=== PATIENT | female | born 1935 | race Caucasian/White ===

== ENCOUNTER 2017-01-26 19:10 | Inpatient (IN) ==
[2017-01-26] MEDS ORDERED: SODIUM CHLORIDE 0.9% 1,000 ML IV STA (19:43)
[2017-01-26] MEDS ORDERED: VANCOMYCIN INJ 1,000 MG in SODIUM CHLORIDE 0.9% 250 ML IV STA (19:46)
[2017-01-26] MEDS ORDERED: VANCOMYCIN 1,000 MG VIAL ONE (19:56)
--- NOTE | 2017-01-26 20:18 | Emergency Department Note ---
Mariza Youngblood Gwan, am scribing for, and in the presence of, Danielle Duncan DO 19:55 . IDakota Debra, DO, personally performed the services described in this documentation, ascribed by Maribell Dawkins in my presence, and it is both accurate and complete . Arrival - Arrival Chief Complaint: Altered Mental Status ED Nursing Triage Note: C/O Transfer from [place] for further evaluation of altered mental status. Unknown onset. Pt lives alone and based on report she was found altered. EMS removed a fentanyl patch and 0.4mg narcan was given with a little improvement. Pt is very altered at time of triage and is having visual hallucinations. No family is present at this time. Pt was given 500ml LR bolus , Duoneb tx x 1, Decadron 8mg IV, Vancomycin 1 gram IV, Mag Sulfate 2 grams IV, Zosyn 3.375grams IV and Solumedrol 125mg IV Mode of Arrival: Stretcher Limitations: No Limitations Source: Patient, Family (Daughter ), Old Records Reviewed, RN Notes Reviewed Time Seen by Provider: 01/26/17 19:21 - History of Present Illness HPI Narrative: Patient is a 81 y/o white female who presents to the ED for further evaluation of AMS with an unknown onset. Pt has a PMHx of HTN, CHF, cardiomyopathy, Thyroid disorder, COPD, bronchitis and pneumonia. Daughter stated that pt lives alone and when she arrived at the pt's home she found her altered and alerted EMS. Daughter continued to note that pt was having visual hallucinations and being combative. EMS confirmed that they removed a Fentanyl Patch and that they gave her 0.4mg Narcan with some improvement. Patient was originally taken to [facility], but once the family arrived pt was transferred to [place]. No other problems/concerns reported in ED. Onset (ago): hour(s) Consistency: constant Severity: moderate Date of Last Menstrual Period: PM Allergies/Adverse Reactions: Allergies Allergy/AdvReac Type Severity Reaction Status Date / Time No Known Allergies Allergy Verified 10/01/16 07:19 Home Medications: Home Medications Medication Instructions Recorded Confirmed Type Amlodipine Besylate/Benazepril 1 each PO DAILY 01/26/17 01/26/17 History [Amlodipine-Benazepril 10-40 mg] Escitalopram Oxalate 10 mg PO DAILY 01/26/17 01/26/17 History Hydrocodone/Acetaminophen [Lamar 1 each PO Q6HR 01/26/17 01/26/17 History 10-325 Tablet] Levothyroxine Tab [Synthroid Tab] 200 mcg PO DAILY@0700 01/26/17 01/26/17 History fentaNYL [Fentanyl 100 mcg/hr 1 patch TRANSDERM Q3DAY 01/26/17 01/26/17 History Patch] Review of System - Review of System ROS unobtainable: due to mental status Medical,Surgical,& Family Hx - Medical History Cardio: History of: Cardiac Dysrhythmia, CHF, Hypertension, Cardiovascular Problems (enlarged heart; cardiomyopathy) Psychological: History of: Depression Endocrine: History of: Thyroid Disorder Respiratory: History of: Bronchitis, COPD, Pneumonia Other: History of: Skin Problems (history of skin abscess left upper leg; Dr. González Jr.) No history of: HIV - Surgical History Cardiac Surgeries: Patient Denies: Femoral-Popliteal Bypass Graft, Cardiac Catheterization, Cardiac Surgery, Carotid Endarterectomy, Internal Defibrillator, Vascular Access Devices HEENT Surgeries: Patient denies: Carotid Endarterectomy - Family History Family History: Reports;: Family Hypertension (uncertain) - Social History Smoking Status: Current every day smoker Frequency of Alcohol Use: Unknown Type of Drug Use: None Exam Vital Signs: Vital Signs Temperature 100.2 F H 01/26/17 19:10 Pulse Rate 126 H 01/26/17 19:10 Respiratory Rate 24 01/26/17 19:10 Blood Pressure 171/99 01/26/17 19:10 O2 Sat by Pulse Oximetry 90 L 01/26/17 19:10 - General General appearance: alert, in no apparent distress - Head Head exam: Present: atraumatic, normocephalic - Eye Eye exam: Present: normal appearance, PERRL, EOMI - ENT ENT exam: Present: normal oropharynx, mucous membranes dry, TM's normal bilaterally, normal external ear exam - Neck Neck exam: Present: full ROM, trachea midline. Absent: tenderness - Chest Chest inspection: Present: symmetric chest wall rise. Absent: tenderness - Respiratory Respiratory exam: Present: rales (mildly), rhonchi (expiratory ), wheezes - Cardiovascular Cardiovascular exam: Present: regular rate, normal rhythm, normal heart sounds. Absent: murmur - Abdominal Exam Abdominal exam: Present: tenderness (diffuse tenderness in abdomen) - Extremities Exam Extremities exam: Present: full ROM. Absent: tenderness - Back Exam Back exam: Present: full ROM. Absent: tenderness - Neurological Exam Neurological exam: Present: alert, other (Patient is mildly confused. ) - Psychiatric Psychiatric exam: Present: other (Patient is mildly confused. ) - Skin Skin exam: Present: warm, dry, intact, normal color Results - Labs Lab Results: I have reviewed the patients labs Labs: Laboratory Tests 01/26/17 20:21 Urine pH 6.0 Ur Specific [place] 1.010 Urine Protein 30 Urine Blood Small Urine Urobilinogen < 2.0 H Urine RBC 2 Urine WBC 1 Laboratory Tests 01/26/17 20:12 Lactic Acid 1.0 - Diagnostic Findings Procedure: CT Abdomen and Pelvis: report reviewed by me (1. Loculated collection of fluid in the pelvis possibly within the vaginal canal. Clinical correlation requested. 2. Mild right basilar infiltrate/atelectasis. 3. Cardiomegaly. 4. Other findings grossly similar on the prior studies. ), CT: report reviewed by me (Head: There is diffuse atrophy with moderate patchy white matter low densities present. A small area of chronic cortical loss in the right frontoparietal region and right parietal lobe are present. Tiny area of chronic cortical loss in the right posterior parietal region present. There is a small area of chronic encephalomalacia in the anterior right basal ganglia. ) Disposition Clinical Impression: Pneumonia, Altered mental status Case discussed with: patient, patient's family Disposition: Still a Patient Condition: Stable Time of Disposition: 22:14
--- NOTE | 2017-01-26 20:29 | CT Report ---
History is altered LOC, history of lung cancer There is diffuse atrophy with moderate patchy white matter low densities present. A small area of chronic cortical loss in the right frontoparietal region and right parietal lobe are present. Tiny area of chronic cortical loss in the right posterior parietal region present. There is a small area of chronic encephalomalacia in the anterior right basal ganglia No acute hemorrhage or mass effect seen. No acute cortical stroke identified. Impression: Chronic ischemic changes described above The CT exam was performed using one or more of the following dose reduction techniques: Automated exposure control, adjustment of the mA and/or kV according to patient size, or use of iterative reconstruction technique. PROCEDURE INTERPRETED AT [facility] DEPARTMENT OF RADIOLOGY Final Report Signed by: Dr. Kaitlin Bocanegra
[2017-01-26 20:34] LABS: Apearance,Urine CLEAR (Clear); Bacteria,Urine Occasional /HPF (Few); Bilirubin,Urine Negative (Negative); Blood, Urine Small mg/dL (Negative); Glucose,Urine (UA) Negative (Negative); Ketones,Urine Negative (Negative); Nitrite,Urine Negative (Negative); Protein,Urine 30 MG/DL; RBC,Urine 2 /HPF (0-4); Urine Color Straw (Yellow); Urine Urobilinogen < 2.0 EU/DL (0.2-1.0); WBC,Urine 1 /HPF (0-6)
--- NOTE | 2017-01-26 21:52 | CT Report ---
History is abdominal pain and history of lung cancer Comparison 12/19/2016 81 Cc Omni 350 utilized There is patchy and stranding opacity in the visualized right lung base. The heart is moderately enlarged. There is a moderate hiatal hernia present. Less than 1 cm nodular area of enhancement in the right lobe of the liver is present on prior studies dating back to August 23, 2016. Contrast flow artifact in the portal vein felt to be present. No focal defects seen in the uterus plane, pancreas, or adrenals. Mild diffuse thickening in the left adrenal gland unchanged. Lobulated renal contours without to 3.5 cm right renal cysts again seen. Marked scoliosis and degenerative change in the spine present with marked ectasia of the abdominal aorta. Several up to 1.2 cm periaortic nodes grossly unchanged. Bowel is unopacified limiting visualization. Biliary system grossly similar on the prior study Pelvis: Unopacified bowel and fecal material is significantly limits visualization. Minimal diverticuli present.. A 2 x 3 cm fluid collection in the lower pelvis possibly within the vaginal canal. No significant free fluid seen in the pelvis. Urinary bladder is not well-distended. 1 cm inguinal nodes present. Chronic pelvic fractures present. Impression: 1. Loculated collection of fluid in the pelvis possibly within the vaginal canal. Clinical correlation requested. 2. Mild right basilar infiltrate/atelectasis 3. Cardiomegaly 4. Other Findings grossly similar on the prior studies The CT exam was performed using one or more of the following dose reduction techniques: Automated exposure control, adjustment of the mA and/or kV according to patient size, or use of iterative reconstruction technique. PROCEDURE INTERPRETED AT [facility] DEPARTMENT OF RADIOLOGY Final Report Signed by: Dr. Kaitlin Bocanegra
[2017-01-26] MEDS ORDERED: PIPERACILLIN/TAZOBACTAM 3,375 MG in SODIUM CHLORIDE 0.9% 100 ML IV STA (22:12)
[2017-01-26] MEDS ORDERED: LACTULOSE 20 GM/30 ML UDCUP PO PRN (22:14)
[2017-01-26] MEDS ORDERED: MYLANTA/LIDO VISC 2:1 300 ML BOTTLE SWISH/SWAL PRN (22:14)
[2017-01-26] MEDS ORDERED: MAGNESIUM HYDROXIDE SUSP 30 ML UDCUP PO PRN (22:14)
[2017-01-26] MEDS ORDERED: traMADol 50 MG TABLET PO PRN (22:14)
[2017-01-26] MEDS ORDERED: chlorproMAZINE 25 MG TABLET PO PRN (22:14)
[2017-01-26] MEDS ORDERED: MYLANTA/LIDO VISC 2:1 300 ML BOTTLE SWISH/SPIT PRN (22:14)
[2017-01-26] MEDS ORDERED: LOPERAMIDE 2 MG CAPSULE PO PRN ×2 (22:14)
[2017-01-26] MEDS ORDERED: chlorproMAZINE INJ 50 MG in SODIUM CHLORIDE 0.9% 100 ML IV PRN (22:14)
[2017-01-26] MEDS ORDERED: guaiFENesin 200 MG/10 ML UDCUP PO PRN (22:14)
[2017-01-26] MEDS ORDERED: chlorproMAZINE INJ 25 MG in SODIUM CHLORIDE 0.9% 100 ML IV PRN (22:14)
[2017-01-26] MEDS ORDERED: ACETAMINOPHEN 325 MG TABLET PO PRN (22:14)
[2017-01-26] MEDS ORDERED: PROMETHAZINE INJ 25 MG in SODIUM CHLORIDE 0.9% 50 ML IV PRN (22:14)
[2017-01-26] MEDS ORDERED: diphenhydrAMINE CAP 25 MG CAPSULE PO PRN (22:14)
[2017-01-26] MEDS ORDERED: BENZTROPINE 2 MG/2 ML AMP IV PRN (22:14)
[2017-01-26] MEDS ORDERED: PIPERACILLIN/TAZOBACTAM 3,375 MG VIAL IV ONE (22:15)
[2017-01-26] MEDS ORDERED: SODIUM CHLORIDE 0.9% 100 ML IV ONE (22:16)
[2017-01-26] MEDS: ALBUTEROL/IPRATROPIUM 3 ML NEB RESP TX SCH (23:53)
[2017-01-27 00:43] LABS: Magnesium 1.9 MG/DL (1.8-2.4); Uric Acid 4.7 MG/DL (2.6-6.0)
[2017-01-27] MEDS: SODIUM CHLORIDE 0.9% 1,000 ML IV SCH ×3 (00:43→21:21)
[2017-01-27 04:26] LABS: Basophils % 0.2 % (0.0-0.8); Hematocrit 33.8 VOL% (35.7-47.0); Hemoglobin 10.7 GM/DL (12.0-16.0); Immature Granulocytes % 2.4 %; Immature Granulocytes Absolute 0.47 #; Lymphocytes # 0.2 10*3/uL (1.4-4.0); Lymphocytes % 1.2 % (21.3-54.2); Mean Corpuscular HGB Conc 31.7 GM/DL (32-36); Mean Corpuscular Hemoglobin 31 PG (27-34); Mean Corpuscular Volume 97.1 FL (87-102); Mean Platelet Volume 9.8 FL (9.6-12.0); Monocytes # 0.6 10*3/uL (0.11-0.8); Monocytes % 3.1 % (1.7-12.7); Neutrophils # 18.6 10*3/uL (1.4-7.4); Neutrophils % 93.1 % (38.7-73.9); Platelet Count 247 T/CUMM (130-400); Red Blood Count 3.48 MC/CUMM (3.8-5.5); Red Cell Distribution Width 15.2 % (9.3-17.3)
[2017-01-27 04:54] LABS: Calcium 8.4 MG/DL (8.5-10.1); Osmolality,Calculated 288.1 MOS/KG (273-304); Potassium 3.9 MMOL/L (3.5-5.1)
[2017-01-27] MEDS: PIPERACILLIN/TAZOBACTAM 3,375 MG in SODIUM CHLORIDE 0.9% 100 ML IV SCH ×3 (05:22→21:21)
[2017-01-27 05:56] LABS: Band Neutrophils 17 % (0-10); Lymphocytes 2 % (20-55); Metamyelocytes 4 %; Segmented Neutrophils 76 % (50-85); Total Cells Counted 100
[2017-01-27 05:57] LABS: Platelet Estimate Normal
[2017-01-27] MEDS: ALBUTEROL/IPRATROPIUM 3 ML NEB RESP TX SCH ×4 (07:15→19:04)
--- NOTE | 2017-01-27 08:06 | XRay Report ---
Portable chest. Indication: Shortness of breath. Comparison: January 26, 2017. The left costophrenic angle is clipped from the exam. The cardiac silhouette is enlarged. A hiatal hernia is present. There is calcific plaque present within the aortic knob. The pulmonary vasculature is prominent. There are interstitial infiltrates bilaterally. There is worsening atelectasis at the right lung base, and a right pleural effusion is suspected. The osseous structures are stable, with demineralization and bilateral shoulder degenerative changes. Rotator cuff injury is also suggested at the right shoulder, chronic. Impression: Cardiomegaly, venous congestion and findings suggesting congestive heart failure. Worsening atelectasis at the right lung base. PROCEDURE INTERPRETED AT [facility] DEPARTMENT OF RADIOLOGY Final Report Signed by: Dr. Ilene Bocanegra
[2017-01-27] MEDS ORDERED: VANCOMYCIN (NICU) 1,000 MG in SYRINGE 1 EACH IV SCH (09:00)
--- NOTE | 2017-01-27 09:47 | EKG Report ---
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
--- NOTE | 2017-01-27 10:15 | Oncology History&Physical ---
Assessment and Plan (1) Pneumonia Status: Acute Assessment and plan: Right basilar infiltrate, low grade temps, and bandemia on CBC diff will manage as pneumonia - continue with vanco and zosyn - cultures pending - continue with IVF hydration watching volume status with history of CHF - nebs PRN - will hold steroids as patient without wheezing Current Visit: Yes (2) Abdominal pain Status: Resolved Assessment and plan: etiology unclear - CT abd/pelvis in ER with no acute pathology - pain largely resolved today - UA negative - will observe for now Current Visit: No Qualifiers: Abdominal location: periumbilical Qualified Code(s): R10.33 - Periumbilical pain (3) Altered mental status Status: Acute Assessment and plan: AMS per history in ER. - CT head negative - likely related to delirium in the setting of infection - will re-initiate fentanyl and observe for tolerance. patient has taken for years without complication Current Visit: Yes (4) JIMBO (acute kidney injury) Status: Acute Assessment and plan: continue with light hydration - will hold lisinopril for now and continue with norvasc Current Visit: Yes (5) Squamous cell carcinoma of right lung Status: Acute Assessment and plan: completed chemoradiation. will follow up outpatient for further evaluation Current Visit: No (6) COPD (chronic obstructive pulmonary disease) Status: Acute Assessment and plan: Nebs PRN - continue wtih symbicort Current Visit: No (7) Paroxysmal atrial fibrillation Status: Acute Assessment and plan: Continue with apixiban - continue with b dyllan Current Visit: No History of Present Illness Chief complaint: altered mental status History of present illness: Ms. Witt is a 81 year old female PMHx CHF, HTN, hypothyroid, COPD, and SCC of the lung per patient completed concurrent chemoradiation about a month ago presented with altered mental status of unknown duration and visual hallucinations per ER records. Patient initially presented to [place] and was given narcan and removal of a fentanyl patch. Family requested transfer to [place]. In ER patient had a negative CT head. Per patient she started to have severe LUQ/flank pain starting on 01/26 suddenly and was unbearable and this is why she called EMS. She denies change in breathing. Refers phlegm. No fevers. No dysuria. Pain left flank improved significantly today. Refers poor PO intake but has been eating. No wheezing. No N/V/D. Patient unaware of if presented with AMS. This has resolved by today. States has been on fentanyl patch for years without complication and no recent change. Home Medications Medication Instructions Recorded Confirmed Type Amlodipine Besylate/Benazepril 1 each PO DAILY 01/26/17 01/26/17 History [Amlodipine-Benazepril 10-40 mg] Apixaban [Eliquis] 5 mg PO BID 01/26/17 01/26/17 History Budesonide/Formoterol 160-4.5 2 puffs INH BID 01/26/17 01/26/17 History [Symbicort 160-4.5] Escitalopram Oxalate 10 mg PO DAILY 01/26/17 01/26/17 History Furosemide Tab [Lasix Tab] 1 tablet PO DAILY 01/26/17 01/26/17 History Hydrocodone/Acetaminophen [Custer 1 each PO Q6HR 01/26/17 01/26/17 History 10-325 Tablet] Levothyroxine Tab [Synthroid Tab] 200 mcg PO DAILY@0700 01/26/17 01/26/17 History Sotalol HCl [Sotalol AF] 1 tablet PO BID 01/26/17 01/26/17 History dilTIAZem HCl [Cartia XT] 1 tablet PO DAILY 01/26/17 01/26/17 History fentaNYL [Fentanyl 100 mcg/hr 1 patch TRANSDERM Q48H 01/26/17 01/26/17 History Patch] Allergies Allergy/AdvReac Type Severity Reaction Status Date / Time No Known Allergies Allergy Verified 10/01/16 07:19 Medical,Surgical,& Family Hx - Medical History Cardio: History of: Cardiac Dysrhythmia, CHF, Hypertension, Cardiovascular Problems (enlarged heart; cardiomyopathy) Psychological: History of: Depression Endocrine: History of: Thyroid Disorder Rheumatology: History of;: Rheumatoid Arthritis Respiratory: History of: Bronchitis, COPD, Pneumonia Other: History of: Skin Problems (history of skin abscess left upper leg; Dr. González Jr.) No history of: HIV - Surgical History Cardiac Surgeries: Patient Denies: Femoral-Popliteal Bypass Graft, Cardiac Catheterization, Cardiac Surgery, Carotid Endarterectomy, Internal Defibrillator, Vascular Access Devices HEENT Surgeries: Patient denies: Carotid Endarterectomy - Family History Family History: Reports;: Family Hypertension (uncertain) - Social History Smoking Status: Current every day smoker Frequency of Alcohol Use: Unknown Type of Drug Use: None - Constitutional Constitutional: Absent: fever(s), weakness - EENT Eye: Absent: blurry vision Nose, mouth and throat: Absent: dizziness, vertigo - Cardiovascular Cardiovascular ROS IM: Absent: chest pain, edema, orthopnea - Respiratory Respiratory: Present: cough. Absent: dyspnea, hemoptysis, wheezing - Gastrointestinal Gastrointestinal: Present: abdominal pain (LUQ/flank pain). Absent: constipation, diarrhea, dysphagia, hematemesis, hematochezia, loose stools, melena, nausea, vomiting - Genitourinary Genitourinary ROS female: Present: flank pain. Absent: difficulty urinating, dysuria, hematuria - Musculoskeletal Musculoskeletal ROS: Absent: back pain - Neurological Neurological ROS: Present: as per HPI. Absent: abnormal gait, dizziness - Psychiatric Psychiatric General: Absent: anxiety - Hematologic/Lymphatic Hematologic/Lymphatic: Absent: easy bleeding Exam - Constitutional Vitals: Period Temp Pulse Resp BP Sys/Wilcox Pulse Ox Last 24 Hr 98.8 F-100.2 F 99-126 16-24 129-177/82-117 90-98 General appearance: no acute distress - Eye Eye Exam: Present: EOMI Pupils: Present: PERRL - Respiratory Respiratory exam: Present: decreased breath sounds - Cardiovascular Cardiovascular exam: Present: RRR - GI/Abdominal GI/Abdominal exam: Present: tenderness (mild tenderness palpation left flank). Absent: ascites, distended, guarding, mass - Extremities Exam Extremities exam: Absent: edema - Neurological Exam Neurological exam: Present: alert, oriented X3 - Psychiatric Psychiatric exam: Present: normal affect - Skin Skin exam: Present: warm Results - Labs CBC & BMP: 01/27/17 02:36 01/27/17 02:36
[2017-01-27] MEDS: fentaNYL 100 MCG/HR PATCH TRANSDERM SCH (11:24)
[2017-01-27] MEDS: ALPRAZolam 0.25 MG TABLET PO PRN ×2 (13:31→21:05)
[2017-01-27] MEDS ORDERED: VANCOMYCIN INJ 750 MG in SODIUM CHLORIDE 0.9% 250 ML IV SCH (21:00)
[2017-01-27] MEDS: APIXABAN 5 MG TABLET PO SCH (21:04)
[2017-01-27] MEDS: SOTALOL 80 MG TABLET PO SCH (21:04)
[2017-01-27] MEDS: BUDESONIDE/FORMOTEROL 160-4.5 INHALER 6 GM INH SCH (21:05)
[2017-01-28] MEDS: ALBUTEROL/IPRATROPIUM 3 ML NEB RESP TX SCH ×2 (00:22→08:06)
[2017-01-28] MEDS: SODIUM CHLORIDE 0.9% 1,000 ML IV SCH ×2 (02:14→18:20)
[2017-01-28 06:25] LABS: Basophils % 0.1 % (0.0-0.8); Hematocrit 33.7 VOL% (35.7-47.0); Hemoglobin 10.7 GM/DL (12.0-16.0); Immature Granulocytes % 1.8 %; Immature Granulocytes Absolute 0.34 #; Lymphocytes # 0.4 10*3/uL (1.4-4.0); Lymphocytes % 2.1 % (21.3-54.2); Mean Corpuscular HGB Conc 31.8 GM/DL (32-36); Mean Corpuscular Hemoglobin 31 PG (27-34); Mean Corpuscular Volume 97.1 FL (87-102); Mean Platelet Volume 9.9 FL (9.6-12.0); Monocytes # 0.8 10*3/uL (0.11-0.8); Monocytes % 4.5 % (1.7-12.7); Neutrophils # 16.9 10*3/uL (1.4-7.4); Neutrophils % 91.5 % (38.7-73.9); Platelet Count 280 T/CUMM (130-400); Red Blood Count 3.47 MC/CUMM (3.8-5.5); Red Cell Distribution Width 15.3 % (9.3-17.3); White Blood Count 18.5 T/CUMM (4-12)
[2017-01-28] MEDS: LEVOTHYROXINE 200 MCG TABLET PO SCH (06:25)
[2017-01-28] MEDS: PIPERACILLIN/TAZOBACTAM 3,375 MG in SODIUM CHLORIDE 0.9% 100 ML IV SCH (06:26)
[2017-01-28 07:00] LABS: Albumin 2.6 G/DL (3.4-5.0); Bilirubin,Total 0.6 MG/DL (0.2-1.0); Calcium 8.3 MG/DL (8.5-10.1); Osmolality,Calculated 286.4 MOS/KG (273-304); Potassium 4.7 MMOL/L (3.5-5.1); Total Protein 5.8 G/DL (6.4-8.3)
[2017-01-28 07:03] LABS: Band Neutrophils 6 % (0-10); Lymphocytes 2 % (20-55); Nucleated Red Blood Cells 1 (0-5); Segmented Neutrophils 88 % (50-85); Total Cells Counted 100
[2017-01-28 07:04] LABS: Hypochromasia Slight
[2017-01-28 07:05] LABS: Microcytosis Slight; Platelet Estimate Normal
[2017-01-28] MEDS: APIXABAN 5 MG TABLET PO SCH ×2 (08:02→21:12)
[2017-01-28] MEDS: ALPRAZolam 0.25 MG TABLET PO PRN (08:02)
[2017-01-28] MEDS: SOTALOL 80 MG TABLET PO SCH ×2 (08:02→21:12)
[2017-01-28] MEDS: DILTIAZEM CD 180 MG CAPSULE PO SCH (08:03)
[2017-01-28] MEDS: amLODIPine 10 MG TABLET PO SCH (08:03)
[2017-01-28] MEDS: ESCITALOPRAM 10 MG TABLET PO SCH (08:03)
[2017-01-28] MEDS: BUDESONIDE/FORMOTEROL 160-4.5 INHALER 6 GM INH SCH ×2 (08:04→21:14)
--- NOTE | 2017-01-28 08:34 | Oncology Progress Note ---
Oncology Subjective PN Interval history: (1) Pneumonia Status: Acute Assessment and plan: Right basilar infiltrate, low grade temps, and bandemia on CBC diff will manage as pneumonia - continue with vanco and switch to [place]. - cultures pending - continue with IVF hydration watching volume status with history of CHF - nebs PRN - will hold steroids as patient without wheezing Current Visit: Yes (2) Abdominal pain Status: Resolved Assessment and plan: etiology unclear - CT abd/pelvis in ER with no acute pathology - pain largely resolved today - UA negative -This may represent diverticulitis but she has had no constipation, nausea or vomiting. I do not think this is related to her lung cancer. It is in the left flank. I do not think this is kidney stones. (3) Altered mental status Status: Acute Assessment and plan: AMS per history in ER. - CT head negative - likely related to delirium in the setting of infection -Her delirium and altered mentis state have improved. Current Visit: Yes (4) JIMBO (acute kidney injury) Status: Acute Assessment and plan: continue with light hydration as well as IV antibiotics. - will hold lisinopril for now and continue with norvasc Current Visit: Yes (5) Squamous cell carcinoma of right lung Status: Acute Assessment and plan: completed chemoradiation. The current tests being done will help us reevaluate this. Also, I am consulting Dr. Lawson for her COPD and her lung cancer. Current Visit: No (6) COPD (chronic obstructive pulmonary disease) Status: Acute Assessment and plan: Consult Dr. Lawson for his opinion. (7) Paroxysmal atrial fibrillation Status: Acute Assessment and plan: Continue with apixiban - continue with b dyllan Exam - Constitutional Vitals: Period Temp Pulse Resp BP Sys/Wilcox Pulse Ox Last 24 Hr 96.9 F-98.7 F 57-116 16-22 139-159/82-100 95-99 Results - Labs CBC & BMP: 01/28/17 04:42 01/28/17 04:42
--- NOTE | 2017-01-28 09:20 | Physician Query Form ---
CLICK EDIT DOCUMENT TO SELECT QUERY ANSWER --> OK --> SIGN Nella Rojas RN, CCDS Certified Clinical Labor Mediator W) [phone] (f) [phone] [email or web address] PROVIDERS: Make your selection(s) from the choices in EACH section by typing an "x" and enter comments in the comment section. Please use your independent medical judgment in providing your response. This request does not imply that any particular answer is desired or expected. CLINICAL INDICATORS: (Providers should not edit this section) The medical record indicates that the patient was admitted with pneumonia, AMS, "CT of head negative"----"likely related to delirium in the setting of infection ". ACUITY: ( x) Acute ( ) Acute on Chronic ( ) Chronic ( ) Clinically unable to determine NATURE: (x ) Delirium due to general medical condition ( ) Dementia ( ) Encephalopathy ( ) Acute infectious Encephalopathy ( ) Unconscious ( ) Transient level of awareness ( ) Comatose ( ) Locked-in State ( ) Persistent Vegetative State ( ) Other, please specify: ( ) Clinically unable to determine Please indicate the underlying cause of the altered mental status (CHECK ALL THAT APPLY): ( ) Baseline dementia ( ) Alzheimer's disease ( ) Parkinson's disease ( ) Lewy body dementia ( ) Acute stroke ( ) Late effect of stroke ( ) Reactive (from emotional stress, psychological trauma) ( ) Due to narcotics/other drugs ( ) Post procedural delirium ( ) Transient ischemic attack ( ) Generalized cerebral edema ( ) Normal pressure hydrocephalus ( ) Psychiatric illness ( ) Other, please specify: ( x) Clinically unable to determine Please indicate if there is an infection, sepsis, dehydration or specific organ failure that is causing the dementia. Be specific with clarifying the relationship between that process and the mental status change. COMMENTS: PLEASE ALSO DOCUMENT RESPONSE IN PROGRESS NOTES AND/OR DISCHARGE SUMMARY Use of terms such as suspected, likely, or probable (associated with a specific diagnosis that is being evaluated, monitored, or treated as if it exists) are acceptable and can be restated in the discharge summary if not ruled out. MTDD
--- NOTE | 2017-01-28 09:21 | Physician Query Form ---
CLICK EDIT DOCUMENT TO SELECT QUERY ANSWER --> OK --> SIGN Nella Rojas RN, CCDS Certified Clinical Senior Financial Reporting Accountant W) [phone] (f) [phone] [email or web address] PROVIDERS: Make your selection(s) from the choices in EACH section by typing an "x" and enter comments in the comment section. Please use your independent medical judgment in providing your response. This request does not imply that any particular answer is desired or expected. CLINICAL INDICATORS: (Providers should not edit this section) The medical record indicates that the patient was admitted with pneumonia, AMS, WBC of 20.0, 17 Bands, Pulse of 126#, Resp of 24# and the patient was treated with Vancomycin/ Zosyn. Please clarify which, if any, of the following is the etiology of the above symptoms and treatment rendered: ( ) Sepsis due to a localized infection, please specify infection: ( ) Severe Sepsis (sepsis with acute organ failure) - Please specify type acute organ failure: ( ) Septic Shock (severe sepsis with hypotension) ( ) SIRS of noninfectious origin ( ) Sepsis due to a device, implant or graft, please specify: ( ) Localized infection only, without systemic illness, please specify infection : ( ) Bacteremia (abnormal lab finding only, does not indicate systemic illness) ( ) Other condition, please specify: ( x) Clinically unable to determine Criteria for Sepsis (SIRS due to an infection) should be based on 2 or more of the following being present: Temperature > 101F or < 96.8F WBC > 12,000 or < 4,000, or > 10% bands Tachycardia HR > 90 beats/minute Tachypnea RR > 20 breaths/minute or PaCO2 > 32mmHg Lactate level > 2.0 mmol/L (>4 is equivalent to severe sepsis) Altered Mental Status Mottling of skin or prolonged capillary refill Non-diabetic hyperglycemia (blood sugar >120 mg/dl) Other evidence of acute organ failure associated with sepsis ( severe sepsis) COMMENTS: PLEASE ALSO DOCUMENT RESPONSE IN PROGRESS NOTES AND/OR DISCHARGE SUMMARY Use of terms such as suspected, likely, or probable (associated with a specific diagnosis that is being evaluated, monitored, or treated as if it exists) are acceptable and can be restated in the discharge summary if not ruled out. MTDD
[2017-01-28] MEDS: MEROPENEM 1,000 MG in SODIUM CHLORIDE 0.9% 100 ML IV SCH ×2 (09:45→22:04)
--- NOTE | 2017-01-28 10:20 | Pulmonology Consult Note ---
Assessment and Plan (1) Acute bronchitis Status: Acute Assessment and plan: I do hear some bronchospasm. She needs steroids along with antibiotics and bronchodilators. Current Visit: Yes (2) Pneumonia Status: Acute Assessment and plan: Being treated empirically for right lower lobe pneumonia. This is the location where her cancer was previously. I think it would be worthwhile to reevaluate the bronchoscopy once she is doing a little better. Current Visit: Yes (3) COPD (chronic obstructive pulmonary disease) Status: Acute Assessment and plan: Continuing with bronchodilator steroids antibiotics Current Visit: No (4) Squamous cell carcinoma of right lung Status: Acute Assessment and plan: Diagnosed with bronchoscopy May 2016. She had almost complete obstruction of the right middle and lower lobes at that time. Good response to chemotherapy and radiation. However I do hear a localized wheeze there. Will need reevaluation with bronchoscopy in couple of days. Current Visit: No (5) Abdominal pain Status: Resolved Assessment and plan: Sharp left upper quadrant abdominal pain. Unclear etiology for this. Current Visit: No Qualifiers: Abdominal location: periumbilical Qualified Code(s): R10.33 - Periumbilical pain History of Present Illness Chief complaint: Left upper quadrant abdominal pain History of present illness: Ms. Witt is a 81 year old female who I saw in months ago for right lower lobe lung mass. Bronchoscopy showed that she had a squamous cell lung cancer obstructing both the right middle and lower lobes. She has subsequently had chemotherapy and radiation with good results. She also has COPD. She came in over the weekend with some acute left upper quadrant abdominal pain. She had elevated bands in her white blood cell counts. She has a localized wheeze in the right lower lobe. She does have an infiltrate in the right lower lobe on chest x-ray. She is being empirically treated for pneumonia. Probably an exacerbation of COPD. However she really denies any change in her respiratory symptoms. She does have a chronic cough and coughs up phlegm each morning. I would be concerned about the localized wheeze in the right lower lobe. Likely will need to take a look with a bronchoscope when she is doing a little better. The left upper quadrant abdominal pain may not be related to her lung symptoms. Home Medications Medication Instructions Recorded Confirmed Type Amlodipine Besylate/Benazepril 1 each PO DAILY 01/26/17 01/26/17 History [Amlodipine-Benazepril 10-40 mg] Apixaban [Eliquis] 5 mg PO BID 01/26/17 01/26/17 History Budesonide/Formoterol 160-4.5 2 puffs INH BID 01/26/17 01/26/17 History [Symbicort 160-4.5] Escitalopram Oxalate 10 mg PO DAILY 01/26/17 01/26/17 History Furosemide Tab [Lasix Tab] 1 tablet PO DAILY 01/26/17 01/26/17 History Hydrocodone/Acetaminophen [Reedy 1 each PO Q6HR 01/26/17 01/26/17 History 10-325 Tablet] Levothyroxine Tab [Synthroid Tab] 200 mcg PO DAILY@0700 01/26/17 01/26/17 History Sotalol HCl [Sotalol AF] 1 tablet PO BID 01/26/17 01/26/17 History dilTIAZem HCl [Cartia XT] 1 tablet PO DAILY 01/26/17 01/26/17 History fentaNYL [Fentanyl 100 mcg/hr 1 patch TRANSDERM Q48H 01/26/17 01/26/17 History Patch] Allergies Allergy/AdvReac Type Severity Reaction Status Date / Time No Known Allergies Allergy Verified 10/01/16 07:19 12 point system: reviewed and no additional remarkable complaints except as stated - Constitutional Constitutional: Present: weakness - Cardiovascular Cardiovascular: Present: dyspnea on exertion - Respiratory Respiratory: Present: cough, dyspnea, dyspnea on exertion, wheezing - Gastrointestinal Gastrointestinal: Present: abdominal pain (Left upper quadrant sharp pain) Exam (Pulmonay) H&P - Constitutional Vitals: Period Temp Pulse Resp BP Sys/Wilcox Pulse Ox Last 24 Hr 96.9 F-98.7 F 56-116 16-22 139-159/82-100 95-99 Exam: Patient is alert and oriented. Vital signs normal. Pupils react to light. Throat is clear. Neck supple no bruits. Chest reveals a localized wheeze in the right lower lobe. Prolonged expiratory phase. Heart shows the PMI displaced to the left no murmurs. Normal rhythm. Abdomen soft nontender no masses. Extremities no clubbing cyanosis or edema. Calves nontender. Medical,Surgical,& Family Hx - Medical History Cardio: History of: Cardiac Dysrhythmia, CHF, Hypertension, Cardiovascular Problems (enlarged heart; cardiomyopathy) Psychological: History of: Depression Endocrine: History of: Thyroid Disorder Rheumatology: History of;: Rheumatoid Arthritis Respiratory: History of: Bronchitis, COPD, Pneumonia Other: History of: Skin Problems (history of skin abscess left upper leg; Dr. González Jr.) No history of: HIV - Surgical History Cardiac Surgeries: Patient Denies: Femoral-Popliteal Bypass Graft, Cardiac Catheterization, Cardiac Surgery, Carotid Endarterectomy, Internal Defibrillator, Vascular Access Devices HEENT Surgeries: Patient denies: Carotid Endarterectomy - Family History Family History: Reports;: Family Hypertension (uncertain) - Social History Smoking Status: Current every day smoker Frequency of Alcohol Use: Unknown Type of Drug Use: None Results - Labs CBC & BMP: 01/28/17 04:42 01/28/17 04:42 Lab Results: I have reviewed the past 24 hour labs - Diagnostic Findings Procedure: Chest x-ray: image reviewed by me (Cardiomegaly, right basilar infiltrate)
[2017-01-28] MEDS: methylPREDNISolone SOD SUC 40 MG/1 ML VIAL IV SCH ×2 (10:32→22:50)
[2017-01-28] MEDS ORDERED: VANCOMYCIN INJ 750 MG in SODIUM CHLORIDE 0.9% 250 ML IV SCH (22:00)
[2017-01-29] MEDS: ALBUTEROL/IPRATROPIUM 3 ML NEB RESP TX SCH ×5 (01:23→18:59)
[2017-01-29] MEDS: LEVOTHYROXINE 200 MCG TABLET PO SCH (06:32)
--- NOTE | 2017-01-29 07:53 | Oncology Progress Note ---
Oncology Subjective PN Interval history: Ms. Witt has severe COPD and has also been on palliative chemotherapy for squamous cell carcinoma of the lung. Basically she is not a surgical candidate because of severe COPD as well as the fact that she has stage III B disease. She has had a good response to chemotherapy treatment. However, she has had problems with COPD and with infections. Yesterday she complained of left flank pain that was present on admission but had improved by yesterday morning. She also has evidence of pneumonia and I agree with Dr. Lawson, we need to reassess her tumor primary. She was initially diagnosed as having squamous cell carcinoma of the right hilum with mediastinal involvement which was felt to be stage III B and unresectable for that reason as well as because of the fact that she had severe COPD. She still complains of left flank pain today but tells me that it has improved significantly. It is difficult for me to determine why this pain is present. Interestingly, she is having no right chest pain. We are continuing IV antibiotics and monitoring for toxicity while reevaluating the patient's lung cancer. Exam - Constitutional Vitals: Period Temp Pulse Resp BP Sys/Wilcox Pulse Ox Last 24 Hr 96.2 F-98.7 F 56-110 16-20 125-162/80-94 92-98 Results - Labs CBC & BMP: 01/28/17 04:42 01/28/17 04:42
--- NOTE | 2017-01-29 08:34 | Pulmonology Progress Note ---
Pulmonary - PN: Subj Interval history: This 81-year-old lady came in with abdominal pain on the left side and was found to have a right lower lobe pneumonia. She has a history of lung cancer and has had radiation and chemotherapy. She has an abnormality of the bottom of the right lung where she previously had the lung cancer. I plan to do a bronchoscope to evaluate that when we can get her tuned up. She still having some cough congestion probable pneumonia. A BNP was done and was elevated at over 2000. Will evaluate with echocardiogram. She does have atrial fibrillation. She has been on Eliquis. This will be held until the bronchoscope can be done on . Exam (Progress Note) - Constitutional Vitals: Period Temp Pulse Resp BP Sys/Wilcox Pulse Ox Last 24 Hr 96.2 F-98.7 F 66-110 18-20 125-162/80-94 92-98 Exam: Patient's alert oriented sitting up in bed. Vital signs normal. Pupils react to light. Throat is clear. Neck supple no bruits. Chest reveals some scattered rhonchi and basilar crackles. Heart irregular without murmur. Abdomen soft nontender no masses. Extremities no clubbing cyanosis edema. Calves nontender. Results - Labs CBC & BMP: 01/28/17 04:42 01/28/17 04:42 Lab Results: I have reviewed the past 24 hour labs Labs: BNP 2141 Assessment and Plan (1) Acute bronchitis Status: Acute Assessment and plan: I do hear some bronchospasm. She needs steroids along with antibiotics and bronchodilators. 01/29/2017 continuing bronchodilators and antibiotics and steroids. Current Visit: Yes (2) Pneumonia Status: Acute Assessment and plan: Being treated empirically for right lower lobe pneumonia. This is the location where her cancer was previously. I think it would be worthwhile to reevaluate the bronchoscopy once she is doing a little better. 01/29/2017 as a bronchopneumonia at the right base. There could be an element of congestive heart failure as well given her elevated BNP. Check an echocardiogram Current Visit: Yes (3) COPD (chronic obstructive pulmonary disease) Status: Acute Assessment and plan: Continuing with bronchodilator steroids antibiotics 01/29/2017 on appropriate meds for this. Current Visit: No (4) Squamous cell carcinoma of right lung Status: Acute Assessment and plan: Diagnosed with bronchoscopy May 2016. She had almost complete obstruction of the right middle and lower lobes at that time. Good response to chemotherapy and radiation. However I do hear a localized wheeze there. Will need reevaluation with bronchoscopy in couple of days. 01/29/2017 she has had radiation and chemotherapy. Mass was in the right lower lobe originally with obstruction. Plan bronchoscopy on when she is clinically improved. She does have a localized wheeze over the right lower lobe Current Visit: No (5) Abdominal pain Status: Resolved Assessment and plan: Sharp left upper quadrant abdominal pain. Unclear etiology for this. 01/29/2017 this has subsided. Current Visit: No Qualifiers: Abdominal location: periumbilical Qualified Code(s): R10.33 - Periumbilical pain
[2017-01-29] MEDS: SOTALOL 80 MG TABLET PO SCH ×2 (09:06→20:41)
[2017-01-29] MEDS: amLODIPine 10 MG TABLET PO SCH (09:07)
[2017-01-29] MEDS: ESCITALOPRAM 10 MG TABLET PO SCH (09:07)
[2017-01-29] MEDS: DILTIAZEM CD 180 MG CAPSULE PO SCH (09:08)
[2017-01-29] MEDS: MEROPENEM 1,000 MG in SODIUM CHLORIDE 0.9% 100 ML IV SCH ×2 (09:22→22:22)
[2017-01-29] MEDS: SODIUM CHLORIDE 0.9% 1,000 ML IV SCH (09:23)
[2017-01-29 09:25] LABS: Basophils % 0.1 % (0.0-0.8); Hematocrit 36.4 VOL% (35.7-47.0); Hemoglobin 11.3 GM/DL (12.0-16.0); Immature Granulocytes % 1.7 %; Immature Granulocytes Absolute 0.23 #; Lymphocytes # 0.2 10*3/uL (1.4-4.0); Lymphocytes % 1.8 % (21.3-54.2); Mean Corpuscular Hemoglobin 30 PG (27-34); Mean Corpuscular Volume 96.8 FL (87-102); Mean Platelet Volume 9.9 FL (9.6-12.0); Monocytes # 0.2 10*3/uL (0.11-0.8); Monocytes % 1.6 % (1.7-12.7); Neutrophils # 12.6 10*3/uL (1.4-7.4); Neutrophils % 94.8 % (38.7-73.9); Platelet Count 299 T/CUMM (130-400); Red Blood Count 3.76 MC/CUMM (3.8-5.5); Red Cell Distribution Width 14.9 % (9.3-17.3); White Blood Count 13.3 T/CUMM (4-12)
[2017-01-29 09:28] LABS: INR 1.1; PT Patient Result 11.8 SECS
[2017-01-29] MEDS: BUDESONIDE/FORMOTEROL 160-4.5 INHALER 6 GM INH SCH ×2 (09:33→20:41)
[2017-01-29 10:02] LABS: Bilirubin,Total 0.4 MG/DL (0.2-1.0); Calcium 8.9 MG/DL (8.5-10.1); Osmolality,Calculated 291.3 MOS/KG (273-304); Potassium 4.6 MMOL/L (3.5-5.1); Total Protein 6.4 G/DL (6.4-8.3)
[2017-01-29 10:07] LABS: Band Neutrophils 1 % (0-10); Burr Cells Slight; Hypochromasia 1+; Lymphocytes 1 % (20-55); Segmented Neutrophils 97 % (50-85); Total Cells Counted 100
[2017-01-29 10:08] LABS: Macrocytosis Slight; Platelet Estimate Normal
[2017-01-29] MEDS: methylPREDNISolone SOD SUC 40 MG/1 ML VIAL IV SCH ×2 (10:33→23:06)
[2017-01-29] MEDS: fentaNYL 100 MCG/HR PATCH TRANSDERM SCH (10:34)
[2017-01-29] MEDS: VANCOMYCIN INJ 1,000 MG in SODIUM CHLORIDE 0.9% 250 ML IV SCH ×2 (10:45→20:42)
--- NOTE | 2017-01-29 18:51 | ECHO Report ---
Suri Witt Exam Date: 01/29/2017 09:40 Referring Physician: Technologist: Winsome Dhaliwal Age: 81 Ht (in): 62 Wt (lb): 118 Gender: F Exam Location: [facility] Echo Indications: COPD, CHF, elevatted BNP, altered mental status, pneumonia BP: 161 / 87 HR: 73 Rhythm: Rhythm is not clear possible atrial fibrillation Technical Quality: IMPRESSIONS 1. Patient's rhythm appears to possibly be atrial fibrillation. 2. Left ventricle is normal size and systolic function ejection fraction 55%. There is moderate concentric left ventricular hypertrophy. 3. Right atrium is probably moderately dilated. 4. Left atrium is moderate to severely dilated. 5. Mitral valve is mildly sclerotic with mitral annual calcification. Mild to moderate mitral valve regurgitation. 6. Aortic valve is tricuspid structure sclerotic without significant stenosis or insufficiency present. 7. Moderate tricuspid valve regurgitation. 8. Mild elevated right-sided pressures. MEASUREMENTS (Male / Female) Normal Values 2D ECHO LV Diastolic Diameter PLAX 4.7 cm 4.2 - 5.9 / 3.9 - 5.3 cm LV Systolic Diameter PLAX 3.8 cm LV Fractional Shortening PLAX 20.3 % IVS Diastolic Thickness 1.5 cm 0.6 - 1.0 / 0.6 - 0.9 cm LVPW Diastolic Thickness 1.3 cm 0.6 - 1.0 / 0.6 - 0.9 cm RV Internal Dim ED PLAX 2.3 cm Aortic Root Diameter 3.1 cm LA Systolic Diameter LX 5.3 cm 3.0 - 4.0 / 2.7 - 3.8 cm DOPPLER TR Peak Velocity 282.0 cm/s TR Peak Gradient 31.8 mmHg FINDINGS Left Ventricle Left ventricle is normal size with normal systolic function and ejection fraction of at least 55%. There is moderate concentric left ventricular hypertrophy. Right Ventricle Normal right ventricular size. Right Atrium Moderately increased right atrial size. Left Atrium Moderate to severely increased left atrial diameter. Mitral Valve Mild mitral valve sclerosis. There is minimal mitral annular calcification. Mild-moderate mitral valve regurgitation. Aortic Valve Aortic valve is probably tricuspid structure slightly sclerotic but with good excursion. No evidence for significant aortic stenosis or insufficiency. Tricuspid Valve Morphologically normal tricuspid valve. Moderate tricuspid valve regurgitation. Tricuspid regurgitation velocities suggest a PAP of 42 mmHg. Pulmonic Valve Pulmonic valve not well visualized. Pericardium No pericardial effusion. Aorta Normal size aortic root and proximal ascending aorta. Erasto Reyez MD (Electronically Signed) Final Date: 29 January 2017 18:49
[2017-01-30] MEDS: ALBUTEROL/IPRATROPIUM 3 ML NEB RESP TX SCH ×4 (01:52→19:26)
[2017-01-30 05:45] LABS: Basophils % 0.1 % (0.0-0.8); Hematocrit 35.1 VOL% (35.7-47.0); Immature Granulocytes % 1.7 %; Lymphocytes # 0.3 10*3/uL (1.4-4.0); Lymphocytes % 2.2 % (21.3-54.2); Mean Corpuscular HGB Conc 31.3 GM/DL (32-36); Mean Corpuscular Hemoglobin 30 PG (27-34); Monocytes # 0.2 10*3/uL (0.11-0.8); Neutrophils # 11.1 10*3/uL (1.4-7.4); Platelet Count 306 T/CUMM (130-400); Red Blood Count 3.62 MC/CUMM (3.8-5.5); Red Cell Distribution Width 14.8 % (9.3-17.3); White Blood Count 11.8 T/CUMM (4-12)
[2017-01-30 06:10] LABS: Band Neutrophils 2 % (0-10); Lymphocytes 5 % (20-55); Platelet Estimate Adequate; Segmented Neutrophils 92 % (50-85); Total Cells Counted 100
[2017-01-30 06:11] LABS: Burr Cells Slight; Hypochromasia Slight; Microcytosis Slight
[2017-01-30 06:23] LABS: Albumin 2.8 G/DL (3.4-5.0); Bilirubin,Total 0.7 MG/DL (0.2-1.0); Calcium 8.8 MG/DL (8.5-10.1); Osmolality,Calculated 292.1 MOS/KG (273-304); Potassium 4.7 MMOL/L (3.5-5.1); Total Protein 6.1 G/DL (6.4-8.3)
[2017-01-30] MEDS: LEVOTHYROXINE 200 MCG TABLET PO SCH ×2 (06:25→10:35)
--- NOTE | 2017-01-30 07:13 | Oncology Progress Note ---
Oncology Subjective PN Interval history: Ms. Witt was admitted with abdominal, left flank and lower left chest pain and apparently has pneumonia involving the right lung as well. She Has undergone FOB Dr. Lawson has performed bronchoscopy this morning. She has distortion of her bronchi but no endobronchial lesions were found. Brushings were performed and will await the results. She is mildly anemic. We will continue monitoring this. She has been on chemotherapy for non-small cell lung cancer and it is currently being held. (3) Altered mental status Status: Acute Assessment and plan: AMS per history in ER. - CT head negative - likely related to delirium in the setting of infection -Her delirium and altered mentis state have improved. However, she still having some confusion. Current Visit: Yes (4) JIMBO (acute kidney injury) Status: Acute Assessment and plan: continue with light hydration as well as IV antibiotics. - will hold lisinopril for now and continue with norvasc Current Visit: Yes (5) Squamous cell carcinoma of right lung Status: Acute Assessment and plan: completed chemoradiation. The current tests being done will help us reevaluate this. Altered mental status Status: Acute Assessment and plan: AMS per history in ER. - CT head negative likely related to delirium in the setting of infectionHer delirium and altered mentis state have improved. Current Visit: Yes JIMBO (acute kidney injury) Status: Acute Assessment and plan: continue with light hydration as well as IV antibiotics. holding lisinopril for now and continue with norvasc Renal function today is stable with a serum creatinine of 1.3. Her serum potassium is normal at 4.7. MRSA sepsis: Blood cultures have just been reported as positive for MRSA. The cultures were done on January 27 and sensitivities have not been reported yet. I am starting her on Zyvox today and discontinuing vancomycin because of her modest but stable elevation of serum creatinine. Exam - Constitutional Vitals: Period Temp Pulse Resp BP Sys/Wilcox Pulse Ox Last 24 Hr 97.4 F-98.9 F 50-114 16-20 129-176/68-84 94-99 Results - Labs CBC & BMP: 01/30/17 04:41 01/30/17 04:41
[2017-01-30] MEDS ORDERED: MIDAZOLAM 2 MG/2 ML VIAL ONE ×2 (07:15→07:16)
[2017-01-30] MEDS ORDERED: MIDAZOLAM 10 MG/2 ML VIAL IV ONE (07:30)
[2017-01-30] MEDS ORDERED: LIDOCAINE 1% 20 ML VIAL MISC INJ ONE (07:30)
--- NOTE | 2017-01-30 08:00 | Pulmonology Progress Note ---
Pulmonary - PN: Subj Interval history: This 81-year-old lady came in with abdominal pain on the left side and was found to have a right lower lobe pneumonia. She has a history of lung cancer and has had radiation and chemotherapy. She has an abnormality of the bottom of the right lung where she previously had the lung cancer. I plan to do a bronchoscope to evaluate that when we can get her tuned up. She still having some cough congestion probable pneumonia. A BNP was done and was elevated at over 2000. Will evaluate with echocardiogram. She does have atrial fibrillation. She has been on Eliquis. This will be held until the bronchoscope can be done on . 01/30/2017 patient has left ventricular hypertrophy and mild pulmonary hypertension. This probably is the cause of the elevated BNP. I do think she has some mild congestive heart failure. We proceeded with her bronchoscope this morning. She has some swelling and narrowing of orifices in the right middle and lower lobe. No endobronchial tumor. This is a marked improvement compared to her bronchoscopy last fall. She had total obstruction of the bronchus intermedius at that time. She has had a good response to radiation/ chemotherapy. She did have a good bit of thick secretions and apparently has a difficult time clearing of secretions. We need to continue treating her with antibiotics bronchodilator steroids and mucolytics. Exam (Progress Note) - Constitutional Vitals: Period Temp Pulse Resp BP Sys/Wilcox Pulse Ox Last 24 Hr 97.4 F-98.9 F 50-115 10-20 129-184/68-133 91-99 Exam: Patient's alert oriented. Vital signs normal. Pupils react to light. Throat is clear. Neck supple no bruits. Chest reveals some scattered rhonchi and basilar crackles. Heart irregular without murmur. Abdomen soft nontender no masses. Extremities no clubbing cyanosis edema. Calves nontender. Results - Labs CBC & BMP: 01/30/17 04:41 01/30/17 04:41 Lab Results: I have reviewed the past 24 hour labs Assessment and Plan (1) Acute bronchitis Status: Acute Assessment and plan: I do hear some bronchospasm. She needs steroids along with antibiotics and bronchodilators. 01/29/2017 continuing bronchodilators and antibiotics and steroids. 01/30/2017 patient clearly has acute bronchitis with retained secretions. Probably some bronchopneumonia as well. Check cultures from bronchial washings. Continue empiric antibiotics. Current Visit: Yes (2) Pneumonia Status: Acute Assessment and plan: Being treated empirically for right lower lobe pneumonia. This is the location where her cancer was previously. I think it would be worthwhile to reevaluate the bronchoscopy once she is doing a little better. 01/29/2017 as a bronchopneumonia at the right base. There could be an element of congestive heart failure as well given her elevated BNP. Check an echocardiogram 01/30/2017 continuing empiric antibiotics. Check cultures. Also has some diastolic acute congestive heart failure. Current Visit: Yes (3) COPD (chronic obstructive pulmonary disease) Status: Acute Assessment and plan: Continuing with bronchodilator steroids antibiotics 01/29/2017 on appropriate meds for this. 01/30/2017 continuing bronchodilators. Current Visit: No (4) Squamous cell carcinoma of right lung Status: Acute Assessment and plan: Diagnosed with bronchoscopy May 2016. She had almost complete obstruction of the right middle and lower lobes at that time. Good response to chemotherapy and radiation. However I do hear a localized wheeze there. Will need reevaluation with bronchoscopy in couple of days. 01/29/2017 she has had radiation and chemotherapy. Mass was in the right lower lobe originally with obstruction. Plan bronchoscopy on when she is clinically improved. She does have a localized wheeze over the right lower lobe 01/30/2017 this is felt to be in remission. Please see bronchoscopy note. There is distortion of the lower lobe bronchi with swelling and narrowing but no visible endobronchial lesion. Marked improvement from bronchoscopy 9 months ago prior to radiation and chemotherapy Current Visit: No (5) Abdominal pain Status: Resolved Assessment and plan: Sharp left upper quadrant abdominal pain. Unclear etiology for this. 01/29/2017 this has subsided. Current Visit: No Qualifiers: Abdominal location: periumbilical Qualified Code(s): R10.33 - Periumbilical pain
--- NOTE | 2017-01-30 08:05 | Operative Note ---
Date of procedure: 01/30/17 (Fiberoptic bronchoscopy with brushings right lower lobe and bronchial washings) Pre-op diagnosis: History lung cancer, bronchopneumonia retained secretions Post-op diagnosis: same (Distorted rhonchi but no endobronchial lesions. Retained secretions and mucous plugs bilaterally.) Procedure: Patient was given preoperative medication on the lee. She was brought to the endoscopy suite. After an appropriate timeout to be sure we were dealing with Suri Witt, the patient was topically anesthetized in the nose and nasopharynx with Xylocaine. 3 L of nasal oxygen was placed in the left naris. She was given 2 mg of Versed intravenously to the point of sedation. The fiberoptic bronchoscope was introduced via the right naris. The vocal cords were identified and noted to function normally with phonation. There is some plaque on both vocal cords. After further topical anesthesia the trachea was entered and it was free of lesions. The agapito was sharp. Right and left lungs were then carefully inspected to the subsegmental level. There were mucous plugs primarily in the lower lobes bilaterally. However there were some in the upper lobes as well. These were irrigated and removed with saline lavage. No lesions were seen on the left side. The right upper lobe was clear. Right middle and lower lobes had thickened dividers and narrowed orifices but no visible endobronchial lesions. We again did bronchial washings from these areas. I did a brushing in the lateral basilar segment of the right lower lobe and in the lateral segment of the right middle lobe. There was no bleeding. Additional washings were obtained. The bronchoscope was removed. Patient returned to her room in stable condition. This represents a marked improvement from previous bronchoscopy from 9 months prior. Earlier she had had total obstruction at the distal bronchus intermedius. Anesthesia: conscious sedation Surgeon / Physician: Bipin Lawson Estimated blood loss: none Specimens: other (Bronchial washings, bronchial brushings 2 right lower lobe right middle lobe) Condition: stable Disposition: floor Results - Labs CBC & BMP: 01/30/17 04:41 01/30/17 04:41 Discharge Plan - Discharge Medications No Action Levothyroxine Tab [Synthroid Tab] 200 mcg PO DAILY@0700 Hydrocodone/Acetaminophen [Wellington 10-325 Tablet] 1 each PO Q6HR Amlodipine Besylate/Benazepril [Amlodipine-Benazepril 10-40 mg] 1 each PO DAILY Sotalol HCl [Sotalol AF] 1 tablet PO BID Budesonide/Formoterol 160-4.5 [Symbicort 160-4.5] 2 puffs INH BID Furosemide Tab [Lasix Tab] 1 tablet PO DAILY dilTIAZem HCl [Cartia XT] 1 tablet PO DAILY Escitalopram Oxalate 10 mg PO DAILY fentaNYL [Fentanyl 100 mcg/hr Patch] 1 patch TRANSDERM Q48H Apixaban [Eliquis] 5 mg PO BID - Follow Up or Referral - Forms/Instructions
[2017-01-30] MEDS: SOTALOL 80 MG TABLET PO SCH ×2 (10:35→20:51)
[2017-01-30] MEDS: amLODIPine 10 MG TABLET PO SCH (10:35)
[2017-01-30] MEDS: ESCITALOPRAM 10 MG TABLET PO SCH (10:35)
[2017-01-30] MEDS: DILTIAZEM CD 180 MG CAPSULE PO SCH (10:35)
[2017-01-30] MEDS: MEROPENEM 1,000 MG in SODIUM CHLORIDE 0.9% 100 ML IV SCH ×3 (10:36→23:36)
[2017-01-30] MEDS: BUDESONIDE/FORMOTEROL 160-4.5 INHALER 6 GM INH SCH ×2 (10:38→20:51)
[2017-01-30] MEDS: methylPREDNISolone SOD SUC 40 MG/1 ML VIAL IV SCH ×2 (10:39→23:37)
[2017-01-30] MEDS: LINEZOLID INJ 600 MG in PREMIX 1 EACH IV SCH ×2 (11:16→23:37)
[2017-01-30] MEDS: ALUMINUM/MAGNES/SIMETH MAX STR 30 ML UDCUP PO PRN (12:36)
[2017-01-30] MEDS: DORNASE ALFA 2.5 MG/2.5 ML VIAL RESP TX SCH (19:26)
[2017-01-31] MEDS: ALBUTEROL/IPRATROPIUM 3 ML NEB RESP TX SCH ×5 (00:22→23:37)
[2017-01-31 05:45] LABS: Basophils % 0.1 % (0.0-0.8); Hematocrit 35.8 VOL% (35.7-47.0); Hemoglobin 11.2 GM/DL (12.0-16.0); Immature Granulocytes % 0.9 %; Immature Granulocytes Absolute 0.09 #; Lymphocytes # 0.3 10*3/uL (1.4-4.0); Lymphocytes % 2.7 % (21.3-54.2); Mean Corpuscular HGB Conc 31.3 GM/DL (32-36); Mean Corpuscular Hemoglobin 30 PG (27-34); Mean Corpuscular Volume 96.5 FL (87-102); Mean Platelet Volume 9.9 FL (9.6-12.0); Monocytes # 0.3 10*3/uL (0.11-0.8); Monocytes % 2.7 % (1.7-12.7); Neutrophils # 9.2 10*3/uL (1.4-7.4); Neutrophils % 93.6 % (38.7-73.9); Platelet Count 321 T/CUMM (130-400); Red Blood Count 3.71 MC/CUMM (3.8-5.5); Red Cell Distribution Width 14.6 % (9.3-17.3); White Blood Count 9.8 T/CUMM (4-12)
[2017-01-31] MEDS: LEVOTHYROXINE 200 MCG TABLET PO SCH ×2 (05:51→06:47)
[2017-01-31 06:19] LABS: Albumin 2.8 G/DL (3.4-5.0); Band Neutrophils 2 % (0-10); Bilirubin,Total 1.5 MG/DL (0.2-1.0); Calcium 9.1 MG/DL (8.5-10.1); Hypochromasia 1+; Lymphocytes 4 % (20-55); Potassium 4.7 MMOL/L (3.5-5.1); Segmented Neutrophils 90 % (50-85); Total Cells Counted 100; Total Protein 5.7 G/DL (6.4-8.3)
[2017-01-31 06:20] LABS: Microcytosis Slight; Platelet Estimate Normal
[2017-01-31] MEDS ORDERED: PROMETHAZINE 25 MG/1 ML VIAL IM ONE (07:00)
[2017-01-31] MEDS ORDERED: MIDAZOLAM 2 MG/2 ML VIAL IV ONE (07:30)
[2017-01-31] MEDS ORDERED: LIDOCAINE 1% 20 ML VIAL MISC INJ ONE (07:30)
[2017-01-31] MEDS: DORNASE ALFA 2.5 MG/2.5 ML VIAL RESP TX SCH ×2 (08:21→20:02)
--- NOTE | 2017-01-31 08:47 | Pulmonology Progress Note ---
Pulmonary - PN: Subj Interval history: This 81-year-old lady came in with abdominal pain on the left side and was found to have a right lower lobe pneumonia. She has a history of lung cancer and has had radiation and chemotherapy. She has an abnormality of the bottom of the right lung where she previously had the lung cancer. I plan to do a bronchoscope to evaluate that when we can get her tuned up. She still having some cough congestion probable pneumonia. A BNP was done and was elevated at over 2000. Will evaluate with echocardiogram. She does have atrial fibrillation. She has been on Eliquis. This will be held until the bronchoscope can be done on . 01/30/2017 patient has left ventricular hypertrophy and mild pulmonary hypertension. This probably is the cause of the elevated BNP. I do think she has some mild congestive heart failure. We proceeded with her bronchoscope this morning. She has some swelling and narrowing of orifices in the right middle and lower lobe. No endobronchial tumor. This is a marked improvement compared to her bronchoscopy last fall. She had total obstruction of the bronchus intermedius at that time. She has had a good response to radiation/ chemotherapy. She did have a good bit of thick secretions and apparently has a difficult time clearing of secretions. We need to continue treating her with antibiotics bronchodilator steroids and mucolytics. 01/31/2017 patient is feeling better today. Wants to get out of bed and I think she should with help. Pathology and culture reports pending from yesterday's bronchoscopy. She is on empiric bronchodilators, steroids, antibiotics, and mucolytics. I think the steroids have her speeding a little bit. Exam (Progress Note) - Constitutional Vitals: Period Temp Pulse Resp BP Sys/Wilcox Pulse Ox Last 24 Hr 98 F-99 F 51-116 18-22 126-181/63-100 90-99 Exam: Patient's alert oriented. Vital signs normal. Pupils react to light. Throat is clear. Neck supple no bruits. Chest reveals some scattered rhonchi and basilar crackles. Heart irregular without murmur. Abdomen soft nontender no masses. Extremities no clubbing cyanosis edema. Calves nontender. Results - Labs CBC & BMP: 01/31/17 05:15 01/31/17 05:15 Lab Results: I have reviewed the past 24 hour labs Assessment and Plan (1) Acute bronchitis Status: Acute Assessment and plan: I do hear some bronchospasm. She needs steroids along with antibiotics and bronchodilators. 01/29/2017 continuing bronchodilators and antibiotics and steroids. 01/30/2017 patient clearly has acute bronchitis with retained secretions. Probably some bronchopneumonia as well. Check cultures from bronchial washings. Continue empiric antibiotics. 01/31/2017 she had a lot of secretions at bronchoscopy. Cultures are pending. Continue current medications. Current Visit: Yes (2) Pneumonia Status: Acute Assessment and plan: Being treated empirically for right lower lobe pneumonia. This is the location where her cancer was previously. I think it would be worthwhile to reevaluate the bronchoscopy once she is doing a little better. 01/29/2017 as a bronchopneumonia at the right base. There could be an element of congestive heart failure as well given her elevated BNP. Check an echocardiogram 01/30/2017 continuing empiric antibiotics. Check cultures. Also has some diastolic acute congestive heart failure. 01/31/2017 based on endobronchial findings I do think she has some bronchopneumonia. Culture should be out tomorrow. She did have positive MRSA blood cultures 2 of 2. Current Visit: Yes (3) COPD (chronic obstructive pulmonary disease) Status: Acute Assessment and plan: Continuing with bronchodilator steroids antibiotics 01/29/2017 on appropriate meds for this. 01/30/2017 continuing bronchodilators. 01/31/2017 a little less bronchospasm. Localized wheeze in the right lower lobe. Current Visit: No (4) Squamous cell carcinoma of right lung Status: Acute Assessment and plan: Diagnosed with bronchoscopy May 2016. She had almost complete obstruction of the right middle and lower lobes at that time. Good response to chemotherapy and radiation. However I do hear a localized wheeze there. Will need reevaluation with bronchoscopy in couple of days. 01/29/2017 she has had radiation and chemotherapy. Mass was in the right lower lobe originally with obstruction. Plan bronchoscopy on when she is clinically improved. She does have a localized wheeze over the right lower lobe 01/30/2017 this is felt to be in remission. Please see bronchoscopy note. There is distortion of the lower lobe bronchi with swelling and narrowing but no visible endobronchial lesion. Marked improvement from bronchoscopy 9 months ago prior to radiation and chemotherapy 01/31/2017 she has had chemotherapy and radiation. We did do brushings yesterday. No endobronchial lesions. Current Visit: No (5) Abdominal pain Status: Resolved Assessment and plan: Sharp left upper quadrant abdominal pain. Unclear etiology for this. 01/29/2017 this has subsided. Current Visit: No Qualifiers: Abdominal location: periumbilical Qualified Code(s): R10.33 - Periumbilical pain
--- NOTE | 2017-01-31 08:58 | Oncology Progress Note ---
Assessment and Plan (1) Acute bronchitis Status: Acute Current Visit: Yes (2) Pneumonia Status: Acute Assessment and plan: -Pneumonia Current Visit: Yes (3) COPD (chronic obstructive pulmonary disease) Status: Acute Current Visit: No (4) Squamous cell carcinoma of right lung Status: Acute Current Visit: No Oncology Subjective PN Interval history: We are awaiting the results of the fiberoptic bronchoscopy and endobronchial brushings done yesterday. Ms. Witt has underlying squamous cell carcinoma of the lung that has responded well to chemotherapy and radiation so far. She was actually admitted with pneumonia involving the right lung but she has been having left lateral chest wall pain in an area that is fairly nonspecific. Her blood cultures are growing MRSA that is sensitive to Zyvox as well as Levaquin Bactrim and vancomycin. I changed her to Zyvox because her serum creatinine was slightly elevated. Her serum creatinine is stable at 1.3 with a urea nitrogen of 36. Her electrolytes are satisfactory. Overall she feels better and is more oriented and alert today although she has episodes of confusion. We are actively treating her for COPD as well as for MRSA sepsis while we are evaluating her for squamous cell carcinoma of the lung that has responded well to chemotherapy and radiation so far. Exam - Constitutional Vitals: Period Temp Pulse Resp BP Sys/Wilcox Pulse Ox Last 24 Hr 98 F-99 F 51-116 18-22 126-181/63-100 90-99 Results - Labs CBC & BMP: 01/31/17 05:15 01/31/17 05:15
[2017-01-31] MEDS: MEROPENEM 1,000 MG in SODIUM CHLORIDE 0.9% 100 ML IV SCH ×2 (09:02→22:50)
[2017-01-31] MEDS: DILTIAZEM CD 180 MG CAPSULE PO SCH (09:02)
[2017-01-31] MEDS: amLODIPine 10 MG TABLET PO SCH (09:03)
[2017-01-31] MEDS: SOTALOL 80 MG TABLET PO SCH ×2 (09:03→20:46)
[2017-01-31] MEDS: ESCITALOPRAM 10 MG TABLET PO SCH (09:03)
[2017-01-31] MEDS: BUDESONIDE/FORMOTEROL 160-4.5 INHALER 6 GM INH SCH ×2 (09:04→20:46)
--- NOTE | 2017-01-31 11:15 | Pathology Report from [facility] ---
[facility] ACCESSION # : [id number] PATIENT NAME : Suri Witt ORDERING DR : THEA VAZQUEZ MD CLINICAL HX: Right Lower Lung Pneumonia; Hx of Lung Cancer, Radiation + Chemo POST-OP DX: Same SPECIMEN INFO: Washing,Bronchial,JACKY - 10 mls blood tinged with yellow and white particles. CLASS: III CLASS COMMENTS: Acute inflammation and scant atypical squamous metaplasia.CELL BLOCK: Same. CLASS LEGEND: CLASS 0 Material inadequate for diagnosis because of (see comment) CLASS I Absence of atypical or abnormal cells CLASS II Atypical Cytology but no evidence of malignancy CLASS III Cytology suggestive of but not conclusive for malignancy CLASS IV Cytology strongly suggestive of malignancy CLASS V Cytology conclusive for malignancy COLLECTED DATE: 01/30/2017 [facility] REPORT DATE: 01/31/2017 ELECTRONICALLY SIGNED BY: Osei Dawson M.D. 01/31/2017 - 9:50:12 MTDEmanuel
--- NOTE | 2017-01-31 11:16 | Pathology Report from [facility] ---
[facility] ACCESSION # : [id number] PATIENT NAME : Suri Witt ORDERING DR : THEA VAZQUEZ MD CLINICAL HX: Riight Lower Lung Pneumonia; Hx of Lung Cancer, Radiation + Chemo POST-OP DX: Same SPECIMEN INFO: Brushing,Bronchial,RML - 1 brush (Received in [facility]). CLASS: III CLASS COMMENTS: Respiratory epithelium, inflammation, and scant atypical squamous metaplasia.CELL BLOCK: Same. CLASS LEGEND: CLASS 0 Material inadequate for diagnosis because of (see comment) CLASS I Absence of atypical or abnormal cells CLASS II Atypical Cytology but no evidence of malignancy CLASS III Cytology suggestive of but not conclusive for malignancy CLASS IV Cytology strongly suggestive of malignancy CLASS V Cytology conclusive for malignancy COLLECTED DATE: 01/30/2017 [facility] REPORT DATE: 01/31/2017 ELECTRONICALLY SIGNED BY: Osei Dawson M.D. 01/31/2017 - 9:50:22 MTDD
--- NOTE | 2017-01-31 11:16 | Pathology Report from [facility] ---
[facility] ACCESSION # : [id number] PATIENT NAME : Suri Witt ORDERING DR : THEA VAZQUEZ MD CLINICAL HX: Right Lower Lung Pneumonia; Hx of Lung Cancer, Radiation + Chemo POST-OP DX: Same SPECIMEN INFO: Brushing,Bronchial,RLL - 1 brush (Received in [facility]). CLASS: III CLASS COMMENTS: Benign respiratory epithelium and scant atypical squamous metaplasia.CELL BLOCK: Same. CLASS LEGEND: CLASS 0 Material inadequate for diagnosis because of (see comment) CLASS I Absence of atypical or abnormal cells CLASS II Atypical Cytology but no evidence of malignancy CLASS III Cytology suggestive of but not conclusive for malignancy CLASS IV Cytology strongly suggestive of malignancy CLASS V Cytology conclusive for malignancy COLLECTED DATE: 01/30/2017 [facility] REPORT DATE: 01/31/2017 ELECTRONICALLY SIGNED BY: Osei Dawson M.D. 01/31/2017 - 9:50:27 [facility]
[2017-01-31] MEDS: methylPREDNISolone SOD SUC 40 MG/1 ML VIAL IV SCH ×2 (12:51→22:51)
[2017-01-31] MEDS: fentaNYL 100 MCG/HR PATCH TRANSDERM SCH (12:52)
[2017-01-31] MEDS: LINEZOLID INJ 600 MG in PREMIX 1 EACH IV SCH ×2 (12:53→22:55)
[2017-02-01 06:06] LABS: Basophils % 0.1 % (0.0-0.8); Hemoglobin 12.3 GM/DL (12.0-16.0); Immature Granulocytes % 1.5 %; Immature Granulocytes Absolute 0.14 #; Lymphocytes # 0.3 10*3/uL (1.4-4.0); Mean Corpuscular HGB Conc 30.8 GM/DL (32-36); Mean Corpuscular Hemoglobin 29 PG (27-34); Mean Corpuscular Volume 95.7 FL (87-102); Mean Platelet Volume 9.9 FL (9.6-12.0); Monocytes # 0.2 10*3/uL (0.11-0.8); Monocytes % 1.9 % (1.7-12.7); NRBC # 0.02 10*3/uL; Neutrophils # 8.8 10*3/uL (1.4-7.4); Neutrophils % 93.5 % (38.7-73.9); Platelet Count 369 T/CUMM (130-400); Red Blood Count 4.18 MC/CUMM (3.8-5.5); Red Cell Distribution Width 14.5 % (9.3-17.3); White Blood Count 9.4 T/CUMM (4-12)
[2017-02-01 06:29] LABS: Lymphocytes 3 % (20-55); Platelet Estimate Normal; Polychromasia Few; Segmented Neutrophils 96 % (50-85); Total Cells Counted 100
[2017-02-01 06:30] LABS: Anisocytosis 1+; Macrocytosis 1+
[2017-02-01] MEDS: LEVOTHYROXINE 200 MCG TABLET PO SCH (06:32)
[2017-02-01 06:35] LABS: Calcium 9.1 MG/DL (8.5-10.1); Osmolality,Calculated 288.4 MOS/KG (273-304); Potassium 4.8 MMOL/L (3.5-5.1); Total Protein 6.2 G/DL (6.4-8.3)
[2017-02-01] MEDS: ALBUTEROL/IPRATROPIUM 3 ML NEB RESP TX SCH ×4 (07:35→23:42)
[2017-02-01] MEDS: DORNASE ALFA 2.5 MG/2.5 ML VIAL RESP TX SCH ×2 (07:45→19:53)
--- NOTE | 2017-02-01 07:50 | Oncology Progress Note ---
Assessment and Plan (1) Acute bronchitis Status: Acute Current Visit: Yes (2) Pneumonia Status: Acute Assessment and plan: -Pneumonia Current Visit: Yes (3) COPD (chronic obstructive pulmonary disease) Status: Acute Current Visit: No (4) Squamous cell carcinoma of right lung Status: Acute Current Visit: No Oncology Subjective PN Interval history: (1) Acute bronchitis/pneumonia Case discussed with Dr. Lawson. We are continuing IV antibiotics. Her bronchoscopy cultures were positive for MRSA. Status: Acute (2) MRSA sepsis Currently on IV antibiotic therapy. She remains afebrile. We are continuing current therapy. (3) COPD (chronic obstructive pulmonary disease) Status: Acute this is being managed by Dr. Lawson and her COPD is clearly improving. She has a few scattered rhonchi but these are improved. Her chest moves symmetrically with respiration. There is some faint wheezing in the right posterior base. (4) Squamous cell carcinoma of right lung Bronchial brushings are back and are class III from 3 separate reports. This is not enough evidence for me to consider resuming chemotherapy or switching her to Opdivo presently. (5) left chest pain Currently on parenteral narcotics with relatively good pain relief (6)dehydration: I am starting IV fluids for hydration. Her serum creatinine is rising. Her serum potassium is at upper limits of normal but am hoping it will improve with dehydration. (7) confusion: She is clearly confused. This is probably multifactorial including steroid therapy and her overall debilitation. Her heart rhythm is regular without murmur, gallop or rub. Neurologically, there is a question of whether or not she has a field cut. She is extremely weak and extremely debilitated because of all of the above problems. I am continuing to check lab work daily. Exam - Constitutional Vitals: Period Temp Pulse Resp BP Sys/Wilcox Pulse Ox Last 24 Hr 98.2 F-99.0 F 50-104 17-20 128-172/70-98 93-99 Results - Labs CBC & BMP: 02/01/17 04:51 02/01/17 04:51
[2017-02-01] MEDS: SOTALOL 80 MG TABLET PO SCH ×2 (09:10→21:12)
[2017-02-01] MEDS: DILTIAZEM CD 180 MG CAPSULE PO SCH (09:10)
[2017-02-01] MEDS: amLODIPine 10 MG TABLET PO SCH (09:11)
[2017-02-01] MEDS: ESCITALOPRAM 10 MG TABLET PO SCH (09:11)
[2017-02-01] MEDS: BUDESONIDE/FORMOTEROL 160-4.5 INHALER 6 GM INH SCH ×2 (09:17→21:14)
--- NOTE | 2017-02-01 09:47 | Pulmonology Progress Note ---
Pulmonary - PN: Subj Interval history: This 81-year-old lady came in with abdominal pain on the left side and was found to have a right lower lobe pneumonia. She has a history of lung cancer and has had radiation and chemotherapy. She has an abnormality of the bottom of the right lung where she previously had the lung cancer. I plan to do a bronchoscope to evaluate that when we can get her tuned up. She still having some cough congestion probable pneumonia. A BNP was done and was elevated at over 2000. Will evaluate with echocardiogram. She does have atrial fibrillation. She has been on Eliquis. This will be held until the bronchoscope can be done on . 01/30/2017 patient has left ventricular hypertrophy and mild pulmonary hypertension. This probably is the cause of the elevated BNP. I do think she has some mild congestive heart failure. We proceeded with her bronchoscope this morning. She has some swelling and narrowing of orifices in the right middle and lower lobe. No endobronchial tumor. This is a marked improvement compared to her bronchoscopy last fall. She had total obstruction of the bronchus intermedius at that time. She has had a good response to radiation/ chemotherapy. She did have a good bit of thick secretions and apparently has a difficult time clearing of secretions. We need to continue treating her with antibiotics bronchodilator steroids and mucolytics. 01/31/2017 patient is feeling better today. Wants to get out of bed and I think she should with help. Pathology and culture reports pending from yesterday's bronchoscopy. She is on empiric bronchodilators, steroids, antibiotics, and mucolytics. I think the steroids have her speeding a little bit. 02/01/2017 patient came in with abdominal pain which resolved. She was found to have bronchopneumonia primarily in the right lower lobe. Bronchoscopy showed some narrowing of the bronchial orifices but much improved since original diagnosis of lung cancer last year. Cytology is class III. I discussed the case with pathology. They feel that radiation changes are most likely the cause of this. Agree with not treating further with chemotherapy at this point. Patient has grown out 2 of 2 positive blood cultures for MRSA. Currently on Zyvox because of concerns about renal function. Normally would treat for 2 weeks. I will be out this weekend. Please call pulmonary asset protection associate if needed. Exam (Progress Note) - Constitutional Vitals: Period Temp Pulse Resp BP Sys/Wilcox Pulse Ox Last 24 Hr 98.2 F-99.0 F 50-104 17-20 128-172/70-89 93-100 Exam: Patient's alert oriented. Vital signs normal. Pupils react to light. Throat is clear. Neck supple no bruits. Chest reveals some scattered rhonchi and basilar crackles. Heart irregular without murmur. Abdomen soft nontender no masses. Extremities no clubbing cyanosis edema. Calves nontender. Little change from yesterday Results - Labs CBC & BMP: 02/01/17 04:51 02/01/17 04:51 Lab Results: I have reviewed the past 24 hour labs Assessment and Plan (1) Acute bronchitis Status: Acute Assessment and plan: I do hear some bronchospasm. She needs steroids along with antibiotics and bronchodilators. 01/29/2017 continuing bronchodilators and antibiotics and steroids. 01/30/2017 patient clearly has acute bronchitis with retained secretions. Probably some bronchopneumonia as well. Check cultures from bronchial washings. Continue empiric antibiotics. 01/31/2017 she had a lot of secretions at bronchoscopy. Cultures are pending. Continue current medications. 02/01/2017 less bronchospasm. Current Visit: Yes (2) Pneumonia Status: Acute Assessment and plan: Being treated empirically for right lower lobe pneumonia. This is the location where her cancer was previously. I think it would be worthwhile to reevaluate the bronchoscopy once she is doing a little better. 01/29/2017 as a bronchopneumonia at the right base. There could be an element of congestive heart failure as well given her elevated BNP. Check an echocardiogram 01/30/2017 continuing empiric antibiotics. Check cultures. Also has some diastolic acute congestive heart failure. 01/31/2017 based on endobronchial findings I do think she has some bronchopneumonia. Culture should be out tomorrow. She did have positive MRSA blood cultures 2 of 2. 02/01/2017 cultures are pending. She does have positive blood cultures for MRSA and I think we should direct her antibiotics in that way. Current Visit: Yes (3) COPD (chronic obstructive pulmonary disease) Status: Acute Assessment and plan: Continuing with bronchodilator steroids antibiotics 01/29/2017 on appropriate meds for this. 01/30/2017 continuing bronchodilators. 01/31/2017 a little less bronchospasm. Localized wheeze in the right lower lobe. 02/01/2017 still having some bronchospasm. Will try to get by with less steroids. She is having some speeding. May be untoward reaction to the steroids. Current Visit: No (4) Squamous cell carcinoma of right lung Status: Acute Assessment and plan: Diagnosed with bronchoscopy May 2016. She had almost complete obstruction of the right middle and lower lobes at that time. Good response to chemotherapy and radiation. However I do hear a localized wheeze there. Will need reevaluation with bronchoscopy in couple of days. 01/29/2017 she has had radiation and chemotherapy. Mass was in the right lower lobe originally with obstruction. Plan bronchoscopy on when she is clinically improved. She does have a localized wheeze over the right lower lobe 01/30/2017 this is felt to be in remission. Please see bronchoscopy note. There is distortion of the lower lobe bronchi with swelling and narrowing but no visible endobronchial lesion. Marked improvement from bronchoscopy 9 months ago prior to radiation and chemotherapy 01/31/2017 she has had chemotherapy and radiation. We did do brushings yesterday. No endobronchial lesions. 02/01/17 this is felt to be in remission. Discussed the case with Dr. Hoffman who may use [employer] on her Current Visit: No
[2017-02-01] MEDS: MEROPENEM 1,000 MG in SODIUM CHLORIDE 0.9% 100 ML IV SCH ×2 (11:13→21:52)
[2017-02-01] MEDS: LINEZOLID INJ 600 MG in PREMIX 1 EACH IV SCH ×2 (13:10→23:12)
[2017-02-01] MEDS: DEXT 5% NACL 0.45% KCL 20 MEQ 20 MEQ/1,000 ML BAG IV SCH (13:13)
[2017-02-02] MEDS ORDERED: PROMETHAZINE 25 MG/1 ML VIAL ONE (02:55)
[2017-02-02] MEDS: DEXT 5% NACL 0.45% KCL 20 MEQ 20 MEQ/1,000 ML BAG IV SCH ×2 (02:57→13:45)
[2017-02-02] MEDS: ALBUTEROL/IPRATROPIUM 3 ML NEB RESP TX SCH ×3 (07:15→18:56)
[2017-02-02 07:23] LABS: Basophils % 0.2 % (0.0-0.8); Hemoglobin 13.1 GM/DL (12.0-16.0); Immature Granulocytes % 1.4 %; Immature Granulocytes Absolute 0.16 #; Lymphocytes # 0.6 10*3/uL (1.4-4.0); Lymphocytes % 4.9 % (21.3-54.2); Mean Corpuscular Hemoglobin 30 PG (27-34); Mean Corpuscular Volume 94.7 FL (87-102); Mean Platelet Volume 9.5 FL (9.6-12.0); Monocytes # 0.9 10*3/uL (0.11-0.8); Monocytes % 7.6 % (1.7-12.7); NRBC # 0.02 10*3/uL; Neutrophils # 9.9 10*3/uL (1.4-7.4); Neutrophils % 85.9 % (38.7-73.9); Platelet Count 379 T/CUMM (130-400); Red Blood Count 4.33 MC/CUMM (3.8-5.5); Red Cell Distribution Width 14.3 % (9.3-17.3); White Blood Count 11.5 T/CUMM (4-12)
[2017-02-02] MEDS ORDERED: hydrALAZINE 20 MG/1 ML VIAL IV ONE ×2 (07:35→08:31)
[2017-02-02] MEDS ORDERED: chlorproMAZINE INJ 25 MG in SODIUM CHLORIDE 0.9% 100 ML IV PRN (07:37)
[2017-02-02] MEDS: DORNASE ALFA 2.5 MG/2.5 ML VIAL RESP TX SCH ×2 (07:48→18:57)
[2017-02-02 07:50] LABS: Hypochromasia 1+; Lymphocytes 5 % (20-55); Segmented Neutrophils 86 % (50-85); Total Cells Counted 100
[2017-02-02 07:51] LABS: Bilirubin,Total 0.9 MG/DL (0.2-1.0); Macrocytosis Slight; Osmolality,Calculated 284.8 MOS/KG (273-304); Platelet Estimate Normal; Potassium 5.1 MMOL/L (3.5-5.1); Total Protein 6.1 G/DL (6.4-8.3)
[2017-02-02] MEDS: amLODIPine 10 MG TABLET PO SCH (08:55)
[2017-02-02] MEDS: SOTALOL 80 MG TABLET PO SCH ×2 (08:56→20:32)
[2017-02-02] MEDS: LEVOTHYROXINE 200 MCG TABLET PO SCH (08:58)
[2017-02-02] MEDS: DILTIAZEM CD 180 MG CAPSULE PO SCH (09:00)
[2017-02-02] MEDS: ESCITALOPRAM 10 MG TABLET PO SCH (09:03)
--- NOTE | 2017-02-02 09:23 | Oncology Progress Note ---
Assessment and Plan (1) Acute bronchitis Status: Acute Current Visit: Yes (2) Pneumonia Status: Acute Assessment and plan: -Pneumonia Current Visit: Yes (3) COPD (chronic obstructive pulmonary disease) Status: Acute Current Visit: No (4) Squamous cell carcinoma of right lung Status: Acute Current Visit: No Oncology Subjective PN Interval history: (1) Acute bronchitis/pneumonia Case discussed with Dr. Lawson. We are continuing IV antibiotics. Her bronchoscopy cultures were positive for MRSA. (2) MRSA sepsis Currently on IV antibiotic therapy. She remains afebrile. We are continuing current therapy. (3) COPD (chronic obstructive pulmonary disease) Status: Acute this is being managed by Dr. Lawson and her COPD is clearly improving. She has a few scattered rhonchi but these are improved. Her chest moves symmetrically with respiration. There is some faint wheezing in the right posterior base. (4) Squamous cell carcinoma of right lung Bronchial brushings are back and are class III from 3 separate reports. This is not enough evidence for me to consider resuming chemotherapy or switching her to Opdivo presently. (5) left chest pain Currently on parenteral narcotics with relatively good pain relief (6)dehydration/renal failure: She is on IV fluids for hydration. Her serum creatinine is rising. Her serum potassium is at upper limits of normal but am hoping it will improve with dehydration. Her potassium is high so I am discontinuing potassium and her drip. (7) confusion: She is clearly confused. This is probably multifactorial including steroid therapy and her overall debilitation. I am reducing the dose of her fentanyl. (8) Hypertension: I am adding hydralazine for the time being. Exam - Constitutional Vitals: Period Temp Pulse Resp BP Sys/Wilcox Pulse Ox Last 24 Hr 98 F-99.8 F 65-112 16-68 125-150/69-100 91-100 Results - Labs CBC & BMP: 02/02/17 06:59 02/02/17 06:59
--- NOTE | 2017-02-02 09:35 | XRay Report ---
XR chest 1V portable Indication: Lung cancer, shortness of breath. Chest one view: Comparison 01/26/2017 shows worsening obscuration of both lung bases. Interstitial prominence of the lungs persists. Cardiomegaly is unchanged. Impression: Worsening bibasilar atelectasis and/or pneumonia. PROCEDURE INTERPRETED AT [facility] DEPARTMENT OF RADIOLOGY Final Report Signed by: Erasto Stearns M.D.
[2017-02-02] MEDS: MEROPENEM 1,000 MG in SODIUM CHLORIDE 0.9% 100 ML IV SCH ×2 (10:23→21:25)
[2017-02-02] MEDS: LINEZOLID INJ 600 MG in PREMIX 1 EACH IV SCH ×2 (11:10→22:22)
[2017-02-02] MEDS: DESITIN 4OZ/NYSTATIN 15 GRAM MIXTURE PASTE TOP SCH ×2 (11:30→20:36)
[2017-02-02] MEDS ORDERED: hydrALAZINE 20 MG/1 ML VIAL IV PRN (11:47)
[2017-02-02] MEDS ORDERED: fentaNYL 75 MCG/HR PATCH TRANSDERM SCH (12:00)
[2017-02-02] MEDS: predniSONE 20 MG TABLET PO SCH (12:53)
[2017-02-02] MEDS: BUDESONIDE/FORMOTEROL 160-4.5 INHALER 6 GM INH SCH ×2 (12:59→20:37)
[2017-02-02] MEDS: fentaNYL 100 MCG/HR PATCH TRANSDERM SCH (13:08)
[2017-02-02] MEDS: DEXTROSE 5% NACL 0.45% 1,000 ML IV SCH (13:43)
[2017-02-02] MEDS: TEMAZEPAM 7.5 MG CAPSULE PO PRN (20:32)
[2017-02-03] MEDS: ALBUTEROL/IPRATROPIUM 3 ML NEB RESP TX SCH ×4 (00:40→19:50)
[2017-02-03 05:17] LABS: Basophils % 0.2 % (0.0-0.8); Hematocrit 39.3 VOL% (35.7-47.0); Hemoglobin 12.6 GM/DL (12.0-16.0); Immature Granulocytes % 1.6 %; Immature Granulocytes Absolute 0.13 #; Lymphocytes # 0.3 10*3/uL (1.4-4.0); Lymphocytes % 3.6 % (21.3-54.2); Mean Corpuscular HGB Conc 32.1 GM/DL (32-36); Mean Corpuscular Hemoglobin 30 PG (27-34); Mean Corpuscular Volume 92.3 FL (87-102); Mean Platelet Volume 9.5 FL (9.6-12.0); Monocytes # 0.5 10*3/uL (0.11-0.8); Monocytes % 5.7 % (1.7-12.7); Neutrophils # 7.3 10*3/uL (1.4-7.4); Neutrophils % 88.9 % (38.7-73.9); Platelet Count 369 T/CUMM (130-400); Red Blood Count 4.26 MC/CUMM (3.8-5.5); Red Cell Distribution Width 14.3 % (9.3-17.3); White Blood Count 8.2 T/CUMM (4-12)
[2017-02-03 05:55] LABS: Albumin 2.7 G/DL (3.4-5.0); Bilirubin,Total 0.9 MG/DL (0.2-1.0); Calcium 8.7 MG/DL (8.5-10.1); Osmolality,Calculated 286.4 MOS/KG (273-304); Potassium 4.9 MMOL/L (3.5-5.1); Total Protein 5.4 G/DL (6.4-8.3)
[2017-02-03] MEDS: DORNASE ALFA 2.5 MG/2.5 ML VIAL RESP TX SCH ×2 (07:15→19:56)
[2017-02-03] MEDS: ESCITALOPRAM 10 MG TABLET PO SCH (09:56)
[2017-02-03] MEDS: LEVOTHYROXINE 200 MCG TABLET PO SCH (09:56)
[2017-02-03] MEDS: predniSONE 20 MG TABLET PO SCH (09:57)
--- NOTE | 2017-02-03 09:57 | Oncology Progress Note ---
Assessment and Plan (1) Acute bronchitis Status: Acute Current Visit: Yes (2) Pneumonia Status: Acute Assessment and plan: -Pneumonia Current Visit: Yes (3) COPD (chronic obstructive pulmonary disease) Status: Acute Current Visit: No (4) Squamous cell carcinoma of right lung Status: Acute Current Visit: No Oncology Subjective PN Interval history: Ms. Witt was admitted with respiratory congestion, fever, pneumonia and bronchitis. Her problem list includes: (1) Acute bronchitis/pneumonia Case discussed with Dr. Lawson. We are continuing IV antibiotics. Her bronchoscopy cultures were positive for MRSA. We could possibly continue her on Zyvox by mouth if she qualified for a swing bed. (2) MRSA sepsis Currently on IV antibiotic therapy. She remains afebrile. We are continuing current therapy. We are also monitoring for toxicity. He is on Zyvox which can cause thrombocytopenia.Her platelet count today is 369,000 and she has a normal white cell count of 8200 with a hemoglobin of 12.6. (3) COPD (chronic obstructive pulmonary disease) Status: Acute this is being managed by Dr. Lawson and her COPD is clearly improving. She has a few scattered rhonchi but these are improved. Her chest moves symmetrically with respiration. There is some faint wheezing in the right posterior base that is slightly more pronounced today than yesterday. (4) Squamous cell carcinoma of right lung Bronchial brushings are back and are class III from 3 separate reports. This is not enough evidence for me to consider resuming chemotherapy or switching her to Opdivo presently. (5) left chest pain Currently on parenteral narcotics with relatively good pain relief. In addition , the pain has improved significantly. Her fentanyl has been decreased and she appears to be less confused. (6)dehydration/renal failure: She is on IV fluids for hydration. Her serum creatinine has dropped to 1.2 today from 1.5 yesterday. Her serum potassium is at upper limits of normal but am hoping it will improve with dehydration. Her potassium is 4.9 today, which is normal. (7) confusion: She is clearly confused. This is probably multifactorial including steroid therapy and her overall debilitation. Her fentanyl dose has been reduced and she does seem to be less confused and more animated today. However, she is still emotionally labile and she is upset about how slow she is getting coffee presently. She is not combative or resisting efforts to assist her. She is just confused and does not understand about her complete disease process. (8) Hypertension: I am adding hydralazine for the time being. Her blood pressure today is satisfactory. I am adjusting her blood pressure medicines. Exam - Constitutional Vitals: Period Temp Pulse Resp BP Sys/Wilcox Pulse Ox Last 24 Hr 98 F-98.7 F 20-109 18-20 126-147/67-86 96-99 Results - Labs CBC & BMP: 02/03/17 04:39 02/03/17 04:39
[2017-02-03] MEDS: MEROPENEM 1,000 MG in SODIUM CHLORIDE 0.9% 100 ML IV SCH ×2 (10:01→21:45)
[2017-02-03] MEDS: BUDESONIDE/FORMOTEROL 160-4.5 INHALER 6 GM INH SCH ×2 (10:01→20:30)
[2017-02-03] MEDS: DESITIN 4OZ/NYSTATIN 15 GRAM MIXTURE PASTE TOP SCH ×2 (10:30→20:29)
[2017-02-03] MEDS: LINEZOLID INJ 600 MG in PREMIX 1 EACH IV SCH ×2 (12:10→22:47)
[2017-02-03] MEDS: DILTIAZEM CD 180 MG CAPSULE PO SCH (12:11)
[2017-02-03] MEDS: amLODIPine 10 MG TABLET PO SCH (12:12)
[2017-02-03] MEDS: SOTALOL 80 MG TABLET PO SCH ×2 (12:13→20:29)
[2017-02-03] MEDS: DEXTROSE 5% NACL 0.45% 1,000 ML IV SCH (20:29)
[2017-02-03] MEDS: TEMAZEPAM 7.5 MG CAPSULE PO PRN (20:29)
[2017-02-04] MEDS: ALBUTEROL/IPRATROPIUM 3 ML NEB RESP TX SCH ×4 (00:15→18:50)
[2017-02-04] MEDS: LEVOTHYROXINE 200 MCG TABLET PO SCH (06:35)
[2017-02-04 07:00] LABS: Basophils % 0.3 % (0.0-0.8); Hematocrit 42.6 VOL% (35.7-47.0); Hemoglobin 13.8 GM/DL (12.0-16.0); Immature Granulocytes % 1.2 %; Immature Granulocytes Absolute 0.14 #; Lymphocytes # 0.5 10*3/uL (1.4-4.0); Lymphocytes % 3.9 % (21.3-54.2); Mean Corpuscular HGB Conc 32.4 GM/DL (32-36); Mean Corpuscular Hemoglobin 30 PG (27-34); Mean Platelet Volume 9.7 FL (9.6-12.0); Monocytes # 0.8 10*3/uL (0.11-0.8); Monocytes % 6.7 % (1.7-12.7); Neutrophils # 10.1 10*3/uL (1.4-7.4); Neutrophils % 87.9 % (38.7-73.9); Platelet Count 367 T/CUMM (130-400); Red Blood Count 4.63 MC/CUMM (3.8-5.5); Red Cell Distribution Width 14.2 % (9.3-17.3); White Blood Count 11.5 T/CUMM (4-12)
[2017-02-04 07:30] LABS: Albumin 2.8 G/DL (3.4-5.0); Bilirubin,Total 0.7 MG/DL (0.2-1.0); Calcium 8.7 MG/DL (8.5-10.1); Osmolality,Calculated 281.8 MOS/KG (273-304); Potassium 4.8 MMOL/L (3.5-5.1); Total Protein 5.6 G/DL (6.4-8.3)
[2017-02-04] MEDS: DORNASE ALFA 2.5 MG/2.5 ML VIAL RESP TX SCH (07:31)
[2017-02-04 07:33] LABS: Acanthocytes Few; Hypochromasia Slight; Polychromasia Slight
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
[2017-02-04] MEDS ORDERED: predniSONE 20 MG TABLET PO SCH (08:21)
--- NOTE | 2017-02-04 08:25 | Pulmonology Progress Note ---
Pulmonary - PN: Subj Interval history: This 81-year-old lady came in with abdominal pain on the left side and was found to have a right lower lobe pneumonia. She has a history of lung cancer and has had radiation and chemotherapy. She has an abnormality of the bottom of the right lung where she previously had the lung cancer. I plan to do a bronchoscope to evaluate that when we can get her tuned up. She still having some cough congestion probable pneumonia. A BNP was done and was elevated at over 2000. Will evaluate with echocardiogram. She does have atrial fibrillation. She has been on Eliquis. This will be held until the bronchoscope can be done on . 01/30/2017 patient has left ventricular hypertrophy and mild pulmonary hypertension. This probably is the cause of the elevated BNP. I do think she has some mild congestive heart failure. We proceeded with her bronchoscope this morning. She has some swelling and narrowing of orifices in the right middle and lower lobe. No endobronchial tumor. This is a marked improvement compared to her bronchoscopy last fall. She had total obstruction of the bronchus intermedius at that time. She has had a good response to radiation/ chemotherapy. She did have a good bit of thick secretions and apparently has a difficult time clearing of secretions. We need to continue treating her with antibiotics bronchodilator steroids and mucolytics. 01/31/2017 patient is feeling better today. Wants to get out of bed and I think she should with help. Pathology and culture reports pending from yesterday's bronchoscopy. She is on empiric bronchodilators, steroids, antibiotics, and mucolytics. I think the steroids have her speeding a little bit. 02/01/2017 patient came in with abdominal pain which resolved. She was found to have bronchopneumonia primarily in the right lower lobe. Bronchoscopy showed some narrowing of the bronchial orifices but much improved since original diagnosis of lung cancer last year. Cytology is class III. I discussed the case with pathology. They feel that radiation changes are most likely the cause of this. Agree with not treating further with chemotherapy at this point. Patient has grown out 2 of 2 positive blood cultures for MRSA. Currently on Zyvox because of concerns about renal function. Normally would treat for 2 weeks. I will be out this weekend. Please call pulmonary business operations coordinator if needed. 02/04/2017 patient is less short of breath. Still having some coughing. Lungs sound better. Chest x-ray little change. She no longer has a localized wheeze over the right lower lobe. She is confused. I will decrease prednisone further to 20 mg daily. We can stop Merrem at this point. Needs to complete 2 weeks of Zyvox. It is well absorbed orally. Zyvox can interact with SSRIs. I will stop Lexapro Exam (Progress Note) - Constitutional Vitals: Period Temp Pulse Resp BP Sys/Wilcox Pulse Ox Last 24 Hr 98.9 F-99.2 F 52-94 16-20 124-164/62-82 93-100 Exam: Patient's alert. She is confused as to time, and forgets that she is being served meals. Vital signs normal. Pupils react to light. Throat is clear. Neck supple no bruits. Chest reveals some scattered rhonchi and basilar crackles. Heart irregular without murmur. Abdomen soft nontender no masses. Extremities no clubbing cyanosis edema. Calves nontender. Results - Labs CBC & BMP: 02/04/17 06:18 02/04/17 06:18 Lab Results: I have reviewed the past 24 hour labs Assessment and Plan (1) Acute bronchitis Status: Acute Assessment and plan: I do hear some bronchospasm. She needs steroids along with antibiotics and bronchodilators. 01/29/2017 continuing bronchodilators and antibiotics and steroids. 01/30/2017 patient clearly has acute bronchitis with retained secretions. Probably some bronchopneumonia as well. Check cultures from bronchial washings. Continue empiric antibiotics. 01/31/2017 she had a lot of secretions at bronchoscopy. Cultures are pending. Continue current medications. 02/01/2017 less bronchospasm. 02/04/2017 bronchospasm much less. Tapering prednisone. Current Visit: Yes (2) Pneumonia Status: Acute Assessment and plan: Being treated empirically for right lower lobe pneumonia. This is the location where her cancer was previously. I think it would be worthwhile to reevaluate the bronchoscopy once she is doing a little better. 01/29/2017 as a bronchopneumonia at the right base. There could be an element of congestive heart failure as well given her elevated BNP. Check an echocardiogram 01/30/2017 continuing empiric antibiotics. Check cultures. Also has some diastolic acute congestive heart failure. 01/31/2017 based on endobronchial findings I do think she has some bronchopneumonia. Culture should be out tomorrow. She did have positive MRSA blood cultures 2 of 2. 02/01/2017 cultures are pending. She does have positive blood cultures for MRSA and I think we should direct her antibiotics in that way. 02/04/2017 positive blood cultures for MRSA. Likely the cause of her pneumonia as well, although bronchial washings have been negative. Agree with 2 weeks total of Zyvox. Current Visit: Yes (3) COPD (chronic obstructive pulmonary disease) Status: Acute Assessment and plan: Continuing with bronchodilator steroids antibiotics 01/29/2017 on appropriate meds for this. 01/30/2017 continuing bronchodilators. 01/31/2017 a little less bronchospasm. Localized wheeze in the right lower lobe. 02/01/2017 still having some bronchospasm. Will try to get by with less steroids. She is having some speeding. May be untoward reaction to the steroids. 02/04/2017 tapering steroids to a minimum. They may be affecting her mental status. Current Visit: No (4) Squamous cell carcinoma of right lung Status: Acute Assessment and plan: Diagnosed with bronchoscopy May 2016. She had almost complete obstruction of the right middle and lower lobes at that time. Good response to chemotherapy and radiation. However I do hear a localized wheeze there. Will need reevaluation with bronchoscopy in couple of days. 01/29/2017 she has had radiation and chemotherapy. Mass was in the right lower lobe originally with obstruction. Plan bronchoscopy on when she is clinically improved. She does have a localized wheeze over the right lower lobe 01/30/2017 this is felt to be in remission. Please see bronchoscopy note. There is distortion of the lower lobe bronchi with swelling and narrowing but no visible endobronchial lesion. Marked improvement from bronchoscopy 9 months ago prior to radiation and chemotherapy 01/31/2017 she has had chemotherapy and radiation. We did do brushings yesterday. No endobronchial lesions. 02/01/17 this is felt to be in remission. Discussed the case with Dr. Hoffman who may use [employer] on her 02/04/2017 no evidence of any recurrence. Current Visit: No
[2017-02-04] MEDS: DILTIAZEM CD 180 MG CAPSULE PO SCH (09:46)
[2017-02-04] MEDS: SOTALOL 80 MG TABLET PO SCH ×2 (09:46→20:54)
[2017-02-04] MEDS: amLODIPine 10 MG TABLET PO SCH (09:46)
[2017-02-04] MEDS: fentaNYL 25 MCG/HR PATCH TRANSDERM SCH (09:47)
[2017-02-04] MEDS: BUDESONIDE/FORMOTEROL 160-4.5 INHALER 6 GM INH SCH ×2 (09:47→20:53)
[2017-02-04] MEDS: DESITIN 4OZ/NYSTATIN 15 GRAM MIXTURE PASTE TOP SCH ×2 (09:48→20:53)
[2017-02-04] MEDS: LINEZOLID INJ 600 MG in PREMIX 1 EACH IV SCH ×2 (11:47→22:51)
[2017-02-04] MEDS: DEXTROSE 5% NACL 0.45% 1,000 ML IV SCH (18:14)
[2017-02-05] MEDS: ALBUTEROL/IPRATROPIUM 3 ML NEB RESP TX SCH ×4 (00:12→19:05)
[2017-02-05] MEDS: LEVOTHYROXINE 200 MCG TABLET PO SCH (06:44)
--- NOTE | 2017-02-05 07:18 | Oncology Progress Note ---
Assessment and Plan (1) Acute bronchitis Status: Acute Current Visit: Yes (2) Pneumonia Status: Acute Assessment and plan: -Pneumonia Current Visit: Yes (3) COPD (chronic obstructive pulmonary disease) Status: Acute Current Visit: No (4) Squamous cell carcinoma of right lung Status: Acute Current Visit: No Oncology Subjective PN Interval history: (1) Acute bronchitis/pneumonia Case discussed with Dr. Lawson. We are continuing IV antibiotics. Her bronchoscopy cultures were positive for MRSA. We could possibly continue her on Zyvox by mouth if she qualified for a swing bed. (2) MRSA sepsis Currently on IV antibiotic therapy. She remains afebrile. We are continuing current therapy. We are also monitoring for toxicity. He is on Zyvox which can cause thrombocytopenia. Her blood work was drawn late today and is pending. (3) COPD (chronic obstructive pulmonary disease) Status: Acute this is being managed by Dr. Lawson and her COPD is clearly improving. She has a few scattered rhonchi but these are improved. Her chest moves symmetrically with respiration. There is some faint wheezing in the right posterior base that is slightly more pronounced today than yesterday. (4) Squamous cell carcinoma of right lung Bronchial brushings are back and are class III from 3 separate reports. This is not enough evidence for me to consider resuming chemotherapy or switching her to Opdivo presently. (5) left chest pain Currently on parenteral narcotics with relatively good pain relief. In addition , the pain has improved significantly. Her fentanyl has been decreased and she appears to be less confused. (6)dehydration/renal failure: She is on IV fluids for hydration. Her serum creatinine is 1.2 today and stable. Her electrolytes are normal. (7) confusion: She is clearly confused. This is probably multifactorial including steroid therapy and her overall debilitation. She is more depressed than confused today. She is angry about having to be here. We are working on swing bed transfer. (8) Hypertension : I am adding hydralazine for the time being. Her blood pressure this morning is 141/67. (9)Malnutrition:She is malnourished with a serum albumin of 2.8.Her liver enzymes are normal except for an LDH of 253. Exam - Constitutional Vitals: Period Temp Pulse Resp BP Sys/Wilcox Pulse Ox Last 24 Hr 98.3 F-98.8 F 53-85 18-20 119-142/61-73 92-99 Results - Labs CBC & BMP: 02/04/17 06:18 02/04/17 06:18
[2017-02-05 08:13] LABS: Basophils % 0.1 % (0.0-0.8); Hematocrit 39.1 VOL% (35.7-47.0); Immature Granulocytes % 1.3 %; Immature Granulocytes Absolute 0.19 #; Lymphocytes # 0.5 10*3/uL (1.4-4.0); Lymphocytes % 3.3 % (21.3-54.2); Mean Corpuscular HGB Conc 33.2 GM/DL (32-36); Mean Corpuscular Hemoglobin 30 PG (27-34); Mean Corpuscular Volume 91.6 FL (87-102); Mean Platelet Volume 9.6 FL (9.6-12.0); Monocytes # 0.8 10*3/uL (0.11-0.8); Monocytes % 5.6 % (1.7-12.7); Neutrophils # 12.9 10*3/uL (1.4-7.4); Neutrophils % 89.7 % (38.7-73.9); Platelet Count 352 T/CUMM (130-400); Red Blood Count 4.27 MC/CUMM (3.8-5.5); White Blood Count 14.4 T/CUMM (4-12)
--- NOTE | 2017-02-05 08:37 | Pulmonology Progress Note ---
Pulmonary - PN: Subj Interval history: This 81-year-old lady came in with abdominal pain on the left side and was found to have a right lower lobe pneumonia. She has a history of lung cancer and has had radiation and chemotherapy. She has an abnormality of the bottom of the right lung where she previously had the lung cancer. I plan to do a bronchoscope to evaluate that when we can get her tuned up. She still having some cough congestion probable pneumonia. A BNP was done and was elevated at over 2000. Will evaluate with echocardiogram. She does have atrial fibrillation. She has been on Eliquis. This will be held until the bronchoscope can be done on . 01/30/2017 patient has left ventricular hypertrophy and mild pulmonary hypertension. This probably is the cause of the elevated BNP. I do think she has some mild congestive heart failure. We proceeded with her bronchoscope this morning. She has some swelling and narrowing of orifices in the right middle and lower lobe. No endobronchial tumor. This is a marked improvement compared to her bronchoscopy last fall. She had total obstruction of the bronchus intermedius at that time. She has had a good response to radiation/ chemotherapy. She did have a good bit of thick secretions and apparently has a difficult time clearing of secretions. We need to continue treating her with antibiotics bronchodilator steroids and mucolytics. 01/31/2017 patient is feeling better today. Wants to get out of bed and I think she should with help. Pathology and culture reports pending from yesterday's bronchoscopy. She is on empiric bronchodilators, steroids, antibiotics, and mucolytics. I think the steroids have her speeding a little bit. 02/01/2017 patient came in with abdominal pain which resolved. She was found to have bronchopneumonia primarily in the right lower lobe. Bronchoscopy showed some narrowing of the bronchial orifices but much improved since original diagnosis of lung cancer last year. Cytology is class III. I discussed the case with pathology. They feel that radiation changes are most likely the cause of this. Agree with not treating further with chemotherapy at this point. Patient has grown out 2 of 2 positive blood cultures for MRSA. Currently on Zyvox because of concerns about renal function. Normally would treat for 2 weeks. I will be out this weekend. Please call pulmonary promotions executive producer if needed. 02/04/2017 patient is less short of breath. Still having some coughing. Lungs sound better. Chest x-ray little change. She no longer has a localized wheeze over the right lower lobe. She is confused. I will decrease prednisone further to 20 mg daily. We can stop Merrem at this point. Needs to complete 2 weeks of Zyvox. It is well absorbed orally. Zyvox can interact with SSRIs. I will stop Lexapro 02/05/2017 patient remains a little confused and angry. Her lungs sound much better. I think we can stop her prednisone altogether. I will repeat blood cultures. I would favor finishing 2 weeks of Zyvox, whether by IV or p.o., which would be about another week from now. Exam (Progress Note) - Constitutional Vitals: Period Temp Pulse Resp BP Sys/Wilcox Pulse Ox Last 24 Hr 98.3 F-98.8 F 53-84 18-20 119-142/61-73 92-99 Exam: Patient's alert. She is confused as to time, and forgets that she is being served meals. Vital signs normal. Pupils react to light. Throat is clear. Neck supple no bruits. Chest reveals some scattered rhonchi and basilar crackles. Heart irregular without murmur. Abdomen soft nontender no masses. Extremities no clubbing cyanosis edema. Calves nontender. Little change from yesterday. Results - Labs CBC & BMP: 02/05/17 07:27 02/04/17 06:18 Lab Results: I have reviewed the past 24 hour labs Assessment and Plan (1) Acute bronchitis Status: Acute Assessment and plan: I do hear some bronchospasm. She needs steroids along with antibiotics and bronchodilators. 01/29/2017 continuing bronchodilators and antibiotics and steroids. 01/30/2017 patient clearly has acute bronchitis with retained secretions. Probably some bronchopneumonia as well. Check cultures from bronchial washings. Continue empiric antibiotics. 01/31/2017 she had a lot of secretions at bronchoscopy. Cultures are pending. Continue current medications. 02/01/2017 less bronchospasm. 02/04/2017 bronchospasm much less. Tapering prednisone. 02/05/2017 lungs sound better. We will stop prednisone. Current Visit: Yes (2) Pneumonia Status: Acute Assessment and plan: Being treated empirically for right lower lobe pneumonia. This is the location where her cancer was previously. I think it would be worthwhile to reevaluate the bronchoscopy once she is doing a little better. 01/29/2017 as a bronchopneumonia at the right base. There could be an element of congestive heart failure as well given her elevated BNP. Check an echocardiogram 01/30/2017 continuing empiric antibiotics. Check cultures. Also has some diastolic acute congestive heart failure. 01/31/2017 based on endobronchial findings I do think she has some bronchopneumonia. Culture should be out tomorrow. She did have positive MRSA blood cultures 2 of 2. 02/01/2017 cultures are pending. She does have positive blood cultures for MRSA and I think we should direct her antibiotics in that way. 02/04/2017 positive blood cultures for MRSA. Likely the cause of her pneumonia as well, although bronchial washings have been negative. Agree with 2 weeks total of Zyvox. 02/05/2017 she has had 6 days of Zyvox. This should suffice for the pneumonia. We will repeat blood cultures. Usually would treat for 2 weeks for positive MRSA blood culture. Current Visit: Yes (3) COPD (chronic obstructive pulmonary disease) Status: Acute Assessment and plan: Continuing with bronchodilator steroids antibiotics 01/29/2017 on appropriate meds for this. 01/30/2017 continuing bronchodilators. 01/31/2017 a little less bronchospasm. Localized wheeze in the right lower lobe. 02/01/2017 still having some bronchospasm. Will try to get by with less steroids. She is having some speeding. May be untoward reaction to the steroids. 02/04/2017 tapering steroids to a minimum. They may be affecting her mental status. 02/05/2017 continue with controller medications post discharge. She is on Symbicort. Current Visit: No (4) Squamous cell carcinoma of right lung Status: Acute Assessment and plan: Diagnosed with bronchoscopy May 2016. She had almost complete obstruction of the right middle and lower lobes at that time. Good response to chemotherapy and radiation. However I do hear a localized wheeze there. Will need reevaluation with bronchoscopy in couple of days. 01/29/2017 she has had radiation and chemotherapy. Mass was in the right lower lobe originally with obstruction. Plan bronchoscopy on when she is clinically improved. She does have a localized wheeze over the right lower lobe 01/30/2017 this is felt to be in remission. Please see bronchoscopy note. There is distortion of the lower lobe bronchi with swelling and narrowing but no visible endobronchial lesion. Marked improvement from bronchoscopy 9 months ago prior to radiation and chemotherapy 01/31/2017 she has had chemotherapy and radiation. We did do brushings yesterday. No endobronchial lesions. 02/01/17 this is felt to be in remission. Discussed the case with Dr. Hoffman who may use Optivar on her 02/04/2017 no evidence of any recurrence. Current Visit: No
[2017-02-05 08:40] LABS: Hypochromasia 1+; Lymphocytes 4 % (20-55); Segmented Neutrophils 92 % (50-85); Total Cells Counted 100
[2017-02-05 08:41] LABS: Microcytosis Slight; Platelet Estimate Normal
[2017-02-05 08:50] LABS: Albumin 2.6 G/DL (3.4-5.0); Bilirubin,Total 0.5 MG/DL (0.2-1.0); Calcium 8.4 MG/DL (8.5-10.1); Osmolality,Calculated 278.8 MOS/KG (273-304); Potassium 4.6 MMOL/L (3.5-5.1); Total Protein 5.2 G/DL (6.4-8.3)
[2017-02-05] MEDS: SOTALOL 80 MG TABLET PO SCH ×2 (10:12→21:00)
[2017-02-05] MEDS: DILTIAZEM CD 180 MG CAPSULE PO SCH (10:12)
[2017-02-05] MEDS: amLODIPine 10 MG TABLET PO SCH (10:12)
[2017-02-05] MEDS: LINEZOLID INJ 600 MG in PREMIX 1 EACH IV SCH ×2 (10:12→23:20)
[2017-02-05] MEDS: BUDESONIDE/FORMOTEROL 160-4.5 INHALER 6 GM INH SCH ×2 (10:13→21:01)
[2017-02-05] MEDS: DESITIN 4OZ/NYSTATIN 15 GRAM MIXTURE PASTE TOP SCH ×2 (10:13→21:02)
[2017-02-05] MEDS: ALUMINUM/MAGNES/SIMETH MAX STR 30 ML UDCUP PO PRN (16:41)
[2017-02-05] MEDS: DEXTROSE 5% NACL 0.45% 1,000 ML IV SCH (16:42)
[2017-02-06 05:16] LABS: Hematocrit 35.1 VOL% (35.7-47.0); Hemoglobin 11.3 GM/DL (12.0-16.0); Mean Corpuscular HGB Conc 32.2 GM/DL (32-36); Mean Corpuscular Hemoglobin 30 PG (27-34); Mean Corpuscular Volume 92.6 FL (87-102); Red Blood Count 3.79 MC/CUMM (3.8-5.5); Red Cell Distribution Width 14.1 % (9.3-17.3); White Blood Count 14.5 T/CUMM (4-12)
[2017-02-06 05:17] LABS: Basophils % 0.1 % (0.0-0.8); Immature Granulocytes % 0.6 %; Immature Granulocytes Absolute 0.09 #; Lymphocytes # 0.6 10*3/uL (1.4-4.0); Lymphocytes % 3.9 % (21.3-54.2); Monocytes # 0.9 10*3/uL (0.11-0.8); Monocytes % 6.1 % (1.7-12.7); Neutrophils % 89.3 % (38.7-73.9); Platelet Count 286 T/CUMM (130-400)
[2017-02-06 05:44] LABS: Albumin 2.4 G/DL (3.4-5.0); Calcium 8.2 MG/DL (8.5-10.1); Potassium 4.3 MMOL/L (3.5-5.1); Total Protein 4.6 G/DL (6.4-8.3)
[2017-02-06 05:53] LABS: Eosinophils 1 % (0-10); Hypochromasia 1+; Lymphocytes 4 % (20-55); Microcytosis Slight; Ovalocytes Slight; Platelet Estimate Adequate; Segmented Neutrophils 89 % (50-85); Total Cells Counted 100
[2017-02-06] MEDS: LEVOTHYROXINE 200 MCG TABLET PO SCH (07:21)
[2017-02-06] MEDS: ALBUTEROL/IPRATROPIUM 3 ML NEB RESP TX SCH ×4 (07:40→20:00)
--- NOTE | 2017-02-06 07:40 | Discharge Summary ---
Hospital Course - Hospital Course Hospital Course: Diagnoses: (1) Acute bronchitis/pneumonia (2) MRSA sepsis (3) COPD (chronic obstructive pulmonary disease) (4) Squamous cell carcinoma of right lung (5) left chest pain (6)dehydration/renal failure: (7) confusion: (8) Hypertension : (9)Malnutrition: This 81-year-old lady was diagnosed as having squamous cell carcinoma of the lung May 16, [address] gisell Lawson. It was stage III B. She would not have been a candidate for surgery even if it had been an earlier stage because of severe COPD. She was placed on chemotherapy using Abraxane and carboplatin for 6 courses with the last course being given September 06, 2016. She received Abraxane 160 mg and carboplatin 300 mg IV every 3 weeks. Following that she was treated with radiation therapy which she completed November 19, 2016. We have been following her since that time without proceeding with any additional chemotherapy because of lack of evidence of disease progression. She had a CT of her chest, abdomen and pelvis done on December 19, 2016 did not demonstrate any evidence of distant metastases and it also demonstrated a stable right hilar mass and right lower lobe lung mass. On this admission, case discussed with Dr. Lawson. We treated with IV antibiotics including Zyvox. Her bronchoscopy cultures were positive for MRSA. We could possibly continue her on Zyvox by mouth if she qualified for a swing bed. Currently on IV antibiotic therapy but she could be switched to oral Zyvox and it could be continued for another week. She remains afebrile. We are continuing current therapy but she has been accepted to a swing bed. We are also monitoring for toxicity. He is on Zyvox which can cause thrombocytopenia. Her blood work was drawn late today and is pending. Her COPD is being managed by Dr. Lawson and her COPD is clearly improving. She has a few scattered rhonchi but these are improved. Her chest moves symmetrically with respiration. There is some faint wheezing in the right posterior base that is slightly more pronounced today than yesterday. Bronchial brushings are back and are class III from 3 separate reports. This is not enough evidence for me to consider resuming chemotherapy or switching her to Opdivo presently. She actually has left lower lateral chest wall and flank pain that I am not sure is related to her lung cancer and she is currently on parenteral narcotics with relatively good pain relief. In addition, the pain has improved significantly. Her fentanyl has been decreased and she appears to be less confused. The fentanyl may need to be reduced further. She is clearly confused. This is probably multifactorial including steroid therapy and her overall debilitation. She is more depressed than confused today. She is angry about having to be here. She has had hypertension and recently had his been more difficult to control. We have used hydralazine as needed but I have not added because her blood pressure seems to be improving. She is malnourished with a serum albumin of 2.8.Her liver enzymes are normal except for an LDH of 253 yesterday. Lab work today includes white cell count of 14,500 with a hemoglobin of 11.3 and a platelet count of 286,000. Her comprehensive metabolic profile is surprisingly normal except for a low albumin of 2.4 today with low globulins of 2.2. The rest of her lab work is normal. Her serum calcium is 8.2 but this corresponds to her low serum albumin. I think at this point that the patient can be switched to oral Zyvox and I would recommend initially a dose of 600 mg p.o. every 12 hours for 7 more days. Diagnosis - Discharge Diagnosis (1) Acute bronchitis Status: Acute (2) Pneumonia Status: Acute (3) COPD (chronic obstructive pulmonary disease) Status: Acute (4) Squamous cell carcinoma of right lung Status: Acute Discharge Plan - Discharge Data Disposition: Swing Bed, Hos Based, [facility] [place] Condition at Discharge: Stable Discharge Diet: advance to your usual diet Activity: resume usual activities as tolerated Hygiene: no restrictions Weight Bearing at Discharge: weight bear as tolerated Driving: other Contact your physician if you experience:: fever over 101, Difficulty voiding, Redness or swelling, Nausea/Vomiting, Shortness of breath, Bleeding, pain uncontrolled by pain medications - Discharge Medications New Acetaminophen Tab [Tylenol Tab] 650 mg PO Q4H PRN tablet PRN Reason: Fever ALPRAZolam [Xanax] 0.25 mg PO Q4H PRN tablet PRN Reason: Anxiety Alum/Mag/Simeth Max Str Liquid [Mylanta Max Strength Liquid] 30 ml PO Q6H PRN PRN Reason: Indigestion amLODIPine [Norvasc] 10 mg PO DAILY tablet chlorproMAZINE INJ [Thorazine Inj] 25 mg IV Q6H PRN PRN Reason: N/V unrelieved by Phenergan chlorproMAZINE INJ [Thorazine Inj] 25 mg IV Q6H PRN PRN Reason: Agitation chlorproMAZINE TAB [Thorazine Tab] 25 mg PO Q6H PRN tablet PRN Reason: Hiccups diphenhydrAMINE CAP [Benadryl Cap] 25 mg PO Q4H PRN capsule PRN Reason: Itching fentaNYL 25 MCG/HR PATCH [Duragesic 25 Patch] 1 patch TRANSDERM Q3DAY patch guaiFENesin LIQUID [Robitussin] 10 ml PO Q4H PRN PRN Reason: Cough HYDROcodone/ACETAMIN 5-325 [[place] 5-325] 1 tablet PO Q4H PRN tablet PRN Reason: Pain Moderate (4-7) Levothyroxine Tab [Synthroid Tab] 200 mcg PO DAILY@0700 tablet Linezolid Inj [Zyvox Inj] 600 mg IV Q12H Loperamide Cap [Imodium Cap] 4 mg PO ONCE PRN capsule PRN Reason: Diarrhea Magnesium Hydroxide Susp [Milk of Magnesia] 60 ml PO DAILY PRN PRN Reason: Constipation; 1st agent Ondansetron Inj [Zofran Inj] 8 mg IV Q6H PRN vial PRN Reason: Nausea/Vomiting; 1st agent Promethazine Inj [Phenergan Inj] 25 mg IV Q4H PRN vial PRN Reason: N/V unrelieved by Zofran traMADol TAB [Ultram] 50 mg PO Q6H PRN tablet PRN Reason: Pain Mild (1-3) Albuterol/Ipratropium Neb [Duoneb] 3 ml RESP TX RT Q6H Benztropine Inj [Cogentin Inj] 1 mg IV PRN PRN PRN Reason: Extrapyramidal Side Effects chlorproMAZINE INJ [Thorazine Inj] 50 mg IV Q6H PRN PRN Reason: N/V unrelieved by Phenergan Diltiazem Cd Cap [Cardizem CD] 180 mg PO DAILY capsule hydrALAZINE INJ [Apresoline Inj] 5 mg IV Q6H PRN vial PRN Reason: diastolic bp greater than 95 Lactulose Liquid [Chronulac] 40 gm PO DAILY PRN PRN Reason: Constipation unrelieved by MOM Loperamide Cap [Imodium Cap] 2 mg PO Q2H PRN capsule PRN Reason: Diarrhea Temazepam [Restoril] 7.5 mg PO BEDTIME PRN capsule PRN Reason: Insomnia Continue Levothyroxine Tab [Synthroid Tab] 200 mcg PO DAILY@0700 Sotalol HCl [Sotalol AF] 1 tablet PO BID Budesonide/Formoterol 160-4.5 [Symbicort 160-4.5] 2 puffs INH BID dilTIAZem HCl [Cartia XT] 1 tablet PO DAILY No Action Hydrocodone/Acetaminophen [[place] 10-325 Tablet] 1 each PO Q6HR Amlodipine Besylate/Benazepril [Amlodipine-Benazepril 10-40 mg] 1 each PO DAILY Furosemide Tab [Lasix Tab] 1 tablet PO DAILY Escitalopram Oxalate 10 mg PO DAILY fentaNYL [Fentanyl 100 mcg/hr Patch] 1 patch TRANSDERM Q48H Apixaban [Eliquis] 5 mg PO BID - Follow Up or Referral - Forms/Instructions Additional Discharge Instructions: Appointment to see me in 1 month with chest x -ray, CBC, CMP and LDH. The patient is being transferred to swing bed today and I would recommend continuing all of her current medications. I cannot determine from the electronic medical record whether or not the Apresoline is ordered as needed but it should be 10 mg IV every 6 hours as needed rather than on a regular basis. Exam - Constitutional Vitals: Period Temp Pulse Resp BP Sys/Wilcox Pulse Ox Last 24 Hr 97 F-98.8 F 46-72 10-20 120-173/60-73 91-96 Discharge Results Procedures and tests throughout hospitalization: Pending Orders 01/30/17 07:50 AFB Culture/Smears Routine Fungal Culture w/ Prep Routine 01/30/17 07:56 Cytology Request Routine 02/05/17 09:06 Blood Culture Routine 02/07/17 04:00 Comp Blood Count Auto Diff IN AM Comprehensive Metabolic Panel IN AM Labs on day of discharge: Labs from last 24 hours 02/06/17 02/06/17 02/05/17 04:29 04:29 07:27 WBC 14.5 H RBC 3.79 L Hgb 11.3 L Hct 35.1 L MCV 92.6 MCH 30 MCHC 32.2 RDW 14.1 Plt Count 286 MPV 10.0 Neut % (Auto) 89.3 H Lymph % (Auto) 3.9 L [place] % (Auto) 6.1 Eos % (Auto) 0.0 Baso % (Auto) 0.1 Neut # (Auto) 13.0 H Lymph # (Auto) 0.6 L [place] # (Auto) 0.9 H Eos # (Auto) 0.0 Baso # (Auto) 0.0 Total Counted 100 Immature Gran % 0.6 Nucleated RBC % 0.0 Immature Gran # 0.09 Segmented Neutrophils 89 H Lymphocytes 4 L Monocytes 6 Eosinophils 1 Nucleated RBCs # 0.00 Platelet Estimate Adequate Hypochromasia 1+ Microcytosis Slight Ovalocytes Slight Morphology Comment Sodium 136 137 Potassium 4.3 4.6 Chloride 100 100 Carbon Dioxide 31 31 Anion Gap 9.3 10.6 BUN 30 H 32 H Creatinine 0.90 1.00 GFR Calculation 53 47 BUN/Creatinine Ratio 33.00 H 32.00 H Glucose 88 83 Calculated Osmolality 276.0 278.8 Calcium 8.2 L 8.4 L Total Bilirubin 1.00 0.50 AST 16 19 ALT 18 20 Alkaline Phosphatase 64 75 Lactate Dehydrogenase 202 240 Total Protein 4.6 L 5.2 L Albumin 2.4 L 2.6 L Globulin 2.2 L 2.6 Albumin/Globulin Ratio 1.0 L 1.0 L 02/05/17 07:27 WBC 14.4 H RBC 4.27 Hgb 13.0 Hct 39.1 MCV 91.6 MCH 30 MCHC 33.2 RDW 14.0 Plt Count 352 MPV 9.6 Neut % (Auto) 89.7 H Lymph % (Auto) 3.3 L [place] % (Auto) 5.6 Eos % (Auto) 0.0 Baso % (Auto) 0.1 Neut # (Auto) 12.9 H Lymph # (Auto) 0.5 L [place] # (Auto) 0.8 Eos # (Auto) 0.0 Baso # (Auto) 0.0 Total Counted 100 Immature Gran % 1.3 Nucleated RBC % 0.0 Immature Gran # 0.19 Segmented Neutrophils 92 H Lymphocytes 4 L Monocytes 4 Eosinophils Nucleated RBCs # 0.00 Platelet Estimate Normal Hypochromasia 1+ Microcytosis Slight Ovalocytes Morphology Comment Sodium Potassium Chloride Carbon Dioxide Anion Gap BUN Creatinine GFR Calculation BUN/Creatinine Ratio Glucose Calculated Osmolality Calcium Total Bilirubin AST ALT Alkaline Phosphatase Lactate Dehydrogenase Total Protein Albumin Globulin Albumin/Globulin Ratio Preliminary micro results at discharge 01/30/17 07:50 Fungal Culture - Preliminary Bronchial Washings Renetta albicans 01/30/17 07:50 Mycobacterial Culture - Preliminary Bronchial Washings DS: Provider Date of admission: 01/26/17 22:14 Primary care physician: Teddy Carbone MD Attending physician on admission: Erasto Hoffman MD Consults: 01/26/17 23:37 Consult to Dietitian [CONS] Routine Reason for Dietitian: Dietary Consult 01/28/17 07:39 Consult to Physician [CONS] Routine Comment: Patient known to you. Plz follow. Consulting Provider: Bipin Lawson 01/31/17 08:26 PT [Consult to Physical Therapy] [CONS] Routine Reason for Physical Therapy: Evaluate and Treat 02/01/17 13:21 Consult to Case Mgmt/Social Srvs [CONS] Routine Reason for Case Mgmt/Social Srvs: Swingbed/SNF/Jail Consult Comment: Too weak to go home, lives alone Discharging clinician: Erasto Hoffman MD
[2017-02-06] MEDS: DILTIAZEM CD 180 MG CAPSULE PO SCH (09:29)
[2017-02-06] MEDS: amLODIPine 10 MG TABLET PO SCH (09:30)
[2017-02-06] MEDS: SOTALOL 80 MG TABLET PO SCH ×3 (09:31→21:07)
[2017-02-06] MEDS: BUDESONIDE/FORMOTEROL 160-4.5 INHALER 6 GM INH SCH ×2 (09:33→21:13)
[2017-02-06] MEDS: DESITIN 4OZ/NYSTATIN 15 GRAM MIXTURE PASTE TOP SCH ×2 (09:34→21:13)
--- NOTE | 2017-02-06 10:06 | Pulmonology Progress Note ---
Pulmonary - PN: Subj Interval history: This 81-year-old lady came in with abdominal pain on the left side and was found to have a right lower lobe pneumonia. She has a history of lung cancer and has had radiation and chemotherapy. She has an abnormality of the bottom of the right lung where she previously had the lung cancer. I plan to do a bronchoscope to evaluate that when we can get her tuned up. She still having some cough congestion probable pneumonia. A BNP was done and was elevated at over 2000. Will evaluate with echocardiogram. She does have atrial fibrillation. She has been on Eliquis. This will be held until the bronchoscope can be done on . 01/30/2017 patient has left ventricular hypertrophy and mild pulmonary hypertension. This probably is the cause of the elevated BNP. I do think she has some mild congestive heart failure. We proceeded with her bronchoscope this morning. She has some swelling and narrowing of orifices in the right middle and lower lobe. No endobronchial tumor. This is a marked improvement compared to her bronchoscopy last fall. She had total obstruction of the bronchus intermedius at that time. She has had a good response to radiation/ chemotherapy. She did have a good bit of thick secretions and apparently has a difficult time clearing of secretions. We need to continue treating her with antibiotics bronchodilator steroids and mucolytics. 01/31/2017 patient is feeling better today. Wants to get out of bed and I think she should with help. Pathology and culture reports pending from yesterday's bronchoscopy. She is on empiric bronchodilators, steroids, antibiotics, and mucolytics. I think the steroids have her speeding a little bit. 02/01/2017 patient came in with abdominal pain which resolved. She was found to have bronchopneumonia primarily in the right lower lobe. Bronchoscopy showed some narrowing of the bronchial orifices but much improved since original diagnosis of lung cancer last year. Cytology is class III. I discussed the case with pathology. They feel that radiation changes are most likely the cause of this. Agree with not treating further with chemotherapy at this point. Patient has grown out 2 of 2 positive blood cultures for MRSA. Currently on Zyvox because of concerns about renal function. Normally would treat for 2 weeks. I will be out this weekend. Please call pulmonary premium card cancellation clerk if needed. 02/04/2017 patient is less short of breath. Still having some coughing. Lungs sound better. Chest x-ray little change. She no longer has a localized wheeze over the right lower lobe. She is confused. I will decrease prednisone further to 20 mg daily. We can stop Merrem at this point. Needs to complete 2 weeks of Zyvox. It is well absorbed orally. Zyvox can interact with SSRIs. I will stop Lexapro 02/05/2017 patient remains a little confused and angry. Her lungs sound much better. I think we can stop her prednisone altogether. I will repeat blood cultures. I would favor finishing 2 weeks of Zyvox, whether by IV or p.o., which would be about another week from now. 02/06/2017 patient is better today. Does not appear to be as confused and angry. Agree with plans for swing bed. She needs about another week of Zyvox. Exam (Progress Note) - Constitutional Vitals: Period Temp Pulse Resp BP Sys/Wilcox Pulse Ox Last 24 Hr 97 F-98.8 F 46-62 10-20 109-129/60-73 91-96 Exam: Patient's alert. She is confused as to time, and forgets that she is being served meals. Vital signs normal. Pupils react to light. Throat is clear. She has some oral monilia. Neck supple no bruits. Chest reveals some scattered rhonchi and basilar crackles. Heart irregular without murmur. Abdomen soft nontender no masses. Extremities no clubbing cyanosis edema. Calves nontender. Results - Labs CBC & BMP: 02/06/17 04:29 02/06/17 04:29 Lab Results: I have reviewed the past 24 hour labs Assessment and Plan (1) Acute bronchitis Status: Acute Assessment and plan: I do hear some bronchospasm. She needs steroids along with antibiotics and bronchodilators. 01/29/2017 continuing bronchodilators and antibiotics and steroids. 01/30/2017 patient clearly has acute bronchitis with retained secretions. Probably some bronchopneumonia as well. Check cultures from bronchial washings. Continue empiric antibiotics. 01/31/2017 she had a lot of secretions at bronchoscopy. Cultures are pending. Continue current medications. 02/01/2017 less bronchospasm. 02/04/2017 bronchospasm much less. Tapering prednisone. 02/05/2017 lungs sound better. We will stop prednisone. 02/06/2017 lungs sound better. Doing well off prednisone. Current Visit: Yes (2) Pneumonia Status: Acute Assessment and plan: Being treated empirically for right lower lobe pneumonia. This is the location where her cancer was previously. I think it would be worthwhile to reevaluate the bronchoscopy once she is doing a little better. 01/29/2017 as a bronchopneumonia at the right base. There could be an element of congestive heart failure as well given her elevated BNP. Check an echocardiogram 01/30/2017 continuing empiric antibiotics. Check cultures. Also has some diastolic acute congestive heart failure. 01/31/2017 based on endobronchial findings I do think she has some bronchopneumonia. Culture should be out tomorrow. She did have positive MRSA blood cultures 2 of 2. 02/01/2017 cultures are pending. She does have positive blood cultures for MRSA and I think we should direct her antibiotics in that way. 02/04/2017 positive blood cultures for MRSA. Likely the cause of her pneumonia as well, although bronchial washings have been negative. Agree with 2 weeks total of Zyvox. 02/05/2017 she has had 6 days of Zyvox. This should suffice for the pneumonia. We will repeat blood cultures. Usually would treat for 2 weeks for positive MRSA blood culture. 02/06/2017 agree with plans. Going to swing bed. Oral Zyvox for another week. Current Visit: Yes (3) COPD (chronic obstructive pulmonary disease) Status: Acute Assessment and plan: Continuing with bronchodilator steroids antibiotics 01/29/2017 on appropriate meds for this. 01/30/2017 continuing bronchodilators. 01/31/2017 a little less bronchospasm. Localized wheeze in the right lower lobe. 02/01/2017 still having some bronchospasm. Will try to get by with less steroids. She is having some speeding. May be untoward reaction to the steroids. 02/04/2017 tapering steroids to a minimum. They may be affecting her mental status. 02/05/2017 continue with controller medications post discharge. She is on Symbicort. 02/06/2017 continuing bronchodilators. Continuing Symbicort Current Visit: No (4) Squamous cell carcinoma of right lung Status: Acute Assessment and plan: Diagnosed with bronchoscopy May 2016. She had almost complete obstruction of the right middle and lower lobes at that time. Good response to chemotherapy and radiation. However I do hear a localized wheeze there. Will need reevaluation with bronchoscopy in couple of days. 01/29/2017 she has had radiation and chemotherapy. Mass was in the right lower lobe originally with obstruction. Plan bronchoscopy on when she is clinically improved. She does have a localized wheeze over the right lower lobe 01/30/2017 this is felt to be in remission. Please see bronchoscopy note. There is distortion of the lower lobe bronchi with swelling and narrowing but no visible endobronchial lesion. Marked improvement from bronchoscopy 9 months ago prior to radiation and chemotherapy 01/31/2017 she has had chemotherapy and radiation. We did do brushings yesterday. No endobronchial lesions. 02/01/17 this is felt to be in remission. Discussed the case with Dr. Hoffman who may use [employer] on her 02/04/2017 no evidence of any recurrence. Current Visit: No Specialty Discharge - Follow Up or Referrals Follow up with: Erasto Hoffman MD [Physician] - 03/11/17 10:15 am (APPT WITH DR HOFFMAN IS ON February AT 1015AM FOR LABS AND XRAY AND TO SEE THE AT 1215PM [id number])
[2017-02-06 12:19] LABS: INR 1.1; PT Patient Result 12.2 SECS
--- NOTE | 2017-02-06 12:58 | Gastrointestinal Consult Note ---
Assessment and Plan (1) GI bleed Status: Acute Assessment and plan: 02/06-Sudden onset of dark red/black tarry stools w/o associated symptoms at time of discharge. Hx of GI bleeding in 2015 with questionable ischemic colitis. Unable to locate records of last colonoscopy. Hx of Eliquis which reported to be held x 1 week. Hgb stable at 11.3. Continue to monitor serial HH at this time. Plan and addendum to follow by Dr Velásquez. Current Visit: Yes History of Present Illness Chief complaint: GI bleed History of present illness: Ms. Witt is a 81 year old female who was admitted to the hospital with onset of altered mental status. Pt is a poor historian therefore information is obtained from chart review. Pt has a history of CHF, HTN, COPD and squamous cell carcinoma of the lung. She is followed by Dr Barragan and has recently completed her chemoradiation treatments a month ago. She was found by family to have changes in mental status and reportedly went to [facility] where she was given Narcan to reverse her Fentanyl patch however family then requested transfer to our facility following this. CT of head was negative at that time. She was admitted for further workup and Dr Lawson was consulted for complaints of left upper quadrant abdominal pain. She was started on empiric treatment for pneumonia for infiltate to RLL. She underwent FOB on 01/30 with findings of bronchopneumonia. She was on Eliquis for atrial fibrillation prior to admission however nursing staff verifies this has not been given in a week and was not restarted following FOB. She has a history of GI bleed in Apr of last year and underwent EGD at that time with findings of meat impaction, esophageal stricture and hiatal hernia. She then had repeat EGD several days later with findings of severe khadijah and she was able to be dilated at that time. Her GI bleed at that time was felt to be related to ischemic colitis however no records in our database regarding her last colonoscopy. Last CT scan during this visit did show evidence of diverticulosis. She was preparing for discharge home today and prior to leaving her brief was changed and a large amount of dark black and dark red blood was noted in the stool. She denies any abdominal pain, nausea or vomiting associated with this. Home Medications Medication Instructions Recorded Confirmed Type Amlodipine Besylate/Benazepril 1 each PO DAILY 01/26/17 01/26/17 History [Amlodipine-Benazepril 10-40 mg] Apixaban [Eliquis] 5 mg PO BID 01/26/17 01/26/17 History Budesonide/Formoterol 160-4.5 2 puffs INH BID 01/26/17 01/26/17 History [Symbicort 160-4.5] Escitalopram Oxalate 10 mg PO DAILY 01/26/17 01/26/17 History Furosemide Tab [Lasix Tab] 1 tablet PO DAILY 01/26/17 01/26/17 History Hydrocodone/Acetaminophen [Spencer 1 each PO Q6HR 01/26/17 01/26/17 History 10-325 Tablet] Levothyroxine Tab [Synthroid Tab] 200 mcg PO DAILY@0700 01/26/17 01/26/17 History Sotalol HCl [Sotalol AF] 1 tablet PO BID 01/26/17 01/26/17 History dilTIAZem HCl [Cartia XT] 1 tablet PO DAILY 01/26/17 01/26/17 History fentaNYL [Fentanyl 100 mcg/hr 1 patch TRANSDERM Q48H 01/26/17 01/26/17 History Patch] ALPRAZolam [Xanax] 0.25 mg PO Q4H PRN tablet 02/06/17 Rx Acetaminophen Tab [Tylenol Tab] 650 mg PO Q4H PRN tablet 02/06/17 Rx Albuterol/Ipratropium Neb [Duoneb] 3 ml RESP TX RT Q6H 02/06/17 Rx Alum/Mag/Simeth Max Str Liquid 30 ml PO Q6H PRN 02/06/17 Rx [Mylanta Max Strength Liquid] Benztropine Inj [Cogentin Inj] 1 mg IV PRN PRN 02/06/17 Rx Diltiazem Cd Cap [Cardizem CD] 180 mg PO DAILY capsule 02/06/17 Rx HYDROcodone/ACETAMIN 5-325 [Spencer 1 tablet PO Q4H PRN tablet 02/06/17 Rx 5-325] Lactulose Liquid [Chronulac] 40 gm PO DAILY PRN 02/06/17 Rx Levothyroxine Tab [Synthroid Tab] 200 mcg PO DAILY@0700 tablet 02/06/17 Rx Linezolid Inj [Zyvox Inj] 600 mg IV Q12H 02/06/17 Rx Loperamide Cap [Imodium Cap] 2 mg PO Q2H PRN capsule 02/06/17 Rx Loperamide Cap [Imodium Cap] 4 mg PO ONCE PRN capsule 02/06/17 Rx Magnesium Hydroxide Susp [Milk of 60 ml PO DAILY PRN 02/06/17 Rx Magnesia] Ondansetron Inj [Zofran Inj] 8 mg IV Q6H PRN vial 02/06/17 Rx Promethazine Inj [Phenergan Inj] 25 mg IV Q4H PRN vial 02/06/17 Rx Temazepam [Restoril] 7.5 mg PO BEDTIME PRN capsule 02/06/17 Rx amLODIPine [Norvasc] 10 mg PO DAILY tablet 02/06/17 Rx chlorproMAZINE INJ [Thorazine Inj] 25 mg IV Q6H PRN 02/06/17 Rx chlorproMAZINE INJ [Thorazine Inj] 25 mg IV Q6H PRN 02/06/17 Rx chlorproMAZINE INJ [Thorazine Inj] 50 mg IV Q6H PRN 02/06/17 Rx chlorproMAZINE TAB [Thorazine Tab] 25 mg PO Q6H PRN tablet 02/06/17 Rx diphenhydrAMINE CAP [Benadryl Cap] 25 mg PO Q4H PRN capsule 02/06/17 Rx fentaNYL 25 MCG/HR PATCH 1 patch TRANSDERM Q3DAY patch 02/06/17 Rx [Duragesic 25 Patch] guaiFENesin LIQUID [Robitussin] 10 ml PO Q4H PRN 02/06/17 Rx hydrALAZINE INJ [Apresoline Inj] 5 mg IV Q6H PRN vial 02/06/17 Rx traMADol TAB [Ultram] 50 mg PO Q6H PRN tablet 02/06/17 Rx Allergies Allergy/AdvReac Type Severity Reaction Status Date / Time No Known Allergies Allergy Verified 10/01/16 07:19 Medical,Surgical,& Family Hx - Medical History Cardio: History of: Cardiac Dysrhythmia, CHF, Hypertension, Cardiovascular Problems (enlarged heart; cardiomyopathy) Psychological: History of: Depression Neurology: No history of: Seizures Endocrine: History of: Thyroid Disorder Rheumatology: History of;: Rheumatoid Arthritis Respiratory: History of: Bronchitis, COPD, Pneumonia Other: History of: Skin Problems (history of skin abscess left upper leg; Dr. González Jr.) No history of: HIV - Surgical History Cardiac Surgeries: Patient Denies: Femoral-Popliteal Bypass Graft, Cardiac Catheterization, Cardiac Surgery, Carotid Endarterectomy, Internal Defibrillator, Vascular Access Devices HEENT Surgeries: Patient denies: Carotid Endarterectomy - Family History Family History: Reports;: Family Hypertension (uncertain) - Social History Smoking Status: Heavy tobacco smoker Frequency of Alcohol Use: Unknown Type of Drug Use: None 12 point system: reviewed and no additional remarkable complaints except as stated - Constitutional Constitutional: Present: as per HPI - EENT Eyes: Present: as per HPI Ears: Present: as per HPI Nose, mouth and throat: Present: as per HPI - Cardiovascular Cardiovascular: Present: as per HPI - Respiratory Respiratory: Present: as per HPI - Gastrointestinal Gastrointestinal: Present: as per HPI - Genitourinary Genitourinary: Present: as per HPI - Musculoskeletal Musculoskeletal: Present: as per HPI - Neurological Neurological: Present: as per HPI - Psychiatric Psychiatric: Present: as per HPI - Endocrine Endocrine: Present: as per HPI - Hematologic/Lymphatic Hematologic/Lymphatic: Present: as per HPI Exam - Constitutional Vitals: Period Temp Pulse Resp BP Sys/Wilcox Pulse Ox Last 24 Hr 97 F-98.8 F 46-62 10-20 107-129/60-73 91-96 General appearance: normal weight, no acute distress - Head Head exam: Present: normal inspection, normocephalic - Eye Eye exam: Present: other (lids and conjunctiva unremarkable). Absent: scleral icterus - ENT ENT exam: Present: normal exam, normal oropharynx - Neck Neck exam: Present: normal inspection - Respiratory Respiratory exam: Present: clear to auscultation bilaterally. Absent: rales, rhonchi, wheezes - Cardiovascular Cardiovascular exam: Present: regular rate and rhythm. Absent: diastolic murmur , JVD, systolic murmur - GI/Abdominal GI/Abdominal exam: Present: normal bowel sounds, soft. Absent: ascites, distended, mass, organomegaly, tenderness - Extremities Exam Extremities exam: Present: normal inspection, full ROM - Back Exam Back exam: Present: normal inspection - Neurological Exam Neurological exam: Present: alert, oriented X3 - Psychiatric Psychiatric exam: Present: normal affect, normal mood - Skin Skin exam: Present: normal color, warm, dry Results - Labs CBC & BMP: 02/06/17 04:29 02/06/17 04:29 Lab Results: I have reviewed the past 24 hour labs Specialty Discharge - Follow Up or Referrals Follow up with: Erasto Barragan MD [Physician] - 03/11/17 10:15 am (APPT WITH DR BARRAGAN IS ON February AT 1015AM FOR LABS AND XRAY AND TO SEE THE AT 1215PM [id number])
[2017-02-06 15:11] LABS: Basophils % 0.1 % (0.0-0.8); Hematocrit 30.7 VOL% (35.7-47.0); Immature Granulocytes % 0.9 %; Immature Granulocytes Absolute 0.15 #; Lymphocytes # 0.5 10*3/uL (1.4-4.0); Lymphocytes % 2.9 % (21.3-54.2); Mean Corpuscular HGB Conc 32.6 GM/DL (32-36); Mean Corpuscular Hemoglobin 31 PG (27-34); Mean Corpuscular Volume 93.9 FL (87-102); Monocytes # 0.7 10*3/uL (0.11-0.8); Monocytes % 4.5 % (1.7-12.7); Neutrophils # 15.2 10*3/uL (1.4-7.4); Neutrophils % 91.6 % (38.7-73.9); Platelet Count 278 T/CUMM (130-400); Red Blood Count 3.27 MC/CUMM (3.8-5.5); Red Cell Distribution Width 14.2 % (9.3-17.3); White Blood Count 16.6 T/CUMM (4-12)
[2017-02-06 15:46] LABS: Hypochromasia Slight; Lymphocytes 2 % (20-55); Platelet Estimate Adequate; Polychromasia Slight; Segmented Neutrophils 95 % (50-85); Total Cells Counted 100
--- NOTE | 2017-02-06 16:06 | Oncology Progress Note ---
Assessment and Plan (1) Acute bronchitis Status: Acute Current Visit: Yes (2) Pneumonia Status: Acute Assessment and plan: -Pneumonia Current Visit: Yes (3) COPD (chronic obstructive pulmonary disease) Status: Acute Current Visit: No (4) Squamous cell carcinoma of right lung Status: Acute Current Visit: No Oncology Subjective PN Interval history: The discharge has been canceled all Ms. Witt. She had sudden onset of copious melanotic stool as we were attempting to transfer her to the swing bed. We have crossmatch blood and a plan to transfuse her. We are having difficulty with venous access and we are going to get a PICC line placed. Dr. Velásquez is her cellular phone repairer. We will be following her closely with blood work and working with him establish the site of the bleeding. Problem list: (1)Acute GI bleed: The hemoglobin has dropped to 10.0 and a plan to transfuse packed red cells. Additional studies that we have checked because of the GI bleeding include a pro time INR that is 1.1. Fibrinogen is 394. (2) MRSA sepsis Currently on IV antibiotic therapy. She remains afebrile. We are continuing current therapy. We are also monitoring for toxicity. He is on Zyvox which can cause thrombocytopenia. Her blood work was drawn late today and is pending. (3) COPD (chronic obstructive pulmonary disease) Status: Acute this is being managed by Dr. Lawson and her COPD is clearly improving. She has a few scattered rhonchi but these are improved. Her chest moves symmetrically with respiration. There is some faint wheezing in the right posterior base that is slightly more pronounced today than yesterday. (4) Squamous cell carcinoma of right lung Bronchial brushings are back and are class III from 3 separate reports. This is not enough evidence for me to consider resuming chemotherapy or switching her to Opdivo presently. (5) left chest pain Currently on parenteral narcotics with relatively good pain relief. In addition , the pain has improved significantly. Her fentanyl has been decreased and she appears to be less confused. (6)dehydration/renal failure: She is on IV fluids for hydration. Serum creatinine this morning was 0.9 but we will recheck it in the morning along with a comprehensive metabolic profile. (7) confusion: She is clearly confused. This is probably multifactorial including steroid therapy and her overall debilitation. She is more depressed than confused today. She is angry about having to be here. We are working on swing bed transfer. (8) Hypertension : I am adding hydralazine for the time being. Her blood pressure this morning is 141/67. (9)Malnutrition:She is malnourished with a serum albumin of 2.8.Her liver enzymes are normal except for an LDH of 253. Exam - Constitutional Vitals: Period Temp Pulse Resp BP Sys/Wilcox Pulse Ox Last 24 Hr 97 F-98.8 F 48-62 10-20 107-129/61-73 83-97 Results - Labs CBC & BMP: 02/06/17 14:15 02/06/17 04:29 Specialty Discharge - Follow Up or Referrals Follow up with: Erasto Barragan MD [Physician] - 03/11/17 10:15 am (APPT WITH DR BARRAGAN IS ON February AT 1015AM FOR LABS AND XRAY AND TO SEE THE AT 1215PM [phone])
[2017-02-06] MEDS ORDERED: SODIUM CHLORIDE 0.9% 250 ML IV PRN ×2 (16:15→16:16)
[2017-02-06] MEDS: DEXTROSE 5% NACL 0.45% 1,000 ML IV SCH ×4 (17:25→22:33)
[2017-02-06] MEDS: ONDANSETRON 4 MG/2 ML VIAL IV PRN (17:29)
[2017-02-06] MEDS: LINEZOLID INJ 600 MG in PREMIX 1 EACH IV SCH (18:10)
[2017-02-06] MEDS: ALUMINUM/MAGNES/SIMETH MAX STR 30 ML UDCUP PO PRN (18:11)
--- NOTE | 2017-02-06 18:23 | Post Interventional Procedure ---
Pre-op diagnosis: GI bleeding, n/v, no IV access Post-op diagnosis: same Procedure: PICC placement Contrast: none Flouroscopy: 3.9 min Radiologist: Rony Valladares Anesthesia: local Specimens: none sent Estimated blood loss: minimal (5 m L) Complications: none Condition: stable Description/Findings: left arm 5 Fr basilic vein PICC placement done and ready to use. Assessment and Plan - Time spent with patient Time spent with patient: Less than 30 minutes
--- NOTE | 2017-02-06 18:28 | Interventional Radiology Rpt ---
IR PICC line insertion, US guide vascular access IR PICC Placement Peripherally-inserted central catheter (PICC) placement using ultrasound and fluoroscopic guidance Ultrasound of the left upper extremity Clinical Information: 81-year-old female with gastrointestinal bleeding and no IV access. PICC line is requested. Physician: Dr. Valladares Procedure: The patient was advised of the benefits, risks, and alternatives of the procedure and informed consent was obtained. A time out was performed with verification of the patient's name, MRN, site of procedure, and type of procedure to be performed. The patient was positioned in the supine position on the angiographic table. The site was prepped and draped in the usual sterile fashion. Additionally, maximal sterile barrier technique was employed for the procedure. A edge worker radiograph reveals no relevant abnormality. Ultrasound examination of the left arm demonstrates patent and compressible brachial and basilic veins. The left arm was prepped and draped in the usual sterile fashion. The left basilic vein was again identified. Using ultrasound guidance, a 21 gauge needle was used to access the vein. A permanent ultrasound recording of vascular access was obtained for the patient's record. A 0.018" cope wire was then advanced into the vein. The needle was exchanged for a 5 Irish peel-away sheath. A 5 Irish double lumen Bard Solo PICC catheter was measured and trimmed to the T9 cm darrian. The PICC line was advanced through the sheath and into the central circulation. The catheter tip was positioned at the cavo-atrial junction. The peel-away sheath was then removed. At the conclusion of the procedure, the catheter was secured in place using a Stat-Lock device. A sterile dressing was applied. The lumens aspirate and flush freely. The catheter is ready for immediate use. The patient tolerated the procedure well and was returned to the PRU in stable condition. EBL: < 5 mL. Complications: None. Fluoroscopy time: 3.9 minutes Total number of images for this study: 2 Conclusion: Successful placement of a 5 Irish double lumen Bard Solo power injectable PICC via the left basilic vein. The catheter is ready for immediate use. PROCEDURE INTERPRETED AT [facility] Final Report Signed by: Rony Valladares
[2017-02-06] MEDS: TEMAZEPAM 7.5 MG CAPSULE PO PRN (19:53)
[2017-02-06] MEDS: PANTOPRAZOLE 40 MG TABLET PO SCH (21:12)
[2017-02-06 21:56] LABS: Basophils % 0.1 % (0.0-0.8); Hematocrit 24.4 VOL% (35.7-47.0); Hemoglobin 7.9 GM/DL (12.0-16.0); Immature Granulocytes % 1.1 %; Immature Granulocytes Absolute 0.15 #; Lymphocytes # 0.3 10*3/uL (1.4-4.0); Lymphocytes % 2.5 % (21.3-54.2); Mean Corpuscular HGB Conc 32.4 GM/DL (32-36); Mean Corpuscular Hemoglobin 30 PG (27-34); Mean Corpuscular Volume 93.1 FL (87-102); Mean Platelet Volume 9.8 FL (9.6-12.0); Monocytes # 0.6 10*3/uL (0.11-0.8); Monocytes % 4.4 % (1.7-12.7); Neutrophils # 12.3 10*3/uL (1.4-7.4); Neutrophils % 91.9 % (38.7-73.9); Platelet Count 230 T/CUMM (130-400); Red Blood Count 2.62 MC/CUMM (3.8-5.5); Red Cell Distribution Width 14.1 % (9.3-17.3); White Blood Count 13.4 T/CUMM (4-12)
[2017-02-06 22:16] LABS: Hypochromasia 1+; Lymphocytes 3 % (20-55); Segmented Neutrophils 95 % (50-85); Total Cells Counted 100
[2017-02-06 22:17] LABS: Platelet Estimate Adequate; Polychromasia Slight
[2017-02-07] MEDS: ALBUTEROL/IPRATROPIUM 3 ML NEB RESP TX SCH ×4 (00:59→19:58)
[2017-02-07 05:32] LABS: Basophils % 0.1 % (0.0-0.8); Hematocrit 31.7 VOL% (35.7-47.0); Immature Granulocytes % 0.9 %; Immature Granulocytes Absolute 0.13 #; Lymphocytes # 0.4 10*3/uL (1.4-4.0); Mean Corpuscular HGB Conc 33.1 GM/DL (32-36); Mean Corpuscular Hemoglobin 30 PG (27-34); Mean Corpuscular Volume 90.3 FL (87-102); Mean Platelet Volume 9.8 FL (9.6-12.0); Monocytes # 0.8 10*3/uL (0.11-0.8); Monocytes % 5.3 % (1.7-12.7); Neutrophils # 13.4 10*3/uL (1.4-7.4); Neutrophils % 90.7 % (38.7-73.9); Platelet Count 190 T/CUMM (130-400); Red Cell Distribution Width 15.3 % (9.3-17.3); White Blood Count 14.7 T/CUMM (4-12)
[2017-02-07 05:41] LABS: Hemoglobin 10.5 GM/DL (12.0-16.0); Red Blood Count 3.51 MC/CUMM (3.8-5.5)
[2017-02-07 05:51] LABS: Band Neutrophils 1 % (0-10); Hypochromasia 1+; Lymphocytes 3 % (20-55); Ovalocytes Slight; Platelet Estimate Normal; Segmented Neutrophils 91 % (50-85); Total Cells Counted 100
[2017-02-07 05:52] LABS: Microcytosis Slight
[2017-02-07] MEDS: ONDANSETRON 4 MG/2 ML VIAL IV PRN (06:16)
[2017-02-07] MEDS: LINEZOLID INJ 600 MG in PREMIX 1 EACH IV SCH ×2 (06:17→21:01)
[2017-02-07] MEDS: DEXTROSE 5% NACL 0.45% 1,000 ML IV SCH ×3 (06:17→20:15)
[2017-02-07 06:19] LABS: Albumin 2.1 G/DL (3.4-5.0); Bilirubin,Total 0.6 MG/DL (0.2-1.0); Calcium 7.7 MG/DL (8.5-10.1); Osmolality,Calculated 288.7 MOS/KG (273-304); Potassium 4.2 MMOL/L (3.5-5.1)
[2017-02-07] MEDS: LEVOTHYROXINE 200 MCG TABLET PO SCH (07:13)
--- NOTE | 2017-02-07 07:17 | Oncology Progress Note ---
Assessment and Plan (1) Acute bronchitis Status: Acute Current Visit: Yes (2) Pneumonia Status: Acute Assessment and plan: -Pneumonia Current Visit: Yes (3) COPD (chronic obstructive pulmonary disease) Status: Acute Current Visit: No (4) Squamous cell carcinoma of right lung Status: Acute Current Visit: No Oncology Subjective PN Interval history: (1)Acute GI bleed: Hemoglobin this morning is 10.5 following transfusion.Platelet count is 190,000.White cell count is 14,700. Additional studies that we have checked because of the GI bleeding include a pro time INR that is 1.1. Fibrinogen is 394. (2) MRSA sepsis Currently on IV antibiotic therapy. She remains afebrile. We are continuing current therapy. We are also monitoring for toxicity. He is on Zyvox which can cause thrombocytopenia. Her blood work was drawn late today and is pending. (3) COPD (chronic obstructive pulmonary disease) Status: Acute this is being managed by Dr. Lawson and her COPD is clearly improving. She has a few scattered rhonchi but these are improved. Her chest moves symmetrically with respiration. There is some faint wheezing in the right posterior base that is slightly more pronounced today than yesterday. (4) Squamous cell carcinoma of right lung Bronchial brushings are back and are class III from 3 separate reports. This is not enough evidence for me to consider resuming chemotherapy or switching her to Opdivo presently. (5) left chest pain Currently on parenteral narcotics with relatively good pain relief. In addition , the pain has improved significantly. Her fentanyl has been decreased and she appears to be less confused. (6)dehydration/renal failure: She is on IV fluids for hydration.BUN is elevated, probably due to GI bleed. The serum creatinine is normal at 0.9. (7) confusion: She is clearly confused. She does not remember seeing Dr. Velásquez yesterday. She tells me that I have not explained anything to her concerning all of her problems. This is probably multifactorial including steroid therapy and her overall debilitation. She is more depressed than confused today. She is angry about having to be here. We were working on a swing bed transfer when she began to actively GI bleed. (8) Hypertension : I am adding hydralazine as needed for the time being. Her blood pressure this morning is 141/67. (9)Malnutrition:She is malnourished with a serum albumin of 2.1.The calcium is 7.7 corresponding to the low albumin. Exam - Constitutional Vitals: Period Temp Pulse Resp BP Sys/Wilcox Pulse Ox Last 24 Hr 97.7 F-98.7 F 45-88 10-20 84-129/47-73 83-100 Results - Labs CBC & BMP: 02/07/17 04:00 02/07/17 04:00 Specialty Discharge - Follow Up or Referrals Follow up with: Erasto Barragan MD [Physician] - 03/11/17 10:15 am (APPT WITH DR BARRAGAN IS ON February AT 1015AM FOR LABS AND XRAY AND TO SEE THE AT 1215PM [phone])
--- NOTE | 2017-02-07 09:55 | Pulmonology Progress Note ---
Pulmonary - PN: Subj Interval history: This 81-year-old lady came in with abdominal pain on the left side and was found to have a right lower lobe pneumonia. She has a history of lung cancer and has had radiation and chemotherapy. She has an abnormality of the bottom of the right lung where she previously had the lung cancer. I plan to do a bronchoscope to evaluate that when we can get her tuned up. She still having some cough congestion probable pneumonia. A BNP was done and was elevated at over 2000. Will evaluate with echocardiogram. She does have atrial fibrillation. She has been on Eliquis. This will be held until the bronchoscope can be done on . 01/30/2017 patient has left ventricular hypertrophy and mild pulmonary hypertension. This probably is the cause of the elevated BNP. I do think she has some mild congestive heart failure. We proceeded with her bronchoscope this morning. She has some swelling and narrowing of orifices in the right middle and lower lobe. No endobronchial tumor. This is a marked improvement compared to her bronchoscopy last fall. She had total obstruction of the bronchus intermedius at that time. She has had a good response to radiation/ chemotherapy. She did have a good bit of thick secretions and apparently has a difficult time clearing of secretions. We need to continue treating her with antibiotics bronchodilator steroids and mucolytics. 01/31/2017 patient is feeling better today. Wants to get out of bed and I think she should with help. Pathology and culture reports pending from yesterday's bronchoscopy. She is on empiric bronchodilators, steroids, antibiotics, and mucolytics. I think the steroids have her speeding a little bit. 02/01/2017 patient came in with abdominal pain which resolved. She was found to have bronchopneumonia primarily in the right lower lobe. Bronchoscopy showed some narrowing of the bronchial orifices but much improved since original diagnosis of lung cancer last year. Cytology is class III. I discussed the case with pathology. They feel that radiation changes are most likely the cause of this. Agree with not treating further with chemotherapy at this point. Patient has grown out 2 of 2 positive blood cultures for MRSA. Currently on Zyvox because of concerns about renal function. Normally would treat for 2 weeks. I will be out this weekend. Please call pulmonary reconnaissance man if needed. 02/04/2017 patient is less short of breath. Still having some coughing. Lungs sound better. Chest x-ray little change. She no longer has a localized wheeze over the right lower lobe. She is confused. I will decrease prednisone further to 20 mg daily. We can stop Merrem at this point. Needs to complete 2 weeks of Zyvox. It is well absorbed orally. Zyvox can interact with SSRIs. I will stop Lexapro 02/05/2017 patient remains a little confused and angry. Her lungs sound much better. I think we can stop her prednisone altogether. I will repeat blood cultures. I would favor finishing 2 weeks of Zyvox, whether by IV or p.o., which would be about another week from now. 02/06/2017 patient is better today. Does not appear to be as confused and angry. Agree with plans for swing bed. She needs about another week of Zyvox. 02/07/2017 patient had some black tarry stools. She is getting an EGD today. She required transfusion. Not on any anticoagulants. Lungs are stable Exam (Progress Note) - Constitutional Vitals: Period Temp Pulse Resp BP Sys/Wilcox Pulse Ox Last 24 Hr 97.7 F-99.5 F 45-95 10-20 84-129/47-73 83-100 Exam: Patient's alert. She is confused as to time, and forgets that she is being served meals. She is a little pale. Vital signs normal. Pupils react to light. Throat is clear. She has some oral monilia. Neck supple no bruits. Chest reveals some scattered rhonchi and basilar crackles. Heart irregular without murmur. Abdomen soft, mild epigastric tenderness, no masses. Extremities no clubbing cyanosis edema. Calves nontender. Results - Labs CBC & BMP: 02/07/17 04:00 02/07/17 04:00 Lab Results: I have reviewed the past 24 hour labs Assessment and Plan (1) Acute bronchitis Status: Acute Assessment and plan: I do hear some bronchospasm. She needs steroids along with antibiotics and bronchodilators. 01/29/2017 continuing bronchodilators and antibiotics and steroids. 01/30/2017 patient clearly has acute bronchitis with retained secretions. Probably some bronchopneumonia as well. Check cultures from bronchial washings. Continue empiric antibiotics. 01/31/2017 she had a lot of secretions at bronchoscopy. Cultures are pending. Continue current medications. 02/01/2017 less bronchospasm. 02/04/2017 bronchospasm much less. Tapering prednisone. 02/05/2017 lungs sound better. We will stop prednisone. 02/06/2017 lungs sound better. Doing well off prednisone. 02/07/2017 lungs are improved. Stay off prednisone. Current Visit: Yes (2) Pneumonia Status: Acute Assessment and plan: Being treated empirically for right lower lobe pneumonia. This is the location where her cancer was previously. I think it would be worthwhile to reevaluate the bronchoscopy once she is doing a little better. 01/29/2017 as a bronchopneumonia at the right base. There could be an element of congestive heart failure as well given her elevated BNP. Check an echocardiogram 01/30/2017 continuing empiric antibiotics. Check cultures. Also has some diastolic acute congestive heart failure. 01/31/2017 based on endobronchial findings I do think she has some bronchopneumonia. Culture should be out tomorrow. She did have positive MRSA blood cultures 2 of 2. 02/01/2017 cultures are pending. She does have positive blood cultures for MRSA and I think we should direct her antibiotics in that way. 02/04/2017 positive blood cultures for MRSA. Likely the cause of her pneumonia as well, although bronchial washings have been negative. Agree with 2 weeks total of Zyvox. 02/05/2017 she has had 6 days of Zyvox. This should suffice for the pneumonia. We will repeat blood cultures. Usually would treat for 2 weeks for positive MRSA blood culture. 02/06/2017 agree with plans. Going to swing bed. Oral Zyvox for another week. 02/07/2017 clinically improved. Needs Zyvox another week. Still getting it IV for now because of the GI bleed. Current Visit: Yes (3) COPD (chronic obstructive pulmonary disease) Status: Acute Assessment and plan: Continuing with bronchodilator steroids antibiotics 01/29/2017 on appropriate meds for this. 01/30/2017 continuing bronchodilators. 01/31/2017 a little less bronchospasm. Localized wheeze in the right lower lobe. 02/01/2017 still having some bronchospasm. Will try to get by with less steroids. She is having some speeding. May be untoward reaction to the steroids. 02/04/2017 tapering steroids to a minimum. They may be affecting her mental status. 02/05/2017 continue with controller medications post discharge. She is on Symbicort. 02/06/2017 continuing bronchodilators. 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 She had almost complete obstruction of the right middle and lower lobes at that time. Good response to chemotherapy and radiation. However I do hear a localized wheeze there. Will need reevaluation with bronchoscopy in couple of days. 01/29/2017 she has had radiation and chemotherapy. Mass was in the right lower lobe originally with obstruction. Plan bronchoscopy on when she is clinically improved. She does have a localized wheeze over the right lower lobe 01/30/2017 this is felt to be in remission. Please see bronchoscopy note. There is distortion of the lower lobe bronchi with swelling and narrowing but no visible endobronchial lesion. Marked improvement from bronchoscopy 9 months ago prior to radiation and chemotherapy 01/31/2017 she has had chemotherapy and radiation. We did do brushings yesterday. No endobronchial lesions. 02/01/17 this is felt to be in remission. Discussed the case with Dr. Hoffman who may use [employer] on her 02/04/2017 no evidence of any recurrence. Current Visit: No Specialty Discharge - Follow Up or Referrals Follow up with: Erasto Hoffman MD [Physician] - 03/11/17 10:15 am (APPT WITH DR HOFFMAN IS ON February AT 1015AM FOR LABS AND XRAY AND TO SEE THE AT 1215PM [id number])
[2017-02-07] MEDS: DESITIN 4OZ/NYSTATIN 15 GRAM MIXTURE PASTE TOP SCH ×3 (10:10→22:04)
[2017-02-07] MEDS ORDERED: MORPHINE 2 MG/1 ML SYRINGE IV PRN (11:07)
[2017-02-07] MEDS ORDERED: LIDOCAINE 2% 5 ML VIAL ONE (12:00)
[2017-02-07] MEDS ORDERED: PROPOFOL 200 MG/20 ML VIAL IV ONE (12:00)
--- NOTE | 2017-02-07 12:26 | History and Physical Update ---
History and Physical Update - History and Physical H&P was reviewed, the patient examined and there: are no changes in the patients condition since last H&P was completed. - Physical Exam Mental Status: alert and oriented Heart: regular rate and rhythm Lung: clear to auscultation Abdomen: within normal limits Vitals: within normal limits
[2017-02-07 12:34] LABS: Basophils % 0.1 % (0.0-0.8); Hematocrit 30.5 VOL% (35.7-47.0); Hemoglobin 10.2 GM/DL (12.0-16.0); Immature Granulocytes % 0.8 %; Immature Granulocytes Absolute 0.13 #; Lymphocytes # 0.4 10*3/uL (1.4-4.0); Lymphocytes % 2.4 % (21.3-54.2); Mean Corpuscular HGB Conc 33.4 GM/DL (32-36); Mean Corpuscular Hemoglobin 30 PG (27-34); Mean Platelet Volume 9.6 FL (9.6-12.0); Monocytes # 0.8 10*3/uL (0.11-0.8); Neutrophils # 15.1 10*3/uL (1.4-7.4); Neutrophils % 91.7 % (38.7-73.9); Platelet Count 187 T/CUMM (130-400); Red Blood Count 3.39 MC/CUMM (3.8-5.5); Red Cell Distribution Width 15.4 % (9.3-17.3); White Blood Count 16.5 T/CUMM (4-12)
--- NOTE | 2017-02-07 13:01 | Operative Note ---
Date of procedure: 02/07/17 Pre-op diagnosis: GI bleed with melena Post-op diagnosis: other (Large duodenal bulb ulcer) Procedure: Procedure: Esophagogastroduodenoscopy Brief clinical abstract: Patient is an 81-year-old female with multiple medical problems including lung cancer. She had onset yesterday evening with recurrent melena. She has been transfused with 2 units packed red blood cells. Indication for procedure: GI bleed with melena Endoscopic findings:[After informed consent was obtained, the patient was placed in the left lateral decubitus position. The gastroscope was inserted in the upper esophagus under direct vision with no resistance encountered. Esophageal mucosa was notable for cakey yellowish exudate in the upper and midesophagus consistent with candidiasis. Squamocolumnar junction was sharply demarcated above a small hiatal hernia. The endoscope was advanced in the stomach which was carefully examined including retroflexed view of the cardia and fundus with no abnormality seen. The pyloric channel was normal. In the apex of the duodenal bulb anteriorly there was a large extremely deep ulcer. This was estimated to be approximately 3 cm in diameter. There were only strands of muscle fibers visible across much of the base of this. No visible vessel seen. I deflated air at this point and did not use any further air insufflation. The endoscope was withdrawn. She had some abdominal distention afterwards and an x-ray was ordered. I did prep her right midabdomen sterilely , and 14-gauge catheter inserted into the peritoneal space using 60 cc syringe partially filled with sterile water, with no air evident on aspiration. Impression: #1 large, deep anterior duodenal bulb ulcer #2 small hiatal hernia Recommendations: Follow-up on abdominal x-ray findings. If free air present, consult surgery to see although she is a very poor candidate for surgery. Discussed findings with Dr. Hoffman oncology and also with patient's sister. Anesthesia: MAC Surgeon / Physician: Luis Velásquez Estimated blood loss: none Specimens: none sent Condition: stable Disposition: post procedure unit Results - Labs CBC & BMP: 02/07/17 12:10 02/07/17 04:00 Discharge Plan - Discharge Data Disposition: Swing Bed, Hos Based, [facility] - Discharge Medications New Acetaminophen Tab [Tylenol Tab] 650 mg PO Q4H PRN tablet PRN Reason: Fever ALPRAZolam [Xanax] 0.25 mg PO Q4H PRN tablet PRN Reason: Anxiety Alum/Mag/Simeth Max Str Liquid [Mylanta Max Strength Liquid] 30 ml PO Q6H PRN PRN Reason: Indigestion amLODIPine [Norvasc] 10 mg PO DAILY tablet chlorproMAZINE INJ [Thorazine Inj] 25 mg IV Q6H PRN PRN Reason: N/V unrelieved by Phenergan chlorproMAZINE INJ [Thorazine Inj] 25 mg IV Q6H PRN PRN Reason: Agitation chlorproMAZINE TAB [Thorazine Tab] 25 mg PO Q6H PRN tablet PRN Reason: Hiccups diphenhydrAMINE CAP [Benadryl Cap] 25 mg PO Q4H PRN capsule PRN Reason: Itching fentaNYL 25 MCG/HR PATCH [Duragesic 25 Patch] 1 patch TRANSDERM Q3DAY patch guaiFENesin LIQUID [Robitussin] 10 ml PO Q4H PRN PRN Reason: Cough HYDROcodone/ACETAMIN 5-325 [Cent[place] 5-325] 1 tablet PO Q4H PRN tablet PRN Reason: Pain Moderate (4-7) Levothyroxine Tab [Synthroid Tab] 200 mcg PO DAILY@0700 tablet Linezolid Inj [Zyvox Inj] 600 mg IV Q12H Loperamide Cap [Imodium Cap] 4 mg PO ONCE PRN capsule PRN Reason: Diarrhea Magnesium Hydroxide Susp [Milk of Magnesia] 60 ml PO DAILY PRN PRN Reason: Constipation; 1st agent Ondansetron Inj [Zofran Inj] 8 mg IV Q6H PRN vial PRN Reason: Nausea/Vomiting; 1st agent Promethazine Inj [Phenergan Inj] 25 mg IV Q4H PRN vial PRN Reason: N/V unrelieved by Zofran traMADol TAB [Ultram] 50 mg PO Q6H PRN tablet PRN Reason: Pain Mild (1-3) Albuterol/Ipratropium Neb [Duoneb] 3 ml RESP TX RT Q6H Benztropine Inj [Cogentin Inj] 1 mg IV PRN PRN PRN Reason: Extrapyramidal Side Effects chlorproMAZINE INJ [Thorazine Inj] 50 mg IV Q6H PRN PRN Reason: N/V unrelieved by Phenergan Diltiazem Cd Cap [Cardizem CD] 180 mg PO DAILY capsule hydrALAZINE INJ [Apresoline Inj] 5 mg IV Q6H PRN vial PRN Reason: diastolic bp greater than 95 Lactulose Liquid [Chronulac] 40 gm PO DAILY PRN PRN Reason: Constipation unrelieved by MOM Loperamide Cap [Imodium Cap] 2 mg PO Q2H PRN capsule PRN Reason: Diarrhea Temazepam [Restoril] 7.5 mg PO BEDTIME PRN capsule PRN Reason: Insomnia Continue Levothyroxine Tab [Synthroid Tab] 200 mcg PO DAILY@0700 Sotalol HCl [Sotalol AF] 1 tablet PO BID Budesonide/Formoterol 160-4.5 [Symbicort 160-4.5] 2 puffs INH BID dilTIAZem HCl [Cartia XT] 1 tablet PO DAILY No Action Hydrocodone/Acetaminophen [Cent[place] 10-325 Tablet] 1 each PO Q6HR Amlodipine Besylate/Benazepril [Amlodipine-Benazepril 10-40 mg] 1 each PO DAILY Furosemide Tab [Lasix Tab] 1 tablet PO DAILY Escitalopram Oxalate 10 mg PO DAILY fentaNYL [Fentanyl 100 mcg/hr Patch] 1 patch TRANSDERM Q48H Apixaban [Eliquis] 5 mg PO BID - Follow Up or Referral Follow Up: Erasto Hoffman MD [Physician] - 03/11/17 10:15 am (APPT WITH DR HOFFMAN IS ON February AT 1015AM FOR LABS AND XRAY AND TO SEE THE AT 1215PM [id number]) - Forms/Instructions Instructions: Methicillin Resistant Staphylococcus Aureus (DC)
[2017-02-07] MEDS ORDERED: MORPHINE 2 MG/1 ML SYRINGE IV ONE ×3 (13:04→14:29)
[2017-02-07] MEDS ORDERED: ONDANSETRON 4 MG/2 ML VIAL IV ONE (13:15)
--- NOTE | 2017-02-07 13:39 | XRay Report ---
Exam: XR abdomen 3V Date: 02/07/2017 12:43 PM Comparison: None Indication: Post endoscopy with abdominal distention Technique:[Supine, crosstable lateral, and left lateral decubitus abdomen] Findings: Gaseous distention of the bowel with large pneumoperitoneum. Significant dextroscoliosis of the lumbar spine spine with degenerative changes and diffuse arterial calcifications. Old healed pubic bone fractures. Impression: Gaseous distention of bowel is large pneumoperitoneum and double wall sign. These findings were discussed with Dr. Velásquez at 1:30 PM on 02/07/2017. Critical test results PROCEDURE INTERPRETED AT [facility] DEPARTMENT OF RADIOLOGY Final Report Signed by: Dr. Nohemy Bryant
--- NOTE | 2017-02-07 14:02 | Event Note ---
Pneumoperitoneum is documented on plain abdominal x-rays. Discussed with Dr. Dawn of surgery and he is going to evaluate her for possible laparotomy. Did give her another 2 mg of morphine for pain control. I also discussed her critical condition with her sister who is in the room. Dr. Hoffman also was notified.
[2017-02-07] MEDS ORDERED: NALOXONE 0.4 MG/ML VIAL IV PRN (14:49)
[2017-02-07] MEDS: SOTALOL 80 MG TABLET PO SCH ×2 (14:53→21:02)
[2017-02-07] MEDS: DILTIAZEM CD 180 MG CAPSULE PO SCH (14:53)
[2017-02-07] MEDS: BUDESONIDE/FORMOTEROL 160-4.5 INHALER 6 GM INH SCH ×2 (14:54→22:04)
[2017-02-07] MEDS: PANTOPRAZOLE 40 MG TABLET PO SCH (14:54)
[2017-02-07] MEDS: amLODIPine 10 MG TABLET PO SCH (14:54)
--- NOTE | 2017-02-07 15:01 | General Surg History&Physical ---
Assessment and Plan (1) Perforated duodenal ulcer Status: Acute Assessment and plan: Patient seen and examined at bedside. She was transferred to ICU while awaiting a decision from the family. Was discussed at length with the sister. Apparently the next of kin is her son who was contacted via phone. The unfortunate complexity of the situation was reviewed with the family. The risks of surgery reviewed including but not limited to infection, bleeding, blood vessel injury, nerve injury, organ injury, sepsis, the need for additional procedures, failure to wean from ventilator, the possibility of heart attack, stroke, pneumonia, and . The son has consented to procedure at this time. We will proceed. Current Visit: Yes History of Present Illness Chief complaint: Perforated ulcer History of present illness: Ms. Witt is a 81 year old female with past medical history of small cell carcinoma, COPD, CHF, and Afib on eliquis which looks like she has not been receiving now with perforated duodenal ulcer. The patient at the time of my exam is oriented to person and time, but she refused to answer questions about place. She complains of severe abdominal pain only. Home Medications Medication Instructions Recorded Confirmed Type Amlodipine Besylate/Benazepril 1 each PO DAILY 01/26/17 01/26/17 History [Amlodipine-Benazepril 10-40 mg] Apixaban [Eliquis] 5 mg PO BID 01/26/17 01/26/17 History Budesonide/Formoterol 160-4.5 2 puffs INH BID 01/26/17 01/26/17 History [Symbicort 160-4.5] Escitalopram Oxalate 10 mg PO DAILY 01/26/17 01/26/17 History Furosemide Tab [Lasix Tab] 1 tablet PO DAILY 01/26/17 01/26/17 History Hydrocodone/Acetaminophen [Conyers 1 each PO Q6HR 01/26/17 01/26/17 History 10-325 Tablet] Levothyroxine Tab [Synthroid Tab] 200 mcg PO DAILY@0700 01/26/17 01/26/17 History Sotalol HCl [Sotalol AF] 1 tablet PO BID 01/26/17 01/26/17 History dilTIAZem HCl [Cartia XT] 1 tablet PO DAILY 01/26/17 01/26/17 History fentaNYL [Fentanyl 100 mcg/hr 1 patch TRANSDERM Q48H 01/26/17 01/26/17 History Patch] ALPRAZolam [Xanax] 0.25 mg PO Q4H PRN tablet 02/06/17 Rx Acetaminophen Tab [Tylenol Tab] 650 mg PO Q4H PRN tablet 02/06/17 Rx Albuterol/Ipratropium Neb [Duoneb] 3 ml RESP TX RT Q6H 02/06/17 Rx Alum/Mag/Simeth Max Str Liquid 30 ml PO Q6H PRN 02/06/17 Rx [Mylanta Max Strength Liquid] Benztropine Inj [Cogentin Inj] 1 mg IV PRN PRN 02/06/17 Rx Diltiazem Cd Cap [Cardizem CD] 180 mg PO DAILY capsule 02/06/17 Rx HYDROcodone/ACETAMIN 5-325 [[place]yers 1 tablet PO Q4H PRN tablet 02/06/17 Rx 5-325] Lactulose Liquid [Chronulac] 40 gm PO DAILY PRN 02/06/17 Rx Levothyroxine Tab [Synthroid Tab] 200 mcg PO DAILY@0700 tablet 02/06/17 Rx Linezolid Inj [Zyvox Inj] 600 mg IV Q12H 02/06/17 Rx Loperamide Cap [Imodium Cap] 2 mg PO Q2H PRN capsule 02/06/17 Rx Loperamide Cap [Imodium Cap] 4 mg PO ONCE PRN capsule 02/06/17 Rx Magnesium Hydroxide Susp [Milk of 60 ml PO DAILY PRN 02/06/17 Rx Magnesia] Ondansetron Inj [Zofran Inj] 8 mg IV Q6H PRN vial 02/06/17 Rx Promethazine Inj [Phenergan Inj] 25 mg IV Q4H PRN vial 02/06/17 Rx Temazepam [Restoril] 7.5 mg PO BEDTIME PRN capsule 02/06/17 Rx amLODIPine [Norvasc] 10 mg PO DAILY tablet 02/06/17 Rx chlorproMAZINE INJ [Thorazine Inj] 25 mg IV Q6H PRN 02/06/17 Rx chlorproMAZINE INJ [Thorazine Inj] 25 mg IV Q6H PRN 02/06/17 Rx chlorproMAZINE INJ [Thorazine Inj] 50 mg IV Q6H PRN 02/06/17 Rx chlorproMAZINE TAB [Thorazine Tab] 25 mg PO Q6H PRN tablet 02/06/17 Rx diphenhydrAMINE CAP [Benadryl Cap] 25 mg PO Q4H PRN capsule 02/06/17 Rx fentaNYL 25 MCG/HR PATCH 1 patch TRANSDERM Q3DAY patch 02/06/17 Rx [Duragesic 25 Patch] guaiFENesin LIQUID [Robitussin] 10 ml PO Q4H PRN 02/06/17 Rx hydrALAZINE INJ [Apresoline Inj] 5 mg IV Q6H PRN vial 02/06/17 Rx traMADol TAB [Ultram] 50 mg PO Q6H PRN tablet 02/06/17 Rx Allergies Allergy/AdvReac Type Severity Reaction Status Date / Time No Known Allergies Allergy Verified 10/01/16 07:19 Medical,Surgical,& Family Hx - Medical History Cardio: History of: Cardiac Dysrhythmia, CHF, Hypertension, Cardiovascular Problems (enlarged heart; cardiomyopathy) Psychological: History of: Depression Neurology: No history of: Seizures Endocrine: History of: Thyroid Disorder Rheumatology: History of;: Rheumatoid Arthritis Respiratory: History of: Bronchitis, COPD, Pneumonia Other: History of: Skin Problems (history of skin abscess left upper leg; Dr. González Jr.) No history of: HIV - Surgical History Cardiac Surgeries: Patient Denies: Femoral-Popliteal Bypass Graft, Cardiac Catheterization, Cardiac Surgery, Carotid Endarterectomy, Internal Defibrillator, Vascular Access Devices HEENT Surgeries: Patient denies: Carotid Endarterectomy - Family History Family History: Reports;: Family Hypertension (uncertain) - Social History Smoking Status: Heavy tobacco smoker Frequency of Alcohol Use: Unknown Type of Drug Use: None Exam - Constitutional Vitals: Period Temp Pulse Resp BP Sys/Wilcox Pulse Ox Last 24 Hr 97.7 F-99.5 F 45-106 14-20 84-133/47-85 93-100 General appearance: mild distress - Eye Eye exam: Absent: conjunctival injection, scleral icterus - Respiratory Respiratory exam: Present: clear to auscultation bilaterally - Cardiovascular Cardiovascular exam: Present: irregular rhythm - GI/Abdominal GI/Abdominal exam: Present: distended, firm, other (Exquisitely tender with rebound and guarding) - Extremities Exam Extremities exam: Absent: calf tenderness, edema (Facial pallor; brisk capillary refill of digits. Diaphoretic) - Neurological Exam Neurological exam: Present: alert, other (Oriented to person and place) ROS unobtainable: due to mental status Results - Labs CBC & BMP: 02/07/17 12:10 02/07/17 04:00 - Diagnostic Findings Procedure: KUB x-ray: image reviewed by me, report reviewed by me
[2017-02-07] MEDS ORDERED: SODIUM CHLORIDE 0.9% 250 ML IV PRN (15:06)
[2017-02-07] MEDS: MORPHINE 2 MG/1 ML SYRINGE IV PRN (15:06)
--- NOTE | 2017-02-07 15:07 | Oncology Progress Note ---
Assessment and Plan (1) Acute bronchitis Status: Acute Current Visit: Yes (2) Pneumonia Status: Acute Assessment and plan: -Pneumonia Current Visit: Yes (3) COPD (chronic obstructive pulmonary disease) Status: Acute Current Visit: No (4) Squamous cell carcinoma of right lung Status: Acute Current Visit: No Oncology Subjective PN Interval history: Ms. Witt has been found to have a perforated gastric or duodenal ulcer. She has been transferred to the intensive care unit. Dr. HARDING has been consulted. I have discussed her case with Dr. Velásquez and we have made Dr. Lawson aware of the transfer and of the current circumstances. Although she has documented lung cancer, she appears to be in complete remission from yet. She has underlying severe COPD however. Also she is extremely debilitated. I have discussed all this with her sister. They are both elderly and they are both having difficulty understanding. This is a unfortunate situation. Her prognosis is poor and we have changed her status to DO NOT RESUSCITATE in case something catastrophic happens. Exam - Constitutional Vitals: Period Temp Pulse Resp BP Sys/Wilcox Pulse Ox Last 24 Hr 97.7 F-99.5 F 45-106 14-20 84-133/47-85 93-100 Results - Labs CBC & BMP: 02/07/17 12:10 02/07/17 04:00 Specialty Discharge - Follow Up or Referrals Follow up with: Erasto Barragan MD [Physician] - 03/11/17 10:15 am (APPT WITH DR BARRAGAN IS ON February AT 1015AM FOR LABS AND XRAY AND TO SEE THE AT 1215PM [id number])
[2017-02-07] MEDS ORDERED: MORPHINE 10 MG/1 ML VIAL IV PRN (15:10)
[2017-02-07] MEDS ORDERED: SODIUM CHLORIDE 0.9% 1,000 ML IV ONE (15:33)
[2017-02-07] MEDS: PIPERACILLIN/TAZOBACTAM 3,375 MG in SODIUM CHLORIDE 0.9% 100 ML IV SCH (15:42)
--- NOTE | 2017-02-07 16:10 | Internal Medicine Consult Note ---
Assessment and Plan (1) Perforated duodenal ulcer Status: Acute Assessment and plan: 51-year-old female * Perforated duodenal ulcer. Patient is being taken for surgery. She has multiple medical problems which has made her high risk for surgery. There is no option other than to intervene otherwise she will . * GI bleed. Transfuse as needed * Metastatic lung cancer. Patient has been on hospice recently * Severe COPD. Continue treatment * Pain control. * I will follow her for medical problems Current Visit: Yes (2) GI bleed Status: Acute Current Visit: Yes (3) COPD (chronic obstructive pulmonary disease) Status: Acute Current Visit: No (4) Paroxysmal atrial fibrillation Status: Acute Current Visit: No (5) Squamous cell carcinoma of right lung Status: Acute Current Visit: No History of Present Illness - Data of Consult Patient: known to practice within the last 3 years - Consult Narrative History of present illness: Ms. Witt is a 81 year old female known to me with history of squamous cell carcinoma of lungs, CHF, hypertension, hypothyroidism, COPD, atrial fibrillation who was admitted to hospital on 01/26/2017 with pneumonia and fever. She was started on IV antibiotics and gradually improved. She had MRSA bacteremia. Patient was going to be transferred to swing bed unit yesterday. She was noted to have black tarry stools. She had an EGD done this morning by Dr. Velásquez. It showed large deep anterior duodenal bulb ulcer. She was also found to have pneumoperitoneum. Patient is being taken to surgery for perforated duodenal ulcer. She is in a lot of pain. She has received IV morphine. She denies any chest pain or shortness of breath. She denies any nausea or vomiting. CC: Erasto Barragan MD - Home Medications and Allergies Home Medications: Home Medications Medication Instructions Recorded Confirmed Type Amlodipine Besylate/Benazepril 1 each PO DAILY 01/26/17 01/26/17 History [Amlodipine-Benazepril 10-40 mg] Apixaban [Eliquis] 5 mg PO BID 01/26/17 01/26/17 History Budesonide/Formoterol 160-4.5 2 puffs INH BID 01/26/17 01/26/17 History [Symbicort 160-4.5] Escitalopram Oxalate 10 mg PO DAILY 01/26/17 01/26/17 History Furosemide Tab [Lasix Tab] 1 tablet PO DAILY 01/26/17 01/26/17 History Hydrocodone/Acetaminophen [[place] 1 each PO Q6HR 01/26/17 01/26/17 History 10-325 Tablet] Levothyroxine Tab [Synthroid Tab] 200 mcg PO DAILY@0700 01/26/17 01/26/17 History Sotalol HCl [Sotalol AF] 1 tablet PO BID 01/26/17 01/26/17 History dilTIAZem HCl [Cartia XT] 1 tablet PO DAILY 01/26/17 01/26/17 History fentaNYL [Fentanyl 100 mcg/hr 1 patch TRANSDERM Q48H 01/26/17 01/26/17 History Patch] ALPRAZolam [Xanax] 0.25 mg PO Q4H PRN tablet 02/06/17 Rx Acetaminophen Tab [Tylenol Tab] 650 mg PO Q4H PRN tablet 02/06/17 Rx Albuterol/Ipratropium Neb [Duoneb] 3 ml RESP TX RT Q6H 02/06/17 Rx Alum/Mag/Simeth Max Str Liquid 30 ml PO Q6H PRN 02/06/17 Rx [Mylanta Max Strength Liquid] Benztropine Inj [Cogentin Inj] 1 mg IV PRN PRN 02/06/17 Rx Diltiazem Cd Cap [Cardizem CD] 180 mg PO DAILY capsule 02/06/17 Rx HYDROcodone/ACETAMIN 5-325 [[place] 1 tablet PO Q4H PRN tablet 02/06/17 Rx 5-325] Lactulose Liquid [Chronulac] 40 gm PO DAILY PRN 02/06/17 Rx Levothyroxine Tab [Synthroid Tab] 200 mcg PO DAILY@0700 tablet 02/06/17 Rx Linezolid Inj [Zyvox Inj] 600 mg IV Q12H 02/06/17 Rx Loperamide Cap [Imodium Cap] 2 mg PO Q2H PRN capsule 02/06/17 Rx Loperamide Cap [Imodium Cap] 4 mg PO ONCE PRN capsule 02/06/17 Rx Magnesium Hydroxide Susp [Milk of 60 ml PO DAILY PRN 02/06/17 Rx Magnesia] Ondansetron Inj [Zofran Inj] 8 mg IV Q6H PRN vial 02/06/17 Rx Promethazine Inj [Phenergan Inj] 25 mg IV Q4H PRN vial 02/06/17 Rx Temazepam [Restoril] 7.5 mg PO BEDTIME PRN capsule 02/06/17 Rx amLODIPine [Norvasc] 10 mg PO DAILY tablet 02/06/17 Rx chlorproMAZINE INJ [Thorazine Inj] 25 mg IV Q6H PRN 02/06/17 Rx chlorproMAZINE INJ [Thorazine Inj] 25 mg IV Q6H PRN 02/06/17 Rx chlorproMAZINE INJ [Thorazine Inj] 50 mg IV Q6H PRN 02/06/17 Rx chlorproMAZINE TAB [Thorazine Tab] 25 mg PO Q6H PRN tablet 02/06/17 Rx diphenhydrAMINE CAP [Benadryl Cap] 25 mg PO Q4H PRN capsule 02/06/17 Rx fentaNYL 25 MCG/HR PATCH 1 patch TRANSDERM Q3DAY patch 02/06/17 Rx [Duragesic 25 Patch] guaiFENesin LIQUID [Robitussin] 10 ml PO Q4H PRN 02/06/17 Rx hydrALAZINE INJ [Apresoline Inj] 5 mg IV Q6H PRN vial 02/06/17 Rx traMADol TAB [Ultram] 50 mg PO Q6H PRN tablet 02/06/17 Rx Allergies/Adverse Reactions: Allergies Allergy/AdvReac Type Severity Reaction Status Date / Time No Known Allergies Allergy Verified 10/01/16 07:19 12 point system: reviewed and no additional remarkable complaints except as stated (As mentioned in HPI) Medical,Surgical,& Family Hx - Medical History Cardio: History of: Cardiac Dysrhythmia, CHF, Hypertension, Cardiovascular Problems (enlarged heart; cardiomyopathy) Psychological: History of: Depression Neurology: No history of: Seizures Endocrine: History of: Thyroid Disorder Rheumatology: History of;: Rheumatoid Arthritis Respiratory: History of: Bronchitis, COPD, Pneumonia Other: History of: Skin Problems (history of skin abscess left upper leg; Dr. González Jr.) No history of: HIV - Surgical History Cardiac Surgeries: Patient Denies: Femoral-Popliteal Bypass Graft, Cardiac Catheterization, Cardiac Surgery, Carotid Endarterectomy, Internal Defibrillator, Vascular Access Devices HEENT Surgeries: Patient denies: Carotid Endarterectomy - Family History Family History: Reports;: Family Hypertension (uncertain) - Social History Smoking Status: Heavy tobacco smoker Frequency of Alcohol Use: Unknown Type of Drug Use: None Marital Status: Single Lives With:: Alone Functional capacity: uses cane/walker Exam (Progress Note) - Constitutional Vitals: Period Temp Pulse Resp BP Sys/Wilcox Pulse Ox Last 24 Hr 97.5 F-99.5 F 45-106 14-32 84-155/47-87 93-100 Exam: Examination: GENERAL: Patient is in obvious discomfort HEENT: PERRLA. EOMI. Mucous membranes are dry NECK: Neck is supple. CVS: Tachycardic. Rhythm is irregularly irregular RESPIRATORY: Decreased air entry overall ABDOMEN: Distended and forearm with tenderness and rigidity. Bowel sounds are absent EXT: No edema. Peripheral pulses are present. 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 She is moving both upper and lower extremities SKIN: Warm and dry. MSK: No obvious deformity. Results - Labs CBC & BMP: 02/07/17 12:10 02/07/17 04:00 Specialty Discharge - Follow Up or Referrals Follow up with: Erasto Barragan MD [Physician] - 03/11/17 10:15 am (APPT WITH DR BARRAGAN IS ON February AT 1015AM FOR LABS AND XRAY AND TO SEE THE AT 1215PM [id number])
[2017-02-07] MEDS ORDERED: ROCURONIUM 100 MG/10 ML VIAL IV ONE (16:30)
[2017-02-07] MEDS ORDERED: CALCIUM CHLORIDE 1,000 MG/10 ML SYRINGE IV ONE ×2 (16:30→19:30)
[2017-02-07] MEDS ORDERED: PHENYLEPHRINE 1 MG/10 ML SYRINGE IV ONE (16:30)
[2017-02-07] MEDS ORDERED: ETOMIDATE 20 MG/10 ML VIAL IV ONE (16:30)
[2017-02-07] MEDS ORDERED: PHENYLEPHRINE 0.5% NASAL SPRAY 15 ML BOTTLE BOTH NARES ONE ×2 (16:30→19:31)
[2017-02-07] MEDS ORDERED: LIDOCAINE 1% 5 ML VIAL ONE (16:30)
[2017-02-07 18:34] LABS: Apearance,Urine CLEAR (Clear); Bilirubin,Urine Negative (Negative); Blood, Urine Negative (Negative); Glucose,Urine (UA) 50 mg/dL (Negative); Ketones,Urine Negative (Negative); Mucus,Urine Occasional /LPF (Occasional); Nitrite,Urine Negative (Negative); Protein,Urine Negative; RBC,Urine <1 /HPF (0-4); Urine Color Yellow (Yellow); Urine Specific Gravity 1.011 (1.001-1.035); Urine Urobilinogen < 2.0 EU/DL (0.2-1.0); WBC,Urine <1 /HPF (0-6)
--- NOTE | 2017-02-07 19:03 | Operative Note ---
Date of procedure: 02/07/17 Pre-op diagnosis: Perforated duodenal ulcer Post-op diagnosis: same Procedure: Preoperative diagnosis Perforated duodenal ulcer Postoperative diagnosis Same Procedures performed Robotic assisted laparoscopic converted to open repair of duodenal perforation with Malik patch and drainage of lesser sac Exploratory laparotomy Findings Laparoscopy revealed a significant amount of succus in the abdominal cavity and the perforation was slightly posterior on the ball of the duodenum in a location and made it too difficult to repair with the exposure provided with the robotic assisted laparoscopic surgery. We converted to an open procedure and exploratory laparotomy was performed. The perforation occurred at the duodenal bulb on the junction with the pancreas and the duodenum was rolled up into this area with chronic inflammatory changes as well as the portal triad structures were just adjacent to this. The perforation was about 1 cm in size slightly smaller than this and it was repaired with a Malik patch using a tongue of omentum that was well vascularized. A window into the lesser sac was made and there was one drain through the left abdomen that was placed through this lesser sac window over the repair site and additional drain was placed anterior to the stomach and duodenum and the perforation site as well over the Malik patch closure. The abdomen was irrigated copiously until the effluent was clear. Complications None apparent Specimen None Anesthesia GETA Blood loss 25 mL Indications Perforated duodenal ulcer Description of procedure The patient was taken to the operating room and transferred to the operating table in the supine position. Pressure points were padded and SCDs were placed to bilateral lower extremities. General endotracheal anesthesia was administered. The abdomen was prepped with chlorhexidine and draped sterilely. A Luevano catheter was already in place and an NG tube was placed. A timeout was called. The patient was already on therapeutic antibiotics. An 8 mm robotic trocar was placed in a infraumbilical location off midline and the laparoscope was inserted. There is a large amount of succus in the abdomen and inflammation in the right upper quadrant. 2 additional 8 mm robotic trochars were placed in an 8 mm registered medical assistant trocar was also placed. The robot was docked. We attempted to mobilize the duodenum off of the gallbladder and the liver and we eventually found the perforation slightly posterior in the duodenal bulb. The exposure was not adequate using robotic assisted laparoscopic surgery to repair the defect so we converted to an open procedure. The robot was undocked and a midline celiotomy incision was made after trochars were removed. The gallbladder was then fully mobilized off the duodenum and we had good exposure of the defect was at the junction of the pylorus and the ball of the duodenum is slightly posterior. This was medial to the portal triad structures but the duodenum was rolled up as well as the pancreas and the portal triad structures were very scarred up into this area as well. This measured just under 1 cm in size and appeared amenable to a Malik patch of omentum. A tongue of omentum was mobilized on the greater curvature of the stomach and the right gastroepiploic vessels and this was a well vascularized pedicle that was placed into this defect and also the lesser sac was opened to ensure adequate drainage and exposure of the defect. The tongue of omentum was used to close the defect with a Malik patch closure using 2-0 silk Lembert type sutures and the pedicle was sewn in place. 2 JAVIER drains were then placed around the closure 1 of which was anterior to the stomach and duodenum and placed to the right lower abdomen and the other one was posterior in the lesser sac but also drained the repair site and exited through the left lower quadrant of the abdomen. Drains were sewn in place with nylon and silk sutures. The abdomen was irrigated copiously and suctioned out. The midline incision was closed with a running #1 non-looped PDS suture after the NG tube was checked and was in appropriate position. The skin incision was then closed with skin clips and sterile dressings were applied. The patient was left intubated and returned to the ICU. Postoperative plan Treat for H. pylori Continue NG tube to low intermittent wall suction for 72 hours Implants: #10 JAVIER drains x2 Anesthesia: DEYANIRA Surgeon / Physician: Jordan Dawn Estimated blood loss: minimal Specimens: none sent Condition: critical Disposition: ICU Results - Labs CBC & BMP: 02/07/17 12:10 02/07/17 04:00 Discharge Plan - Discharge Data Disposition: Swing Bed, [facility], [facility] - Discharge Medications New Acetaminophen Tab [Tylenol Tab] 650 mg PO Q4H PRN tablet PRN Reason: Fever ALPRAZolam [Xanax] 0.25 mg PO Q4H PRN tablet PRN Reason: Anxiety Alum/Mag/Simeth Max Str Liquid [Mylanta Max Strength Liquid] 30 ml PO Q6H PRN PRN Reason: Indigestion amLODIPine [Norvasc] 10 mg PO DAILY tablet chlorproMAZINE INJ [Thorazine Inj] 25 mg IV Q6H PRN PRN Reason: N/V unrelieved by Phenergan chlorproMAZINE INJ [Thorazine Inj] 25 mg IV Q6H PRN PRN Reason: Agitation chlorproMAZINE TAB [Thorazine Tab] 25 mg PO Q6H PRN tablet PRN Reason: Hiccups diphenhydrAMINE CAP [Benadryl Cap] 25 mg PO Q4H PRN capsule PRN Reason: Itching fentaNYL 25 MCG/HR PATCH [Duragesic 25 Patch] 1 patch TRANSDERM Q3DAY patch guaiFENesin LIQUID [Robitussin] 10 ml PO Q4H PRN PRN Reason: Cough HYDROcodone/ACETAMIN 5-325 [[place] 5-325] 1 tablet PO Q4H PRN tablet PRN Reason: Pain Moderate (4-7) Levothyroxine Tab [Synthroid Tab] 200 mcg PO DAILY@0700 tablet Linezolid Inj [Zyvox Inj] 600 mg IV Q12H Loperamide Cap [Imodium Cap] 4 mg PO ONCE PRN capsule PRN Reason: Diarrhea Magnesium Hydroxide Susp [Milk of Magnesia] 60 ml PO DAILY PRN PRN Reason: Constipation; 1st agent Ondansetron Inj [Zofran Inj] 8 mg IV Q6H PRN vial PRN Reason: Nausea/Vomiting; 1st agent Promethazine Inj [Phenergan Inj] 25 mg IV Q4H PRN vial PRN Reason: N/V unrelieved by Zofran traMADol TAB [Ultram] 50 mg PO Q6H PRN tablet PRN Reason: Pain Mild (1-3) Albuterol/Ipratropium Neb [Duoneb] 3 ml RESP TX RT Q6H Benztropine Inj [Cogentin Inj] 1 mg IV PRN PRN PRN Reason: Extrapyramidal Side Effects chlorproMAZINE INJ [Thorazine Inj] 50 mg IV Q6H PRN PRN Reason: N/V unrelieved by Phenergan Diltiazem Cd Cap [Cardizem CD] 180 mg PO DAILY capsule hydrALAZINE INJ [Apresoline Inj] 5 mg IV Q6H PRN vial PRN Reason: diastolic bp greater than 95 Lactulose Liquid [Chronulac] 40 gm PO DAILY PRN PRN Reason: Constipation unrelieved by MOM Loperamide Cap [Imodium Cap] 2 mg PO Q2H PRN capsule PRN Reason: Diarrhea Temazepam [Restoril] 7.5 mg PO BEDTIME PRN capsule PRN Reason: Insomnia Continue Levothyroxine Tab [Synthroid Tab] 200 mcg PO DAILY@0700 Sotalol HCl [Sotalol AF] 1 tablet PO BID Budesonide/Formoterol 160-4.5 [Symbicort 160-4.5] 2 puffs INH BID dilTIAZem HCl [Cartia XT] 1 tablet PO DAILY No Action Hydrocodone/Acetaminophen [[place] 10-325 Tablet] 1 each PO Q6HR Amlodipine Besylate/Benazepril [Amlodipine-Benazepril 10-40 mg] 1 each PO DAILY Furosemide Tab [Lasix Tab] 1 tablet PO DAILY Escitalopram Oxalate 10 mg PO DAILY fentaNYL [Fentanyl 100 mcg/hr Patch] 1 patch TRANSDERM Q48H Apixaban [Eliquis] 5 mg PO BID - Follow Up or Referral Follow Up: Erasto Hoffman MD [Physician] - 03/11/17 10:15 am (APPT WITH DR HOFFMAN IS ON February AT 1015AM FOR LABS AND XRAY AND TO SEE THE AT 1215PM [id number]) - Forms/Instructions Instructions: Methicillin Resistant Staphylococcus Aureus (DC)
[2017-02-07] MEDS: PROPOFOL 1,000 MG/100 ML BOTTLE IV SCH (19:30)
[2017-02-07] MEDS ORDERED: SEVOFLURANE 1 UNIT/15 MINUTE INH ONE (19:31)
[2017-02-07] MEDS ORDERED: ALBUMIN 5% 12.5 GM/250 ML VIAL IV ONE (19:31)
[2017-02-07] MEDS ORDERED: LACTATED RINGERS 1,000 ML IV ONE (19:31)
[2017-02-07] MEDS ORDERED: SODIUM CHLORIDE 0.9% 2,000 ML IV ONE (19:31)
[2017-02-07] MEDS ORDERED: fentaNYL 100 MCG/2 ML VIAL ONE (19:31)
[2017-02-07] MEDS ORDERED: MIDAZOLAM 2 MG/2 ML VIAL ONE (19:31)
[2017-02-07 19:51] LABS: ABG Base Excess -3.6 MMOL/L (-2.5-2.5); ABG HCO3 21.4 MMOL/L (20-26); ABG Oxygen Saturation 99.6 % (95-100); ABG PCO2 35.7 MM HG (35-48); ABG PH 7.378 (7.35-7.45); ABG TCO2 19.5 MMOL/L (23-27)
--- NOTE | 2017-02-07 19:56 | XRay Report ---
XR chest 1V portable Indication: Intubated. Chest one view: Comparison 02/02/2017. Endotracheal tube terminates 4 cm cephalad the agapito. NG tube extends well into the stomach. JAVIER drain left upper quadrant noted. Right IJ central line tip extends to the high right atrium. Left arm PICC line extends to the high right atrium. Cardiomegaly, tortuous thoracic aorta and hazy obscuration of both lung bases with complete loss of definition of left hemidiaphragm is stable. Impression: Multiple lines and tubes as described. No change in cardiomegaly with bibasilar atelectasis or pneumonia. PROCEDURE INTERPRETED AT [facility] DEPARTMENT OF RADIOLOGY Final Report Signed by: Erasto Stearns M.D.
[2017-02-07 20:39] LABS: Basophils % 0.1 % (0.0-0.8); Hematocrit 26.5 VOL% (35.7-47.0); Hemoglobin 8.7 GM/DL (12.0-16.0); Immature Granulocytes % 0.3 %; Immature Granulocytes Absolute 0.04 #; Lymphocytes # 0.2 10*3/uL (1.4-4.0); Lymphocytes % 1.5 % (21.3-54.2); Mean Corpuscular HGB Conc 32.8 GM/DL (32-36); Mean Corpuscular Hemoglobin 30 PG (27-34); Mean Corpuscular Volume 90.8 FL (87-102); Mean Platelet Volume 10.2 FL (9.6-12.0); Monocytes # 0.5 10*3/uL (0.11-0.8); Monocytes % 4.2 % (1.7-12.7); Neutrophils # 11.7 10*3/uL (1.4-7.4); Neutrophils % 93.9 % (38.7-73.9); Platelet Count 164 T/CUMM (130-400); Red Blood Count 2.92 MC/CUMM (3.8-5.5); Red Cell Distribution Width 15.3 % (9.3-17.3); White Blood Count 12.5 T/CUMM (4-12)
[2017-02-07] MEDS: PHENYLEPHRINE DRIP 40 MG/250 ML PREMIX IV SCH (20:48)
[2017-02-07 20:51] LABS: INR 1.2; Partial Thromboplastin Time 35.2 SECS (0-40)
[2017-02-07] MEDS: PANTOPRAZOLE 40 MG VIAL IV SCH (21:02)
[2017-02-07] MEDS: fentaNYL 25 MCG/HR PATCH TRANSDERM SCH (21:05)
[2017-02-07 21:06] LABS: Albumin 2.2 G/DL (3.4-5.0); Bilirubin,Total 0.9 MG/DL (0.2-1.0); Osmolality,Calculated 288.3 MOS/KG (273-304); Potassium 3.6 MMOL/L (3.5-5.1); Total Protein 3.5 G/DL (6.4-8.3)
[2017-02-07 21:28] LABS: Band Neutrophils 11 % (0-10); Lymphocytes 3 % (20-55); Platelet Estimate Normal; Segmented Neutrophils 84 % (50-85); Total Cells Counted 100
[2017-02-07 21:30] LABS: Burr Cells Few; Poikilocytosis Slight
[2017-02-07 22:05] LABS: ABG Oxygen Saturation 96.1 % (95-100); ABG PCO2 31.3 MM HG (35-48); ABG PH 7.401 (7.35-7.45); ABG PO2 85.4 MM HG (80-95)
[2017-02-08] MEDS: ALBUTEROL/IPRATROPIUM 3 ML NEB RESP TX SCH ×4 (00:21→18:49)
[2017-02-08] MEDS: PIPERACILLIN/TAZOBACTAM 3,375 MG in SODIUM CHLORIDE 0.9% 100 ML IV SCH ×3 (00:25→16:00)
[2017-02-08] MEDS: MORPHINE 2 MG/1 ML SYRINGE IV PRN ×2 (00:49→03:58)
[2017-02-08 04:15] LABS: ABG Base Excess -1.9 MMOL/L (-2.5-2.5); ABG HCO3 22.8 MMOL/L (20-26); ABG Oxygen Saturation 98.6 % (95-100); ABG PCO2 30.7 MM HG (35-48); ABG PH 7.451 (7.35-7.45); ABG TCO2 19.6 MMOL/L (23-27)
[2017-02-08 04:22] LABS: Basophils % 0.1 % (0.0-0.8); Hematocrit 26.3 VOL% (35.7-47.0); Hemoglobin 8.8 GM/DL (12.0-16.0); Immature Granulocytes % 0.4 %; Immature Granulocytes Absolute 0.05 #; Lymphocytes # 0.3 10*3/uL (1.4-4.0); Lymphocytes % 1.9 % (21.3-54.2); Mean Corpuscular HGB Conc 33.5 GM/DL (32-36); Mean Corpuscular Hemoglobin 30 PG (27-34); Mean Platelet Volume 10.2 FL (9.6-12.0); Monocytes # 0.4 10*3/uL (0.11-0.8); Monocytes % 2.8 % (1.7-12.7); Neutrophils # 12.8 10*3/uL (1.4-7.4); Neutrophils % 94.8 % (38.7-73.9); Platelet Count 170 T/CUMM (130-400); Red Blood Count 2.89 MC/CUMM (3.8-5.5); Red Cell Distribution Width 15.4 % (9.3-17.3); White Blood Count 13.5 T/CUMM (4-12)
[2017-02-08 04:32] LABS: INR 1.2; PT Patient Result 12.7 SECS; Partial Thromboplastin Time 36.3 SECS (0-40)
[2017-02-08 04:52] LABS: Bilirubin,Total 1.6 MG/DL (0.2-1.0); Calcium 7.2 MG/DL (8.5-10.1); Osmolality,Calculated 284.5 MOS/KG (273-304); Potassium 3.7 MMOL/L (3.5-5.1); Total Protein 3.4 G/DL (6.4-8.3)
[2017-02-08] MEDS: DEXTROSE 5% NACL 0.45% 1,000 ML IV SCH ×3 (05:24→23:39)
[2017-02-08] MEDS: LINEZOLID INJ 600 MG in PREMIX 1 EACH IV SCH ×2 (05:25→17:19)
--- NOTE | 2017-02-08 05:36 | Pulmonology Progress Note ---
Pulmonary - PN: Subj Interval history: This 81-year-old lady came in with abdominal pain on the left side and was found to have a right lower lobe pneumonia. She has a history of lung cancer and has had radiation and chemotherapy. She has an abnormality of the bottom of the right lung where she previously had the lung cancer. I plan to do a bronchoscope to evaluate that when we can get her tuned up. She still having some cough congestion probable pneumonia. A BNP was done and was elevated at over 2000. Will evaluate with echocardiogram. She does have atrial fibrillation. She has been on Eliquis. This will be held until the bronchoscope can be done on . 01/30/2017 patient has left ventricular hypertrophy and mild pulmonary hypertension. This probably is the cause of the elevated BNP. I do think she has some mild congestive heart failure. We proceeded with her bronchoscope this morning. She has some swelling and narrowing of orifices in the right middle and lower lobe. No endobronchial tumor. This is a marked improvement compared to her bronchoscopy last fall. She had total obstruction of the bronchus intermedius at that time. She has had a good response to radiation/ chemotherapy. She did have a good bit of thick secretions and apparently has a difficult time clearing of secretions. We need to continue treating her with antibiotics bronchodilator steroids and mucolytics. 01/31/2017 patient is feeling better today. Wants to get out of bed and I think she should with help. Pathology and culture reports pending from yesterday's bronchoscopy. She is on empiric bronchodilators, steroids, antibiotics, and mucolytics. I think the steroids have her speeding a little bit. 02/01/2017 patient came in with abdominal pain which resolved. She was found to have bronchopneumonia primarily in the right lower lobe. Bronchoscopy showed some narrowing of the bronchial orifices but much improved since original diagnosis of lung cancer last year. Cytology is class III. I discussed the case with pathology. They feel that radiation changes are most likely the cause of this. Agree with not treating further with chemotherapy at this point. Patient has grown out 2 of 2 positive blood cultures for MRSA. Currently on Zyvox because of concerns about renal function. Normally would treat for 2 weeks. I will be out this weekend. Please call pulmonary dealer relationship manager if needed. 02/04/2017 patient is less short of breath. Still having some coughing. Lungs sound better. Chest x-ray little change. She no longer has a localized wheeze over the right lower lobe. She is confused. I will decrease prednisone further to 20 mg daily. We can stop Merrem at this point. Needs to complete 2 weeks of Zyvox. It is well absorbed orally. Zyvox can interact with SSRIs. I will stop Lexapro 02/05/2017 patient remains a little confused and angry. Her lungs sound much better. I think we can stop her prednisone altogether. I will repeat blood cultures. I would favor finishing 2 weeks of Zyvox, whether by IV or p.o., which would be about another week from now. 02/06/2017 patient is better today. Does not appear to be as confused and angry. Agree with plans for swing bed. She needs about another week of Zyvox. 02/07/2017 patient had some black tarry stools. She is getting an EGD today. She required transfusion. Not on any anticoagulants. Lungs are stable 02/08/2017 patient was found to have a perforated duodenal ulcer. She was taken to surgery last night and has been on mechanical ventilation overnight. ABGs look good. Her chest x-ray shows small pleural effusions and a persistent right basilar infiltrate. Little change from before. I suspect the pleural effusions are sympathetic to the abdominal process. Patient is sedated at present. We will hold her sedation and start CPAP trials. Hopefully she can be extubated today. Depends on how much pain she is having and how much pain medicine she is requiring. Exam (Progress Note) - Constitutional Vitals: Period Temp Pulse Resp BP Sys/Wilcox Pulse Ox Last 24 Hr 97.5 F-99.5 F 76-106 8-32 86-155/59-87 87-100 Exam: Patient is sedated and on mechanical ventilation. She is a little pale. Vital signs normal. Pupils react to light. Neck supple no bruits. Chest reveals some scattered rhonchi and basilar crackles. Heart irregular without murmur. Abdomen soft, bandage and drains in place. No bowel sounds.. Extremities no clubbing cyanosis edema. Calves nontender. Results - Labs CBC & BMP: 02/08/17 04:15 02/08/17 04:15 Lab Results: I have reviewed the past 24 hour labs - Diagnostic Findings Procedure: Chest x-ray: image reviewed by me (Small pleural effusions and patchy infiltrate at the right base. Little change from before. ET tube in good position.) Assessment and Plan (1) Acute bronchitis Status: Acute Assessment and plan: I do hear some bronchospasm. She needs steroids along with antibiotics and bronchodilators. 01/29/2017 continuing bronchodilators and antibiotics and steroids. 01/30/2017 patient clearly has acute bronchitis with retained secretions. Probably some bronchopneumonia as well. Check cultures from bronchial washings. Continue empiric antibiotics. 01/31/2017 she had a lot of secretions at bronchoscopy. Cultures are pending. Continue current medications. 02/01/2017 less bronchospasm. 02/04/2017 bronchospasm much less. Tapering prednisone. 02/05/2017 lungs sound better. We will stop prednisone. 02/06/2017 lungs sound better. Doing well off prednisone. 02/07/2017 lungs are improved. Stay off prednisone. 02/08/2017 bronchitis improved. Certainly may flare back up again with her being on the ventilator. Currently remains on Zyvox for positive blood cultures for MRSA. Also on Zosyn. Current Visit: Yes (2) Pneumonia Status: Acute Assessment and plan: Being treated empirically for right lower lobe pneumonia. This is the location where her cancer was previously. I think it would be worthwhile to reevaluate the bronchoscopy once she is doing a little better. 01/29/2017 as a bronchopneumonia at the right base. There could be an element of congestive heart failure as well given her elevated BNP. Check an echocardiogram 01/30/2017 continuing empiric antibiotics. Check cultures. Also has some diastolic acute congestive heart failure. 01/31/2017 based on endobronchial findings I do think she has some bronchopneumonia. Culture should be out tomorrow. She did have positive MRSA blood cultures 2 of 2. 02/01/2017 cultures are pending. She does have positive blood cultures for MRSA and I think we should direct her antibiotics in that way. 02/04/2017 positive blood cultures for MRSA. Likely the cause of her pneumonia as well, although bronchial washings have been negative. Agree with 2 weeks total of Zyvox. 02/05/2017 she has had 6 days of Zyvox. This should suffice for the pneumonia. We will repeat blood cultures. Usually would treat for 2 weeks for positive MRSA blood culture. 02/06/2017 agree with plans. Going to swing bed. Oral Zyvox for another week. 02/07/2017 clinically improved. Needs Zyvox another week. Still getting it IV for now because of the GI bleed. 02/08/2017 right lower lobe bronchopneumonia, has been on antibiotics for over a week. Current Visit: Yes (3) COPD (chronic obstructive pulmonary disease) Status: Acute Assessment and plan: Continuing with bronchodilator steroids antibiotics 01/29/2017 on appropriate meds for this. 01/30/2017 continuing bronchodilators. 01/31/2017 a little less bronchospasm. Localized wheeze in the right lower lobe. 02/01/2017 still having some bronchospasm. Will try to get by with less steroids. She is having some speeding. May be untoward reaction to the steroids. 02/04/2017 tapering steroids to a minimum. They may be affecting her mental status. 02/05/2017 continue with controller medications post discharge. She is on Symbicort. 02/06/2017 continuing bronchodilators. Continuing Symbicort 02/07/2017 continuing bronchodilators 02/08/2017 continuing bronchodilators. She was taken off steroids a couple of days back because of changes in mental status. Current Visit: No (4) Squamous cell carcinoma of right lung Status: Acute Assessment and plan: Diagnosed with bronchoscopy May 2016. She had almost complete obstruction of the right middle and lower lobes at that time. Good response to chemotherapy and radiation. However I do hear a localized wheeze there. Will need reevaluation with bronchoscopy in couple of days. 01/29/2017 she has had radiation and chemotherapy. Mass was in the right lower lobe originally with obstruction. Plan bronchoscopy on when she is clinically improved. She does have a localized wheeze over the right lower lobe 01/30/2017 this is felt to be in remission. Please see bronchoscopy note. There is distortion of the lower lobe bronchi with swelling and narrowing but no visible endobronchial lesion. Marked improvement from bronchoscopy 9 months ago prior to radiation and chemotherapy 01/31/2017 she has had chemotherapy and radiation. We did do brushings yesterday. No endobronchial lesions. 02/01/17 this is felt to be in remission. Discussed the case with Dr. Hoffman who may use Optivar on her 02/04/2017 no evidence of any recurrence. 02/08/2017 this is felt to be in remission. Current Visit: No (5) Perforated duodenal ulcer Status: Acute Assessment and plan: Status post open surgical repair of perforated duodenal ulcer. Ulcer was in the area of the pancreas. Watch for pancreatitis. Current Visit: Yes Specialty Discharge - Follow Up or Referrals Follow up with: Erasto Hoffman MD [Physician] - 03/11/17 10:15 am (APPT WITH DR HOFFMAN IS ON February AT 1015AM FOR LABS AND XRAY AND TO SEE THE AT 1215PM [id number])
[2017-02-08 06:00] LABS: Band Neutrophils 7 % (0-10); Lymphocytes 2 % (20-55); Segmented Neutrophils 89 % (50-85); Total Cells Counted 100
[2017-02-08 06:01] LABS: Anisocytosis 1+; Platelet Estimate Adequate
[2017-02-08] MEDS: HYDROmorphone 2 MG/1 ML VIAL IV PRN ×3 (06:03→16:01)
--- NOTE | 2017-02-08 06:53 | XRay Report ---
XR chest 1V portable Indication: Respiratory distress Comparison: 07 February 2017 Findings: The heart and mediastinum are stable in size and configuration. The lines and tubes are unchanged in position. The pulmonary vascularity appears increased. No lung infiltrates, effusions, pneumothorax or other abnormality is demonstrated. Impression: Increased pulmonary vascularity. No other significant change. PROCEDURE INTERPRETED AT [facility] DEPARTMENT OF RADIOLOGY Final Report Signed by: Dr. Jean Douglass
[2017-02-08 07:10] LABS: ABG Base Excess -1.6 MMOL/L (-2.5-2.5); ABG HCO3 23.1 MMOL/L (20-26); ABG Oxygen Saturation 98.6 % (95-100); ABG PCO2 33.6 MM HG (35-48); ABG PH 7.429 (7.35-7.45); ABG TCO2 20.6 MMOL/L (23-27)
--- NOTE | 2017-02-08 07:15 | Event Note ---
General Surgery Progress Note Chief complaint This patient is 81-year-old woman admitted with MRSA bacteremia presumed pneumonia with history of lung cancer who developed a perforated duodenal ulcer that was treated with laparotomy and omental Malik patch repair on 02/07/2017 Interval history The patient resuscitated well overnight. She is still on a small dose of Peter- Synephrine but her urine output is brisk and her blood pressure is improving. She is on a CPAP trial and she is awake and following commands. Her JAVIER drainage has been large-volume but it is clear. Her incision is clean. Her lab work is stable this morning. Physical exam Patient is afebrile slightly hypotensive but she is weaning off pressors. Her heart rate is normal but went up a little bit on the CPAP trial Chest is clear Heart is regular with no murmurs Abdominal exam reveals full JAVIER bulbs with serous fluid. The midline incision dressing is clean. There are hypoactive bowel sounds. Labs Reviewed. Hemoglobin stable. Bilirubin is up to 1.6. Creatinine is normal Imaging Chest x-ray reviewed. Tubes and lines appear in adequate position with no interstitial findings in the lungs. Assessment and plan Continue IV fluid and wean pressors Continue NG tube for 72 hours postop Continue H. pylori treatment and twice daily Protonix I do not think the patient needs TPN quite yet. We should be able to take out the NG tube and start a diet if her leak has sealed. I would wait another 48 hours to try this.
--- NOTE | 2017-02-08 07:38 | Oncology Progress Note ---
Assessment and Plan (1) Acute bronchitis Status: Acute Current Visit: Yes (2) Pneumonia Status: Acute Assessment and plan: -Pneumonia Current Visit: Yes (3) COPD (chronic obstructive pulmonary disease) Status: Acute Current Visit: No (4) Squamous cell carcinoma of right lung Status: Acute Current Visit: No Oncology Subjective PN Interval history: (1)Acute GI bleed due to duodenal with perforation: She is 1 day postop for open laparotomy with closure of a perforation of the duodenum. She continues to do surprisingly well. This is a very durable patient. Lab work today includes white cell count of 13,500 with a hemoglobin of 8.8 platelet count of 170,000. (2) MRSA sepsis Currently on IV antibiotic therapy. She remains afebrile. We are continuing current therapy. We are also monitoring for toxicity. She is on Zyvox which can cause thrombocytopenia. Her blood work was drawn late today and is pending. (3) COPD (chronic obstructive pulmonary disease) Status: Acute this is being managed by Dr. Lawson and her COPD. She is currently on the ventilator and being considered for extubation soon. (4) Squamous cell carcinoma of right lung Bronchial brushings are back and are class III from 3 separate reports. This is not enough evidence for me to consider resuming chemotherapy or switching her to Opdivo presently. (5) left chest pain She was admitted with this but has not complained about this for quite some time. (6)dehydration/renal failure: She is actually stable now with a serum creatinine of 0.9 and a BUN of 30. This is not an active problem 1 presently. (7) confusion: She is clearly confused. She does not remember seeing Dr. Velásquez yesterday. She tells me that I have not explained anything to her concerning all of her problems. This is probably multifactorial including steroid therapy and her overall debilitation. She is more depressed than confused today. She is angry about having to be here. We were working on a swing bed transfer when she began to actively GI bleed. (8) Hypertension : I am adding hydralazine as needed for the time being. Her blood pressure this morning is 141/67. (9)Malnutrition: She has a low albumin reflecting malnutrition and her serum calcium is correspondingly low. Exam - Constitutional Vitals: Period Temp Pulse Resp BP Sys/Wilcox Pulse Ox Last 24 Hr 97.5 F-99.5 F 76-112 8-32 86-155/59-87 87-100 Results - Labs CBC & BMP: 02/08/17 04:15 02/08/17 04:15 Specialty Discharge - Follow Up or Referrals Follow up with: Erasto Barragan MD [Physician] - 03/11/17 10:15 am (APPT WITH DR BARRAGAN IS ON February AT 1015AM FOR LABS AND XRAY AND TO SEE THE AT 1215PM [id number])
[2017-02-08] MEDS ORDERED: SODIUM CHLORIDE 0.9% 250 ML IV PRN (07:39)
--- NOTE | 2017-02-08 08:56 | Internal Med Progress Note ---
Assessment and Plan (1) Perforated duodenal ulcer Status: Acute Assessment and plan: 51-year-old female * Perforated duodenal ulcer. Status post repair of duodenal perforation. Patient is much more stable. She is off any pressors. * GI bleed. Her hematocrit is lower. She may require transfusions. Her platelet count is also lower. She is on Zyvox for this needs to be watched * Metastatic lung cancer. Treatment per Dr. Hoffman * Severe COPD. Continue treatment * Continue current treatment Current Visit: Yes (2) GI bleed Status: Acute Current Visit: Yes (3) COPD (chronic obstructive pulmonary disease) Status: Acute Current Visit: No (4) Paroxysmal atrial fibrillation Status: Acute Current Visit: No (5) Squamous cell carcinoma of right lung Status: Acute Current Visit: No Internal Medicine - PN: Subj Interval history: Patient is sedated on the ventilator. She was getting restless earlier Exam (Progress Note) - Constitutional Vitals: Period Temp Pulse Resp BP Sys/Wilcox Pulse Ox Last 24 Hr 97.5 F-99.5 F 76-119 8-32 86-155/59-87 87-100 Exam: Examination: GENERAL: Patient is on ventilator HEENT: PERRLA. EOMI. NECK: Neck is supple. CVS: Tachycardic. Rhythm is irregularly irregular RESPIRATORY: Decreased air entry overall ABDOMEN: Much softer today EXT: No edema. Peripheral pulses are present. SEROLOGIST: Sedated on ventilator SKIN: Warm and dry. MSK: No obvious deformity. Results - Labs CBC & BMP: 02/08/17 04:15 02/08/17 04:15 Lab Results: I have reviewed the past 24 hour labs Specialty Discharge - Follow Up or Referrals Follow up with: Erasto Hoffman MD [Physician] - 03/11/17 10:15 am (APPT WITH DR HOFFMAN IS ON February AT 1015AM FOR LABS AND XRAY AND TO SEE THE AT 1215PM [id number])
[2017-02-08] MEDS: LEVOTHYROXINE 200 MCG TABLET PO SCH (09:03)
--- NOTE | 2017-02-08 09:15 | Gastrointestinal Progress Note ---
Assessment and Plan (1) GI bleed Status: Acute Assessment and plan: 02/08-status post perforated ulcer with postop day 1 open repair on yesterday afternoon. Hemoglobin is holding at 8.8 without overt bleeding. Continue to monitor at this time. Plan an addendum to follow Dr. Velásquez. 02/06-Sudden onset of dark red/black tarry stools w/o associated symptoms at time of discharge. Hx of GI bleeding in 2016 with questionable ischemic colitis. Unable to locate records of last colonoscopy. Hx of Eliquis which reported to be held x 1 week. Hgb stable at 11.3. Continue to monitor serial HH at this time. Plan and addendum to follow by Dr Velásquez. Current Visit: Yes Gastroenterology - PN: Subj Interval history: CC: GI bleed Patient is seen, sedated, on the ventilator. Events from yesterday afternoon following the EGD noted with laparoscopic surgery converted to open repair of duodenal perforation by Dr. Dawn. She is currently off any pressor support at this time. Hemoglobin is currently holding at 8.8. Abdomen is soft, dressings intact. Chest x-ray today shows small pleural effusions and persistent right basilar infiltrate. She is to begin CPAP trials today. ROS: No acute distress at this time Exam (Progress Note) - Constitutional Vitals: Period Temp Pulse Resp BP Sys/Wilcox Pulse Ox Last 24 Hr 97.5 F-99.5 F 76-119 8-32 86-155/59-87 87-100 General appearance: normal weight, no acute distress - Head Head exam: Present: normal inspection, normocephalic - Eye Eye exam: Present: other (Lids and conjunctivae unremarkable). Absent: scleral icterus - ENT ENT exam: Present: normal exam, normal oropharynx - Neck Neck exam: Present: normal inspection - Respiratory Respiratory exam: Present: clear to auscultation bilaterally. Absent: rales, rhonchi, wheezes - Cardiovascular Cardiovascular exam: Present: regular rate and rhythm. Absent: diastolic murmur , JVD, systolic murmur - GI/Abdominal GI/Abdominal exam: Present: normal bowel sounds, soft. Absent: ascites, distended, mass, organomegaly, tenderness - Extremities Exam Extremities exam: Present: normal inspection, full ROM - Back Exam Back exam: Present: normal inspection - Neurological Exam Neurological exam: Present: altered - Psychiatric Psychiatric exam: Present: normal affect, normal mood - Skin Skin exam: Present: normal color, warm, dry Results - Labs CBC & BMP: 02/08/17 04:15 02/08/17 04:15 Lab Results: I have reviewed the past 24 hour labs Specialty Discharge - Follow Up or Referrals Follow up with: Erasto Barragan MD [Physician] - 03/11/17 10:15 am (APPT WITH DR BARRAGAN IS ON February AT 1015AM FOR LABS AND XRAY AND TO SEE THE AT 1215PM [id number])
[2017-02-08] MEDS: DESITIN 4OZ/NYSTATIN 15 GRAM MIXTURE PASTE TOP SCH ×2 (09:56→21:36)
[2017-02-08] MEDS: PANTOPRAZOLE 40 MG VIAL IV SCH ×2 (09:56→21:36)
--- NOTE | 2017-02-08 09:56 | Physician Query Form ---
CLICK EDIT DOCUMENT TO SELECT QUERY ANSWER --> OK --> SIGN Nella Rojas RN, CCDS Certified Clinical Intelligence Intern W) [phone] (f) [phone] [email or web address] PROVIDERS: Make your selection(s) from the choices in EACH section by typing an "x" and enter comments in the comment section. Please use your independent medical judgment in providing your response. This request does not imply that any particular answer is desired or expected. CLINICAL INDICATORS: (Providers should not edit this section) The medical record indicates that the patient was admitted with pneumonia, later developed a "deep anterior duodenal bulb ulcer", HH dropped to 7.9#/24.4# and the patient was given 2 units of blood. Based on the above, could you clarify which of the following conditions you are evaluating, treating, and/or monitoring? ( ) Blood loss anemia ( ) acute ( ) chronic ( x) acute on chronic ( ) Acute blood loss anemia on baseline chronic anemia ( ) Acute blood loss anemia as a complication of a procedure ( ) Iron deficiency anemia not associated with blood loss ( ) Dilutional anemia due to IV fluids ( ) Anemia due to chemotherapy ( ) Anemia due to neoplastic disease ( ) Anemia due to chronic kidney disease ( ) Pernicious anemia ( ) Aplastic anemia ( ) Hemolytic anemia ( ) immune ( ) non-immune - please specify cause: ( ) Anemia due to other condition, please specify: ( ) Clinically unable to determine COMMENTS: PLEASE ALSO DOCUMENT RESPONSE IN PROGRESS NOTES AND/OR DISCHARGE SUMMARY Use of terms such as suspected, likely, or probable (associated with a specific diagnosis that is being evaluated, monitored, or treated as if it exists) are acceptable and can be restated in the discharge summary if not ruled out. MTDD
[2017-02-08] MEDS ORDERED: LACTATED RINGERS 1,000 ML IV ONE (09:57)
[2017-02-08] MEDS: PROPOFOL 1,000 MG/100 ML BOTTLE IV SCH ×3 (10:11→23:38)
[2017-02-08] MEDS: DILTIAZEM INJ 100 MG in SODIUM CHLORIDE 0.9% 100 ML IV SCH (23:37)
[2017-02-09] MEDS: ALBUTEROL/IPRATROPIUM 3 ML NEB RESP TX SCH ×4 (00:08→18:57)
[2017-02-09] MEDS: PIPERACILLIN/TAZOBACTAM 3,375 MG in SODIUM CHLORIDE 0.9% 100 ML IV SCH ×3 (00:40→15:25)
[2017-02-09] MEDS: PHENYLEPHRINE DRIP 40 MG/250 ML PREMIX IV SCH ×2 (03:30→10:14)
[2017-02-09 03:53] LABS: Basophils % 0.1 % (0.0-0.8); Eosinophils % 0.1 % (0.00-10.9); Hematocrit 23.5 VOL% (35.7-47.0); Hemoglobin 7.9 GM/DL (12.0-16.0); Immature Granulocytes % 0.7 %; Immature Granulocytes Absolute 0.11 #; Lymphocytes # 0.4 10*3/uL (1.4-4.0); Lymphocytes % 2.5 % (21.3-54.2); Mean Corpuscular HGB Conc 33.6 GM/DL (32-36); Mean Corpuscular Hemoglobin 31 PG (27-34); Mean Corpuscular Volume 91.8 FL (87-102); Mean Platelet Volume 10.2 FL (9.6-12.0); Monocytes # 0.7 10*3/uL (0.11-0.8); Monocytes % 4.8 % (1.7-12.7); Neutrophils # 14.1 10*3/uL (1.4-7.4); Neutrophils % 91.8 % (38.7-73.9); Platelet Count 147 T/CUMM (130-400); Red Blood Count 2.56 MC/CUMM (3.8-5.5); Red Cell Distribution Width 15.4 % (9.3-17.3); White Blood Count 15.4 T/CUMM (4-12)
[2017-02-09 03:57] LABS: ABG Base Excess -2.1 MMOL/L (-2.5-2.5); ABG HCO3 21.2 MMOL/L (20-26); ABG Oxygen Saturation 98.4 % (95-100); ABG PCO2 30.3 MM HG (35-48); ABG PH 7.462 (7.35-7.45); ABG PO2 123.9 MM HG (80-95); ABG TCO2 22.1 MMOL/L (23-27)
[2017-02-09] MEDS ORDERED: SODIUM CHLORIDE 0.9% 250 ML IV PRN (04:05)
[2017-02-09 04:21] LABS: Alanine Aminotransferase < 9 U/L (13-56); Albumin 1.7 G/DL (3.4-5.0); Alkaline Phosphatase 43 U/L (45-117); Aspartate Amino Transferase 12 U/L (0-37); Blood Urea Nitrogen 25 MG/DL (7-18); Calcium 7.2 MG/DL (8.5-10.1); Glucose 118 MG/DL (74-106); Osmolality,Calculated 279.7 MOS/KG (273-304); Potassium 3.3 MMOL/L (3.5-5.1); Sodium 138 MMOL/L (136-145); Total Protein 3.4 G/DL (6.4-8.3)
[2017-02-09 04:43] LABS: Band Neutrophils 3 % (0-10); Lymphocytes 5 % (20-55); Platelet Estimate Normal; Segmented Neutrophils 85 % (50-85); Total Cells Counted 100
--- NOTE | 2017-02-09 05:37 | Event Note ---
General Surgery Progress Note Chief complaint This patient is 81-year-old woman admitted with MRSA bacteremia presumed pneumonia with history of lung cancer who developed a perforated duodenal ulcer that was treated with laparotomy and omental Malik patch repair on 02/07/2017 Interval history No events overnight. The patient did well on CPAP trials yesterday and this morning. She is urinating well. She is slowly weaning off of her Peter- Synephrine. Her hemoglobin is down to 7.9 this morning and her white blood cell count is up to 15,000. Creatinine is normal. JAVIER drain output is brisk but looks clear. NG tube has about 400 cc of old bloody gastric contents drainage. The patient's CVP is around 4 Physical exam Patient is afebrile slightly hypotensive but she is weaning off pressors. Heart rate has been tachycardic at time but is normal now. Chest is clear Heart is regular with no murmurs Abdominal exam reveals full JAVIER bulbs with serous fluid. The midline incision dressing is clean. Bowel sounds are improved but still hypoactive Labs Reviewed White blood cell count is up to 15,000 Hemoglobin is down to 7.9 Creatinine is normal Bilirubin is improved Imaging Chest x-ray reviewed. There appears to be bilateral pleural effusions with some atelectasis in the right lower lobe. Appears consistent with some volume overload Assessment and plan Continue IV fluid and wean pressors Continue NG tube for 72 hours postop, will be Saturday evening Will order gastrograffin upper GI study Saturday prior to using NG tube or allowing patient to eat Continue H. pylori treatment and twice daily Protonix If her leak has sealed on the study Saturday AM, we can start feeding her. For this reason, I would hold off on TPN for now with hopes we can provide enteral nutrition soon hold off on DVT chemoprophylaxis until hemoglobin stabilizes. I do not think a blood transfusion is necessary at this hemoglobin level and given that she is weaning off her pressors at this time.
[2017-02-09] MEDS: POTASSIUM CHLORIDE RIDER 20 MEQ in PREMIX 1 EACH IV PRN ×3 (05:46→14:13)
[2017-02-09] MEDS: LINEZOLID INJ 600 MG in PREMIX 1 EACH IV SCH ×2 (05:47→17:15)
--- NOTE | 2017-02-09 06:41 | Pulmonology Progress Note ---
Pulmonary - PN: Subj Interval history: The patient is an 81-year-old white lady that has a history of having lung cancer. She came in with pneumonia and heart failure and was doing a little better. However she developed melena and was found to have a perforated duodenal ulcer. She went to surgery couple days ago and is still on the ventilator now. She was requiring Peter-Synephrine but this is been weaned. She is getting some transfusions today. Her oxygenation has been okay but her chest x-ray does look a little overloaded. She is getting a lot of volume. Overall she is reasonably stable on the ventilator. Exam (Progress Note) - Constitutional Vitals: Period Temp Pulse Resp BP Sys/Wilcox Pulse Ox Last 24 Hr 96.4 F-97.9 F 89-123 11-30 79-143/49-89 94-100 General appearance: normal weight, no acute distress (The patient is comfortable on the ventilator.) - Head Head exam: Present: normal inspection, normocephalic - Eye Eye exam: Present: EOMI. Absent: scleral icterus Pupils: Present: MILDRED - ENT ENT exam: Present: normal exam, other (ET tube is in good position) - Neck Neck exam: Present: normal inspection. Absent: lymphadenopathy, thyromegaly - Respiratory Respiratory exam: Present: rales, rhonchi, other (She has good breath sounds bilaterally although they are coarse with some rhonchi) - Cardiovascular Cardiovascular exam: Present: irregular rhythm. Absent: gallop, systolic murmur - GI/Abdominal GI/Abdominal exam: Present: tenderness, soft, other (She has multiple drains present and her abdomen is bandaged.). Absent: organomegaly - Extremities Exam Extremities exam: Absent: calf tenderness, edema - Neurological Exam Neurological exam: Present: altered (Patient is sedated on the ventilator.) - Skin Skin exam: Present: warm, dry Results - Labs CBC & BMP: 02/09/17 03:45 02/09/17 03:45 Labs: Her PO2 is 123 with a PCO2 of 30 and a pH of 7.46 - Diagnostic Findings Procedure: Chest x-ray: image reviewed by me, report reviewed by me, pending ( Chest x-ray shows bibasilar changes consistent with mild overload.) Assessment and Plan (1) COPD (chronic obstructive pulmonary disease) Status: Acute Assessment and plan: Patient has a history of COPD and will continue with bronchodilator therapy. Current Visit: No (2) Paroxysmal atrial fibrillation Status: Acute Assessment and plan: The patient's heart rate is controlled at the present time. Current Visit: No (3) Squamous cell carcinoma of right lung Status: Acute Assessment and plan: The patient has had previous chemotherapy and radiation therapy for lung cancer. Current Visit: No (4) Pneumonia Status: Acute Assessment and plan: The patient has been getting antibiotics and treatment for pneumonia. Current Visit: Yes (5) GI bleed Status: Acute Assessment and plan: The patient is still anemic and is getting further transfusions. Current Visit: Yes (6) Perforated duodenal ulcer Status: Acute Assessment and plan: Patient is postop repair of a perforated ulcer. She will continue with weaning trials. Current Visit: Yes Specialty Discharge - Follow Up or Referrals Follow up with: Erasto Hfofman MD [Physician] - 03/11/17 10:15 am (APPT WITH DR HOFFMAN IS ON February AT 1015AM FOR LABS AND XRAY AND TO SEE THE AT 1215PM [phone])
[2017-02-09] MEDS ORDERED: FUROSEMIDE 20 MG/2 ML VIAL IV ONE (06:48)
--- NOTE | 2017-02-09 06:54 | Family Practice Progress Note ---
Family Practice - PN: Subj Interval history: Patient 9-year-old white female presently on the ventilator. Her hematocrit was 23.5 this morning she is receiving blood at present. She is sedated on propofol. Chest x-ray this morning reveals cardiomegaly with slight increase in bibasilar effusions. She is now postoperative day 2 from surgical repair of perforated duodenal ulcer. Her urine output is improving and her renal function is remaining stable. Exam (Progress Note) - Constitutional Vitals: Period Temp Pulse Resp BP Sys/Wilcox Pulse Ox Last 24 Hr 96.4 F-98.2 F 89-123 11-30 79-143/49-89 94-100 Exam: Objective a well-developed white female who is sedated and on ventilator. She is noted to be hypotensive and on Peter-Synephrine infusion. She is presently on IV Zosyn and Zyvox. Cardiovascular: Heart rates are regular I hear no murmurs or gallops. Respiratory: Patient has diminished breath sounds in both bases. Abdomen: I do not hear any bowel sounds this morning. Results - Labs CBC & BMP: 02/09/17 03:45 02/09/17 03:45 Lab Results: I have reviewed the past 24 hour labs Assessment and Plan (1) Perforated duodenal ulcer Status: Acute Assessment and plan: 02/09/2017: Patient's postop day #2 after duodenal ulcer repair. Renal function is stable. Current Visit: Yes (2) Paroxysmal atrial fibrillation Status: Chronic Assessment and plan: 02/09/2017: Patient is on diltiazem Current Visit: No (3) Squamous cell carcinoma of right lung Status: Chronic Current Visit: No Specialty Discharge - Follow Up or Referrals Follow up with: Erasto Hoffman MD [Physician] - 03/11/17 10:15 am (APPT WITH DR HOFFMAN IS ON February AT 1015AM FOR LABS AND XRAY AND TO SEE THE AT 1215PM [phone])
[2017-02-09] MEDS: HYDROmorphone 2 MG/1 ML VIAL IV PRN ×2 (08:26→13:45)
[2017-02-09] MEDS: DEXTROSE 5% NACL 0.45% 1,000 ML IV SCH ×3 (08:27→23:31)
[2017-02-09] MEDS: DESITIN 4OZ/NYSTATIN 15 GRAM MIXTURE PASTE TOP SCH ×2 (08:28→21:27)
[2017-02-09] MEDS: PANTOPRAZOLE 40 MG VIAL IV SCH ×2 (08:28→21:27)
--- NOTE | 2017-02-09 10:07 | XRay Report ---
Portable chest Date: 02/09/2017 Clinical history: Ventilator Comparison: 02/08/2017 Technique: Portable AP sitting chest Findings: Stable cardiomegaly and supportive devices. Progressive parenchymal findings with enlarging pleural effusions. Stable mediastinum and osseous structures. Impression: Supportive devices are in satisfactory position. Progressive atelectasis/infiltration/edema with enlarging small right and moderate left pleural effusions. Underlying carcinoma of the lung. PROCEDURE INTERPRETED AT [facility] DEPARTMENT OF RADIOLOGY Final Report Signed by: Dr. Nohemy Bryant
[2017-02-09] MEDS: DILTIAZEM INJ 100 MG in SODIUM CHLORIDE 0.9% 100 ML IV SCH (10:13)
--- NOTE | 2017-02-09 10:56 | Oncology Progress Note ---
Oncology Subjective PN Interval history: Non-small cell lung cancer with recent history of chemo and radiotherapy. Postop day 2 for duodenal ulcer perforation repair. Tolerating CPAP for 4 hours yesterday. She is on CPAP at this time. Case was discussed with RN at bedside. No definite bleeding is noted with a slight downward trend in hemoglobin. Recommendations regarding tube feeds and DVT prophylaxis noted from general surgery note from earlier today. Mild hypokalemia which will be addressed. No other new oncology orders Exam - Constitutional Vitals: Period Temp Pulse Resp BP Sys/Wilcox Pulse Ox Last 24 Hr 96.4 F-98.2 F 81-108 10-28 87-135/49-89 94-100 Results - Labs CBC & BMP: 02/09/17 03:45 02/09/17 03:45 Specialty Discharge - Follow Up or Referrals Follow up with: Erasto Hoffman MD [Physician] - 03/11/17 10:15 am (APPT WITH DR HOFFMAN IS ON February AT 1015AM FOR LABS AND XRAY AND TO SEE THE AT 1215PM [phone])
[2017-02-09] MEDS ORDERED: ENOXAPARIN 40 MG/0.4 ML SYRINGE SUBCUT SCH (11:00)
[2017-02-09 12:23] LABS: Basophils % 0.1 % (0.0-0.8); Eosinophils % 0.1 % (0.00-10.9); Hematocrit 30.9 VOL% (35.7-47.0); Hemoglobin 10.4 GM/DL (12.0-16.0); Immature Granulocytes % 0.9 %; Immature Granulocytes Absolute 0.15 #; Lymphocytes # 0.4 10*3/uL (1.4-4.0); Lymphocytes % 2.6 % (21.3-54.2); Mean Corpuscular HGB Conc 33.7 GM/DL (32-36); Mean Corpuscular Hemoglobin 30 PG (27-34); Mean Corpuscular Volume 88.8 FL (87-102); Mean Platelet Volume 10.4 FL (9.6-12.0); Monocytes # 0.8 10*3/uL (0.11-0.8); Neutrophils # 14.7 10*3/uL (1.4-7.4); Neutrophils % 91.3 % (38.7-73.9); Platelet Count 127 T/CUMM (130-400); Red Blood Count 3.48 MC/CUMM (3.8-5.5); Red Cell Distribution Width 15.9 % (9.3-17.3); White Blood Count 16.1 T/CUMM (4-12)
[2017-02-09 12:52] LABS: Band Neutrophils 2 % (0-10); Hypochromasia 1+; Lymphocytes 3 % (20-55); Platelet Estimate Normal; Segmented Neutrophils 91 % (50-85); Total Cells Counted 100
[2017-02-09] MEDS: POTASSIUM CHLORIDE RIDER 10 MEQ in PREMIX 1 EACH IV PRN (15:26)
[2017-02-09] MEDS: PROPOFOL 1,000 MG/100 ML BOTTLE IV SCH (22:31)
[2017-02-10] MEDS: ALBUTEROL/IPRATROPIUM 3 ML NEB RESP TX SCH ×4 (00:11→19:29)
[2017-02-10] MEDS: PIPERACILLIN/TAZOBACTAM 3,375 MG in SODIUM CHLORIDE 0.9% 100 ML IV SCH ×3 (01:05→16:02)
[2017-02-10 03:27] LABS: ABG Base Excess -2.6 MMOL/L (-2.5-2.5); ABG HCO3 22.2 MMOL/L (20-26); ABG Oxygen Saturation 98.1 % (95-100); ABG PH 7.445 (7.35-7.45); ABG PO2 99.6 MM HG (80-95); ABG TCO2 18.8 MMOL/L (23-27)
[2017-02-10 03:33] LABS: Basophils % 0.1 % (0.0-0.8); Eosinophils # 0.1 10*3/uL (0.0-0.87); Eosinophils % 0.4 % (0.00-10.9); Hematocrit 28.7 VOL% (35.7-47.0); Hemoglobin 9.8 GM/DL (12.0-16.0); Immature Granulocytes % 1.1 %; Immature Granulocytes Absolute 0.15 #; Lymphocytes # 0.4 10*3/uL (1.4-4.0); Mean Corpuscular HGB Conc 34.1 GM/DL (32-36); Mean Corpuscular Hemoglobin 30 PG (27-34); Mean Platelet Volume 10.6 FL (9.6-12.0); Monocytes # 0.5 10*3/uL (0.11-0.8); Monocytes % 3.8 % (1.7-12.7); Neutrophils # 12.4 10*3/uL (1.4-7.4); Neutrophils % 91.6 % (38.7-73.9); Platelet Count 134 T/CUMM (130-400); Red Cell Distribution Width 15.9 % (9.3-17.3); White Blood Count 13.5 T/CUMM (4-12)
[2017-02-10 04:09] LABS: Alanine Aminotransferase < 9 U/L (13-56); Albumin 1.5 G/DL (3.4-5.0); Alkaline Phosphatase 50 U/L (45-117); Aspartate Amino Transferase 13 U/L (0-37); Blood Urea Nitrogen 20 MG/DL (7-18); Glucose 93 MG/DL (74-106); Osmolality,Calculated 281.4 MOS/KG (273-304); Potassium 3.6 MMOL/L (3.5-5.1); Sodium 140 MMOL/L (136-145); Total Protein 3.5 G/DL (6.4-8.3)
[2017-02-10] MEDS: HYDROmorphone 2 MG/1 ML VIAL IV PRN ×2 (04:57→10:57)
[2017-02-10] MEDS: POTASSIUM CHLORIDE RIDER 20 MEQ in PREMIX 1 EACH IV PRN (05:01)
[2017-02-10] MEDS: DILTIAZEM INJ 100 MG in SODIUM CHLORIDE 0.9% 100 ML IV SCH ×2 (05:01→19:26)
[2017-02-10 05:03] LABS: Anisocytosis 1+; Band Neutrophils 2 % (0-10); Lymphocytes 1 % (20-55); Platelet Estimate Normal; Segmented Neutrophils 96 % (50-85); Total Cells Counted 100
--- NOTE | 2017-02-10 06:16 | Pulmonology Progress Note ---
Pulmonary - PN: Subj Interval history: The patient is an 81-year-old white lady that has a history of having lung cancer. She came in with pneumonia and heart failure and was doing a little better. However she developed melena and was found to have a perforated duodenal ulcer. She went to surgery couple days ago and is still on the ventilator now. She did fairly well yesterday on CPAP. She did diurese fairly well but is still on low-dose Peter-Synephrine. She still has several drains in her abdomen. Her hematocrit is stable at 28. Her chest x-ray is a little better today. Overall she is improving and can probably be extubated tomorrow. Exam (Progress Note) - Constitutional Vitals: Period Temp Pulse Resp BP Sys/Wilcox Pulse Ox Last 24 Hr 96.7 F-98.2 F 79-107 10-28 87-138/50-84 94-100 Exam: General appearance: normal weight, no acute distress (The patient is still sedated this morning on the ventilator.) - Head Head exam: Present: normal inspection, normocephalic - Eye Eye exam: Present: EOMI. Absent: scleral icterus Pupils: Present: MILDRED - ENT ENT exam: Present: normal exam, other (ET tube is in good position) - Neck Neck exam: Present: normal inspection. Absent: lymphadenopathy, thyromegaly - Respiratory Respiratory exam: Present: She has good breath sounds bilaterally with just some minimal crackles toward the bases. - Cardiovascular Cardiovascular exam: Present: irregular rhythm. Absent: gallop, systolic murmur - GI/Abdominal GI/Abdominal exam: Present: tenderness, soft, other (She has multiple drains present and her abdomen is bandaged.). Absent: organomegaly - Extremities Exam Extremities exam: Her legs look better with less swelling and no tenderness. - Neurological Exam Neurological exam: Present: altered (Patient is sedated on the ventilator.) - Skin Skin exam: Present: warm, dry Results - Labs CBC & BMP: 02/10/17 03:00 02/10/17 03:00 Labs: Her PO2 is 99 with a PCO2 of 30 and a pH of 7.44 - Diagnostic Findings Procedure: Chest x-ray: image reviewed by me, report reviewed by me (Chest x- ray does show small pleural effusions.) Assessment and Plan (1) COPD (chronic obstructive pulmonary disease) Status: Acute Assessment and plan: Patient has a history of COPD and will continue with bronchodilator therapy. Her respiratory status is improving. Current Visit: No (2) Paroxysmal atrial fibrillation Status: Chronic Assessment and plan: The patient's heart rate is controlled at the present time. Current Visit: No (3) Squamous cell carcinoma of right lung Status: Chronic Assessment and plan: The patient has had previous chemotherapy and radiation therapy for lung cancer. Current Visit: No (4) Pneumonia Status: Acute Assessment and plan: The patient has been getting antibiotics and treatment for pneumonia. Her chest x-ray looks better and clinically she is doing well. Current Visit: Yes (5) GI bleed Status: Acute Assessment and plan: The patient is still anemic and is getting further transfusions. She still has some melanotic stool and her hematocrit is 28.7. She will continue close observation. Current Visit: Yes (6) Perforated duodenal ulcer Status: Acute Assessment and plan: Patient is postop repair of a perforated ulcer. She will continue with weaning trials. Current Visit: Yes Specialty Discharge - Follow Up or Referrals Follow up with: Erasto Hoffman MD [Physician] - 03/11/17 10:15 am (APPT WITH DR HOFFMAN IS ON February AT 1015AM FOR LABS AND XRAY AND TO SEE THE AT 1215PM [phone])
[2017-02-10] MEDS: LINEZOLID INJ 600 MG in PREMIX 1 EACH IV SCH ×2 (06:20→18:10)
[2017-02-10] MEDS: PHENYLEPHRINE DRIP 40 MG/250 ML PREMIX IV SCH ×2 (06:21→09:01)
--- NOTE | 2017-02-10 07:21 | Family Practice Progress Note ---
Family Practice - PN: Subj Interval history: Patient is unchanged this morning. Her hematocrit is stable. She still on pressors and propofol. Her vital signs are stable at present. Exam (Progress Note) - Constitutional Vitals: Period Temp Pulse Resp BP Sys/Wilcox Pulse Ox Last 24 Hr 96.7 F-98.1 F 79-133 10-28 75-138/48-84 94-100 Exam: Objective a well-developed white female who is sedated and on ventilator. She is still on Peter-Synephrine infusion. She is presently on IV Zosyn and Zyvox. Cardiovascular: Heart rates are regular I hear no murmurs or gallops. Respiratory: Patient has diminished breath sounds in both bases. Abdomen: I do not hear any bowel sounds this morning. Results - Labs CBC & BMP: 02/10/17 03:00 02/10/17 03:00 Lab Results: I have reviewed the past 24 hour labs Assessment and Plan (1) Perforated duodenal ulcer Status: Acute Assessment and plan: 02/09/2017: Patient's postop day #2 after duodenal ulcer repair. Renal function is stable. 02/10/2017: Patient is postop day #3 of duodenal ulcer repair. She is doing reasonably well and her renal function is good. Current Visit: Yes (2) Paroxysmal atrial fibrillation Status: Chronic Assessment and plan: 02/09/2017: Patient is on diltiazem Current Visit: No (3) Squamous cell carcinoma of right lung Status: Chronic Current Visit: No Specialty Discharge - Follow Up or Referrals Follow up with: Erasto Hoffman MD [Physician] - 03/11/17 10:15 am (APPT WITH DR HOFFMAN IS ON February AT 1015AM FOR LABS AND XRAY AND TO SEE THE AT 1215PM [phone])
--- NOTE | 2017-02-10 09:02 | Event Note ---
General Surgery Progress Note Chief complaint This patient is 81-year-old woman admitted with MRSA bacteremia presumed pneumonia with history of lung cancer who developed a perforated duodenal ulcer that was treated with laparotomy and omental Malik patch repair on 02/07/2017 Interval history There were no overnight events. Patient continues to have small amount of old blood coming out of her NG tube. She is hemodynamically normal this morning but she has some pleural effusions and was unable to be extubated yesterday. Her lab work reveals a slight drift in her hemoglobin. Her urine output is brisk and clear. She is waking up on propofol but does not follow commands on the current dose of propofol. Nursing says she wakes up and follows commands once the propofol is turned off. The patient received transfusion yesterday and responded appropriately but her hemoglobin is drifted back down some this morning. Physical exam Patient is afebrile with a little bit of tachycardia but otherwise relatively normal vital signs Chest is clear Heart is regular with no murmurs Abdominal exam reveals full JAVIER bulbs with serous fluid. The midline incision dressing is clean. Bowel sounds are improved but still hypoactive The patient has diffuse anasarca and edema Labs Reviewed White blood cell count is down to 13,000 Hemoglobin reviewed Creatinine is normal Imaging Chest x-ray reviewed. No significant change Assessment and plan Change to maintenance IV fluids D5 half-normal saline with 20 mEq of potassium at 75 cc an hour Continue NG tube to suction until tomorrow. Plan for Gastrografin upper GI tomorrow and can start tube feeds if the leak is not has sealed. Continue H. pylori treatment and twice daily Protonix hold off on DVT chemoprophylaxis until hemoglobin stabilizes, especially given the old blood in the NG tube is still coming out. Continue SCDs Repeat labs tomorrow
--- NOTE | 2017-02-10 09:20 | XRay Report ---
Portable chest Date: 02/10/2017 Clinical history: Ventilator Comparison: 02/09/2017 Technique: Portable AP sitting chest Findings: The heart is slightly smaller in size with stable supportive devices. Very minimal reduction in the pleural and parenchymal findings in the lungs with stable mediastinum and osseous structures. Impression: Minimally improved atelectasis/infiltration/edema with minimally smaller pleural effusions. Stable supportive devices. PROCEDURE INTERPRETED AT [facility] DEPARTMENT OF RADIOLOGY Final Report Signed by: Dr. Nohemy Bryant
[2017-02-10] MEDS: fentaNYL 25 MCG/HR PATCH TRANSDERM SCH (09:23)
[2017-02-10] MEDS: PANTOPRAZOLE 40 MG VIAL IV SCH ×2 (09:23→20:59)
[2017-02-10] MEDS: DESITIN 4OZ/NYSTATIN 15 GRAM MIXTURE PASTE TOP SCH ×4 (09:24→20:59)
[2017-02-10] MEDS ORDERED: DILTIAZEM 100 MG VIAL.ADD IV ONE (09:35)
[2017-02-10] MEDS ORDERED: SODIUM CHLORIDE 0.9% 100 ML IV ONE (09:36)
[2017-02-10] MEDS: DEXT 5% NACL 0.45% KCL 20 MEQ 20 MEQ/1,000 ML BAG IV SCH ×2 (09:43→23:01)
--- NOTE | 2017-02-10 10:07 | Oncology Progress Note ---
Oncology Subjective PN Interval history: Lung cancer with treatment and late 2016 and early 2017. Now postop day 3 duodenal ulcer repair. Positive Helicobacter. Sanguinous NG output is noted with hematocrit reviewed at 28. I have given orders to repeat this later this afternoon. She is on a proton pump inhibitor. She continues to tolerate CPAP. Mental status appears appropriate per nursing discussions. Exam - Constitutional Vitals: Period Temp Pulse Resp BP Sys/Wilcox Pulse Ox Last 24 Hr 96.9 F-98.1 F 79-133 10-21 75-138/48-84 98-100 Results - Labs CBC & BMP: 02/10/17 03:00 02/10/17 03:00 Specialty Discharge - Follow Up or Referrals Follow up with: Erasto Hoffman MD [Physician] - 03/11/17 10:15 am (APPT WITH DR HOFFMAN IS ON February AT 1015AM FOR LABS AND XRAY AND TO SEE THE AT 1215PM [phone])
[2017-02-10] MEDS: MORPHINE 2 MG/1 ML SYRINGE IV PRN (10:19)
[2017-02-10] MEDS: PROPOFOL 1,000 MG/100 ML BOTTLE IV SCH (11:01)
[2017-02-10 13:58] LABS: Eosinophils % 0.1 % (0.00-10.9); Immature Granulocytes % 1.3 %; Immature Granulocytes Absolute 0.16 #; Lymphocytes # 0.4 10*3/uL (1.4-4.0); Lymphocytes % 3.4 % (21.3-54.2); Mean Corpuscular HGB Conc 33.3 GM/DL (32-36); Mean Corpuscular Hemoglobin 30 PG (27-34); Mean Corpuscular Volume 89.2 FL (87-102); Monocytes # 0.6 10*3/uL (0.11-0.8); NRBC # 0.04 10*3/uL; Neutrophils # 10.9 10*3/uL (1.4-7.4); Neutrophils % 90.2 % (38.7-73.9); Platelet Count 136 T/CUMM (130-400); Red Blood Count 2.69 MC/CUMM (3.8-5.5); Red Cell Distribution Width 15.9 % (9.3-17.3)
[2017-02-10 14:08] LABS: INR 1.1; Partial Thromboplastin Time 32.7 SECS (0-40)
[2017-02-10 14:43] LABS: Band Neutrophils 3 % (0-10); Lymphocytes 2 % (20-55); Platelet Estimate Normal; Segmented Neutrophils 92 % (50-85); Total Cells Counted 100
[2017-02-10] MEDS ORDERED: SODIUM CHLORIDE 0.9% 250 ML IV PRN (14:44)
[2017-02-10] MEDS ORDERED: FUROSEMIDE 40 MG/4 ML VIAL IV ONE (17:54)
[2017-02-10 21:00] LABS: Hematocrit 31.4 VOL% (35.7-47.0)
[2017-02-10 21:09] LABS: Hemoglobin 11.1 GM/DL (12.0-16.0)
[2017-02-11] MEDS: PIPERACILLIN/TAZOBACTAM 3,375 MG in SODIUM CHLORIDE 0.9% 100 ML IV SCH ×4 (01:20→16:05)
[2017-02-11 03:11] LABS: ABG Base Excess -3.2 MMOL/L (-2.5-2.5); ABG HCO3 21.8 MMOL/L (20-26); ABG Oxygen Saturation 97.6 % (95-100); ABG PCO2 25.6 MM HG (35-48); ABG PH 7.482 (7.35-7.45); ABG PO2 83.5 MM HG (80-95); ABG TCO2 17.3 MMOL/L (23-27)
[2017-02-11 03:19] LABS: Hematocrit 29.2 VOL% (35.7-47.0); Hemoglobin 10.5 GM/DL (12.0-16.0)
[2017-02-11 03:39] LABS: Albumin 1.6 G/DL (3.4-5.0); Bilirubin,Total 0.8 MG/DL (0.2-1.0); Calcium 6.9 MG/DL (8.5-10.1); Osmolality,Calculated 284.4 MOS/KG (273-304); Total Protein 3.6 G/DL (6.4-8.3)
[2017-02-11] MEDS: ALBUTEROL/IPRATROPIUM 3 ML NEB RESP TX SCH ×4 (03:57→19:39)
[2017-02-11] MEDS: DEXT 5% NACL 0.45% KCL 20 MEQ 20 MEQ/1,000 ML BAG IV SCH ×2 (05:33→19:10)
[2017-02-11] MEDS: LINEZOLID INJ 600 MG in PREMIX 1 EACH IV SCH ×2 (05:35→18:02)
[2017-02-11 06:32] LABS: Basophils % 0.1 % (0.0-0.8); Eosinophils % 0.4 % (0.00-10.9); Hematocrit 29.2 VOL% (35.7-47.0); Hemoglobin 10.2 GM/DL (12.0-16.0); Immature Granulocytes % 1.1 %; Immature Granulocytes Absolute 0.11 #; Lymphocytes # 0.4 10*3/uL (1.4-4.0); Lymphocytes % 4.1 % (21.3-54.2); Mean Corpuscular HGB Conc 34.9 GM/DL (32-36); Mean Corpuscular Hemoglobin 30 PG (27-34); Mean Corpuscular Volume 86.4 FL (87-102); Mean Platelet Volume 11.6 FL (9.6-12.0); Monocytes # 0.5 10*3/uL (0.11-0.8); Monocytes % 4.5 % (1.7-12.7); NRBC # 0.03 10*3/uL; Neutrophils # 9.3 10*3/uL (1.4-7.4); Neutrophils % 89.8 % (38.7-73.9); Platelet Count 123 T/CUMM (130-400); Red Blood Count 3.38 MC/CUMM (3.8-5.5); Red Cell Distribution Width 14.7 % (9.3-17.3); White Blood Count 10.4 T/CUMM (4-12)
[2017-02-11] MEDS ORDERED: FUROSEMIDE 40 MG/4 ML VIAL IV ONE (06:40)
--- NOTE | 2017-02-11 06:43 | Pulmonology Progress Note ---
Pulmonary - PN: Subj Interval history: This 81-year-old lady came in with abdominal pain on the left side and was found to have a right lower lobe pneumonia. She has a history of lung cancer and has had radiation and chemotherapy. She has an abnormality of the bottom of the right lung where she previously had the lung cancer. I plan to do a bronchoscope to evaluate that when we can get her tuned up. She still having some cough congestion probable pneumonia. A BNP was done and was elevated at over 2000. Will evaluate with echocardiogram. She does have atrial fibrillation. She has been on Eliquis. This will be held until the bronchoscope can be done on . 01/30/2017 patient has left ventricular hypertrophy and mild pulmonary hypertension. This probably is the cause of the elevated BNP. I do think she has some mild congestive heart failure. We proceeded with her bronchoscope this morning. She has some swelling and narrowing of orifices in the right middle and lower lobe. No endobronchial tumor. This is a marked improvement compared to her bronchoscopy last fall. She had total obstruction of the bronchus intermedius at that time. She has had a good response to radiation/ chemotherapy. She did have a good bit of thick secretions and apparently has a difficult time clearing of secretions. We need to continue treating her with antibiotics bronchodilator steroids and mucolytics. 01/31/2017 patient is feeling better today. Wants to get out of bed and I think she should with help. Pathology and culture reports pending from yesterday's bronchoscopy. She is on empiric bronchodilators, steroids, antibiotics, and mucolytics. I think the steroids have her speeding a little bit. 02/01/2017 patient came in with abdominal pain which resolved. She was found to have bronchopneumonia primarily in the right lower lobe. Bronchoscopy showed some narrowing of the bronchial orifices but much improved since original diagnosis of lung cancer last year. Cytology is class III. I discussed the case with pathology. They feel that radiation changes are most likely the cause of this. Agree with not treating further with chemotherapy at this point. Patient has grown out 2 of 2 positive blood cultures for MRSA. Currently on Zyvox because of concerns about renal function. Normally would treat for 2 weeks. I will be out this weekend. Please call pulmonary international freight forwarder if needed. 02/04/2017 patient is less short of breath. Still having some coughing. Lungs sound better. Chest x-ray little change. She no longer has a localized wheeze over the right lower lobe. She is confused. I will decrease prednisone further to 20 mg daily. We can stop Merrem at this point. Needs to complete 2 weeks of Zyvox. It is well absorbed orally. Zyvox can interact with SSRIs. I will stop Lexapro 02/05/2017 patient remains a little confused and angry. Her lungs sound much better. I think we can stop her prednisone altogether. I will repeat blood cultures. I would favor finishing 2 weeks of Zyvox, whether by IV or p.o., which would be about another week from now. 02/06/2017 patient is better today. Does not appear to be as confused and angry. Agree with plans for swing bed. She needs about another week of Zyvox. 02/07/2017 patient had some black tarry stools. She is getting an EGD today. She required transfusion. Not on any anticoagulants. Lungs are stable 02/08/2017 patient was found to have a perforated duodenal ulcer. She was taken to surgery last night and has been on mechanical ventilation overnight. ABGs look good. Her chest x-ray shows small pleural effusions and a persistent right basilar infiltrate. Little change from before. I suspect the pleural effusions are sympathetic to the abdominal process. Patient is sedated at present. We will hold her sedation and start CPAP trials. Hopefully she can be extubated today. Depends on how much pain she is having and how much pain medicine she is requiring. 02/11/2017 patient has done only brief CPAP's over the weekend. Her weight is up from admission and her chest x-ray looks wet. She is somewhat hypotensive. I will bump with Lasix. Will proceed with CPAP. Mechanics have not been adequate for extubation as yet. Exam (Progress Note) - Constitutional Vitals: Period Temp Pulse Resp BP Sys/Wilcox Pulse Ox Last 24 Hr 97.4 F-98.6 F 64-102 10-27 51-136/37-85 96-100 Exam: Patient is sedated and on mechanical ventilation. She is a little pale. Vital signs normal. Pupils react to light. Neck supple no bruits. Chest reveals some scattered rhonchi and basilar crackles. Heart irregular without murmur. Abdomen soft, bandage and drains in place. No bowel sounds.. Extremities no clubbing cyanosis. Calves nontender. She does have peripheral edema. Results - Labs CBC & BMP: 02/11/17 03:00 02/11/17 03:00 Lab Results: I have reviewed the past 24 hour labs - Diagnostic Findings Procedure: Chest x-ray: image reviewed by me (Bilateral pleural effusions more on the left than the right) Assessment and Plan (1) Acute bronchitis Status: Acute Assessment and plan: I do hear some bronchospasm. She needs steroids along with antibiotics and bronchodilators. 01/29/2017 continuing bronchodilators and antibiotics and steroids. 01/30/2017 patient clearly has acute bronchitis with retained secretions. Probably some bronchopneumonia as well. Check cultures from bronchial washings. Continue empiric antibiotics. 01/31/2017 she had a lot of secretions at bronchoscopy. Cultures are pending. Continue current medications. 02/01/2017 less bronchospasm. 02/04/2017 bronchospasm much less. Tapering prednisone. 02/05/2017 lungs sound better. We will stop prednisone. 02/06/2017 lungs sound better. Doing well off prednisone. 02/07/2017 lungs are improved. Stay off prednisone. 02/08/2017 bronchitis improved. Certainly may flare back up again with her being on the ventilator. Currently remains on Zyvox for positive blood cultures for MRSA. Also on Zosyn. 02/11/2017 she is not having any bronchospasm at the moment Current Visit: Yes (2) Pneumonia Status: Acute Assessment and plan: Being treated empirically for right lower lobe pneumonia. This is the location where her cancer was previously. I think it would be worthwhile to reevaluate the bronchoscopy once she is doing a little better. 01/29/2017 as a bronchopneumonia at the right base. There could be an element of congestive heart failure as well given her elevated BNP. Check an echocardiogram 01/30/2017 continuing empiric antibiotics. Check cultures. Also has some diastolic acute congestive heart failure. 01/31/2017 based on endobronchial findings I do think she has some bronchopneumonia. Culture should be out tomorrow. She did have positive MRSA blood cultures 2 of 2. 02/01/2017 cultures are pending. She does have positive blood cultures for MRSA and I think we should direct her antibiotics in that way. 02/04/2017 positive blood cultures for MRSA. Likely the cause of her pneumonia as well, although bronchial washings have been negative. Agree with 2 weeks total of Zyvox. 02/05/2017 she has had 6 days of Zyvox. This should suffice for the pneumonia. We will repeat blood cultures. Usually would treat for 2 weeks for positive MRSA blood culture. 02/06/2017 agree with plans. Going to swing bed. Oral Zyvox for another week. 02/07/2017 clinically improved. Needs Zyvox another week. Still getting it IV for now because of the GI bleed. 02/08/2017 right lower lobe bronchopneumonia, has been on antibiotics for over a week. 02/11/2017 she is continuing with Zyvox for staphylococcal pneumonia. Also positive blood cultures 2 of 2. Current Visit: Yes (3) COPD (chronic obstructive pulmonary disease) Status: Acute Assessment and plan: Continuing with bronchodilator steroids antibiotics 01/29/2017 on appropriate meds for this. 01/30/2017 continuing bronchodilators. 01/31/2017 a little less bronchospasm. Localized wheeze in the right lower lobe. 02/01/2017 still having some bronchospasm. Will try to get by with less steroids. She is having some speeding. May be untoward reaction to the steroids. 02/04/2017 tapering steroids to a minimum. They may be affecting her mental status. 02/05/2017 continue with controller medications post discharge. She is on Symbicort. 02/06/2017 continuing bronchodilators. Continuing Symbicort 02/07/2017 continuing bronchodilators 02/08/2017 continuing bronchodilators. She was taken off steroids a couple of days back because of changes in mental status. 02/11/2017 continuing bronchodilators. Not on steroids. 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 She had almost complete obstruction of the right middle and lower lobes at that time. Good response to chemotherapy and radiation. However I do hear a localized wheeze there. Will need reevaluation with bronchoscopy in couple of days. 01/29/2017 she has had radiation and chemotherapy. Mass was in the right lower lobe originally with obstruction. Plan bronchoscopy on when she is clinically improved. She does have a localized wheeze over the right lower lobe 01/30/2017 this is felt to be in remission. Please see bronchoscopy note. There is distortion of the lower lobe bronchi with swelling and narrowing but no visible endobronchial lesion. Marked improvement from bronchoscopy 9 months ago prior to radiation and chemotherapy 01/31/2017 she has had chemotherapy and radiation. We did do brushings yesterday. No endobronchial lesions. 02/01/17 this is felt to be in remission. Discussed the case with Dr. Hoffman who may use [employer] on her 02/04/2017 no evidence of any recurrence. 02/08/2017 this is felt to be in remission. Current Visit: No (5) Perforated duodenal ulcer Status: Acute Assessment and plan: Status post open surgical repair of perforated duodenal ulcer. Ulcer was in the area of the pancreas. Watch for pancreatitis. 02/11/2017 status post repair. Trying to wean her off the ventilator postanesthesia. It appears that she is a little wet. Current Visit: Yes Specialty Discharge - Follow Up or Referrals Follow up with: Erasto Hoffman MD [Physician] - 03/11/17 10:15 am (APPT WITH DR HOFFMAN IS ON February AT 1015AM FOR LABS AND XRAY AND TO SEE THE AT 1215PM [id number])
[2017-02-11 07:05] LABS: Band Neutrophils 3 % (0-10); Eosinophils 1 % (0-10); Giant Platelets Few; Lymphocytes 4 % (20-55); Platelet Estimate Normal; Segmented Neutrophils 88 % (50-85); Total Cells Counted 100
[2017-02-11] MEDS: HYDROCORTISONE 100 MG VIAL IV SCH ×2 (07:28→21:02)
--- NOTE | 2017-02-11 07:40 | Oncology Progress Note ---
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 She continues to do surprisingly well. This is a very durable patient. Lab work today includes white cell count of 10,400 with a hemoglobin of 10.5 platelet count of 123,000. (2) MRSA sepsis Currently on IV antibiotic therapy. She remains afebrile. We are continuing current therapy. We are also monitoring for toxicity. She is on Zyvox which can cause thrombocytopenia. Her blood work was drawn late today and is pending. I note that Zosyn was added. I am altering the dose of it. I do not approve of the every 8 hour or hour infusion which is not the method of administration recommended by the manufacturer agent or the FDA. Her platelet count is 123,000 today. (3) COPD (chronic obstructive pulmonary disease) Status: Acute this is being managed by Dr. Lawson and her COPD. She is currently on the ventilator and being considered for extubation soon. (4) Squamous cell carcinoma of right lung Bronchial brushings are back and are class III from 3 separate reports. This is not enough evidence for me to consider resuming chemotherapy or switching her to Opdivo presently. (5) left chest pain She was admitted with this but has not complained about this for quite some time. (6)dehydration/renal failure: She is actually stable now with a serum creatinine of 1.1. (7) confusion: She is clearly confused. She does not remember seeing Dr. Velásquez yesterday. She tells me that I have not explained anything to her concerning all of her problems. This is probably multifactorial including steroid therapy and her overall debilitation. She is more depressed than confused today. She is angry about having to be here. We were working on a swing bed transfer when she began to actively GI bleed. (8) Hypertension : I am adding hydralazine as needed for the time being. Her blood pressure this morning is 86/56. (9)Malnutrition: She has a low Serum calcium of 6.9 with correspondingly low serum albumin of 1.6. Exam - Constitutional Vitals: Period Temp Pulse Resp BP Sys/Wilcox Pulse Ox Last 24 Hr 97.4 F-98.6 F 64-101 10-27 51-136/37-85 96-100 Results - Labs CBC & BMP: 02/11/17 03:00 02/11/17 03:00 Specialty Discharge - Follow Up or Referrals Follow up with: Erasto Barragan MD [Physician] - 03/11/17 10:15 am (APPT WITH DR BARRAGAN IS ON February AT 1015AM FOR LABS AND XRAY AND TO SEE THE AT 1215PM [id number])
[2017-02-11] MEDS: HYDROmorphone 2 MG/1 ML VIAL IV PRN ×3 (07:58→11:00)
[2017-02-11] MEDS: PANTOPRAZOLE 40 MG VIAL IV SCH (08:00)
[2017-02-11] MEDS: ALBUMIN 25% 12.5 GM in PREMIX 1 EACH IV SCH ×3 (08:11→23:15)
[2017-02-11] MEDS ORDERED: FLUCONAZOLE INJ 100 MG in IV BAG 1 EACH IV SCH (08:30)
--- NOTE | 2017-02-11 08:33 | Internal Med Progress Note ---
Assessment and Plan (1) Perforated duodenal ulcer Status: Acute Assessment and plan: 51-year-old female * Perforated duodenal ulcer. Status post laparotomy. She is still on pressors * GI bleed. Hematocrit is stable * Severe COPD. 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 Events of the weekend noted Exam (Progress Note) - Constitutional Vitals: Period Temp Pulse Resp BP Sys/Wilcxo Pulse Ox Last 24 Hr 97.4 F-98.6 F 64-101 10-27 51-136/37-85 96-100 Exam: Examination: GENERAL: Patient is on ventilator NECK: Neck is supple. CVS: Tachycardic. Rhythm is irregularly irregular RESPIRATORY: Decreased air entry overall ABDOMEN: Much softer today. No bowel sounds EXT: No edema. Peripheral pulses are present. CLERICAL ADMINISTRATOR: Sedated on ventilator Results - Labs CBC & BMP: 02/11/17 03:00 02/11/17 03:00 Lab Results: I have reviewed the past 24 hour labs Specialty Discharge - Follow Up or Referrals Follow up with: Erasto Hoffman MD [Physician] - 03/11/17 10:15 am (APPT WITH DR HOFFMAN IS ON February AT 1015AM FOR LABS AND XRAY AND TO SEE THE AT 1215PM [id number])
--- NOTE | 2017-02-11 08:55 | XRay Report ---
History: Patient on ventilator Date: 02/11/2017 Study: Chest x-ray AP portable Comparison exam: 02/10/2017 The endotracheal tube, nasogastric tube, right IJ central line, and left PICC line remain in stable position. There is continued cardiomegaly. The mediastinal contours are unchanged. Parenchymal and pleural disease in the mid to lower left hemithorax is unchanged. There is slightly improved aeration in the right lung base with improving small right pleural effusion. There is no new or worsening process. Osseous structures are unchanged. Impression: Mildly improved aeration right lung base. Otherwise unchanged PROCEDURE INTERPRETED AT [facility] DEPARTMENT OF RADIOLOGY Final Report Signed by: Dr. Rubi Velásquez
[2017-02-11] MEDS: DESITIN 4OZ/NYSTATIN 15 GRAM MIXTURE PASTE TOP SCH ×2 (09:26→21:27)
--- NOTE | 2017-02-11 09:43 | Gastrointestinal Progress Note ---
Assessment and Plan (1) GI bleed Status: Acute Assessment and plan: 02/11-No active GI bleeding, hgb stable. For upper GI series today. Plan and addendum to follow by Dr Velásquez. 02/08-status post perforated ulcer with postop day 1 open repair on yesterday afternoon. Hemoglobin is holding at 8.8 without overt bleeding. Continue to monitor at this time. Plan an addendum to follow Dr. Velásquez. 02/06-Sudden onset of dark red/black tarry stools w/o associated symptoms at time of discharge. Hx of GI bleeding in 2016 with questionable ischemic colitis. Unable to locate records of last colonoscopy. Hx of Eliquis which reported to be held x 1 week. Hgb stable at 11.3. Continue to monitor serial HH at this time. Plan and addendum to follow by Dr Velásquez. Current Visit: Yes Gastroenterology - PN: Subj Interval history: CC: GI bleed Pt is seen, eyes open and answers simple questions at present time. She is noted to have only done brief cpap trials over the weekend and now with mild improvements on xray. Her weight is noted to be up as well and to have increased Lasix today. Her hemoglobin is holding stable at 10.5. Creatnine is up slighlty at 1.1. Abdomen is soft, nontender. She is for upper GI today to check for any leaks prior to starting tube feedings. ROS: No acute distress noted Exam (Progress Note) - Constitutional Vitals: Period Temp Pulse Resp BP Sys/Wilcox Pulse Ox Last 24 Hr 97.4 F-98.6 F 64-101 10-27 51-136/37-85 96-100 General appearance: normal weight, no acute distress - Head Head exam: Present: normal inspection, normocephalic - Eye Eye exam: Absent: scleral icterus Pupils: Present: unequal (lids and conjunctiva unremarakble) - Neck Neck exam: Present: normal inspection - Respiratory Respiratory exam: Present: clear to auscultation bilaterally. Absent: rales, rhonchi, wheezes - Cardiovascular Cardiovascular exam: Present: regular rate and rhythm. Absent: diastolic murmur , JVD, systolic murmur - GI/Abdominal GI/Abdominal exam: Present: normal bowel sounds, soft. Absent: ascites, distended, mass, organomegaly, tenderness - Extremities Exam Extremities exam: Present: normal inspection - Back Exam Back exam: Present: normal inspection - Neurological Exam Neurological exam: Present: alert, altered - Psychiatric Psychiatric exam: Present: normal affect, normal mood - Skin Skin exam: Present: normal color, warm, dry Results - Labs CBC & BMP: 02/11/17 03:00 02/11/17 03:00 Lab Results: I have reviewed the past 24 hour labs - Diagnostic Findings Procedure: Chest x-ray: report reviewed by me Specialty Discharge - Follow Up or Referrals Follow up with: Erasto Hoffman MD [Physician] - 03/11/17 10:15 am (APPT WITH DR HOFFMAN IS ON February AT 1015AM FOR LABS AND XRAY AND TO SEE THE AT 1215PM [id number])
[2017-02-11] MEDS: MORPHINE 2 MG/1 ML SYRINGE IV PRN (09:51)
[2017-02-11 10:07] LABS: Hematocrit 29.2 VOL% (35.7-47.0); Hemoglobin 10.2 GM/DL (12.0-16.0)
--- NOTE | 2017-02-11 10:42 | Event Note ---
General Surgery Progress Note Chief complaint This patient is 81-year-old woman admitted with MRSA bacteremia presumed pneumonia with history of lung cancer who developed a perforated duodenal ulcer that was treated with laparotomy and omental Malik patch repair on 02/07/2017 Interval history The patient started having some melena yesterday and a bowel management system was placed. It seems to be slowing down. Her hemoglobin has stabilized but she did require additional blood transfusion yesterday. She is scheduled for a Gastrografin upper GI series today to make sure that her Malik patch is holding up. She still has some volume overload from her resuscitation and is still requiring the ventilator. We have held off on any DVT chemoprophylaxis given her ongoing GI blood loss. Physical exam Patient is afebrile with a little bit of tachycardia but otherwise relatively normal vital signs. She was off of her Peter-Synephrine only came this morning but it has since been restarted. Chest is clear Heart is irregular with no murmurs Abdominal exam reveals full JAVIER bulbs with serous fluid. The midline incision dressing is clean. Bowel sounds are improved but still hypoactive The patient has diffuse anasarca and edema Labs Reviewed White blood cell count is normal Hemoglobin reviewed, 10.2 today from 10.5 earlier this morning Creatinine is up to 1.1 Imaging Chest x-ray reviewed. No significant change. There is some volume overload Assessment and plan Gastrografin upper GI series today, start tube feeds if no extravasation is present Continue to monitor melena and serial hemoglobins. Hopefully there is just some oozing from the edges of the ulcer as there was no bleeding from this at the time of surgery or endoscopy. We will just need to transfuse as necessary as long as she remains stable and allow this area to heal
[2017-02-11] MEDS ORDERED: HYDROmorphone 2 MG/1 ML VIAL ONE (10:44)
[2017-02-11] MEDS ORDERED: PROPOFOL 1,000 MG/100 ML BOTTLE IV ONE (10:50)
[2017-02-11] MEDS: DILTIAZEM INJ 100 MG in SODIUM CHLORIDE 0.9% 100 ML IV SCH (11:51)
--- NOTE | 2017-02-11 12:36 | Fluoroscopy Report ---
Exam: [place] upper GI series Date: 02/11/2017 Indication: Repaired duodenal perforation Comparison: 02/07/2017 A total of 55 images were obtained. Findings: GI series was performed with Gastrografin to a nasogastric tube. 57 seconds fluoroscopy time utilized. The cloth colors examiner image reveals surgical clips over the mid abdomen and 2 [place] drains are present in the left and right upper abdomen. Gastrografin was administered. The exam reveals a hiatal hernia present. The stomach is demonstrated the duodenum and C-loop are demonstrated without obvious extravasation of contrast clearly demonstrated at this time. A one hour delay film was obtained as well. Impression: . 1. 2 [place] drains present in the upper abdomen 2. No obvious extravasation of contrast clearly demonstrated on today's exam. 3. Reflux in the esophagus with small hiatal hernia present. PROCEDURE INTERPRETED AT [facility] DEPARTMENT OF RADIOLOGY Final Report Signed by: Dr. Luis Murdock
[2017-02-11] MEDS ORDERED: DEXTROSE 50% 25 GM/50 ML VIAL IV PRN (14:52)
[2017-02-11] MEDS ORDERED: GLUCAGON 1 MG VIAL IM PRN (14:52)
[2017-02-11 16:13] LABS: Hematocrit 26.9 VOL% (35.7-47.0); Hemoglobin 9.5 GM/DL (12.0-16.0)
[2017-02-11] MEDS: INSULIN REGULAR 100 UNIT/ML SUBCUT SCH (17:54)
[2017-02-11] MEDS: PANTOPRAZOLE INJ 200 MG in SODIUM CHLORIDE 0.9% 250 ML IV SCH (19:13)
[2017-02-11 20:45] LABS: Hematocrit 24.5 VOL% (35.7-47.0); Hemoglobin 8.7 GM/DL (12.0-16.0)
[2017-02-11] MEDS: PHENYLEPHRINE DRIP 40 MG/250 ML PREMIX IV SCH (21:27)
[2017-02-11] MEDS: PROPOFOL 1,000 MG/100 ML BOTTLE IV SCH ×2 (21:28→21:29)
[2017-02-12] MEDS: INSULIN REGULAR 100 UNIT/ML SUBCUT SCH ×5 (00:19→23:34)
[2017-02-12] MEDS: PIPERACILLIN/TAZOBACTAM 3,375 MG in SODIUM CHLORIDE 0.9% 100 ML IV SCH ×3 (00:19→15:32)
[2017-02-12] MEDS: ALBUTEROL/IPRATROPIUM 3 ML NEB RESP TX SCH ×4 (00:45→19:33)
[2017-02-12] MEDS: DILTIAZEM INJ 100 MG in SODIUM CHLORIDE 0.9% 100 ML IV SCH ×2 (01:03→12:24)
[2017-02-12 03:41] LABS: Basophils % 0.1 % (0.0-0.8); Hematocrit 25.9 VOL% (35.7-47.0); Hemoglobin 9.2 GM/DL (12.0-16.0); Immature Granulocytes % 0.5 %; Immature Granulocytes Absolute 0.05 #; Lymphocytes # 0.2 10*3/uL (1.4-4.0); Lymphocytes % 1.7 % (21.3-54.2); Mean Corpuscular HGB Conc 35.5 GM/DL (32-36); Mean Corpuscular Hemoglobin 31 PG (27-34); Mean Corpuscular Volume 87.2 FL (87-102); Monocytes # 0.2 10*3/uL (0.11-0.8); Monocytes % 1.9 % (1.7-12.7); NRBC # 0.02 10*3/uL; Neutrophils # 8.9 10*3/uL (1.4-7.4); Neutrophils % 95.8 % (38.7-73.9); Platelet Count 103 T/CUMM (130-400); Red Blood Count 2.97 MC/CUMM (3.8-5.5); Red Cell Distribution Width 14.6 % (9.3-17.3); White Blood Count 9.3 T/CUMM (4-12)
[2017-02-12 03:43] LABS: ABG Base Excess -1.9 MMOL/L (-2.5-2.5); ABG HCO3 22.8 MMOL/L (20-26); ABG Oxygen Saturation 98.6 % (95-100); ABG PCO2 31.1 MM HG (35-48); ABG PH 7.446 (7.35-7.45); ABG TCO2 19.7 MMOL/L (23-27)
[2017-02-12 03:56] LABS: Albumin 2.3 G/DL (3.4-5.0); Bilirubin,Total 0.6 MG/DL (0.2-1.0); Calcium 7.1 MG/DL (8.5-10.1); Osmolality,Calculated 278.5 MOS/KG (273-304); Potassium 3.4 MMOL/L (3.5-5.1); Total Protein 4.4 G/DL (6.4-8.3)
[2017-02-12 04:05] LABS: Magnesium 1.4 MG/DL (1.8-2.4); Phosphorous 2.2 MG/DL (2.5-4.9); Prealbumin 14.7 MG/DL (20-40)
[2017-02-12 04:22] LABS: Band Neutrophils 2 % (0-10); Segmented Neutrophils 98 % (50-85)
[2017-02-12 04:23] LABS: Platelet Estimate Adequate; Total Cells Counted 100
[2017-02-12] MEDS: DEXT 5% NACL 0.45% KCL 20 MEQ 20 MEQ/1,000 ML BAG IV SCH ×3 (04:52→20:12)
[2017-02-12] MEDS: LINEZOLID INJ 600 MG in PREMIX 1 EACH IV SCH ×2 (05:36→17:57)
[2017-02-12] MEDS: POTASSIUM CHLORIDE RIDER 20 MEQ in PREMIX 1 EACH IV PRN (05:57)
[2017-02-12] MEDS: ALBUMIN 25% 12.5 GM in PREMIX 1 EACH IV SCH ×3 (06:00→23:30)
[2017-02-12] MEDS: HYDROCORTISONE 100 MG VIAL IV SCH ×2 (06:01→18:14)
--- NOTE | 2017-02-12 07:07 | Pulmonology Progress Note ---
Pulmonary - PN: Subj Interval history: This 81-year-old lady came in with abdominal pain on the left side and was found to have a right lower lobe pneumonia. She has a history of lung cancer and has had radiation and chemotherapy. She has an abnormality of the bottom of the right lung where she previously had the lung cancer. I plan to do a bronchoscope to evaluate that when we can get her tuned up. She still having some cough congestion probable pneumonia. A BNP was done and was elevated at over 2000. Will evaluate with echocardiogram. She does have atrial fibrillation. She has been on Eliquis. This will be held until the bronchoscope can be done on . 01/30/2017 patient has left ventricular hypertrophy and mild pulmonary hypertension. This probably is the cause of the elevated BNP. I do think she has some mild congestive heart failure. We proceeded with her bronchoscope this morning. She has some swelling and narrowing of orifices in the right middle and lower lobe. No endobronchial tumor. This is a marked improvement compared to her bronchoscopy last fall. She had total obstruction of the bronchus intermedius at that time. She has had a good response to radiation/ chemotherapy. She did have a good bit of thick secretions and apparently has a difficult time clearing of secretions. We need to continue treating her with antibiotics bronchodilator steroids and mucolytics. 01/31/2017 patient is feeling better today. Wants to get out of bed and I think she should with help. Pathology and culture reports pending from yesterday's bronchoscopy. She is on empiric bronchodilators, steroids, antibiotics, and mucolytics. I think the steroids have her speeding a little bit. 02/01/2017 patient came in with abdominal pain which resolved. She was found to have bronchopneumonia primarily in the right lower lobe. Bronchoscopy showed some narrowing of the bronchial orifices but much improved since original diagnosis of lung cancer last year. Cytology is class III. I discussed the case with pathology. They feel that radiation changes are most likely the cause of this. Agree with not treating further with chemotherapy at this point. Patient has grown out 2 of 2 positive blood cultures for MRSA. Currently on Zyvox because of concerns about renal function. Normally would treat for 2 weeks. I will be out this weekend. Please call pulmonary interventional physician if needed. 02/04/2017 patient is less short of breath. Still having some coughing. Lungs sound better. Chest x-ray little change. She no longer has a localized wheeze over the right lower lobe. She is confused. I will decrease prednisone further to 20 mg daily. We can stop Merrem at this point. Needs to complete 2 weeks of Zyvox. It is well absorbed orally. Zyvox can interact with SSRIs. I will stop Lexapro 02/05/2017 patient remains a little confused and angry. Her lungs sound much better. I think we can stop her prednisone altogether. I will repeat blood cultures. I would favor finishing 2 weeks of Zyvox, whether by IV or p.o., which would be about another week from now. 02/06/2017 patient is better today. Does not appear to be as confused and angry. Agree with plans for swing bed. She needs about another week of Zyvox. 02/07/2017 patient had some black tarry stools. She is getting an EGD today. She required transfusion. Not on any anticoagulants. Lungs are stable 02/08/2017 patient was found to have a perforated duodenal ulcer. She was taken to surgery last night and has been on mechanical ventilation overnight. ABGs look good. Her chest x-ray shows small pleural effusions and a persistent right basilar infiltrate. Little change from before. I suspect the pleural effusions are sympathetic to the abdominal process. Patient is sedated at present. We will hold her sedation and start CPAP trials. Hopefully she can be extubated today. Depends on how much pain she is having and how much pain medicine she is requiring. 02/11/2017 patient has done only brief CPAP's over the weekend. Her weight is up from admission and her chest x-ray looks wet. She is somewhat hypotensive. I will bump with Lasix. Will proceed with CPAP. Mechanics have not been adequate for extubation as yet. 02/12/2017 patient tolerating CPAP much better. Blood pressure stable. Weight down after Lasix. Hope to extubate today. Exam (Progress Note) - Constitutional Vitals: Period Temp Pulse Resp BP Sys/Wilcox Pulse Ox Last 24 Hr 98.1 F-98.7 F 62-108 10 82-136/41-82 93-100 Exam: Patient is responsive, and on mechanical ventilation. She is a little pale. Vital signs normal. Pupils react to light. Neck supple no bruits. Chest reveals some scattered rhonchi and basilar crackles. Heart irregular without murmur. Abdomen soft, bandage and drains in place. No bowel sounds.. Extremities no clubbing cyanosis. Calves nontender. She does have trace of peripheral edema. Results - Labs CBC & BMP: 02/12/17 03:14 02/12/17 03:14 Lab Results: I have reviewed the past 24 hour labs Assessment and Plan (1) Acute bronchitis Status: Acute Assessment and plan: I do hear some bronchospasm. She needs steroids along with antibiotics and bronchodilators. 01/29/2017 continuing bronchodilators and antibiotics and steroids. 01/30/2017 patient clearly has acute bronchitis with retained secretions. Probably some bronchopneumonia as well. Check cultures from bronchial washings. Continue empiric antibiotics. 01/31/2017 she had a lot of secretions at bronchoscopy. Cultures are pending. Continue current medications. 02/01/2017 less bronchospasm. 02/04/2017 bronchospasm much less. Tapering prednisone. 02/05/2017 lungs sound better. We will stop prednisone. 02/06/2017 lungs sound better. Doing well off prednisone. 02/07/2017 lungs are improved. Stay off prednisone. 02/08/2017 bronchitis improved. Certainly may flare back up again with her being on the ventilator. Currently remains on Zyvox for positive blood cultures for MRSA. Also on Zosyn. 02/11/2017 she is not having any bronchospasm at the moment 02/12/2017 again no active bronchospasm. Current Visit: Yes (2) Pneumonia Status: Acute Assessment and plan: Being treated empirically for right lower lobe pneumonia. This is the location where her cancer was previously. I think it would be worthwhile to reevaluate the bronchoscopy once she is doing a little better. 01/29/2017 as a bronchopneumonia at the right base. There could be an element of congestive heart failure as well given her elevated BNP. Check an echocardiogram 01/30/2017 continuing empiric antibiotics. Check cultures. Also has some diastolic acute congestive heart failure. 01/31/2017 based on endobronchial findings I do think she has some bronchopneumonia. Culture should be out tomorrow. She did have positive MRSA blood cultures 2 of 2. 02/01/2017 cultures are pending. She does have positive blood cultures for MRSA and I think we should direct her antibiotics in that way. 02/04/2017 positive blood cultures for MRSA. Likely the cause of her pneumonia as well, although bronchial washings have been negative. Agree with 2 weeks total of Zyvox. 02/05/2017 she has had 6 days of Zyvox. This should suffice for the pneumonia. We will repeat blood cultures. Usually would treat for 2 weeks for positive MRSA blood culture. 02/06/2017 agree with plans. Going to swing bed. Oral Zyvox for another week. 02/07/2017 clinically improved. Needs Zyvox another week. Still getting it IV for now because of the GI bleed. 02/08/2017 right lower lobe bronchopneumonia, has been on antibiotics for over a week. 02/11/2017 she is continuing with Zyvox for staphylococcal pneumonia. Also positive blood cultures 2 of 2. 02/12/2017 continuing with Zyvox. Current Visit: Yes (3) COPD (chronic obstructive pulmonary disease) Status: Acute Assessment and plan: Continuing with bronchodilator steroids antibiotics 01/29/2017 on appropriate meds for this. 01/30/2017 continuing bronchodilators. 01/31/2017 a little less bronchospasm. Localized wheeze in the right lower lobe. 02/01/2017 still having some bronchospasm. Will try to get by with less steroids. She is having some speeding. May be untoward reaction to the steroids. 02/04/2017 tapering steroids to a minimum. They may be affecting her mental status. 02/05/2017 continue with controller medications post discharge. She is on Symbicort. 02/06/2017 continuing bronchodilators. Continuing Symbicort 02/07/2017 continuing bronchodilators 02/08/2017 continuing bronchodilators. She was taken off steroids a couple of days back because of changes in mental status. 02/11/2017 continuing bronchodilators. Not on steroids. 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 She had almost complete obstruction of the right middle and lower lobes at that time. Good response to chemotherapy and radiation. However I do hear a localized wheeze there. Will need reevaluation with bronchoscopy in couple of days. 01/29/2017 she has had radiation and chemotherapy. Mass was in the right lower lobe originally with obstruction. Plan bronchoscopy on when she is clinically improved. She does have a localized wheeze over the right lower lobe 01/30/2017 this is felt to be in remission. Please see bronchoscopy note. There is distortion of the lower lobe bronchi with swelling and narrowing but no visible endobronchial lesion. Marked improvement from bronchoscopy 9 months ago prior to radiation and chemotherapy 01/31/2017 she has had chemotherapy and radiation. We did do brushings yesterday. No endobronchial lesions. 02/01/17 this is felt to be in remission. Discussed the case with Dr. Hoffman who may use Optivar on her 02/04/2017 no evidence of any recurrence. 02/08/2017 this is felt to be in remission. 02/12/2017 again felt to be in remission. She does have some chronic airway disease in the right lower lobe related to previous lung cancer and radiation. Current Visit: No (5) Perforated duodenal ulcer Status: Acute Assessment and plan: Status post open surgical repair of perforated duodenal ulcer. Ulcer was in the area of the pancreas. Watch for pancreatitis. 02/11/2017 status post repair. Trying to wean her off the ventilator postanesthesia. It appears that she is a little wet. 02/12/2017 status post repair. Gastrografin swallow yesterday was okay. Started on feedings. Current Visit: Yes Specialty Discharge - Follow Up or Referrals Follow up with: Erasto Hoffman MD [Physician] - 03/11/17 10:15 am (APPT WITH DR HOFFMAN IS ON February AT 1015AM FOR LABS AND XRAY AND TO SEE THE AT 1215PM [id number])
--- NOTE | 2017-02-12 07:27 | Event Note ---
General Surgery Progress Note Chief complaint This patient is 81-year-old woman admitted with MRSA bacteremia presumed pneumonia with history of lung cancer who developed a perforated duodenal ulcer that was treated with laparotomy and omental Malik patch repair on 02/07/2017 Interval history Gastrografin upper GI series yesterday was negative for any extravasation. The patient is tolerating tube feeds with minimal residuals. She wakes up and follows commands. She is progressing on her ventilator weaning trials. She continues to have some melena but is slowing down her hemoglobin is stable. Her platelet count dropped a little bit to 102,000. Physical exam Patient is afebrile with normal vital signs Chest is clear Heart is irregular Abdominal exam is benign with expected postoperative tenderness. The midline incision is clean there is a little bit of reactive erythema around the terri but no evidence of infection. JAVIER drains are serosanguineous with no evidence of tube feeds leaking. Labs reviewed, as above creatinine was stable at 1.1 Imaging None new this morning Assessment and plan Continue tube feeds as tolerated Continue JAVIER drains for now
--- NOTE | 2017-02-12 07:28 | Oncology Progress Note ---
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 She has thrombocytopenia and other blood count issues. Order a CBC instead. The lab runs a CBC anyway and simply reports out an H&H. (1)Acute GI bleed due to duodenal with perforation: She is 4 days postop for open laparotomy with closure of a perforation of the duodenum. She continues to do surprisingly well. This is a very durable patient. Lab work today includes Hemoglobin of 9.2, Platelet count 103,000, White cell count 9300. (2) MRSA sepsis Currently on IV antibiotic therapy. She remains afebrile. We are continuing current therapy. We are also monitoring for toxicity. She is on Zyvox which can cause thrombocytopenia. Her blood work was drawn late today and is pending. I note that Zosyn was added. I am altering the dose of it. I do not approve of the every 8 hour or hour infusion which is not the method of administration recommended by the sericulturist or the FDA. Her platelet count is 123,000 today. (3) COPD (chronic obstructive pulmonary disease) Status: Acute this is being managed by Dr. Lawson and her COPD. She is currently on the ventilator and being considered for extubation soon. (4) Squamous cell carcinoma of right lung Bronchial brushings are back and are class III from 3 separate reports. This is not enough evidence for me to consider resuming chemotherapy or switching her to Opdivo presently. (5) left chest pain She was admitted with this but has not complained about this for quite some time. (6)dehydration/renal failure: She is actually stable now with a serum creatinine of 1.1. Serum potassium is 3.4 Exam - Constitutional Vitals: Period Temp Pulse Resp BP Sys/Wilcox Pulse Ox Last 24 Hr 98.1 F-98.7 F 62-108 10- 82-136/41-82 93-100 Results - Labs CBC & BMP: 02/12/17 03:14 02/12/17 03:14 Specialty Discharge - Follow Up or Referrals Follow up with: Erasto Hoffman MD [Physician] - 03/11/17 10:15 am (APPT WITH DR HOFFMAN IS ON February AT 1015AM FOR LABS AND XRAY AND TO SEE THE AT 1215PM [id number])
[2017-02-12] MEDS: POTASSIUM CHLORIDE RIDER 10 MEQ in PREMIX 1 EACH IV PRN (08:17)
--- NOTE | 2017-02-12 08:20 | Internal Med Progress Note ---
Assessment and Plan (1) Perforated duodenal ulcer Status: Acute Assessment and plan: 51-year-old female * Perforated duodenal ulcer. Status post laparotomy. Doing well * A. fib. DC Cardizem infusion and start her on p.o. Cardizem every 6 hours initially * GI bleed. Hematocrit is stable * Severe COPD. 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 She is doing okay with the trials. Feeding has been started. Exam (Progress Note) - Constitutional Vitals: Period Temp Pulse Resp BP Sys/Wilcox Pulse Ox Last 24 Hr 98.1 F-98.5 F 62-108 10- 82-136/41-82 93-100 Exam: Examination: GENERAL: Patient is on ventilator NECK: Neck is supple. CVS: Tachycardic. Rhythm is irregularly irregular RESPIRATORY: Decreased air entry overall ABDOMEN: Soft and nontender. Sluggish bowel sounds EXT: No edema. Peripheral pulses are present. 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
[2017-02-12] MEDS: FUROSEMIDE 40 MG/4 ML VIAL IV SCH (08:21)
[2017-02-12] MEDS: DILTIAZEM 30 MG TABLET PO SCH ×3 (08:33→20:51)
[2017-02-12 08:46] LABS: ABG Base Excess -3.3 MMOL/L (-2.5-2.5); ABG HCO3 21.7 MMOL/L (20-26); ABG Oxygen Saturation 98.2 % (95-100); ABG PCO2 29.5 MM HG (35-48); ABG PH 7.439 (7.35-7.45); ABG PO2 91.5 MM HG (80-95); ABG TCO2 18.2 MMOL/L (23-27)
--- NOTE | 2017-02-12 10:08 | Gastrointestinal Progress Note ---
Assessment and Plan (1) GI bleed Status: Acute Assessment and plan: 02/12-hemoglobin is stable at 9.2. No overt. Tolerating tube feedings well at this time. Continue to monitor. Plan an addendum to follow Dr. Velásquze. 02/11-No active GI bleeding, hgb stable. For upper GI series today. Plan and addendum to follow by Dr Velásquez. 02/08-status post perforated ulcer with postop day 1 open repair on yesterday afternoon. Hemoglobin is holding at 8.8 without overt bleeding. Continue to monitor at this time. Plan an addendum to follow Dr. Velásquez. 02/06-Sudden onset of dark red/black tarry stools w/o associated symptoms at time of discharge. Hx of GI bleeding in 2015 with questionable ischemic colitis. Unable to locate records of last colonoscopy. Hx of Eliquis which reported to be held x 1 week. Hgb stable at 11.3. Continue to monitor serial HH at this time. Plan and addendum to follow by Dr Velásquez. Current Visit: Yes Gastroenterology - PN: Subj Interval history: CC: GI bleed Patient is seen, awake and alert, extubated. She denies any abdominal pain at this time and answers questions fairly appropriately however she does have an element of dementia. She is tolerating her tube feedings well at present time. Abdomen is soft, nontender. Hemoglobin is stable at 9.2. She is afebrile. ROS: Denies shortness of breath or chest pain Exam (Progress Note) - Constitutional Vitals: Period Temp Pulse Resp BP Sys/Wilcox Pulse Ox Last 24 Hr 98.1 F-98.5 F 62-108 10-22 82-136/41-82 93-100 - Other Additional findings: General appearance: normal weight, no acute distress - Head Head exam: Present: normal inspection, normocephalic - Eye Eye exam: Absent: scleral icterus Pupils: Present: unequal (lids and conjunctiva unremarakble) - Neck Neck exam: Present: normal inspection - Respiratory Respiratory exam: Present: clear to auscultation bilaterally. Absent: rales, rhonchi, wheezes - Cardiovascular Cardiovascular exam: Present: regular rate and rhythm. Absent: diastolic murmur , JVD, systolic murmur - GI/Abdominal GI/Abdominal exam: Present: normal bowel sounds, soft. Absent: ascites, distended, mass, organomegaly, tenderness - Extremities Exam Extremities exam: Present: normal inspection - Back Exam Back exam: Present: normal inspection - Neurological Exam Neurological exam: Present: alert, altered - Psychiatric Psychiatric exam: Present: normal affect, normal mood - Skin Skin exam: Present: normal color, warm, dry Results - Labs CBC & BMP: 02/12/17 03:14 02/12/17 03:14 Lab Results: I have reviewed the past 24 hour labs Specialty Discharge - Follow Up or Referrals Follow up with: Erasto Hoffman MD [Physician] - 03/11/17 10:15 am (APPT WITH DR HOFFMAN IS ON February AT 1015AM FOR LABS AND XRAY AND TO SEE THE AT 1215PM [id number])
[2017-02-12] MEDS: MORPHINE 2 MG/1 ML SYRINGE IV PRN ×3 (10:29→22:10)
[2017-02-12 11:01] LABS: Pt O2 Delivery Device Venturi Mask
[2017-02-12 11:02] LABS: ABG Base Excess -2.2 MMOL/L (-2.5-2.5); ABG HCO3 22.6 MMOL/L (20-26); ABG Oxygen Saturation 98.8 % (95-100); ABG PCO2 29.3 MM HG (35-48)
[2017-02-12] MEDS: DESITIN 4OZ/NYSTATIN 15 GRAM MIXTURE PASTE TOP SCH ×2 (12:22→20:52)
[2017-02-12] MEDS: HYDROmorphone 2 MG/1 ML VIAL IV PRN ×2 (13:10→19:10)
[2017-02-12 15:37] LABS: Hematocrit 26.4 VOL% (35.7-47.0); Hemoglobin 9.3 GM/DL (12.0-16.0); Immature Granulocytes % 1.1 %; Immature Granulocytes Absolute 0.09 #; Lymphocytes # 0.2 10*3/uL (1.4-4.0); Lymphocytes % 2.9 % (21.3-54.2); Mean Corpuscular HGB Conc 35.2 GM/DL (32-36); Mean Corpuscular Hemoglobin 31 PG (27-34); Mean Corpuscular Volume 87.4 FL (87-102); Monocytes # 0.2 10*3/uL (0.11-0.8); Monocytes % 2.2 % (1.7-12.7); NRBC # 0.04 10*3/uL; Neutrophils # 7.7 10*3/uL (1.4-7.4); Neutrophils % 93.8 % (38.7-73.9); Platelet Count 92 T/CUMM (130-400); Red Blood Count 3.02 MC/CUMM (3.8-5.5); Red Cell Distribution Width 14.6 % (9.3-17.3); White Blood Count 8.2 T/CUMM (4-12)
[2017-02-12 16:26] LABS: Band Neutrophils 1 % (0-10); Lymphocytes 7 % (20-55); Platelet Estimate Decreased; Segmented Neutrophils 92 % (50-85); Total Cells Counted 100
[2017-02-12] MEDS: PANTOPRAZOLE INJ 200 MG in SODIUM CHLORIDE 0.9% 250 ML IV SCH (18:27)
[2017-02-12] MEDS: PHENYLEPHRINE DRIP 40 MG/250 ML PREMIX IV SCH (20:10)
[2017-02-12] MEDS: PROPOFOL 1,000 MG/100 ML BOTTLE IV SCH (20:11)
[2017-02-13] MEDS: PIPERACILLIN/TAZOBACTAM 3,375 MG in SODIUM CHLORIDE 0.9% 100 ML IV SCH ×3 (00:06→17:13)
[2017-02-13] MEDS: ALBUTEROL/IPRATROPIUM 3 ML NEB RESP TX SCH ×4 (02:40→19:38)
[2017-02-13] MEDS: DILTIAZEM 30 MG TABLET PO SCH ×2 (03:49→08:38)
[2017-02-13 04:48] LABS: Hematocrit 27.2 VOL% (35.7-47.0); Hemoglobin 9.5 GM/DL (12.0-16.0); Immature Granulocytes % 0.9 %; Immature Granulocytes Absolute 0.07 #; Lymphocytes # 0.4 10*3/uL (1.4-4.0); Mean Corpuscular HGB Conc 34.9 GM/DL (32-36); Mean Corpuscular Hemoglobin 30 PG (27-34); Mean Corpuscular Volume 87.2 FL (87-102); Mean Platelet Volume 10.7 FL (9.6-12.0); Monocytes # 0.3 10*3/uL (0.11-0.8); Monocytes % 3.8 % (1.7-12.7); NRBC # 0.04 10*3/uL; Neutrophils # 7.1 10*3/uL (1.4-7.4); Neutrophils % 90.3 % (38.7-73.9); Platelet Count 89 T/CUMM (130-400); Red Blood Count 3.12 MC/CUMM (3.8-5.5); Red Cell Distribution Width 14.4 % (9.3-17.3); White Blood Count 7.8 T/CUMM (4-12)
[2017-02-13 05:06] LABS: Albumin 2.7 G/DL (3.4-5.0); Bilirubin,Total 0.7 MG/DL (0.2-1.0); Calcium 7.9 MG/DL (8.5-10.1); Osmolality,Calculated 283.3 MOS/KG (273-304); Potassium 2.9 MMOL/L (3.5-5.1); Total Protein 4.5 G/DL (6.4-8.3)
[2017-02-13 05:08] LABS: Platelet Estimate Decreased
[2017-02-13] MEDS: HYDROmorphone 2 MG/1 ML VIAL IV PRN ×2 (06:01→21:12)
[2017-02-13] MEDS: INSULIN REGULAR 100 UNIT/ML SUBCUT SCH ×3 (06:06→18:51)
[2017-02-13] MEDS: HYDROCORTISONE 100 MG VIAL IV SCH ×2 (06:14→21:11)
[2017-02-13] MEDS: LINEZOLID INJ 600 MG in PREMIX 1 EACH IV SCH (06:18)
[2017-02-13] MEDS: ALBUMIN 25% 12.5 GM in PREMIX 1 EACH IV SCH ×2 (06:23→15:13)
--- NOTE | 2017-02-13 06:50 | XRay Report ---
Exam: XR chest 1V portable Date: 02/13/2017 4:00 AM Indication: Follow-up ventilator Comparison: 02/11/2017 Technical: AP portable Findings: External cardiac leads are present. A right IJ catheter is present. Nasogastric tube is present. A PICC line is present from a left-sided approach with distal tip superior vena cava. Low volume effusions are present. Mild cardiac enlargement. Arthritic change present over the shoulders right greater than left with high riding appearance suggests rotator cuff pathology or old trauma No pneumothorax Impression: 1. Cardiomegaly with low volume effusions atelectatic change bilaterally. 2. Stable appearance of right IJ catheter left-sided PICC line and nasogastric tube PROCEDURE INTERPRETED AT [facility] DEPARTMENT OF RADIOLOGY Final Report Signed by: Dr. Luis Murdock
--- NOTE | 2017-02-13 06:50 | Pulmonology Progress Note ---
Pulmonary - PN: Subj Interval history: This 81-year-old lady came in with abdominal pain on the left side and was found to have a right lower lobe pneumonia. She has a history of lung cancer and has had radiation and chemotherapy. She has an abnormality of the bottom of the right lung where she previously had the lung cancer. I plan to do a bronchoscope to evaluate that when we can get her tuned up. She still having some cough congestion probable pneumonia. A BNP was done and was elevated at over 2000. Will evaluate with echocardiogram. She does have atrial fibrillation. She has been on Eliquis. This will be held until the bronchoscope can be done on . 01/30/2017 patient has left ventricular hypertrophy and mild pulmonary hypertension. This probably is the cause of the elevated BNP. I do think she has some mild congestive heart failure. We proceeded with her bronchoscope this morning. She has some swelling and narrowing of orifices in the right middle and lower lobe. No endobronchial tumor. This is a marked improvement compared to her bronchoscopy last fall. She had total obstruction of the bronchus intermedius at that time. She has had a good response to radiation/ chemotherapy. She did have a good bit of thick secretions and apparently has a difficult time clearing of secretions. We need to continue treating her with antibiotics bronchodilator steroids and mucolytics. 01/31/2017 patient is feeling better today. Wants to get out of bed and I think she should with help. Pathology and culture reports pending from yesterday's bronchoscopy. She is on empiric bronchodilators, steroids, antibiotics, and mucolytics. I think the steroids have her speeding a little bit. 02/01/2017 patient came in with abdominal pain which resolved. She was found to have bronchopneumonia primarily in the right lower lobe. Bronchoscopy showed some narrowing of the bronchial orifices but much improved since original diagnosis of lung cancer last year. Cytology is class III. I discussed the case with pathology. They feel that radiation changes are most likely the cause of this. Agree with not treating further with chemotherapy at this point. Patient has grown out 2 of 2 positive blood cultures for MRSA. Currently on Zyvox because of concerns about renal function. Normally would treat for 2 weeks. I will be out this weekend. Please call pulmonary radiation control technician if needed. 02/04/2017 patient is less short of breath. Still having some coughing. Lungs sound better. Chest x-ray little change. She no longer has a localized wheeze over the right lower lobe. She is confused. I will decrease prednisone further to 20 mg daily. We can stop Merrem at this point. Needs to complete 2 weeks of Zyvox. It is well absorbed orally. Zyvox can interact with SSRIs. I will stop Lexapro 02/05/2017 patient remains a little confused and angry. Her lungs sound much better. I think we can stop her prednisone altogether. I will repeat blood cultures. I would favor finishing 2 weeks of Zyvox, whether by IV or p.o., which would be about another week from now. 02/06/2017 patient is better today. Does not appear to be as confused and angry. Agree with plans for swing bed. She needs about another week of Zyvox. 02/07/2017 patient had some black tarry stools. She is getting an EGD today. She required transfusion. Not on any anticoagulants. Lungs are stable 02/08/2017 patient was found to have a perforated duodenal ulcer. She was taken to surgery last night and has been on mechanical ventilation overnight. ABGs look good. Her chest x-ray shows small pleural effusions and a persistent right basilar infiltrate. Little change from before. I suspect the pleural effusions are sympathetic to the abdominal process. Patient is sedated at present. We will hold her sedation and start CPAP trials. Hopefully she can be extubated today. Depends on how much pain she is having and how much pain medicine she is requiring. 02/11/2017 patient has done only brief CPAP's over the weekend. Her weight is up from admission and her chest x-ray looks wet. She is somewhat hypotensive. I will bump with Lasix. Will proceed with CPAP. Mechanics have not been adequate for extubation as yet. 02/12/2017 patient tolerating CPAP much better. Blood pressure stable. Weight down after Lasix. Hope to extubate today. 02/13/2017 patient was extubated yesterday and has done well since then. She says she is quite hungry and asking to eat. Voice is pretty good. Being fed through NG tube at present. Will ask speech therapy to do bedside swallowing evaluation and hopefully can start diet later today. Defer to GI and surgery on the diet. Exam (Progress Note) - Constitutional Vitals: Period Temp Pulse Resp BP Sys/Wilcox Pulse Ox Last 24 Hr 97.8 F-99.0 F 65-123 11-23 103-150/58-103 90-99 Exam: Patient is responsive, alert, and talkative, now on nasal oxygen. Vital signs normal. Pupils react to light. Neck supple no bruits. Chest reveals some scattered rhonchi and basilar crackles. Heart irregular without murmur. Abdomen soft, bandage and drains in place. No bowel sounds.. Extremities no clubbing cyanosis. Calves nontender. She does have trace of peripheral edema. Results - Labs CBC & BMP: 02/13/17 04:38 02/13/17 04:38 Lab Results: I have reviewed the past 24 hour labs - Diagnostic Findings Procedure: Chest x-ray: image reviewed by me (Bilateral small pleural effusions. ET tube now out. CVP line in good position.) Assessment and Plan (1) Acute bronchitis Status: Acute Assessment and plan: I do hear some bronchospasm. She needs steroids along with antibiotics and bronchodilators. 01/29/2017 continuing bronchodilators and antibiotics and steroids. 01/30/2017 patient clearly has acute bronchitis with retained secretions. Probably some bronchopneumonia as well. Check cultures from bronchial washings. Continue empiric antibiotics. 01/31/2017 she had a lot of secretions at bronchoscopy. Cultures are pending. Continue current medications. 02/01/2017 less bronchospasm. 02/04/2017 bronchospasm much less. Tapering prednisone. 02/05/2017 lungs sound better. We will stop prednisone. 02/06/2017 lungs sound better. Doing well off prednisone. 02/07/2017 lungs are improved. Stay off prednisone. 02/08/2017 bronchitis improved. Certainly may flare back up again with her being on the ventilator. Currently remains on Zyvox for positive blood cultures for MRSA. Also on Zosyn. 02/11/2017 she is not having any bronchospasm at the moment 02/12/2017 again no active bronchospasm. 02/13/2017 no wheezing no signs of bronchospasm. Continuing bronchodilators Current Visit: Yes (2) Pneumonia Status: Acute Assessment and plan: Being treated empirically for right lower lobe pneumonia. This is the location where her cancer was previously. I think it would be worthwhile to reevaluate the bronchoscopy once she is doing a little better. 01/29/2017 as a bronchopneumonia at the right base. There could be an element of congestive heart failure as well given her elevated BNP. Check an echocardiogram 01/30/2017 continuing empiric antibiotics. Check cultures. Also has some diastolic acute congestive heart failure. 01/31/2017 based on endobronchial findings I do think she has some bronchopneumonia. Culture should be out tomorrow. She did have positive MRSA blood cultures 2 of 2. 02/01/2017 cultures are pending. She does have positive blood cultures for MRSA and I think we should direct her antibiotics in that way. 02/04/2017 positive blood cultures for MRSA. Likely the cause of her pneumonia as well, although bronchial washings have been negative. Agree with 2 weeks total of Zyvox. 02/05/2017 she has had 6 days of Zyvox. This should suffice for the pneumonia. We will repeat blood cultures. Usually would treat for 2 weeks for positive MRSA blood culture. 02/06/2017 agree with plans. Going to swing bed. Oral Zyvox for another week. 02/07/2017 clinically improved. Needs Zyvox another week. Still getting it IV for now because of the GI bleed. 02/08/2017 right lower lobe bronchopneumonia, has been on antibiotics for over a week. 02/11/2017 she is continuing with Zyvox for staphylococcal pneumonia. Also positive blood cultures 2 of 2. 02/12/2017 continuing with Zyvox. 02/13/2017 patient continues with Zyvox because of the positive blood cultures for MRSA. Current Visit: Yes (3) COPD (chronic obstructive pulmonary disease) Status: Acute Assessment and plan: Continuing with bronchodilator steroids antibiotics 01/29/2017 on appropriate meds for this. 01/30/2017 continuing bronchodilators. 01/31/2017 a little less bronchospasm. Localized wheeze in the right lower lobe. 02/01/2017 still having some bronchospasm. Will try to get by with less steroids. She is having some speeding. May be untoward reaction to the steroids. 02/04/2017 tapering steroids to a minimum. They may be affecting her mental status. 02/05/2017 continue with controller medications post discharge. She is on Symbicort. 02/06/2017 continuing bronchodilators. Continuing Symbicort 02/07/2017 continuing bronchodilators 02/08/2017 continuing bronchodilators. She was taken off steroids a couple of days back because of changes in mental status. 02/11/2017 continuing bronchodilators. Not on steroids. 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 She had almost complete obstruction of the right middle and lower lobes at that time. Good response to chemotherapy and radiation. However I do hear a localized wheeze there. Will need reevaluation with bronchoscopy in couple of days. 01/29/2017 she has had radiation and chemotherapy. Mass was in the right lower lobe originally with obstruction. Plan bronchoscopy on when she is clinically improved. She does have a localized wheeze over the right lower lobe 01/30/2017 this is felt to be in remission. Please see bronchoscopy note. There is distortion of the lower lobe bronchi with swelling and narrowing but no visible endobronchial lesion. Marked improvement from bronchoscopy 9 months ago prior to radiation and chemotherapy 01/31/2017 she has had chemotherapy and radiation. We did do brushings yesterday. No endobronchial lesions. 02/01/17 this is felt to be in remission. Discussed the case with Dr. Hoffman who may use Optivar on her 02/04/2017 no evidence of any recurrence. 02/08/2017 this is felt to be in remission. 02/12/2017 again felt to be in remission. She does have some chronic airway disease in the right lower lobe related to previous lung cancer and radiation. Current Visit: No (5) Perforated duodenal ulcer Status: Acute Assessment and plan: Status post open surgical repair of perforated duodenal ulcer. Ulcer was in the area of the pancreas. Watch for pancreatitis. 02/11/2017 status post repair. Trying to wean her off the ventilator postanesthesia. It appears that she is a little wet. 02/12/2017 status post repair. Gastrografin swallow yesterday was okay. Started on feedings. 02/13/2017 status post repair of perforated ulcer. Patient is hungry. Very little abdominal pain. Current Visit: Yes Specialty Discharge - Follow Up or Referrals Follow up with: Erasto Hoffman MD [Physician] - 03/11/17 10:15 am (APPT WITH DR HOFFMAN IS ON February AT 1015AM FOR LABS AND XRAY AND TO SEE THE AT 1215PM [phone])
[2017-02-13] MEDS: POTASSIUM CHLORIDE RIDER 20 MEQ in PREMIX 1 EACH IV PRN ×2 (06:54→09:51)
--- NOTE | 2017-02-13 06:59 | Oncology Progress Note ---
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 She continues to do surprisingly well. This is a very durable patient. Lab work today includes White cell count 7800 with ANC of 7100, Hemoglobin 9.5, Platelet count 89,000 and falling. She has cultures positive for H. pylori and she will be on treatment for this as well. (2) MRSA sepsis Currently on IV antibiotic therapy. She remains afebrile. We are continuing current therapy. We are also monitoring for toxicity. She is on Zyvox which can cause thrombocytopenia. Her platelet count is 123,000 today. Her blood work was drawn late today and is pending. She should be done with Zyvox tomorrow. (3) COPD (chronic obstructive pulmonary disease) Status: Acute this is being managed by Dr. Lawson and her COPD. She is currently on the ventilator and being considered for extubation soon. (4) Squamous cell carcinoma of right lung Bronchial brushings are back and are class III from 3 separate reports. This is not enough evidence for me to consider resuming chemotherapy or switching her to Opdivo presently. (5) left chest pain She was admitted with this but has not complained about this for quite some time. (6)dehydration/renal failure: She is actually stable now with a serum creatinine of 1.1. Serum calcium 7.9 with correspondingly low serum albumin of 2.7. Exam - Constitutional Vitals: Period Temp Pulse Resp BP Sys/Wilcox Pulse Ox Last 24 Hr 97.8 F-99.0 F 65-123 11-23 103-150/58-103 90-99 Results - Labs CBC & BMP: 02/13/17 04:38 02/13/17 04:38 Specialty Discharge - Follow Up or Referrals Follow up with: Erasto Hoffman MD [Physician] - 03/11/17 10:15 am (APPT WITH DR HOFFMAN IS ON February AT 1015AM FOR LABS AND XRAY AND TO SEE THE AT 1215PM [phone])
[2017-02-13] MEDS: DEXT 5% NACL 0.45% KCL 20 MEQ 20 MEQ/1,000 ML BAG IV SCH (07:24)
[2017-02-13] MEDS: FUROSEMIDE 40 MG/4 ML VIAL IV SCH (08:14)
[2017-02-13] MEDS: fentaNYL 25 MCG/HR PATCH TRANSDERM SCH (08:15)
[2017-02-13] MEDS: DESITIN 4OZ/NYSTATIN 15 GRAM MIXTURE PASTE TOP SCH ×2 (08:38→21:14)
[2017-02-13] MEDS: DEXT 5% NACL 0.45% KCL 40 MEQ 40 MEQ/1,000 ML BAG IV SCH ×2 (08:48→15:48)
--- NOTE | 2017-02-13 09:30 | Internal Med Progress Note ---
Assessment and Plan (1) Perforated duodenal ulcer Status: Acute Assessment and plan: 51-year-old female * Perforated duodenal ulcer. Status post laparotomy. Doing well * A. fib. Tolerating p.o. Cardizem time. Will start her on's Cardizem CD 180 mg daily * GI bleed. Hematocrit is stable * Severe COPD. 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 She has done well. She is alert and feeling fairly well. She wants most of the tubes removed from her body. She is ready to start some physical therapy. Exam (Progress Note) - Constitutional Vitals: Period Temp Pulse Resp BP Sys/Wilcox Pulse Ox Last 24 Hr 97.8 F-99.0 F 84-124 11- 103-150/58-103 90-99 Exam: Examination: GENERAL: NAD NECK: Neck is supple. CVS: Tachycardic. Rhythm is irregularly irregular RESPIRATORY: Better air entry ABDOMEN: Soft and nontender. Bowel sounds are better EXT: No edema. Peripheral pulses are present. GROUP SALES COORDINATOR: Moving all extremities Results - Labs CBC & BMP: 02/13/17 04:38 02/13/17 04:38 Lab Results: I have reviewed the past 24 hour labs Specialty Discharge - Follow Up or Referrals Follow up with: Erasto Hoffman MD [Physician] - 03/11/17 10:15 am (APPT WITH DR HOFFMAN IS ON February AT 1015AM FOR LABS AND XRAY AND TO SEE THE AT 1215PM [phone])
[2017-02-13] MEDS ORDERED: MAGNESIUM SULF RIDER 4 GM in PREMIX 1 EACH IV PRN (09:55)
[2017-02-13] MEDS ORDERED: PANTOPRAZOLE 40 MG VIAL IV SCH (10:00)
--- NOTE | 2017-02-13 10:01 | Event Note ---
General Surgery Progress Note Chief complaint This patient is 81-year-old woman admitted with MRSA bacteremia presumed pneumonia with history of lung cancer who developed a perforated duodenal ulcer that was treated with laparotomy and omental Malik patch repair on 02/07/2017 Interval history No events overnight. Patient has been extubated. Wants to eat. Melena has cleared up. Hemoglobin is stable. Vital signs are normal. Patient is off pressors. She is tolerating her tube feeds well. Hemoglobin is stable. The patient is diuresing well with Lasix Physical exam Patient is afebrile with normal vital signs Chest is clear Heart is irregular Abdominal exam with expected postoperative tenderness. Serous fluid in the JAVIER drains. Midline incision is clean with no infection. Normal bowel sounds. Labs reviewed, as above creatinine was stable at 1.1 Imaging None new this morning Assessment and plan Discontinue NG tube Mechanical soft diet H. pylori triple therapy with amoxicillin 1 g p.o. twice daily, clarithromycin 500 mg p.o. twice daily, and Protonix 40 mg p.o. twice daily Social work is consulted for transfer to an LTAC or swing bed
[2017-02-13] MEDS: CLARITHROMYCIN 500 MG TABLET PO SCH ×2 (10:21→21:14)
[2017-02-13] MEDS: AMOXICILLIN 500 MG CAPSULE PO SCH ×2 (10:21→21:13)
[2017-02-13] MEDS: DILTIAZEM CD 180 MG CAPSULE PO SCH (10:24)
[2017-02-13] MEDS: MAGNESIUM SULF RIDER 2 GM in PREMIX 1 EACH IV PRN ×2 (10:24→13:02)
--- NOTE | 2017-02-13 11:03 | Gastrointestinal Progress Note ---
Assessment and Plan (1) GI bleed Status: Acute Assessment and plan: 02/13-hemoglobin stable at 9.5, no overt bleeding. NG removed and tolerating soft diet. Plan an addendum to followed by Dr. Velásquez. 02/12-hemoglobin is stable at 9.2. No overt. Tolerating tube feedings well at this time. Continue to monitor. Plan an addendum to follow Dr. Velásquez. 02/11-No active GI bleeding, hgb stable. For upper GI series today. Plan and addendum to follow by Dr Velásquez. 02/08-status post perforated ulcer with postop day 1 open repair on yesterday afternoon. Hemoglobin is holding at 8.8 without overt bleeding. Continue to monitor at this time. Plan an addendum to follow Dr. Velásquez. 02/06-Sudden onset of dark red/black tarry stools w/o associated symptoms at time of discharge. Hx of GI bleeding in 2016 with questionable ischemic colitis. Unable to locate records of last colonoscopy. Hx of Eliquis which reported to be held x 1 week. Hgb stable at 11.3. Continue to monitor serial HH at this time. Plan and addendum to follow by Dr Velásquez. Current Visit: Yes Gastroenterology - PN: Subj Interval history: CC: GI bleed Patient is seen, awake and alert and well oriented. She had her NG tube removed and soft diet initiated which she states she tolerated well. She ate approximately 100% of her meal per patient and reports no abdominal pain, nausea or vomiting following this. Abdomen is soft, nontender. There are no reports of overt bleeding. Hemoglobin remained stable at 9.5. ROS: Denies shortness of breath or chest pain. Exam (Progress Note) - Constitutional Vitals: Period Temp Pulse Resp BP Sys/Wilcox Pulse Ox Last 24 Hr 97.8 F-99.0 F 90-124 11-23 109-150/62-103 90-99 - Other Additional findings: General appearance: normal weight, no acute distress - Head Head exam: Present: normal inspection, normocephalic - Eye Eye exam: Absent: scleral icterus Pupils: Present: unequal (lids and conjunctiva unremarakble) - Neck Neck exam: Present: normal inspection - Respiratory Respiratory exam: Present: clear to auscultation bilaterally. Absent: rales, rhonchi, wheezes - Cardiovascular Cardiovascular exam: Present: regular rate and rhythm. Absent: diastolic murmur , JVD, systolic murmur - GI/Abdominal GI/Abdominal exam: Present: normal bowel sounds, soft. Absent: ascites, distended, mass, organomegaly, tenderness - Extremities Exam Extremities exam: Present: normal inspection - Back Exam Back exam: Present: normal inspection - Neurological Exam Neurological exam: Present: alert, altered - Psychiatric Psychiatric exam: Present: normal affect, normal mood - Skin Skin exam: Present: normal color, warm, dry Results - Labs CBC & BMP: 02/13/17 04:38 02/13/17 04:38 Lab Results: I have reviewed the past 24 hour labs Specialty Discharge - Follow Up or Referrals Follow up with: Erasto Hoffman MD [Physician] - 03/11/17 10:15 am (APPT WITH DR HOFFMAN IS ON February AT 1015AM FOR LABS AND XRAY AND TO SEE THE AT 1215PM [phone])
[2017-02-13] MEDS: POTASSIUM CHLORIDE RIDER 10 MEQ in PREMIX 1 EACH IV PRN (11:54)
[2017-02-13] MEDS: MORPHINE 2 MG/1 ML SYRINGE IV PRN (13:30)
[2017-02-13] MEDS ORDERED: HEPARIN LOCK FLUSH 500 UNIT/5 ML SYRINGE IV ONE (15:35)
[2017-02-14] MEDS: ALBUTEROL/IPRATROPIUM 3 ML NEB RESP TX SCH ×3 (00:26→13:34)
[2017-02-14] MEDS: ALBUMIN 25% 12.5 GM in PREMIX 1 EACH IV SCH (00:40)
[2017-02-14] MEDS: DEXT 5% NACL 0.45% KCL 40 MEQ 40 MEQ/1,000 ML BAG IV SCH ×2 (00:41→07:58)
[2017-02-14] MEDS: PIPERACILLIN/TAZOBACTAM 3,375 MG in SODIUM CHLORIDE 0.9% 100 ML IV SCH (00:41)
[2017-02-14] MEDS: INSULIN REGULAR 100 UNIT/ML SUBCUT SCH ×3 (01:31→12:05)
[2017-02-14 05:47] LABS: Hematocrit 26.1 VOL% (35.7-47.0); Immature Granulocytes % 1.7 %; Immature Granulocytes Absolute 0.11 #; Lymphocytes # 0.3 10*3/uL (1.4-4.0); Mean Corpuscular HGB Conc 34.5 GM/DL (32-36); Mean Corpuscular Hemoglobin 30 PG (27-34); Mean Corpuscular Volume 87.6 FL (87-102); Mean Platelet Volume 11.3 FL (9.6-12.0); Monocytes # 0.2 10*3/uL (0.11-0.8); Monocytes % 3.5 % (1.7-12.7); NRBC # 0.04 10*3/uL; Neutrophils % 89.8 % (38.7-73.9); Platelet Count 90 T/CUMM (130-400); Red Blood Count 2.98 MC/CUMM (3.8-5.5); Red Cell Distribution Width 14.3 % (9.3-17.3); White Blood Count 6.7 T/CUMM (4-12)
[2017-02-14 06:15] LABS: Hypochromasia 1+; Lymphocytes 7 % (20-55); Nucleated Red Blood Cells 1 (0-5); Platelet Estimate Decreased; Segmented Neutrophils 91 % (50-85); Total Cells Counted 100
[2017-02-14 06:17] LABS: Albumin 2.8 G/DL (3.4-5.0); Bilirubin,Total 0.9 MG/DL (0.2-1.0); Calcium 7.8 MG/DL (8.5-10.1); Osmolality,Calculated 281.3 MOS/KG (273-304); Potassium 3.2 MMOL/L (3.5-5.1); Total Protein 4.5 G/DL (6.4-8.3)
[2017-02-14 06:20] LABS: Magnesium 2.2 MG/DL (1.8-2.4); Prealbumin 23.9 MG/DL (20-40)
--- NOTE | 2017-02-14 07:16 | Pulmonology Progress Note ---
Pulmonary - PN: Subj Interval history: This 81-year-old lady came in with abdominal pain on the left side and was found to have a right lower lobe pneumonia. She has a history of lung cancer and has had radiation and chemotherapy. She has an abnormality of the bottom of the right lung where she previously had the lung cancer. I plan to do a bronchoscope to evaluate that when we can get her tuned up. She still having some cough congestion probable pneumonia. A BNP was done and was elevated at over 2000. Will evaluate with echocardiogram. She does have atrial fibrillation. She has been on Eliquis. This will be held until the bronchoscope can be done on . 01/30/2017 patient has left ventricular hypertrophy and mild pulmonary hypertension. This probably is the cause of the elevated BNP. I do think she has some mild congestive heart failure. We proceeded with her bronchoscope this morning. She has some swelling and narrowing of orifices in the right middle and lower lobe. No endobronchial tumor. This is a marked improvement compared to her bronchoscopy last fall. She had total obstruction of the bronchus intermedius at that time. She has had a good response to radiation/ chemotherapy. She did have a good bit of thick secretions and apparently has a difficult time clearing of secretions. We need to continue treating her with antibiotics bronchodilator steroids and mucolytics. 01/31/2017 patient is feeling better today. Wants to get out of bed and I think she should with help. Pathology and culture reports pending from yesterday's bronchoscopy. She is on empiric bronchodilators, steroids, antibiotics, and mucolytics. I think the steroids have her speeding a little bit. 02/01/2017 patient came in with abdominal pain which resolved. She was found to have bronchopneumonia primarily in the right lower lobe. Bronchoscopy showed some narrowing of the bronchial orifices but much improved since original diagnosis of lung cancer last year. Cytology is class III. I discussed the case with pathology. They feel that radiation changes are most likely the cause of this. Agree with not treating further with chemotherapy at this point. Patient has grown out 2 of 2 positive blood cultures for MRSA. Currently on Zyvox because of concerns about renal function. Normally would treat for 2 weeks. I will be out this weekend. Please call pulmonary relationship associate if needed. 02/04/2017 patient is less short of breath. Still having some coughing. Lungs sound better. Chest x-ray little change. She no longer has a localized wheeze over the right lower lobe. She is confused. I will decrease prednisone further to 20 mg daily. We can stop Merrem at this point. Needs to complete 2 weeks of Zyvox. It is well absorbed orally. Zyvox can interact with SSRIs. I will stop Lexapro 02/05/2017 patient remains a little confused and angry. Her lungs sound much better. I think we can stop her prednisone altogether. I will repeat blood cultures. I would favor finishing 2 weeks of Zyvox, whether by IV or p.o., which would be about another week from now. 02/06/2017 patient is better today. Does not appear to be as confused and angry. Agree with plans for swing bed. She needs about another week of Zyvox. 02/07/2017 patient had some black tarry stools. She is getting an EGD today. She required transfusion. Not on any anticoagulants. Lungs are stable 02/08/2017 patient was found to have a perforated duodenal ulcer. She was taken to surgery last night and has been on mechanical ventilation overnight. ABGs look good. Her chest x-ray shows small pleural effusions and a persistent right basilar infiltrate. Little change from before. I suspect the pleural effusions are sympathetic to the abdominal process. Patient is sedated at present. We will hold her sedation and start CPAP trials. Hopefully she can be extubated today. Depends on how much pain she is having and how much pain medicine she is requiring. 02/11/2017 patient has done only brief CPAP's over the weekend. Her weight is up from admission and her chest x-ray looks wet. She is somewhat hypotensive. I will bump with Lasix. Will proceed with CPAP. Mechanics have not been adequate for extubation as yet. 02/12/2017 patient tolerating CPAP much better. Blood pressure stable. Weight down after Lasix. Hope to extubate today. 02/13/2017 patient was extubated yesterday and has done well since then. She says she is quite hungry and asking to eat. Voice is pretty good. Being fed through NG tube at present. Will ask speech therapy to do bedside swallowing evaluation and hopefully can start diet later today. Defer to GI and surgery on the diet. 02/14/2017 patient is alert and much calmer. Chest x-ray shows bilateral pleural effusions. She really does not have any peripheral edema. At this point I will stop her Solu-Cortef, decrease her IV fluids, and put her on some Aldactone. Her potassium is still on the low side. Exam (Progress Note) - Constitutional Vitals: Period Temp Pulse Resp BP Sys/Wilcox Pulse Ox Last 24 Hr 97.6 F-99 F 74-124 12-22 118-156/73-92 94-98 Exam: Patient is responsive, alert, and talkative, now on nasal oxygen. Vital signs normal. Pupils react to light. Neck supple no bruits. Chest reveals some scattered rhonchi and basilar crackles. Heart irregular without murmur. Abdomen soft, bandage and drains in place. No bowel sounds.. Extremities no clubbing cyanosis. Calves nontender. She does have trace of peripheral edema. Results - Labs CBC & BMP: 02/14/17 04:10 02/14/17 04:10 Lab Results: I have reviewed the past 24 hour labs - Diagnostic Findings Procedure: Chest x-ray: image reviewed by me (Bilateral pleural effusions which are small) Assessment and Plan (1) Acute bronchitis Status: Acute Assessment and plan: I do hear some bronchospasm. She needs steroids along with antibiotics and bronchodilators. 01/29/2017 continuing bronchodilators and antibiotics and steroids. 01/30/2017 patient clearly has acute bronchitis with retained secretions. Probably some bronchopneumonia as well. Check cultures from bronchial washings. Continue empiric antibiotics. 01/31/2017 she had a lot of secretions at bronchoscopy. Cultures are pending. Continue current medications. 02/01/2017 less bronchospasm. 02/04/2017 bronchospasm much less. Tapering prednisone. 02/05/2017 lungs sound better. We will stop prednisone. 02/06/2017 lungs sound better. Doing well off prednisone. 02/07/2017 lungs are improved. Stay off prednisone. 02/08/2017 bronchitis improved. Certainly may flare back up again with her being on the ventilator. Currently remains on Zyvox for positive blood cultures for MRSA. Also on Zosyn. 02/11/2017 she is not having any bronchospasm at the moment 02/12/2017 again no active bronchospasm. 02/13/2017 no wheezing no signs of bronchospasm. Continuing bronchodilators 02/14/2017 this is resolved. Current Visit: Yes (2) Pneumonia Status: Acute Assessment and plan: Being treated empirically for right lower lobe pneumonia. This is the location where her cancer was previously. I think it would be worthwhile to reevaluate the bronchoscopy once she is doing a little better. 01/29/2017 as a bronchopneumonia at the right base. There could be an element of congestive heart failure as well given her elevated BNP. Check an echocardiogram 01/30/2017 continuing empiric antibiotics. Check cultures. Also has some diastolic acute congestive heart failure. 01/31/2017 based on endobronchial findings I do think she has some bronchopneumonia. Culture should be out tomorrow. She did have positive MRSA blood cultures 2 of 2. 02/01/2017 cultures are pending. She does have positive blood cultures for MRSA and I think we should direct her antibiotics in that way. 02/04/2017 positive blood cultures for MRSA. Likely the cause of her pneumonia as well, although bronchial washings have been negative. Agree with 2 weeks total of Zyvox. 02/05/2017 she has had 6 days of Zyvox. This should suffice for the pneumonia. We will repeat blood cultures. Usually would treat for 2 weeks for positive MRSA blood culture. 02/06/2017 agree with plans. Going to swing bed. Oral Zyvox for another week. 02/07/2017 clinically improved. Needs Zyvox another week. Still getting it IV for now because of the GI bleed. 02/08/2017 right lower lobe bronchopneumonia, has been on antibiotics for over a week. 02/11/2017 she is continuing with Zyvox for staphylococcal pneumonia. Also positive blood cultures 2 of 2. 02/12/2017 continuing with Zyvox. 02/13/2017 patient continues with Zyvox because of the positive blood cultures for MRSA. 02/14/2017 she has had 2 weeks of Zyvox. We will stop it Current Visit: Yes (3) COPD (chronic obstructive pulmonary disease) Status: Acute Assessment and plan: Continuing with bronchodilator steroids antibiotics 01/29/2017 on appropriate meds for this. 01/30/2017 continuing bronchodilators. 01/31/2017 a little less bronchospasm. Localized wheeze in the right lower lobe. 02/01/2017 still having some bronchospasm. Will try to get by with less steroids. She is having some speeding. May be untoward reaction to the steroids. 02/04/2017 tapering steroids to a minimum. They may be affecting her mental status. 02/05/2017 continue with controller medications post discharge. She is on Symbicort. 02/06/2017 continuing bronchodilators. Continuing Symbicort 02/07/2017 continuing bronchodilators 02/08/2017 continuing bronchodilators. She was taken off steroids a couple of days back because of changes in mental status. 02/11/2017 continuing bronchodilators. Not on steroids. 02/13/2017 continuing bronchodilators 02/14/2017 no active bronchospasm. 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 She had almost complete obstruction of the right middle and lower lobes at that time. Good response to chemotherapy and radiation. However I do hear a localized wheeze there. Will need reevaluation with bronchoscopy in couple of days. 01/29/2017 she has had radiation and chemotherapy. Mass was in the right lower lobe originally with obstruction. Plan bronchoscopy on when she is clinically improved. She does have a localized wheeze over the right lower lobe 01/30/2017 this is felt to be in remission. Please see bronchoscopy note. There is distortion of the lower lobe bronchi with swelling and narrowing but no visible endobronchial lesion. Marked improvement from bronchoscopy 9 months ago prior to radiation and chemotherapy 01/31/2017 she has had chemotherapy and radiation. We did do brushings yesterday. No endobronchial lesions. 02/01/17 this is felt to be in remission. Discussed the case with Dr. Hoffman who may use Optivar on her 02/04/2017 no evidence of any recurrence. 02/08/2017 this is felt to be in remission. 02/12/2017 again felt to be in remission. She does have some chronic airway disease in the right lower lobe related to previous lung cancer and radiation. 02/14/2017 felt to be in remission. Current Visit: No (5) Perforated duodenal ulcer Status: Acute Assessment and plan: Status post open surgical repair of perforated duodenal ulcer. Ulcer was in the area of the pancreas. Watch for pancreatitis. 02/11/2017 status post repair. Trying to wean her off the ventilator postanesthesia. It appears that she is a little wet. 02/12/2017 status post repair. Gastrografin swallow yesterday was okay. Started on feedings. 02/13/2017 status post repair of perforated ulcer. Patient is hungry. Very little abdominal pain. 02/05/2017 status post repair. Starting to eat. Abdomen no longer causing significant pain. Current Visit: Yes Specialty Discharge - Follow Up or Referrals Follow up with: Erasto Hoffman MD [Physician] - 03/11/17 10:15 am (APPT WITH DR HOFFMAN IS ON February AT 1015AM FOR LABS AND XRAY AND TO SEE THE AT 1215PM [phone])
--- NOTE | 2017-02-14 07:23 | Event Note ---
General Surgery Progress Note Chief complaint This patient is 81-year-old woman admitted with MRSA bacteremia presumed pneumonia with history of lung cancer who developed a perforated duodenal ulcer that was treated with laparotomy and omental Malik patch repair on 02/07/2017 Interval history The patient moved to the floor yesterday. She is tolerating her diet well. Her JAVIER drains are serous. She has no nausea or vomiting. Her pain is well controlled. She started work with therapy. A transfer to LTAC or swing bed is in process. She is receiving H pylori triple therapy. Physical exam Patient is afebrile with normal vital signs Chest is clear Heart is irregular Abdominal exam with expected postoperative tenderness. Serous fluid in the JAVIER drains. Midline incision is clean with no infection. Normal bowel sounds. Labs Reviewed Imaging Chest x-ray reviewed. There is a left pleural effusion and bilateral platelike atelectasis but no discrete infiltrate. Assessment and plan Continue mechanical soft diet Remove the left-sided JAVIER drain Continue H. pylori triple therapy I will continue to follow the patient at LTAC/swing bed and will be okay with her going there today if she is ready.
--- NOTE | 2017-02-14 07:26 | Oncology Progress Note ---
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 gisell Lawson. It was stage III B. She would not have been a candidate for surgery even if it had been an earlier stage because of severe COPD. She was placed on chemotherapy using Abraxane and carboplatin for 6 courses with the last course being given September 06, 2016. She received Abraxane 160 mg and carboplatin 300 mg IV every 3 weeks. Following that she was treated with radiation therapy which she completed November 19, 2016. We have been following her since that time without proceeding with any additional chemotherapy because of lack of evidence of disease progression. She had a CT of her chest, abdomen and pelvis done on December 19, 2016 did not demonstrate any evidence of distant metastases and it also demonstrated a stable right hilar mass and right lower lobe lung mass. We had initially planned to transfer this patient to a swing bed over a week ago there is on the day we plan to transfer her, she had a large amount of melanotic stool and on evaluation was found to have a perforated duodenal ulcer by Dr. Velásquez that was treated surgically by Dr. HARDING. On this admission, case discussed with Dr. Lawson. We treated with IV antibiotics including Zyvox. Her bronchoscopy cultures were positive for MRSA. She received 2 weeks of intravenous Zyvox, completing the course a couple of days prior to discharge. Her COPD is being managed by Dr. Lawson and her COPD is clearly improving. She has a few scattered rhonchi but these are improved. Her chest moves symmetrically with respiration. There is some faint wheezing in the right posterior base that is slightly more pronounced today than yesterday. Bronchial brushings are back and are class III from 3 separate reports. This is not enough evidence for me to consider resuming chemotherapy or switching her to Opdivo presently. She actually had left lower lateral chest wall and flank pain that has resolved. She is clearly confused. This is probably multifactorial including steroid therapy and her overall debilitation. She is more depressed than confused today. She is angry about having to be here. She has had hypertension and recently had his been more difficult to control. We have used hydralazine as needed but I have not added because her blood pressure seems to be improving. Lab work today includes a White cell count of 6700 with a hemoglobin of 9.0 and a platelet count of 90,000. The absolute neutrophil count is 6000. The comprehensive metabolic profile includes a serum potassium of 3.2 but this is rising. The serum calcium is 7.8 which corresponds with a low serum albumin of 2.8. The rest of the comprehensive metabolic profile is essentially normal. The serum magnesium today is 2.2. She will remain on Zosyn 4.5 grams IV every 6 hours. Diagnosis - Discharge Diagnosis (1) Acute bronchitis/pneumonia (2) MRSA sepsis treated with approximately 2 weeks of Zyvox (3) COPD (chronic obstructive pulmonary disease) (4) perforated duodenal ulcer with acute GI bleed (5) Squamous cell carcinoma of right lung without definite evidence of recurrence. Bronchial brushings were class III during this hospital stay. (6) left chest pain of indefinite etiology that has now resolved. (7)dehydration/renal failure: (8) confusion: (9) Hypertension : (10)Malnutrition: Exam - Constitutional Vitals: Period Temp Pulse Resp BP Sys/Wilcox Pulse Ox Last 24 Hr 97.6 F-99 F 74-124 12- 118-156/73-92 94-98 Results - Labs CBC & BMP: 02/14/17 04:10 02/14/17 04:10 Specialty Discharge - Follow Up or Referrals Follow up with: Erasto Barragan MD [Physician] - 03/11/17 10:15 am (APPT WITH DR BARRAGAN IS ON February AT 1015AM FOR LABS AND XRAY AND TO SEE THE AT 1215PM [phone])
--- NOTE | 2017-02-14 07:30 | Case Mgmt Physician Query Form ---
TB Signs and Symptoms Screening ([place]) INSTRUCTIONS: To be completed annually on residents/staff with a significant Tuberculin Skin Test (TST) upon admission/hire or a prior significant TST. To be completed on all staff at hire. Please respond to each listed symptom with an (X) in either the "YES" or "NO" box. Do you currently have any of the following symptoms: YES NO ( ) (x ) A cough If yes, is it: ( ) Productive ( x) Non- productive ( x) ( ) Hemoptysis (spitting up blood) ( ) (x ) Chest pains ( ) ( x) Weight Loss ( ) ( x) Fever ( x) ( ) Night Sweats ( ) (x ) Weakness ( ) (x ) Loss of Appetite ( ) (x ) Difficulty Breathing If you answered YES" to any of the above questions, how long have symptoms been present? Comments: This patient has lung cancer. All of these symptoms and signs are associated with lung cancer as well as TB. She underwent bronchoscopy within the last month for reassessment of pneumonia and lung cancer. Cultures and stains have been negative for tuberculosis at this point. BRADEN
--- NOTE | 2017-02-14 07:38 | XRay Report ---
Exam: XR chest 1V portable Date: 02/14/2017 4:00 AM Indication: Extubation Comparison: 02/13/2017 Technical:AP portable Findings: Nasogastric tube and endotracheal tube are no longer demonstrated. A right IJ catheter and left-sided PICC line are present. Cardiomegaly present with low volume effusions atelectatic changes. No pneumothorax. Bony demineralization present. Impression: 1. Removal of the endotracheal tube and nasogastric tube with stable position of the PICC line and right IJ catheter 2. Persistent cardiomegaly and bilateral effusions and bibasilar atelectasis PROCEDURE INTERPRETED AT [facility] DEPARTMENT OF RADIOLOGY Final Report Signed by: Dr. Luis Murdock
--- NOTE | 2017-02-14 07:38 | Discharge Summary ---
Hospital Course - Hospital Course Hospital Course: Diagnoses: (1) Acute bronchitis/pneumonia (2) MRSA sepsis (3) COPD (chronic obstructive pulmonary disease) (4) Squamous cell carcinoma of right lung (5) left chest pain (6)dehydration/renal failure: (7) confusion: (8) Hypertension : (9)Malnutrition: This 81-year-old lady was diagnosed as having squamous cell carcinoma of the lung May 16, [address] gisell Lawson. It was stage III B. She would not have been a candidate for surgery even if it had been an earlier stage because of severe COPD. She was placed on chemotherapy using Abraxane and carboplatin for 6 courses with the last course being given September 06, 2016. She received Abraxane 160 mg and carboplatin 300 mg IV every 3 weeks. Following that she was treated with radiation therapy which she completed November 19, 2016. We have been following her since that time without proceeding with any additional chemotherapy because of lack of evidence of disease progression. She had a CT of her chest, abdomen and pelvis done on December 19, 2016 did not demonstrate any evidence of distant metastases and it also demonstrated a stable right hilar mass and right lower lobe lung mass. On this admission, case discussed with Dr. Lawson. We treated with IV antibiotics including Zyvox. Her bronchoscopy cultures were positive for MRSA. We could possibly continue her on Zyvox by mouth if she qualified for a swing bed. Currently on IV antibiotic therapy but she could be switched to oral Zyvox and it could be continued for another week. She remains afebrile. We are continuing current therapy but she has been accepted to a swing bed. We are also monitoring for toxicity. He is on Zyvox which can cause thrombocytopenia. Her blood work was drawn late today and is pending. Her COPD is being managed by Dr. Lawson and her COPD is clearly improving. She has a few scattered rhonchi but these are improved. Her chest moves symmetrically with respiration. There is some faint wheezing in the right posterior base that is slightly more pronounced today than yesterday. Bronchial brushings are back and are class III from 3 separate reports. This is not enough evidence for me to consider resuming chemotherapy or switching her to Opdivo presently. She actually has left lower lateral chest wall and flank pain that I am not sure is related to her lung cancer and she is currently on parenteral narcotics with relatively good pain relief. In addition, the pain has improved significantly. Her fentanyl has been decreased and she appears to be less confused. The fentanyl may need to be reduced further. She is clearly confused. This is probably multifactorial including steroid therapy and her overall debilitation. She is more depressed than confused today. She is angry about having to be here. She has had hypertension and recently had his been more difficult to control. We have used hydralazine as needed but I have not added because her blood pressure seems to be improving. She is malnourished with a serum albumin of 2.8.Her liver enzymes are normal except for an LDH of 253 yesterday. Lab work today includes white cell count of 14,500 with a hemoglobin of 11.3 and a platelet count of 286,000. Her comprehensive metabolic profile is surprisingly normal except for a low albumin of 2.4 today with low globulins of 2.2. The rest of her lab work is normal. Her serum calcium is 8.2 but this corresponds to her low serum albumin. I think at this point that the patient can be switched to oral Zyvox and I would recommend initially a dose of 600 mg p.o. every 12 hours for 7 more days. Diagnosis - Discharge Diagnosis (1) Acute bronchitis Status: Acute (2) Pneumonia Status: Acute (3) COPD (chronic obstructive pulmonary disease) Status: Acute (4) Squamous cell carcinoma of right lung Status: Chronic Specialty Discharge - Follow Up or Referrals Follow up with: Erasto Barragan MD [Physician] - 03/11/17 10:15 am (APPT WITH DR BARRAGAN IS ON February AT 1015AM FOR LABS AND XRAY AND TO SEE THE AT 1215PM [id number]) Discharge Plan - Discharge Data Disposition: Swing Bed, [facility] Based, [facility] - Discharge Medications New Acetaminophen Tab [Tylenol Tab] 650 mg PO Q4H PRN tablet PRN Reason: Fever ALPRAZolam [Xanax] 0.25 mg PO Q4H PRN tablet PRN Reason: Anxiety Alum/Mag/Simeth Max Str Liquid [Mylanta Max Strength Liquid] 30 ml PO Q6H PRN PRN Reason: Indigestion amLODIPine [Norvasc] 10 mg PO DAILY tablet chlorproMAZINE INJ [Thorazine Inj] 25 mg IV Q6H PRN PRN Reason: N/V unrelieved by Phenergan chlorproMAZINE INJ [Thorazine Inj] 25 mg IV Q6H PRN PRN Reason: Agitation chlorproMAZINE TAB [Thorazine Tab] 25 mg PO Q6H PRN tablet PRN Reason: Hiccups diphenhydrAMINE CAP [Benadryl Cap] 25 mg PO Q4H PRN capsule PRN Reason: Itching fentaNYL 25 MCG/HR PATCH [Duragesic 25 Patch] 1 patch TRANSDERM Q3DAY patch guaiFENesin LIQUID [Robitussin] 10 ml PO Q4H PRN PRN Reason: Cough HYDROcodone/ACETAMIN 5-325 [[place] 5-325] 1 tablet PO Q4H PRN tablet PRN Reason: Pain Moderate (4-7) Levothyroxine Tab [Synthroid Tab] 200 mcg PO DAILY@0700 tablet Linezolid Inj [Zyvox Inj] 600 mg IV Q12H Loperamide Cap [Imodium Cap] 4 mg PO ONCE PRN capsule PRN Reason: Diarrhea Magnesium Hydroxide Susp [Milk of Magnesia] 60 ml PO DAILY PRN PRN Reason: Constipation; 1st agent Ondansetron Inj [Zofran Inj] 8 mg IV Q6H PRN vial PRN Reason: Nausea/Vomiting; 1st agent Promethazine Inj [Phenergan Inj] 25 mg IV Q4H PRN vial PRN Reason: N/V unrelieved by Zofran traMADol TAB [Ultram] 50 mg PO Q6H PRN tablet PRN Reason: Pain Mild (1-3) Albuterol/Ipratropium Neb [Duoneb] 3 ml RESP TX RT Q6H Benztropine Inj [Cogentin Inj] 1 mg IV PRN PRN PRN Reason: Extrapyramidal Side Effects chlorproMAZINE INJ [Thorazine Inj] 50 mg IV Q6H PRN PRN Reason: N/V unrelieved by Phenergan Diltiazem Cd Cap [Cardizem CD] 180 mg PO DAILY capsule hydrALAZINE INJ [Apresoline Inj] 5 mg IV Q6H PRN vial PRN Reason: diastolic bp greater than 95 Lactulose Liquid [Chronulac] 40 gm PO DAILY PRN PRN Reason: Constipation unrelieved by MOM Loperamide Cap [Imodium Cap] 2 mg PO Q2H PRN capsule PRN Reason: Diarrhea Temazepam [Restoril] 7.5 mg PO BEDTIME PRN capsule PRN Reason: Insomnia Continue Levothyroxine Tab [Synthroid Tab] 200 mcg PO DAILY@0700 Sotalol HCl [Sotalol AF] 1 tablet PO BID Budesonide/Formoterol 160-4.5 [Symbicort 160-4.5] 2 puffs INH BID dilTIAZem HCl [Cartia XT] 1 tablet PO DAILY No Action Hydrocodone/Acetaminophen [[place] 10-325 Tablet] 1 each PO Q6HR Amlodipine Besylate/Benazepril [Amlodipine-Benazepril 10-40 mg] 1 each PO DAILY Furosemide Tab [Lasix Tab] 1 tablet PO DAILY Escitalopram Oxalate 10 mg PO DAILY fentaNYL [Fentanyl 100 mcg/hr Patch] 1 patch TRANSDERM Q48H Apixaban [Eliquis] 5 mg PO BID - Follow Up or Referral Follow Up: Erasto Barragan MD [Physician] - 03/11/17 10:15 am (APPT WITH DR BARRAGAN IS ON February AT 1015AM FOR LABS AND XRAY AND TO SEE THE AT 1215PM [id number]) - Forms/Instructions Instructions: Methicillin Resistant Staphylococcus Aureus (DC) Exam - Constitutional Vitals: Period Temp Pulse Resp BP Sys/Wilcox Pulse Ox Last 24 Hr 97.6 F-99 F 74-124 12-22 118-156/73-92 94-98 Discharge Results Procedures and tests throughout hospitalization: Pending Orders 01/30/17 07:50 AFB Culture/Smears Routine Fungal Culture w/ Prep Routine 01/30/17 07:56 Cytology Request Routine 02/07/17 Red Blood Cells Leuko Red Stat 02/09/17 Red Blood Cells Leuko Red Stat Type and Screen Stat 02/10/17 Red Blood Cells Leuko Red Stat 02/14/17 04:00 XR chest 1V portable IN AM 02/15/17 04:00 Comp Blood Count Auto Diff IN AM Comprehensive Metabolic Panel IN AM LDH [Lactate Dehydrogenase] IN AM 02/16/17 04:00 Comp Blood Count Auto Diff IN AM Comprehensive Metabolic Panel IN AM LDH [Lactate Dehydrogenase] IN AM 02/17/17 04:00 Comp Blood Count Auto Diff IN AM Comprehensive Metabolic Panel IN AM Labs on day of discharge: Labs from last 24 hours 02/14/17 02/14/17 02/14/17 04:10 04:10 04:10 WBC 6.7 RBC 2.98 L Hgb 9.0 L Hct 26.1 L MCV 87.6 MCH 30 MCHC 34.5 RDW 14.3 Plt Count 90 L MPV 11.3 Neut % (Auto) 89.8 H Lymph % (Auto) 5.0 L Simpson % (Auto) 3.5 Eos % (Auto) 0.0 Baso % (Auto) 0.0 Neut # (Auto) 6.0 Lymph # (Auto) 0.3 L Simpson # (Auto) 0.2 Eos # (Auto) 0.0 Baso # (Auto) 0.0 Total Counted 100 Immature Gran % 1.7 Nucleated RBC % 0.6 Immature Gran # 0.11 Segmented Neutrophils 91 H Lymphocytes 7 L Monocytes 2 Nucleated RBCs 1 Nucleated RBCs # 0.04 Platelet Estimate Decreased Hypochromasia 1+ Morphology Comment Sodium 141 Potassium 3.2 L Chloride 103 Carbon Dioxide 26 Anion Gap 15.2 H BUN 18 Creatinine 1.00 GFR Calculation 52 BUN/Creatinine Ratio 18.00 Glucose 89 Calculated Osmolality 281.3 Calcium 7.8 L Phosphorus 2.0 L Magnesium 2.2 Total Bilirubin 0.90 AST 38 H ALT 29 Alkaline Phosphatase 60 Lactate Dehydrogenase 207 Total Protein 4.5 L Albumin 2.8 L Globulin 1.7 L Albumin/Globulin Ratio 1.6 Prealbumin 23.9 02/13/17 02/13/17 Unknown 15:15 WBC RBC Hgb Hct MCV MCH MCHC RDW Plt Count MPV Neut % (Auto) Lymph % (Auto) Simpson % (Auto) Eos % (Auto) Baso % (Auto) Neut # (Auto) Lymph # (Auto) Simpson # (Auto) Eos # (Auto) Baso # (Auto) Total Counted Immature Gran % Nucleated RBC % Immature Gran # Segmented Neutrophils Lymphocytes Monocytes Nucleated RBCs Nucleated RBCs # Platelet Estimate Hypochromasia Morphology Comment Sodium Potassium 3.0 L Chloride Carbon Dioxide Anion Gap BUN Creatinine GFR Calculation BUN/Creatinine Ratio Glucose Calculated Osmolality Calcium Phosphorus Magnesium 1.4 L Total Bilirubin AST ALT Alkaline Phosphatase Lactate Dehydrogenase Total Protein Albumin Globulin Albumin/Globulin Ratio Prealbumin Preliminary micro results at discharge 01/30/17 07:50 Mycobacterial Culture - Preliminary Bronchial Washings No AFB isolated at 2 weeks 01/30/17 07:50 Fungal Culture - Preliminary Bronchial Washings Renetta albicans DS: Provider Date of admission: 01/26/17 22:14 Diagnoses during this hospital stay: (1) Acute bronchitis/pneumonia (2) MRSA sepsis (3) COPD (chronic obstructive pulmonary disease) (4) perforated duodenal ulcer with acute GI bleed (5) Squamous cell carcinoma of right lung (6) left chest pain (7)dehydration/renal failure: (8) confusion: (9) Hypertension : (10)Malnutrition: This 81-year-old lady was diagnosed as having squamous cell carcinoma of the lung May 16, [address] gisell Lawson. It was stage III B. She would not have been a candidate for surgery even if it had been an earlier stage because of severe COPD. She was placed on chemotherapy using Abraxane and carboplatin for 6 courses with the last course being given September 06, 2016. She received Abraxane 160 mg and carboplatin 300 mg IV every 3 weeks. Following that she was treated with radiation therapy which she completed November 19, 2016. We have been following her since that time without proceeding with any additional chemotherapy because of lack of evidence of disease progression. She had a CT of her chest, abdomen and pelvis done on December 19, 2016 did not demonstrate any evidence of distant metastases and it also demonstrated a stable right hilar mass and right lower lobe lung mass. We had initially planned to transfer this patient to a swing bed over a week ago there is on the day we plan to transfer her, she had a large amount of melanotic stool and on evaluation was found to have a perforated duodenal ulcer by Dr. Velásquez that was treated surgically by Dr. HARDING. On this admission, case discussed with Dr. Lawson. We treated with IV antibiotics including Zyvox. Her bronchoscopy cultures were positive for MRSA. She received 2 weeks of intravenous Zyvox, completing the course a couple of days prior to discharge. Her COPD is being managed by Dr. Lawson and her COPD is clearly improving. She has a few scattered rhonchi but these are improved. Her chest moves symmetrically with respiration. There is some faint wheezing in the right posterior base that is slightly more pronounced today than yesterday. Bronchial brushings are back and are class III from 3 separate reports. This is not enough evidence for me to consider resuming chemotherapy or switching her to Opdivo presently. She actually had left lower lateral chest wall and flank pain that has resolved. She is clearly confused. This is probably multifactorial including steroid therapy and her overall debilitation. She is more depressed than confused today. She is angry about having to be here. She has had hypertension and recently had his been more difficult to control. We have used hydralazine as needed but I have not added because her blood pressure seems to be improving. Lab work today includes a White cell count of 6700 with a hemoglobin of 9.0 and a platelet count of 90,000. The absolute neutrophil count is 6000. The comprehensive metabolic profile includes a serum potassium of 3.2 but this is rising. The serum calcium is 7.8 which corresponds with a low serum albumin of 2.8. The rest of the comprehensive metabolic profile is essentially normal. The serum magnesium today is 2.2. The patient is still on intravenous Zosyn following surgery. Diagnosis - Discharge Diagnosis (1) Acute bronchitis/pneumonia (2) MRSA sepsis treated with approximately 2 weeks of Zyvox (3) COPD (chronic obstructive pulmonary disease) (4) perforated duodenal ulcer with acute GI bleed (5) Squamous cell carcinoma of right lung without definite evidence of recurrence. Bronchial brushings were class III during this hospital stay. (6) left chest pain of indefinite etiology that has now resolved. (7)dehydration/renal failure: (8) confusion: (9) Hypertension : (10)Malnutrition: Primary care physician: Teddy Carbone MD Attending physician on admission: Erasto Barragan MD Consults: 01/26/17 23:37 Consult to Dietitian [CONS] Routine Reason for Dietitian: Dietary Consult 01/28/17 07:39 Consult to Physician [CONS] Routine Comment: Patient known to you. Plz follow. Consulting Provider: Bipin Lawson 01/31/17 08:26 PT [Consult to Physical Therapy] [CONS] Routine Reason for Physical Therapy: Evaluate and Treat 02/01/17 13:21 Consult to Case Mgmt/Social Srvs [CONS] Routine Reason for Case Mgmt/Social Srvs: Swingbed/SNF/[facility] Consult Comment: Too weak to go home, lives alone 02/06/17 11:29 Consult to Physician [CONS] Routine Comment: gi bleed Consulting Provider: Luis Velásquez Consulting Provider Notified: Yes When should Consulting Provider be notified: Now Consult to Specialist Group: Gastroenterology When should Consulting Provider be notified: Now Person Notified: JIMBO Date Notified: 02/06/17 Time Notified: 14:03 02/07/17 15:28 Consult to Physician [CONS] Routine Comment: medical mgmt Consulting Provider: Narda Fermin 02/11/17 12:49 Consult to Dietitian [CONS] Routine Reason for Dietitian: TF-Initiate/Manage Discharging clinician: Erasto Barragan MD
[2017-02-14] MEDS ORDERED: TUBERCULIN SKIN TEST 0.1 ML SYRINGE INTRADERM ONE (08:00)
[2017-02-14] MEDS ORDERED: PIPERACILLIN/TAZOBACTAM 4,500 MG in SODIUM CHLORIDE 0.9% 100 ML IV SCH (08:00)
[2017-02-14] MEDS: HYDROCORTISONE 100 MG VIAL IV SCH (08:06)
--- NOTE | 2017-02-14 08:41 | Internal Med Progress Note ---
Assessment and Plan (1) Perforated duodenal ulcer Status: Acute Assessment and plan: 51-year-old female * Perforated duodenal ulcer. Status post laparotomy. Doing well * A. fib. Continue current treatment * GI bleed. Hematocrit is stable * Severe COPD. Continue treatment * Renal function is stable. Replace potassium * Patient will be moved to the [facility] today * Continue current treatment Current Visit: Yes (2) GI bleed Status: Acute Current Visit: Yes (3) COPD (chronic obstructive pulmonary disease) Status: Acute Current Visit: No (4) Paroxysmal atrial fibrillation Status: Chronic Current Visit: No (5) Squamous cell carcinoma of right lung Status: Chronic Current Visit: No Internal Medicine - PN: Subj Interval history: Patient is doing much better. She is on the floor and is ready to go to long- term acute care for antibiotics Exam (Progress Note) - Constitutional Vitals: Period Temp Pulse Resp BP Sys/Wilcox Pulse Ox Last 24 Hr 97.6 F-99 F 74-114 15-22 118-156/73-92 94-98 Exam: Examination: GENERAL: NAD NECK: Neck is supple. CVS: Tachycardic. Rhythm is irregularly irregular RESPIRATORY: Better air entry ABDOMEN: Soft and nontender. Bowel sounds are better EXT: No edema. Peripheral pulses are present. 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
[2017-02-14] MEDS: HYDROmorphone 2 MG/1 ML VIAL IV PRN ×2 (08:57→10:55)
[2017-02-14] MEDS: DILTIAZEM CD 180 MG CAPSULE PO SCH (08:58)
[2017-02-14] MEDS: DESITIN 4OZ/NYSTATIN 15 GRAM MIXTURE PASTE TOP SCH (08:59)
[2017-02-14] MEDS: CLARITHROMYCIN 500 MG TABLET PO SCH (08:59)
[2017-02-14] MEDS ORDERED: PANTOPRAZOLE 40 MG TABLET PO SCH (09:00)
[2017-02-14] MEDS ORDERED: SPIRONOLACTONE 25 MG TABLET PO SCH (09:00)
[2017-02-14 15:18] VITALS: BP 135/88
[2017-02-14] MEDS ORDERED: PANTOPRAZOLE 40 MG VIAL IV SCH (21:00)
== END 2017-02-14 14:09 | DRG 853 ==
LOC: EDBD → EDUNIT# → N.ED 19:10 → N.EDINP 22:14 → N.5E 22:43 → N.4E 01-28 11:21 → N.ICU 02-07 14:49 → N.4E 02-13 14:35
PROVIDERS: ADMIT Specialist; ATTEND Specialist
PROC: BRONCHB (2017-01-30 07:35)

== ENCOUNTER 2017-02-15 09:07 | Inpatient (IN) ==
--- NOTE | 2017-02-15 10:31 | General Surg History&Physical ---
Assessment and Plan (1) Dehiscence of fascia Status: Acute Assessment and plan: I have recommended repair of fascial dehiscence in the operating room today. This was discussed with the patient's son, Bipin Witt, and he agrees to proceed with the operation. Current Visit: Yes History of Present Illness Chief complaint: Drainage from abdominal wound History of present illness: Ms. Witt is a 81 year old female who recently had a perforated duodenal ulcer repair with an omental Malik patch on 02/07/2017 and was transferred to [facility] yesterday. She developed copious clear drainage from her incision and was found to have a fascial dehiscence this morning and was transferred back up to [facility] for repair of her fascial dehiscence. Home Medications Medication Instructions Recorded Confirmed Type Amlodipine Besylate/Benazepril 1 each PO DAILY 01/26/17 01/26/17 History [Amlodipine-Benazepril 10-40 mg] Apixaban [Eliquis] 5 mg PO BID 01/26/17 01/26/17 History Budesonide/Formoterol 160-4.5 2 puffs INH BID 01/26/17 01/26/17 History [Symbicort 160-4.5] Escitalopram Oxalate 10 mg PO DAILY 01/26/17 01/26/17 History Furosemide Tab [Lasix Tab] 1 tablet PO DAILY 01/26/17 01/26/17 History Hydrocodone/Acetaminophen [[place] 1 each PO Q6HR 01/26/17 01/26/17 History 10-325 Tablet] Levothyroxine Tab [Synthroid Tab] 200 mcg PO DAILY@0700 01/26/17 01/26/17 History Sotalol HCl [Sotalol AF] 1 tablet PO BID 01/26/17 01/26/17 History dilTIAZem HCl [Cartia XT] 1 tablet PO DAILY 01/26/17 01/26/17 History fentaNYL [Fentanyl 100 mcg/hr 1 patch TRANSDERM Q48H 01/26/17 01/26/17 History Patch] ALPRAZolam [Xanax] 0.25 mg PO Q4H PRN tablet 02/06/17 Rx Acetaminophen Tab [Tylenol Tab] 650 mg PO Q4H PRN tablet 02/06/17 Rx Albuterol/Ipratropium Neb [Duoneb] 3 ml RESP TX RT Q6H 02/06/17 Rx Alum/Mag/Simeth Max Str Liquid 30 ml PO Q6H PRN 02/06/17 Rx [Mylanta Max Strength Liquid] Benztropine Inj [Cogentin Inj] 1 mg IV PRN PRN 02/06/17 Rx Diltiazem Cd Cap [Cardizem CD] 180 mg PO DAILY capsule 02/06/17 Rx HYDROcodone/ACETAMIN 5-325 [[place] 1 tablet PO Q4H PRN tablet 02/06/17 Rx 5-325] Lactulose Liquid [Chronulac] 40 gm PO DAILY PRN 02/06/17 Rx Levothyroxine Tab [Synthroid Tab] 200 mcg PO DAILY@0700 tablet 02/06/17 Rx Linezolid Inj [Zyvox Inj] 600 mg IV Q12H 02/06/17 Rx Loperamide Cap [Imodium Cap] 2 mg PO Q2H PRN capsule 02/06/17 Rx Loperamide Cap [Imodium Cap] 4 mg PO ONCE PRN capsule 02/06/17 Rx Magnesium Hydroxide Susp [Milk of 60 ml PO DAILY PRN 02/06/17 Rx Magnesia] Ondansetron Inj [Zofran Inj] 8 mg IV Q6H PRN vial 02/06/17 Rx Promethazine Inj [Phenergan Inj] 25 mg IV Q4H PRN vial 02/06/17 Rx Temazepam [Restoril] 7.5 mg PO BEDTIME PRN capsule 02/06/17 Rx amLODIPine [Norvasc] 10 mg PO DAILY tablet 02/06/17 Rx chlorproMAZINE INJ [Thorazine Inj] 25 mg IV Q6H PRN 02/06/17 Rx chlorproMAZINE INJ [Thorazine Inj] 25 mg IV Q6H PRN 02/06/17 Rx chlorproMAZINE INJ [Thorazine Inj] 50 mg IV Q6H PRN 02/06/17 Rx chlorproMAZINE TAB [Thorazine Tab] 25 mg PO Q6H PRN tablet 02/06/17 Rx diphenhydrAMINE CAP [Benadryl Cap] 25 mg PO Q4H PRN capsule 02/06/17 Rx fentaNYL 25 MCG/HR PATCH 1 patch TRANSDERM Q3DAY patch 02/06/17 Rx [Duragesic 25 Patch] guaiFENesin LIQUID [Robitussin] 10 ml PO Q4H PRN 02/06/17 Rx hydrALAZINE INJ [Apresoline Inj] 5 mg IV Q6H PRN vial 02/06/17 Rx traMADol TAB [Ultram] 50 mg PO Q6H PRN tablet 02/06/17 Rx Allergies Allergy/AdvReac Type Severity Reaction Status Date / Time No Known Allergies Allergy Verified 10/01/16 07:19 Medical,Surgical,& Family Hx - Medical History Cardio: History of: Cardiac Dysrhythmia, CHF, Cardiovascular Problems (enlarged heart; cardiomyopathy) Psychological: History of: Depression Neurology: No history of: Seizures Endocrine: History of: Thyroid Disorder Rheumatology: History of;: Rheumatoid Arthritis Respiratory: History of: Bronchitis, COPD, Pneumonia Other: History of: Skin Problems (history of skin abscess left upper leg; Dr. González Jr.) No history of: HIV - Surgical History Cardiac Surgeries: Patient Denies: Femoral-Popliteal Bypass Graft, Cardiac Catheterization, Cardiac Surgery, Carotid Endarterectomy, Internal Defibrillator, Vascular Access Devices HEENT Surgeries: Patient denies: Carotid Endarterectomy - Family History Family History: Reports;: Family Hypertension (uncertain) - Social History Smoking Status: Heavy tobacco smoker Exam - Constitutional General appearance: normal weight, no acute distress - Head Head exam: Present: normal inspection, normocephalic - Eye Eye exam: Present: EOMI Pupils: Present: MILDRED - ENT ENT exam: Present: normal exam Mouth exam: Present: normal external inspection, normal voice - Neck Neck exam: Present: normal inspection, trachea midline - Respiratory Respiratory exam: Present: clear to auscultation bilaterally. Absent: accessory muscle use, chest wall tenderness - Cardiovascular Cardiovascular exam: Present: irregular rhythm, tachycardia. Absent: systolic murmur - GI/Abdominal GI/Abdominal exam: Present: tenderness (Expected postoperative tenderness), soft , other (Clear drainage from the abdominal incision with fascial dehiscence. JAVIER drain is serosanguineous.) - Extremities Exam Extremities exam: Present: normal inspection, normal capillary refill - Back Exam Back exam: Present: normal inspection - Neurological Exam Neurological exam: Present: alert, oriented X3 Speech: Present: normal - Skin Skin exam: Present: normal color, warm - Constitutional Constitutional: Present: as per HPI - EENT Nose, mouth and throat: Present: as per HPI - Cardiovascular Cardiovascular: Present: as per HPI - Respiratory Respiratory: Present: as per HPI - Gastrointestinal Gastrointestinal: Present: as per HPI - Genitourinary Genitourinary: Present: as per HPI - Musculoskeletal Musculoskeletal: Present: as per HPI - Neurological Neurological: Present: as per HPI - Endocrine Endocrine: Present: as per HPI Hematologic/Lymphatic: Present: as per HPI
[2017-02-15] MEDS ORDERED: HYDROmorphone 2 MG/1 ML VIAL IV ONE ×2 (10:42→13:27)
[2017-02-15] MEDS ORDERED: ALBUTEROL/IPRATROPIUM 3 ML NEB RESP TX ONE ×2 (10:48→13:25)
[2017-02-15] MEDS ORDERED: PHENYLEPHRINE 20 MG/250 ML PREMIX IV ONE (12:00)
[2017-02-15] MEDS ORDERED: LACTATED RINGERS 1,000 ML IV SCH (12:00)
[2017-02-15] MEDS ORDERED: ESMOLOL 100 MG/10 ML VIAL IV ONE (12:00)
[2017-02-15] MEDS ORDERED: ETOMIDATE 20 MG/10 ML VIAL IV ONE (12:00)
[2017-02-15] MEDS ORDERED: ROCURONIUM 100 MG/10 ML VIAL IV ONE (12:00)
--- NOTE | 2017-02-15 13:13 | Operative Note ---
Date of procedure: 02/15/17 Pre-op diagnosis: Fascial dehiscence Post-op diagnosis: same Procedure: Preoperative diagnosis Fascial dehiscence after laparotomy Postoperative diagnosis Same Procedures performed 1. Reopening of recent laparotomy 2. Abdominal washout with closure of abdominal wall using retention sutures 3. Drain placement Findings A fascial dehiscence had occurred where it appeared as though the sutures had pulled through the abdominal wall fascia. The fascial edges were fairly inflamed and ready so internal #1 Vicryl retention sutures and external full- thickness #2 nylon retention sutures were used with bridges on the skin. The abdomen was washed out and there did not appear to be any intra-abdominal infection or pathology that had caused the dehiscence. There was a lot of fluid in the abdomen but no turbulent fluid or evidence of pus or succus drainage. An additional JAVIER drain was placed to help evacuate this fluid postoperatively and prevent recurrent dehiscence and stress on the fascia. Complications Fascial dehiscence requiring return to the operating room Blood loss Minimal Anesthesia GETA Specimen None Indications Fascial dehiscence after laparotomy Description of procedure The patient was taken to the operating room and transferred to the operating table in the supine position. Pressure points were padded and SCDs were placed lower extremities. General endotracheal anesthesia was administered. The abdomen was prepped with Betadine and draped sterilely. Preoperative antibiotics were administered and a timeout was performed. The clips were removed and there was a fascial dehiscence with small bowel below the skin. The bowel appeared viable and healthy. The previous fascial suture had pulled through multiple areas on the fascial wall where the tissue appeared ratty and inflamed. There was no pus coming out of the abdomen or foul odor to the fluid. The previous PDS suture was removed and an additional JAVIER drain was placed over the anterior portion of the repair of duodenal perforation with a Malik patch. This drain exited through a incision that was already present from the previous JAVIER drain placement at the prior operation. It was sewn in with 3-0 nylon sutures and hooked to bulb suction once the fascia was closed. The fascia was then closed with 3 different types of sutures. External full- thickness retention sutures were placed with #2 nylon using fascial bridge placement. Internal #1 Vicryl internal retention sutures [id number] were used as well interrupted and a running #1 PDS suture was used to close the fascia in addition. The fascia had good closure afterwards and the subcu tissue looked viable and healthy with no infection so it was reclosed with skin clips and the fascial bridges were placed across this prior to tying down the mountain sutures. The wounds were dressed sterilely and the patient was awakened from anesthesia and transferred to recovery. Postoperative plan Monitor drain output and diet as tolerated Anesthesia: DEYANIRA Surgeon / Physician: Jordan Dawn Estimated blood loss: minimal Specimens: none sent Condition: stable Disposition: PACU Discharge Plan - Discharge Data Disposition: Disch/Xfer to [facility] - Discharge Medications No Action dilTIAZem HCl [Cartia XT] 1 tablet PO DAILY fentaNYL 25 MCG/HR PATCH [Duragesic 25 Patch] 1 patch TRANSDERM Q3DAY patch HYDROmorphone INJ [Dilaudid Inj] 1 mg IV Q2H Spironolactone [Aldactone] 25 mg PO BID Clarithromycin 500 mg PO BID Albuterol/Ipratropium Neb [Duoneb] 3 ml RESP TX RT Q6H Piperacillin/Tazobactam [Zosyn] 4,500 mg IV Q6H Omeprazole 20 mg PO BID - Follow Up or Referral - Forms/Instructions
[2017-02-15] MEDS ORDERED: SUGAMMADEX 200 MG/2 ML VIAL IV ONE (13:22)
[2017-02-15] MEDS ORDERED: ONDANSETRON 4 MG/2 ML VIAL IV ONE (13:27)
[2017-02-15] MEDS ORDERED: FUROSEMIDE 40 MG/4 ML VIAL IV ONE (13:27)
[2017-02-15] MEDS ORDERED: ONDANSETRON 4 MG/2 ML VIAL ONE (13:32)
[2017-02-15] MEDS ORDERED: HYDROmorphone 2 MG/1 ML VIAL ONE (13:32)
[2017-02-15] MEDS ORDERED: FUROSEMIDE 40 MG/4 ML VIAL ONE (13:33)
[2017-02-15] MEDS ORDERED: DESFLURANE 1 UNIT/15 MINUTE INH ONE (13:42)
[2017-02-15] MEDS ORDERED: MIDAZOLAM 2 MG/2 ML VIAL ONE (13:43)
[2017-02-15] MEDS ORDERED: fentaNYL 100 MCG/2 ML VIAL ONE (13:43)
[2017-02-15 13:49] LABS: Apearance,Urine CLEAR (Clear); Bacteria,Urine Occasional /HPF (Few); Bilirubin,Urine Negative (Negative); Blood, Urine Negative (Negative); Glucose,Urine (UA) Negative (Negative); Ketones,Urine Negative (Negative); Nitrite,Urine Negative (Negative); Protein,Urine 30 MG/DL; RBC,Urine 1 /HPF (0-4); Urine Color Yellow (Yellow); Urine Specific Gravity 1.015 (1.001-1.035); Urine Urobilinogen < 2.0 EU/DL (0.2-1.0); WBC,Urine 12 /HPF (0-6)
--- NOTE | 2017-02-15 14:01 | XRay Report ---
History: Postop Date: 02/15/2017 Study: Chest x-ray AP portable Comparison exam: 02/14/2017 A right IJ central line is positioned with the tip at the atriocaval junction level. The left PICC line is stable in appearance. There is continued moderate bilateral pleural effusion and bibasilar parenchymal consolidation. The upper lungs are clear. There is continued cardiomegaly. The mediastinal contours are unchanged. Osseous structures are similar. Impression: Continued bibasilar parenchymal and pleural disease, the same or only minimally increased Cardiomegaly without overt CHF PROCEDURE INTERPRETED AT [facility] DEPARTMENT OF RADIOLOGY Final Report Signed by: Dr. Rubi Velásquez
[2017-02-15] MEDS ORDERED: FUROSEMIDE 20 MG/2 ML VIAL IV ONE (14:10)
[2017-02-15] MEDS ORDERED: ALBUTEROL/IPRATROPIUM 3 ML NEB RESP TX PRN (14:12)
[2017-02-15] MEDS ORDERED: FUROSEMIDE 20 MG/2 ML VIAL ONE (14:17)
--- NOTE | 2017-02-15 14:32 | Event Note ---
Initially we were going to send the patient back to [facility] however she developed some respiratory distress in the recovery room. She responded to Lasix and breathing treatments but she looked a little bit to tenuous to be sent back down to [facility] at this time. Her chest x-ray shows progressive pleural effusion and pulmonary edema and her labs are pending. I recommended admitting to the ICU at [facility] and have discussed her care with the refund specialist construction site crossing guard. But he is okay with reintubation for a short period of time if it means I discussed this with the patient's son as well. She remains a DNR salvaging her from her current situation and is on long -term plan.
[2017-02-15 14:42] LABS: ABG Base Excess -0.8 MMOL/L (-2.5-2.5); ABG HCO3 23.8 MMOL/L (20-26); ABG PH 7.439 (7.35-7.45); ABG TCO2 21.6 MMOL/L (23-27)
[2017-02-15 14:50] LABS: Basophils % 0.1 % (0.0-0.8); Eosinophils # 0.1 10*3/uL (0.0-0.87); Eosinophils % 1.2 % (0.00-10.9); Hematocrit 21.6 VOL% (35.7-47.0); Hemoglobin 7.5 GM/DL (12.0-16.0); Immature Granulocytes Absolute 0.07 #; Lymphocytes # 0.6 10*3/uL (1.4-4.0); Lymphocytes % 8.2 % (21.3-54.2); Mean Corpuscular HGB Conc 34.7 GM/DL (32-36); Mean Corpuscular Hemoglobin 31 PG (27-34); Mean Corpuscular Volume 89.3 FL (87-102); Monocytes # 0.3 10*3/uL (0.11-0.8); Monocytes % 4.5 % (1.7-12.7); Neutrophils # 6.2 10*3/uL (1.4-7.4); Platelet Count 96 T/CUMM (130-400); Red Blood Count 2.42 MC/CUMM (3.8-5.5); Red Cell Distribution Width 14.4 % (9.3-17.3); White Blood Count 7.3 T/CUMM (4-12)
[2017-02-15] MEDS ORDERED: SODIUM CHLORIDE 0.9% 1,000 ML IV SCH (14:59)
[2017-02-15] MEDS ORDERED: PIPERACILLIN/TAZOBACTAM 4,500 MG VIAL IV SCH (14:59)
[2017-02-15] MEDS ORDERED: PROMETHAZINE 25 MG/1 ML VIAL IM PRN (14:59)
[2017-02-15] MEDS ORDERED: ONDANSETRON 4 MG/2 ML VIAL IV PRN (14:59)
[2017-02-15] MEDS: DILTIAZEM INJ 100 MG in SODIUM CHLORIDE 0.9% 100 ML IV SCH (15:00)
[2017-02-15 15:04] LABS: INR 1.2; PT Patient Result 12.7 SECS; Partial Thromboplastin Time 27.7 SECS (0-40)
[2017-02-15 15:08] LABS: Albumin 2.4 G/DL (3.4-5.0); Bilirubin,Total 0.4 MG/DL (0.2-1.0); Calcium 7.2 MG/DL (8.5-10.1); Osmolality,Calculated 292.3 MOS/KG (273-304); Potassium 3.9 MMOL/L (3.5-5.1); Total Protein 4.1 G/DL (6.4-8.3)
[2017-02-15] MEDS ORDERED: SODIUM CHLORIDE 0.9% 250 ML IV PRN (15:11)
--- NOTE | 2017-02-15 15:26 | Pulmonology Consult Note ---
History of Present Illness Chief complaint: Postop. Bilateral pleural effusions. COPD. Atrial fib. History of present illness: Ms. Witt is a 81 year old white female patient who is been followed by in the past. I been asked to see her in pulmonary consultation. This patient was in [facility] with a number of problems including methicillin-resistant staph aureus sepsis. She is recently been moved to [facility] for long-term acute care. While she was in [facility] she had a perforated duodenal ulcer and required surgery. Today she has had a dehiscence of her surgical wound. She is now postop repair. Patient's surgical drains along the way have drained lots of clear fluid from the upper abdomen. I think this is probably ascites related to previous duodenal ulcer perforation. Dr. Ortega to look agrees. This patient is awake but she cannot give a review of systems. Therefore the review of systems is negative. Allergies. None. Home meds. See below. Hospital medicines. See below Past history. Perforated duodenal ulcer January 2017. Surgery was required. High blood pressure. Echocardiogram. Ejection fraction 55%. Mild to moderate mitral regurgitation. Pulmonary artery pressures 42 mmHg. Concentric left ventricular hypertrophy. Severe COPD. 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 Patient was treated with abraxene and carboplatin. She is followed from an oncology standpoint by Dr. Hoffman. Hypothyroidism. Class III cytologies from fiberoptic bronchoscopy done by Dr. Lawson in January 2017. History of high blood pressure. Social history. Everyday smoker. Family history. High blood pressure Chest x-ray. Bilateral pleural effusions which have been present since surgery. Patient has cardiomegaly and there is a history of congestive heart failure. No definite infiltrates but an old x-ray shows a mass or infiltrate in the right lower lung. Lab. TSH is high at 20.545. Free T4 is low at 0.2 3. This patient is previously been on 200 mcg of Synthroid per day but it looks like it has been about a week or 8 days since she has received any. H&H is 7.5/21.6. White count 7300 with 85 segs 8 lymphs and 4 monos. Platelets are low at 96,000. INR is 1.2. Electrolytes are normal. Creatinine is 1.10 with a BUN of 41. Glucose is 146. Total protein albumin and globulin are low at 4.1, 2.4 and 1.7 respectively. Urine shows no evidence of infection. Microbiology. No studies reported ABGs. PH is 7.439. PCO2 is 34. PO2 is 109. Bicarb is 23.8 Physical exam. Vital signs. See below. Atrial fib with a rate of 100. Neurologic. Patient is arousable. Anesthesia has not worn off. She asked the nurse to rub her neck. Cranial nerves appear to be intact. Patient has some movement of all 4 extremities. Face. Symmetrical. No swelling of the lips and tongue. Neck. Kyphotic. No masses. No meningismus. Lymphatics. No submandibular cervical supraclavicular or epitrochlear adenopathy. Chest. Clear. Heart. Irregular at 100 bpm Abdomen postsurgical Lower extremities. No significant edema. Slightly tender over [place] Skin of the face and hand showed no cancerous lesions. No other areas of skin were examined. The remainder the exam is noncontributory. Impression. 1. Abdominal surgical wound dehiscence. Repaired today by Dr. Ortega to look. 2. January 2017 perforated duodenal ulcer which required surgical repair 3. Severe COPD 4. Bilateral pleural effusions. Probably related to intra-abdominal fluid from previous perforation and probably exacerbated by low albumin. 5. Moderate mitral regurgitation. 6. High blood pressure 7. Severe anemia. This will require transfusion. 8. Hypothyroidism. Replacement will be just restarted today. 9. See past history #10. See Dr. Jordan knapp note. Plan. 1. Transfuse with 2 units of blood. 2. Doppler venograms of the lower extremities. 3. Begin Synthroid 100 mcg IV push daily. Note the patient was on 200 mcg daily by mouth in the past 4. Salt poor albumin, 25 g IV piggyback every 8 hours followed by 20 mg of Lasix IV push 5. Daily chest x-ray, BNP, BMP, CBC. ABGs in the morning. 6. Dr. Knapp said the family had requested patient be a DNR but if she really should require mechanical ventilation for a short period of time that would be okay. 7. Dr. Knapp and I have reviewed the case in detail and we have coordinated our care. #8. Dr. Bipin Lawson will take over for me on Saturday02/18/2017. Home Medications Medication Instructions Recorded Confirmed Type dilTIAZem HCl [Cartia XT] 1 tablet PO DAILY 01/26/17 02/15/17 History Albuterol/Ipratropium Neb [Duoneb] 3 ml RESP TX RT Q6H 02/06/17 02/15/17 Rx fentaNYL 25 MCG/HR PATCH 1 patch TRANSDERM Q3DAY patch 02/06/17 02/15/17 Rx [Duragesic 25 Patch] Clarithromycin 500 mg PO BID 02/15/17 02/15/17 History HYDROmorphone INJ [Dilaudid Inj] 1 mg IV Q2H 02/15/17 02/15/17 History Omeprazole 20 mg PO BID 02/15/17 02/15/17 History Piperacillin/Tazobactam [Zosyn] 4,500 mg IV Q6H 02/15/17 02/15/17 History Spironolactone [Aldactone] 25 mg PO BID 02/15/17 02/15/17 History Allergies Allergy/AdvReac Type Severity Reaction Status Date / Time No Known Allergies Allergy Verified 10/01/16 07:19 Exam (Pulmonay) H&P - Constitutional Vitals: Period Temp Pulse Resp BP Sys/Wilcox Pulse Ox Last 24 Hr 97.3 F-98.7 F 99-151 14-108 85-148/59-99 90-100 Medical,Surgical,& Family Hx - Medical History Cardio: History of: Cardiac Dysrhythmia, CHF, Cardiovascular Problems (enlarged heart; cardiomyopathy) Psychological: History of: Depression Neurology: No history of: Seizures Endocrine: History of: Thyroid Disorder Rheumatology: History of;: Rheumatoid Arthritis Respiratory: History of: Bronchitis, COPD, Pneumonia Gastrointestinal: History of: GI Problems (ULCER PERFORATED, LAPAROTOMY DONE, THEN WOUND DEHISCENE 02/15/17) Other: History of: Cancer (SQUAMOUS CELL LUNG CA), MRSA, Skin Problems (history of skin abscess left upper leg; Dr. González Jr.) No history of: HIV - Surgical History Cardiac Surgeries: Patient Denies: Femoral-Popliteal Bypass Graft, Cardiac Catheterization, Cardiac Surgery, Carotid Endarterectomy, Internal Defibrillator, Vascular Access Devices HEENT Surgeries: Patient denies: Carotid Endarterectomy - Family History Family History: Reports;: Family Hypertension (uncertain) - Social History Smoking Status: Heavy tobacco smoker Frequency of Alcohol Use: None Type of Drug Use: None Results - Labs CBC & BMP: 02/15/17 14:41
[2017-02-15 15:51] LABS: Lymphocytes 4 % (20-55); Nucleated Red Blood Cells 1 (0-5); Platelet Estimate Adequate; Segmented Neutrophils 95 % (50-85); Total Cells Counted 100
--- NOTE | 2017-02-15 16:18 | Ultrasound Report ---
Exam: Bilateral lower extremity venous Doppler ultrasound Comparison: 09/27/2014 Clinical history: Leg edema Technique: Duplex scan of the lower extremity veins using B-mode/grayscale scaled imaging and Doppler spectral analysis and color flow. Findings: Major venous structures of the lower extremities demonstrate a normal course and caliber. Normal color-flow study and spectral analysis. There is normal compression and augmentation of bilateral common femoral, superficial femoral and popliteal veins. The proximal bilateral greater saphenous veins appear to be patent. Impression: No evidence to suggest deep venous thrombosis within either lower extremity. Leg edema. Ultrasound images were captured and stored. PROCEDURE INTERPRETED AT [facility] DEPARTMENT OF RADIOLOGY Final Report Signed by: Dr. Nohemy Bryant
[2017-02-15] MEDS: ALBUMIN 25% 25 GM in PREMIX 1 EACH IV SCH ×2 (16:31→23:37)
[2017-02-15] MEDS: PIPERACILLIN/TAZOBACTAM 3,375 MG in SODIUM CHLORIDE 0.9% 100 ML IV SCH (16:32)
[2017-02-15] MEDS: LEVOTHYROXINE 100 MCG VIAL IV SCH (16:32)
[2017-02-15] MEDS: PANTOPRAZOLE 40 MG TABLET PO SCH ×2 (16:33→21:12)
[2017-02-15] MEDS: AMOXICILLIN 500 MG CAPSULE PO SCH ×2 (16:33→21:11)
[2017-02-15] MEDS: CLARITHROMYCIN 500 MG TABLET PO SCH ×2 (16:33→21:12)
[2017-02-15] MEDS: FUROSEMIDE 20 MG/2 ML VIAL IV SCH (17:30)
[2017-02-15] MEDS: ALBUTEROL/IPRATROPIUM 3 ML NEB RESP TX SCH (19:14)
[2017-02-15] MEDS: HYDROmorphone 2 MG/1 ML VIAL IV PRN (21:24)
[2017-02-16] MEDS: FUROSEMIDE 20 MG/2 ML VIAL IV SCH ×3 (00:42→17:46)
[2017-02-16] MEDS: PIPERACILLIN/TAZOBACTAM 3,375 MG in SODIUM CHLORIDE 0.9% 100 ML IV SCH ×2 (00:47→08:52)
[2017-02-16] MEDS: HYDROmorphone 2 MG/1 ML VIAL IV PRN ×5 (00:56→21:15)
[2017-02-16] MEDS: ALBUTEROL/IPRATROPIUM 3 ML NEB RESP TX SCH ×4 (01:43→19:46)
[2017-02-16] MEDS: DILTIAZEM INJ 100 MG in SODIUM CHLORIDE 0.9% 100 ML IV SCH ×3 (03:01→17:46)
[2017-02-16 04:07] LABS: Allen Test Positive; Pt O2 Delivery Device Simple Mask
[2017-02-16 04:14] LABS: ABG Base Excess 2.8 MMOL/L (-2.5-2.5); ABG HCO3 26.9 MMOL/L (20-26); ABG Oxygen Saturation 99.1 % (95-100); ABG PCO2 35.4 MM HG (35-48); ABG PH 7.477 (7.35-7.45); ABG TCO2 23.8 MMOL/L (23-27)
[2017-02-16 04:44] LABS: Basophils % 0.1 % (0.0-0.8); Eosinophils # 0.1 10*3/uL (0.0-0.87); Eosinophils % 0.6 % (0.00-10.9); Hematocrit 28.3 VOL% (35.7-47.0); Immature Granulocytes % 1.1 %; Immature Granulocytes Absolute 0.09 #; Lymphocytes # 0.3 10*3/uL (1.4-4.0); Lymphocytes % 4.2 % (21.3-54.2); Mean Corpuscular HGB Conc 34.6 GM/DL (32-36); Mean Corpuscular Hemoglobin 30 PG (27-34); Mean Corpuscular Volume 86.5 FL (87-102); Mean Platelet Volume 10.7 FL (9.6-12.0); Monocytes # 0.3 10*3/uL (0.11-0.8); Monocytes % 4.2 % (1.7-12.7); NRBC # 0.05 10*3/uL; Neutrophils # 7.1 10*3/uL (1.4-7.4); Neutrophils % 89.8 % (38.7-73.9); Platelet Count 70 T/CUMM (130-400); Red Blood Count 3.27 MC/CUMM (3.8-5.5); Red Cell Distribution Width 14.1 % (9.3-17.3); White Blood Count 7.9 T/CUMM (4-12)
[2017-02-16 05:04] LABS: Hemoglobin 9.8 GM/DL (12.0-16.0)
[2017-02-16 05:18] LABS: Albumin 3.6 G/DL (3.4-5.0); Bilirubin,Total 1.4 MG/DL (0.2-1.0); Osmolality,Calculated 283.5 MOS/KG (273-304); Potassium 3.1 MMOL/L (3.5-5.1); Total Protein 5.3 G/DL (6.4-8.3)
[2017-02-16 05:37] LABS: Anisocytosis 2+; Band Neutrophils 2 % (0-10); Lymphocytes 7 % (20-55); Macrocytosis 2+; Platelet Estimate Decreased; Segmented Neutrophils 86 % (50-85); Total Cells Counted 100
[2017-02-16] MEDS: LEVOTHYROXINE 100 MCG VIAL IV SCH (06:11)
[2017-02-16] MEDS: ALBUMIN 25% 25 GM in PREMIX 1 EACH IV SCH ×3 (06:45→23:56)
[2017-02-16] MEDS ORDERED: LEVOTHYROXINE 100 MCG VIAL IV SCH (07:00)
[2017-02-16] MEDS: CLARITHROMYCIN 500 MG TABLET PO SCH ×2 (08:53→21:15)
[2017-02-16] MEDS: AMOXICILLIN 500 MG CAPSULE PO SCH ×2 (08:53→21:15)
--- NOTE | 2017-02-16 08:54 | XRay Report ---
History: Dyspnea Date: 02/16/2017 Study: Chest x-ray AP portable Comparison exam: 02/15/2017 The right IJ central line and left PICC line are stable in position. There is stable cardiomegaly. The mediastinal contours are unchanged. There is continued bibasilar pleural effusion and atelectasis/infiltrate, grossly similar. The pulmonary vasculature is borderline prominent. Osseous structures are unchanged. Impression: No gross overall change from the previous study PROCEDURE INTERPRETED AT [facility] DEPARTMENT OF RADIOLOGY Final Report Signed by: Dr. Rubi Velásquez
[2017-02-16] MEDS: PANTOPRAZOLE 40 MG TABLET PO SCH ×2 (09:13→21:15)
[2017-02-16] MEDS: DILTIAZEM CD 180 MG CAPSULE PO SCH (09:13)
--- NOTE | 2017-02-16 09:16 | Pulmonology Progress Note ---
Pulmonary - PN: Subj Interval history: This is a 81-year-old white female whom I saw in pulmonary consultation on 2016. This is a patient of Dr. kristina Lawson. My impressions were. 1. Abdominal surgical wound dehiscence. Repaired today by Dr. Jordan dawn. 2. January 2017 perforated duodenal ulcer which required surgical repair 3. Severe COPD 4. Bilateral pleural effusions. Probably related to intra-abdominal fluid from previous perforation and probably exacerbated by low albumin. 5. Moderate mitral regurgitation. 6. High blood pressure 7. Severe anemia. This will require transfusion. 8. Hypothyroidism. Replacement will be just restarted today. 9. See past history #10. See Dr. Jordan dawn note. 02/16/2017. Patient is done well postop. Her oxygenation is been very good. Today's chest x-ray shows some mild atelectasis at the left base and has a small to moderate-sized pleural effusion on the right. There is cardiomegaly. Microbiology negative ABGs on FiO2 of 50% showed a pH is 7.477, PCO2 35.4, PO2 of 123 and a bicarb of 26.9. I will reduce her FiO2 to 2 L/min. Potassium is low at 3.1 and will be replaced. Creatinine is 1.2 BUNs 31 H&H is been transfused from 7.5/21.6-9.8/21.3. White count is 7900 with 89.8 segs. Platelets are 70,000. Natruretic peptide is 466. Liver function tests are normal. Protein is 5.3, albumin is 3.6, globulin is low at 1.7 Physical exam. Vital signs. See below Heart. Lateral PMI Chest clear Psychiatric. Alert able to answer questions. There is an element of dementia. Neck. Symmetrical. No meningismus Abdomen. Postsurgical Extremities. Nothing to suggest deep venous thrombophlebitis Face. Symmetrical. No swelling of the lips or tongue. Lymphatics. No submandibular cervical supraclavicular or epitrochlear adenopathy. The remainder the physical exam is negative. Plan. 02/15/2017. 1. Transfuse with 2 units of blood. 2. Doppler venograms of the lower extremities. 3. Begin Synthroid 100 mcg IV push daily. Note the patient was on 200 mcg daily by mouth in the past 4. Salt poor albumin, 25 g IV piggyback every 8 hours followed by 20 mg of Lasix IV push 5. Daily chest x-ray, BNP, BMP, CBC. ABGs in the morning. 6. Dr. Dawn said the family had requested patient be a DNR but if she really should require mechanical ventilation for a short period of time that would be okay. 7. Dr. Dawn and I have reviewed the case in detail and we have coordinated our care. #8. Dr. Bipin Lawson will take over for me on Saturday02/18/2017. 02/16/2017. 1. Continue present regimen. 2. Is my understanding the patient will be transferred back to [facility] for continuation of a long-term acute care later today. Exam (Progress Note) - Constitutional Vitals: Period Temp Pulse Resp BP Sys/Wilcox Pulse Ox Last 24 Hr 97.0 F-98.8 F 80-151 8-108 85-148/59-99 88-100 Results - Labs CBC & BMP: 02/16/17 04:20 02/16/17 04:20
--- NOTE | 2017-02-16 09:16 | Event Note ---
02/16/2017 Patient's postop from repair of a fascial dehiscence. Has [address] at this time with some moderate drainage at this point. Dressing is in place with no wound care orders are found at this time. Patient is not on the ventilator she seems to be stable at this point difficult to know what we are going with her at this time. We will keep her in the unit for further observation and therapy.
[2017-02-16] MEDS: SODIUM CHLOR 0.9% KCL 40 MEQ 40 MEQ/1,000 ML BAG IV SCH (11:34)
[2017-02-17] MEDS: HYDROmorphone 2 MG/1 ML VIAL IV PRN ×8 (01:11→23:26)
[2017-02-17] MEDS: FUROSEMIDE 20 MG/2 ML VIAL IV SCH ×3 (01:12→15:41)
[2017-02-17] MEDS: ALBUTEROL/IPRATROPIUM 3 ML NEB RESP TX SCH ×4 (01:12→19:39)
[2017-02-17 03:12] LABS: Basophils % 0.1 % (0.0-0.8); Eosinophils # 0.1 10*3/uL (0.0-0.87); Eosinophils % 1.3 % (0.00-10.9); Hematocrit 22.5 VOL% (35.7-47.0); Hemoglobin 7.8 GM/DL (12.0-16.0); Immature Granulocytes % 1.3 %; Lymphocytes # 0.5 10*3/uL (1.4-4.0); Lymphocytes % 5.8 % (21.3-54.2); Mean Corpuscular HGB Conc 34.7 GM/DL (32-36); Mean Corpuscular Hemoglobin 31 PG (27-34); Mean Corpuscular Volume 88.2 FL (87-102); Mean Platelet Volume 10.8 FL (9.6-12.0); Monocytes # 0.4 10*3/uL (0.11-0.8); Monocytes % 4.9 % (1.7-12.7); NRBC # 0.08 10*3/uL; Neutrophils # 6.8 10*3/uL (1.4-7.4); Neutrophils % 86.6 % (38.7-73.9); Red Blood Count 2.55 MC/CUMM (3.8-5.5); Red Cell Distribution Width 14.6 % (9.3-17.3); White Blood Count 7.9 T/CUMM (4-12)
[2017-02-17 03:24] LABS: Platelet Count 75 T/CUMM (130-400)
[2017-02-17 03:43] LABS: Bilirubin,Total 1.1 MG/DL (0.2-1.0); Calcium 8.4 MG/DL (8.5-10.1); Osmolality,Calculated 279.5 MOS/KG (273-304); Potassium 2.9 MMOL/L (3.5-5.1); Total Protein 5.3 G/DL (6.4-8.3)
[2017-02-17 04:18] LABS: Calcium 8.4 MG/DL (8.5-10.1); Magnesium 1.7 MG/DL (1.8-2.4); Osmolality,Calculated 279.5 MOS/KG (273-304); Potassium 2.9 MMOL/L (3.5-5.1)
[2017-02-17 05:22] LABS: Macrocytosis 1+; Platelet Estimate Decreased
[2017-02-17 05:23] LABS: Anisocytosis 1+
[2017-02-17] MEDS: SODIUM CHLOR 0.9% KCL 40 MEQ 40 MEQ/1,000 ML BAG IV SCH (06:28)
[2017-02-17] MEDS: DILTIAZEM INJ 100 MG in SODIUM CHLORIDE 0.9% 100 ML IV SCH ×2 (08:00→15:38)
[2017-02-17] MEDS ORDERED: CHLORHEXIDINE 4% SOLN 118 ML BOTTLE TOP ONE (08:31)
--- NOTE | 2017-02-17 08:34 | Event Note ---
02/17/2017 Patient is more alert and somewhat combative today. Abdomen is soft with some hypoactive bowel sounds and a small bowel movement reported. Dressings were difficult to take down but the wounds look clean and dry. There is moderate JAVIER drainage and some drainage around the JAVIER drains at this time. Her hematocrit is down to 22 and a potassium is 2.9. Dr. Howell is seen this and has addressed this situation. Will go ahead and try her on some full liquids and see how she tolerates this diet dasilva. I have started some wound care orders on the patient.
[2017-02-17] MEDS ORDERED: MAGNESIUM SULF RIDER 2 GM in PREMIX 1 EACH IV PRN (08:35)
[2017-02-17] MEDS ORDERED: MAGNESIUM SULF RIDER 4 GM in PREMIX 1 EACH IV PRN (08:35)
[2017-02-17] MEDS ORDERED: POTASSIUM CHLORIDE RIDER 10 MEQ in PREMIX 1 EACH IV PRN (08:35)
[2017-02-17] MEDS ORDERED: FUROSEMIDE 20 MG/2 ML VIAL IV ONE (08:36)
[2017-02-17] MEDS: LEVOTHYROXINE 100 MCG VIAL IV SCH (09:24)
[2017-02-17] MEDS: ALBUMIN 25% 25 GM in PREMIX 1 EACH IV SCH ×3 (09:24→23:27)
[2017-02-17] MEDS: PANTOPRAZOLE 40 MG TABLET PO SCH ×2 (09:25→21:06)
[2017-02-17] MEDS: CLARITHROMYCIN 500 MG TABLET PO SCH ×2 (09:25→21:05)
[2017-02-17] MEDS: AMOXICILLIN 500 MG CAPSULE PO SCH ×2 (09:25→21:05)
[2017-02-17] MEDS: DILTIAZEM CD 180 MG CAPSULE PO SCH (09:28)
--- NOTE | 2017-02-17 09:54 | XRay Report ---
History: Shortness of breath Date: 02/17/2017 Study: Chest x-ray AP portable Comparison exam: 02/16/2017 The supporting tubes are unchanged. There is stable cardiomegaly. The mediastinal contours are similar. There is continued patchy and hazy edema/infiltrate in the mid to lower lungs bilaterally. There is continued mild to moderate right greater than left pleural effusion. There is slightly improved aeration in the right mid lung on the current study, though this may be related to shifting pleural effusion. Osseous structures are similar. Impression: Continued bibasilar pulmonary edema/infiltrate and layering pleural effusion. Slightly improved aeration of the right midlung PROCEDURE INTERPRETED AT [facility] DEPARTMENT OF RADIOLOGY Final Report Signed by: Dr. Rubi Velásquez
[2017-02-17] MEDS: SKIN HEALING OINT (AQUAPHOR) 50 GM TUBE TOP PRN (10:05)
[2017-02-17] MEDS: POTASSIUM CHLORIDE RIDER 20 MEQ in PREMIX 1 EACH IV PRN ×2 (10:33→12:11)
--- NOTE | 2017-02-17 12:49 | Pulmonology Progress Note ---
Pulmonary - PN: Subj Interval history: This is a 81-year-old white female whom I saw in pulmonary consultation on 2016. This is a patient of Dr. kristina Lawson. My impressions were. 1. Abdominal surgical wound dehiscence. Repaired today by Dr. Jordan dawn. 2. January 2017 perforated duodenal ulcer which required surgical repair 3. Severe COPD 4. Bilateral pleural effusions. Probably related to intra-abdominal fluid from previous perforation and probably exacerbated by low albumin. 5. Moderate mitral regurgitation. 6. High blood pressure 7. Severe anemia. This will require transfusion. 8. Hypothyroidism. Replacement will be just restarted today. 9. See past history #10. See Dr. Jordan dawn note. 02/16/2017. Patient is done well postop. Her oxygenation is been very good. Today's chest x-ray shows some mild atelectasis at the left base and has a small to moderate-sized pleural effusion on the right. There is cardiomegaly. Microbiology negative ABGs on FiO2 of 50% showed a pH is 7.477, PCO2 35.4, PO2 of 123 and a bicarb of 26.9. I will reduce her FiO2 to 2 L/min. Potassium is low at 3.1 and will be replaced. Creatinine is 1.2 BUNs 31 H&H is been transfused from 7.5/21.6-9.8/21.3. White count is 7900 with 89.8 segs. Platelets are 70,000. Natruretic peptide is 466. Liver function tests are normal. Protein is 5.3, albumin is 3.6, globulin is low at 1.7 02/17/2017. Chest x-ray is stable with mild to moderate bilateral pleural effusions which are mainly in the major fissure. Cardiomegaly is present. H&H is dropped 7.8/22.5. We will give 2 units of packed red blood cells between the first and second will get 20 of Lasix IV push. Potassium and magnesium are low and patient is put on protocols for replacement of both of these. There are no new microbiology reports. Labs been reviewed. Medicines have been reviewed. Physical exam. Vital signs. See below Heart. Lateral PMI Chest clear Psychiatric. Alert able to answer questions. There is an element of dementia. Neck. Symmetrical. No meningismus Abdomen. Postsurgical Extremities. Nothing to suggest deep venous thrombophlebitis Face. Symmetrical. No swelling of the lips or tongue. Lymphatics. No submandibular cervical supraclavicular or epitrochlear adenopathy. The remainder the physical exam is negative. Plan. 02/15/2017. 1. Transfuse with 2 units of blood. 2. Doppler venograms of the lower extremities. 3. Begin Synthroid 100 mcg IV push daily. Note the patient was on 200 mcg daily by mouth in the past 4. Salt poor albumin, 25 g IV piggyback every 8 hours followed by 20 mg of Lasix IV push 5. Daily chest x-ray, BNP, BMP, CBC. ABGs in the morning. 6. Dr. Dawn said the family had requested patient be a DNR but if she really should require mechanical ventilation for a short period of time that would be okay. 7. Dr. Dawn and I have reviewed the case in detail and we have coordinated our care. #8. Dr. Bipin Lawson will take over for me on Saturday02/18/2017. 02/16/2017. 1. Continue present regimen. 2. Is my understanding the patient will be transferred back to [facility] for continuation of a long-term acute care later today. 02/17/2017. 1. and Lulu will flower picker this patient tomorrow. 2. See today's note above. 3. Transfuse with red blood cells Exam (Progress Note) - Constitutional Vitals: Period Temp Pulse Resp BP Sys/Wilcox Pulse Ox Last 24 Hr 97.1 F-98.9 F 84-110 9-20 87-123/54-79 87-100 Results - Labs CBC & BMP: 02/17/17 02:47 02/17/17 02:47
[2017-02-18] MEDS: ALBUTEROL/IPRATROPIUM 3 ML NEB RESP TX SCH ×3 (00:15→12:48)
[2017-02-18] MEDS: FUROSEMIDE 20 MG/2 ML VIAL IV SCH ×3 (00:40→15:12)
[2017-02-18] MEDS: HYDROmorphone 2 MG/1 ML VIAL IV PRN ×4 (01:35→09:23)
[2017-02-18] MEDS: DILTIAZEM INJ 100 MG in SODIUM CHLORIDE 0.9% 100 ML IV SCH ×2 (02:48→15:09)
[2017-02-18] MEDS: SODIUM CHLOR 0.9% KCL 40 MEQ 40 MEQ/1,000 ML BAG IV SCH (02:49)
[2017-02-18 03:49] LABS: Basophils % 0.3 % (0.0-0.8); Eosinophils # 0.2 10*3/uL (0.0-0.87); Eosinophils % 2.5 % (0.00-10.9); Hematocrit 30.7 VOL% (35.7-47.0); Hemoglobin 10.5 GM/DL (12.0-16.0); Immature Granulocytes % 2.1 %; Immature Granulocytes Absolute 0.16 #; Lymphocytes # 0.6 10*3/uL (1.4-4.0); Lymphocytes % 8.3 % (21.3-54.2); Mean Corpuscular HGB Conc 34.2 GM/DL (32-36); Mean Corpuscular Hemoglobin 30 PG (27-34); Mean Corpuscular Volume 88.7 FL (87-102); Mean Platelet Volume 10.7 FL (9.6-12.0); Monocytes # 0.4 10*3/uL (0.11-0.8); Monocytes % 4.8 % (1.7-12.7); NRBC # 0.11 10*3/uL; Neutrophils # 6.3 10*3/uL (1.4-7.4); Platelet Count 102 T/CUMM (130-400); Red Blood Count 3.46 MC/CUMM (3.8-5.5); Red Cell Distribution Width 14.7 % (9.3-17.3); White Blood Count 7.6 T/CUMM (4-12)
[2017-02-18 04:05] LABS: Albumin 4.5 G/DL (3.4-5.0); Bilirubin,Total 1.8 MG/DL (0.2-1.0); Calcium 8.9 MG/DL (8.5-10.1); Osmolality,Calculated 288.4 MOS/KG (273-304); Potassium 3.8 MMOL/L (3.5-5.1); Total Protein 6.1 G/DL (6.4-8.3)
[2017-02-18 05:12] LABS: Band Neutrophils 3 % (0-10); Eosinophils 1 % (0-10); Lymphocytes 9 % (20-55); Nucleated Red Blood Cells 3 (0-5); Platelet Estimate Decreased; Segmented Neutrophils 85 % (50-85); Total Cells Counted 100
[2017-02-18 05:13] LABS: Hypochromasia 2+; Polychromasia 1+
[2017-02-18] MEDS: LEVOTHYROXINE 100 MCG VIAL IV SCH (06:11)
--- NOTE | 2017-02-18 07:31 | Pulmonology Progress Note ---
Pulmonary - PN: Subj Interval history: This 81-year-old white female was transferred back from [facility] to [facility] on 02/15/2017. She had wound dehiscence. She was taken to surgery. She is stable postop still having a fair amount of drainage from her JAVIER drains. Dr. Dawn decided to keep her here for a few days. O2 sats look good. She required a transfusion yesterday. She has underlying problems with COPD, history of lung cancer that is felt to be in remission, recent episode of bronchitis and bronchopneumonia, and she does have some congestive heart failure. Exam (Progress Note) - Constitutional Vitals: Period Temp Pulse Resp BP Sys/Wilcox Pulse Ox Last 24 Hr 97.3 F-98.9 F 77-110 10-30 96-136/63-90 92-100 Exam: She is alert and fairly calm. Will need to sit up in a chair. Asking for more food. Vital signs normal. Pupils react to light. Throat is clear. Neck supple no bruits. Chest reveals a few basilar crackles and dullness at the bases. Heart normal rate and rhythm grade 1/6 systolic murmur left sternal border. Abdomen is soft bandaged drains in place. Decreased bowel sounds. Extremities no clubbing or cyanosis. Trace of edema. Calves nontender. Results - Labs CBC & BMP: 02/18/17 03:30 02/18/17 03:30 Lab Results: I have reviewed the past 24 hour labs - Diagnostic Findings Procedure: Chest x-ray: image reviewed by me (Small bilateral pleural effusions. Little change from before.) Assessment and Plan (1) COPD (chronic obstructive pulmonary disease) Status: Acute Assessment and plan: O2 sats look good. Continuing bronchodilators. 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 Does have an abnormal right lower lobe from previous cancer and radiation treatment. Recently had pneumonia there. Current Visit: No (3) Pneumonia Status: Acute Assessment and plan: Recent right lower lobe pneumonia. Patient on antibiotics for her abdomen. Getting Amoxil Current Visit: No (4) Acute bronchitis Status: Acute Assessment and plan: No acute bronchospasm. Continuing bronchodilators empirically. Current Visit: No (5) Perforated duodenal ulcer Status: Acute Assessment and plan: Status post repair. Had postop wound dehiscence. Current Visit: No (6) Dehiscence of fascia Status: Acute Assessment and plan: Had postoperative dehiscence of the wound and has been sutured back. Drains in place. Being watched closely in [facility] per surgical recommendations. Current Visit: Yes
--- NOTE | 2017-02-18 07:36 | Anesthesia Post-Op ---
Anesthesia Post OP - Post Ansesthetic Evaluation Patient seen in post op: Yes Resp: within normal limits CV: within normal limits Mental: within normal limits Temp: within normal limits Hazp-Wh-[id number]: within normal limits Nausea and Vomiting: within normal limits Pain: within normal limits
--- NOTE | 2017-02-18 07:37 | XRay Report ---
XR chest 1V portable Indication: Shortness of breath Comparison: Chest x-ray 03/07/2017 Technique: Portable AP chest was performed. Findings: Hazy opacities in the lung bases suggesting atelectasis and/or dependent pleural fluid remain more pronounced on the right with little interval change suggested. Heart size remains enlarged. Central vascular prominence and minimal reticulation of the lung interstitium in the lung bases remains present. Multiple tubes and medical support devices appear stable. Impression: 1. Appearance suggests is most suggestive of pulmonary venous congestive changes with a minimal component of pulmonary edema in the lung bases. 2. Small bilateral pleural effusions are suggested and appear stable. 3. Stable cardiomegaly. 02/18/2017 7:34 AM PROCEDURE INTERPRETED AT [facility] DEPARTMENT OF RADIOLOGY Final Report Signed by: Dr. Petros Rojas
--- NOTE | 2017-02-18 08:58 | Physician Query Form ---
CLICK EDIT DOCUMENT TO SELECT QUERY ANSWER --> OK --> SIGN Nella Rojas RN, CCDS Certified Clinical Squeegee Finisher W) [phone] (f) [phone] [email or web address] PROVIDERS: Make your selection(s) from the choices in EACH section by typing an "x" and enter comments in the comment section. Please use your independent medical judgment in providing your response. This request does not imply that any particular answer is desired or expected. CLINICAL INDICATORS: (Providers should not edit this section) The medical record indicates that the patient was admitted with "Dehiscence of fascia", HH of 7.5/21.6 and the patient will get 3 units of blood. Based on the above, could you clarify which of the following conditions you are evaluating, treating, and/or monitoring? ( ) Blood loss anemia ( ) acute ( ) chronic ( ) acute on chronic ( ) Acute blood loss anemia on baseline chronic anemia ( ) Acute blood loss anemia as a complication of a procedure ( ) Iron deficiency anemia not associated with blood loss ( ) Dilutional anemia due to IV fluids ( ) Anemia due to chemotherapy ( ) Anemia due to neoplastic disease ( ) Anemia due to chronic kidney disease ( ) Pernicious anemia ( ) Aplastic anemia ( ) Hemolytic anemia ( ) immune ( ) non-immune - please specify cause: ( ) Anemia due to other condition, please specify: (x) Clinically unable to determine COMMENTS: PLEASE ALSO DOCUMENT RESPONSE IN PROGRESS NOTES AND/OR DISCHARGE SUMMARY Use of terms such as suspected, likely, or probable (associated with a specific diagnosis that is being evaluated, monitored, or treated as if it exists) are acceptable and can be restated in the discharge summary if not ruled out. MTDD
--- NOTE | 2017-02-18 08:59 | Physician Query Form ---
CLICK EDIT DOCUMENT TO SELECT QUERY ANSWER --> OK --> SIGN Nella Rojas RN, CCDS Certified Clinical Professor Of Physical Education W) [phone] (f) [phone] [email or web address] PROVIDERS: Make your selection(s) from the choices in EACH section by typing an "x" and enter comments in the comment section. Please use your independent medical judgment in providing your response. This request does not imply that any particular answer is desired or expected. CLINICAL INDICATORS: (Providers should not edit this section) The medical record indicates that the patient was admitted with "Dehiscence of fascia", BNP has increased to 772#, chest on the 2nd: "Continued bibasilar pulmonary edema/infiltrate and layering pleural effusion" and the patient was treated with some Lasix. On the 3rd "she does have some congestive heart failure". Please provide further specificity regarding CHF. ACUITY: ( ) Acute ( ) Chronic ( x) Acute on Chronic ( ) Clinically unable to determine TYPE: ( ) Systolic (HFrEF - heart failure with reduced systolic function/EF) ( ) Diastolic (HFpEF - heart failure with preserved systolic function/EF) ( x) Combined Systolic/Diastolic ( ) Other, please specify: ( ) Clinically unable to determine ( ) The patient does NOT have CHF COMMENTS: PLEASE ALSO DOCUMENT RESPONSE IN PROGRESS NOTES AND/OR DISCHARGE SUMMARY Use of terms such as suspected, likely, or probable (associated with a specific diagnosis that is being evaluated, monitored, or treated as if it exists) are acceptable and can be restated in the discharge summary if not ruled out. MTDD
[2017-02-18] MEDS ORDERED: fentaNYL 25 MCG/HR PATCH TRANSDERM SCH (09:00)
[2017-02-18] MEDS: ALBUMIN 25% 25 GM in PREMIX 1 EACH IV SCH ×2 (09:04→15:08)
[2017-02-18] MEDS: DILTIAZEM CD 180 MG CAPSULE PO SCH (09:09)
[2017-02-18] MEDS: PANTOPRAZOLE 40 MG TABLET PO SCH (09:10)
[2017-02-18] MEDS: CLARITHROMYCIN 500 MG TABLET PO SCH (09:10)
[2017-02-18] MEDS: AMOXICILLIN 500 MG CAPSULE PO SCH (09:10)
[2017-02-18] MEDS: POTASSIUM CHLORIDE RIDER 20 MEQ in PREMIX 1 EACH IV PRN (09:19)
[2017-02-18] MEDS ORDERED: DESITIN 4OZ/NYSTATIN 15 GRAM MIXTURE PASTE TOP SCH (10:30)
--- NOTE | 2017-02-18 11:15 | Discharge Summary ---
Hospital Course - Hospital Course Hospital Course: Ms. Witt is a 81-year-old white female with history of COPD, CHF, and history of lung cancer in remission who recently had a perforated duodenal ulcer repair with an omental Malik patch on 02/07/[address] Dawn and then was transferred to [facility]. She developed copious clear drainage from her incision and found to have a fascial dehiscence and was transferred back to [facility] for repair. She was taken to the operating room on 02/15/2017 for reopening of recent laparotomy, abdominal washout with closure of the abdominal wall using retention sutures and drain placement by Dr. Dawn. She developed some respiratory distress in the recovery room and responded to Lasix and breathing treatments. She was kept in ICU at [facility] and pulmonary was consulted. Patient is feeling much better now. She is ready to get up and sit in a chair and she is tolerating a liquid diet. Her retention sutures are intact but she is complaining of abdominal pain. Her home meds will be restarted and will advance her diet to soft and she will be transferred back to [facility] for further care. Her drains will stay in place for now. We will also keep her Luevano for I&O while on diuretics. We will go ahead and place her in [facility] for the night to watch her breathing status. Patient's case was discussed with Dr. Dawn, Dr. Lawson, pillowcase cutter, nursing, patient and family. Care coordination, chart review, and completed discharge paperwork took approximately 35 minutes. 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 (5) Perforated duodenal ulcer Status: Resolved (6) Dehiscence of fascia Status: Resolved Discharge Plan - Discharge Data Disposition: Disch/Xfer to Data Lead Hos Condition at Discharge: Stable Discharge Diet: other (Soft diet) Activity: as per physical therapy Hygiene: may shower Contact your physician if you experience:: fever over 101, Redness or swelling, Nausea/Vomiting, Shortness of breath - Discharge Medications New Amoxicillin Cap/Tab 1,000 mg PO Q12HR capsule HYDROcodone/ACETAMIN 7.5-325 [Wampum 7.5-325] 1 tablet PO Q4H PRN tablet PRN Reason: Pain Moderate (4-7) Levothyroxine Inj [Synthroid Inj] 100 mcg IV DAILY@0700 vial Pantoprazole Tab [Protonix Tab] 40 mg PO BID tablet Skin Healing Oint (Aquaphor) [Aquaphor] 1 applic TOP PRN PRN applic PRN Reason: Dry Skin Albumin 25% 25 gm IV Q8H vial Furosemide Inj [Lasix Inj] 20 mg IV Q8H vial Promethazine Inj [Phenergan Inj] 25 mg IM Q4H PRN vial PRN Reason: Nausea/Vomiting Continue dilTIAZem HCl [Cartia XT] 1 tablet PO DAILY fentaNYL 25 MCG/HR PATCH [Duragesic 25 Patch] 1 patch TRANSDERM Q3DAY patch HYDROmorphone INJ [Dilaudid Inj] 1 mg IV Q2H Spironolactone [Aldactone] 25 mg PO BID Clarithromycin 500 mg PO BID Albuterol/Ipratropium Neb [Duoneb] 3 ml RESP TX RT Q6H Discontinued Piperacillin/Tazobactam [Zosyn] 4,500 mg IV Q6H Omeprazole 20 mg PO BID - Follow Up or Referral Follow Up: Jordan Dawn MD [Physician] - (notify dr dawn of room number) - Forms/Instructions Exam - Constitutional Vitals: Period Temp Pulse Resp BP Sys/Wilcox Pulse Ox Last 24 Hr 97.8 F-99.1 F 77-107 10-30 100-136/63-90 92-100 Exam: 81-year-old white female, no acute distress, alert and oriented Chest with some coarseness bilaterally CV regular rate and rhythm Abdomen soft, appropriately tender, retention sutures intact with no signs of dehiscence Extremities no edema Discharge Results Procedures and tests throughout hospitalization: Pending Orders 02/18/17 03:18 MRSA Surveillence, Inf Control Labs on day of discharge: Labs from last 24 hours 02/18/17 02/18/17 02/18/17 03:30 03:30 03:30 WBC 7.6 RBC 3.46 L D Hgb 10.5 L D Hct 30.7 L MCV 88.7 MCH 30 MCHC 34.2 RDW 14.7 Plt Count 102 L D MPV 10.7 Neut % (Auto) 82.0 H Lymph % (Auto) 8.3 L Payne % (Auto) 4.8 Eos % (Auto) 2.5 Baso % (Auto) 0.3 Neut # (Auto) 6.3 Lymph # (Auto) 0.6 L Payne # (Auto) 0.4 Eos # (Auto) 0.2 Baso # (Auto) 0.0 Total Counted 100 Immature Gran % 2.1 Nucleated RBC % 1.4 Immature Gran # 0.16 Segmented Neutrophils 85 Band Neutrophils 3 Lymphocytes 9 L Monocytes 2 Eosinophils 1 Nucleated RBCs 3 Nucleated RBCs # 0.11 Platelet Estimate Decreased Polychromasia 1+ Hypochromasia 2+ Sodium 140 Potassium 3.8 Chloride 102 Carbon Dioxide 32 Anion Gap 9.8 BUN 36 H Creatinine 1.00 GFR Calculation 45 BUN/Creatinine Ratio 36.00 H Glucose 127 H Calculated Osmolality 288.4 Calcium 8.9 Magnesium 2.0 Total Bilirubin 1.80 H AST 18 ALT 19 Alkaline Phosphatase 49 B-Natriuretic Peptide 772 H Total Protein 6.1 L Albumin 4.5 Globulin 1.6 L Albumin/Globulin Ratio 2.8 H Blood Type Antibody Screen Crossmatch 02/17/17 02/17/17 22:58 03:25 WBC RBC Hgb Hct MCV MCH MCHC RDW Plt Count MPV Neut % (Auto) Lymph % (Auto) Payne % (Auto) Eos % (Auto) Baso % (Auto) Neut # (Auto) Lymph # (Auto) Payne # (Auto) Eos # (Auto) Baso # (Auto) Total Counted Immature Gran % Nucleated RBC % Immature Gran # Segmented Neutrophils Band Neutrophils Lymphocytes Monocytes Eosinophils Nucleated RBCs Nucleated RBCs # Platelet Estimate Polychromasia Hypochromasia Sodium Potassium 3.8 Chloride Carbon Dioxide Anion Gap BUN Creatinine GFR Calculation BUN/Creatinine Ratio Glucose Calculated Osmolality Calcium Magnesium Total Bilirubin AST ALT Alkaline Phosphatase B-Natriuretic Peptide Total Protein Albumin Globulin Albumin/Globulin Ratio Blood Type O POSITIVE Antibody Screen Negative Crossmatch See Detail DS: Provider Date of admission: 02/15/17 14:21 Primary care physician: Teddy Carbone MD Attending physician on admission: Jordan Dawn MD Consults: 02/15/17 14:59 Consult to Physician [CONS] Routine Comment: copd Consulting Provider: Consult to Specialist Group: Pulmonology When should Consulting Provider be notified: Now 02/15/17 15:32 Consult to Dietitian [CONS] Routine Reason for Dietitian: Dietary Consult Discharging clinician: RADHA Yañez Expected date of discharge: 02/18/17
[2017-02-18] MEDS: SKIN HEALING OINT (AQUAPHOR) 50 GM TUBE TOP PRN (11:30)
[2017-02-18] MEDS ORDERED: SPIRONOLACTONE 25 MG TABLET PO SCH (11:30)
[2017-02-18] MEDS: HYDROmorphone 2 MG/1 ML VIAL IV SCH ×3 (12:07→15:08)
[2017-02-18 15:10] VITALS: BP 118/66
== END 2017-02-18 15:28 | DRG 907 ==
LOC: N.OR 09:07 → N.SDSINP 09:11 → N.ICU 14:21
PROVIDERS: ADMIT Surgery; ATTEND Surgery

== ENCOUNTER 2017-02-24 10:27 | Inpatient (IN) ==
[2017-02-24] MEDS ORDERED: SODIUM CHLORIDE 0.9% 1,000 ML IV SCH (12:00)
--- NOTE | 2017-02-24 12:35 | Oncology Progress Note ---
Oncology Subjective PN Interval history: Ms. Witt is known to me. I have been following her along with Dr. Lawson. She has squamous cell carcinoma of the lung that has been treated with chemotherapy and radiation and has no definite evidence of recurrence of her lung cancer. A bronchoscopy done about a month ago obtained class III brushings from the right lung but she had a normal chest x-ray. She was also extremely debilitated at that time and within the last month she has suffered a GI perforation of a duodenal ulcer that required surgery. I am including a copy of my last progress note which was technically a discharge summary, in this note. This is the discharge summary from Ms. Witt's last previous admission. 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 gisell Lawson. It was stage III B. She would not have been a candidate for surgery even if it had been an earlier stage because of severe COPD. She was placed on chemotherapy using Abraxane and carboplatin for 6 courses with the last course being given September 06, 2016. She received Abraxane 160 mg and carboplatin 300 mg IV every 3 weeks. Following that she was treated with radiation therapy which she completed November 19, 2016. We have been following her since that time without proceeding with any additional chemotherapy because of lack of evidence of disease progression. She had a CT of her chest, abdomen and pelvis done on December 19, 2016 did not demonstrate any evidence of distant metastases and it also demonstrated a stable right hilar mass and right lower lobe lung mass. We had initially planned to transfer this patient to a swing bed over a week ago there is on the day we plan to transfer her, she had a large amount of melanotic stool and on evaluation was found to have a perforated duodenal ulcer by Dr. Velásquez that was treated surgically by Dr. HARDING. On this admission, case discussed with Dr. Lawson. We treated with IV antibiotics including Zyvox. Her bronchoscopy cultures were positive for MRSA. She received 2 weeks of intravenous Zyvox, completing the course a couple of days prior to discharge. Her COPD is being managed by Dr. Lawson and her COPD is clearly improving. She has a few scattered rhonchi but these are improved. Her chest moves symmetrically with respiration. There is some faint wheezing in the right posterior base that is slightly more pronounced today than yesterday. Bronchial brushings are back and are class III from 3 separate reports. This is not enough evidence for me to consider resuming chemotherapy or switching her to Opdivo presently. She actually had left lower lateral chest wall and flank pain that has resolved. She is clearly confused. This is probably multifactorial including steroid therapy and her overall debilitation. She is more depressed than confused today. She is angry about having to be here. She has had hypertension and recently had his been more difficult to control. We have used hydralazine as needed but I have not added because her blood pressure seems to be improving. Lab work today includes a White cell count of 6700 with a hemoglobin of 9.0 and a platelet count of 90,000. The absolute neutrophil count is 6000. The comprehensive metabolic profile includes a serum potassium of 3.2 but this is rising. The serum calcium is 7.8 which corresponds with a low serum albumin of 2.8. The rest of the comprehensive metabolic profile is essentially normal. The serum magnesium today is 2.2. She will remain on Zosyn 4.5 grams IV every 6 hours. Diagnosis - Discharge Diagnosis (1) Acute bronchitis/pneumonia (2) MRSA sepsis treated with approximately 2 weeks of Zyvox (3) COPD (chronic obstructive pulmonary disease) (4) perforated duodenal ulcer with acute GI bleed (5) Squamous cell carcinoma of right lung without definite evidence of recurrence. Bronchial brushings were class III during this hospital stay. (6) left chest pain of indefinite etiology that has now resolved. (7)dehydration/renal failure: (8) confusion: (9) Hypertension : (10)Malnutrition: Exam - Constitutional Vitals: Period Temp Pulse Resp BP Sys/Wilcox Pulse Ox Last 24 Hr 98.1 F 100 21 91-98/55-63 98 Results - Labs CBC & BMP: 02/26/17 04:45 02/26/17 04:45
[2017-02-24] MEDS: ALBUTEROL/IPRATROPIUM 3 ML NEB RESP TX SCH ×2 (12:52→19:12)
--- NOTE | 2017-02-24 13:42 | Operative Note ---
Date of procedure: 02/24/17 Pre-op diagnosis: Ileus with inability to pass NG tube Post-op diagnosis: other (large hiatus hernia; successful passage of NGT) Procedure: EGD with passage of NGT Implants: NGT Anesthesia: MAC Surgeon / Physician: Grover Hale Estimated blood loss: none Condition: stable Disposition: ICU Discharge Plan - Discharge Medications No Action dilTIAZem HCl [Cartia XT] 1 tablet PO DAILY fentaNYL 25 MCG/HR PATCH [Duragesic 25 Patch] 1 patch TRANSDERM Q3DAY patch HYDROmorphone INJ [Dilaudid Inj] 1 mg IV Q2H Spironolactone [Aldactone] 25 mg PO BID Clarithromycin 500 mg PO BID Amoxicillin Cap/Tab 1,000 mg PO Q12HR capsule HYDROcodone/ACETAMIN 7.5-325 [[place] 7.5-325] 1 tablet PO Q4H PRN tablet PRN Reason: Pain Moderate (4-7) Levothyroxine Inj [Synthroid Inj] 100 mcg IV DAILY@0700 vial Pantoprazole Tab [Protonix Tab] 40 mg PO BID tablet Skin Healing Oint (Aquaphor) [Aquaphor] 1 applic TOP PRN PRN applic PRN Reason: Dry Skin Albuterol/Ipratropium Neb [Duoneb] 3 ml RESP TX RT Q6H Albumin 25% 25 gm IV Q8H vial Furosemide Inj [Lasix Inj] 20 mg IV Q8H vial Promethazine Inj [Phenergan Inj] 25 mg IM Q4H PRN vial PRN Reason: Nausea/Vomiting - Follow Up or Referral - Forms/Instructions Note Addendum: RevPLEASE NOTE -- automatic citation of patient information is unavoidable in this electronic note. I have made a reasonable effort to review the information cited, but it is not a part of my evaluation, impression, or recommendation unless specifically discussed in the dictated text that follows. As well, voice recognition software was used in the creation of this clinical note. Reasonable effort was made to identify and correct gross errors. Despite proofreading, errors in preparation center coordinator may be present, including nonsense verbiage at times. If you encounter such an error, please contact me at for discussion and correction. -- Geoffrey Chief complaint: ileus with inability to pass nasogastric tube Subjective: the patient is an 81-year-old female seen by consultation with general surgery for placement of a nasogastric tube in the setting of persistent ileus. Multiple attempts have been made to pass the tube in the standard fashion and these have been unsuccessful. The patient was previously seen by Dr. Velásquez for Opera gastrointestinal bleeding and with diagnosis made of perforated duodenal ulcer. The patient subsequently underwent surgical repair and transferred to rehab but has developed this ileus is in need of definitive therapy with NG decompression. Medications: fentanyl, diltiazem, Aldactone, Phenergen, Protonix, Synthroid, Dilaudid, Lasix, clarithromycin, amoxicillin, albuterol Review of Symptoms: 12 point review of symptoms was negative except as noted above Physical examination: Vital Signs: Current vital signs reviewed. General Appearance: well-appearing. Not acutely ill. Head: Normocephalic. Eyes: no scleral icterus. No scleral injection. No conjunctival pallor. Oral Cavity: Odor of breath was normal. No drooling was observed. Lips showed no abnormalities. Lungs: Respiration rhythm and depth was normal. Cardiovascular: Heart rate and rhythm were normal. Abdomen: abdomen was not distended. Abdominal auscultation revealed no abnormalities. Ascites was not discovered. Abdominal palpation revealed no tenderness and no hepatosplenomegaly. Musculoskeletal System: musculoskeletal system was grossly normal. Neurological: level of consciousness was normal. Speech was normal. No coordination/cerebellum abnormalities were noted. Skin: Gen. appearance was normal. Color and pigmentation were normal. No skin lesions were appreciated. Laboratory: reviewed Radiology: reviewed Impressions: 1. Ileus I have discussed the case with the patient's surgeon, Dr. Dawn, who confirms that it is urgent this tube be placed and we will proceed with endoscopic evaluation to accomplish same. 2. Other specified counseling -- Patient seen for greater than 30 minutes. Greater than 50% of this time was spent counseling regarding differential diagnosis, likely diagnosis,, diagnostic and therapeutic options, risks, benefits, and alternatives to procedures and medications, informed consent, and plan of care generally. Patient has expressed understanding and wishes to proceed. ENDOSCOPIC REPORT PREOPERATIVE DIAGNOSIS: ILEUS WITH INABILITY TO PASS NASOGASTRIC TUBE POSTOPERATIVE DIAGNOSES: LARGE HIATUS HERNIA; SUCCESSFUL PASSAGE OF NASOGASTRIC TUBE PHYSICIAN: GROVER HALE M.D. PRE-OP VITALS: SEE ANESTHESIA FLOWSHEET ASA: IIIE PROCEDURE TIMES: SEE ANESTHESIA FLOWSHEET ANESTHESIA: SEE ANESTHESIA FLOWSHEET OPERATION PERFORMED: EGD WITH PASSAGE OF NASOGASTRIC TUBE DATE OF SURGERY: FEBRUARY 24, 2017 OPERATIVE INDICATIONS: ileus with inability to pass nasogastric tube for therapeutic endoscopy OPERATIVE FINDINGS: -- Duodenum: clean based ulcer diffuse mild inflammation some retained semi liquid material -- Antrum: non-ulcerative gastritis some retained liquid material -- Body: non-ulcerative gastritis some retained liquid material -- Fundus: non-ulcerative gastritis -- GE junction: large hiatus hernia, sliding type standard nasogastric tube was passed easily and taken into the gastric antrum under direct visualization -- Esophagus: normal endoscopic appearance SPECIMENS: none OPERATIVE PROCEDURE: The procedure was performed in the intensive care unit. Details of the procedure , alternatives, benefits and risks to include but not limited to bleeding, infection, perforation, need for emergency surgery, need for other procedures, possibility of an incomplete examination, possibility of misdiagnosis, and possibility of were discussed with the patient in simple terms. The patient reported understanding and freely consented to the procedure. All questions were answered. Informed consent was signed and the form is on the chart. The patient was placed in the left lateral decubitus position and sedation was administered by the anesthesia service who also monitored the patient throughout the procedure. Blood pressure, pulse and pulse oximetry were monitored throughout the entire procedure. The endoscope was introduced into the patients mouth and passed to the third portion of the duodenum under direct visualization without difficulty. There were retained liquid contents in the hiatus hernia and gastric body. Careful examination of all sections of the upper gastrointestinal mucosa traversed during the exam was performed on withdrawal of the endoscopy. Retroflexion exam was performed. Other interventions were performed as documented above. The patient tolerated the procedure well. There was no immediate evidence of complication. After the procedure, the patient remained in the intensive care unit. Recommendations are as follows: -- Nasogastric decompression via low intermittent suction -- continue proton pump inhibitor -- postsurgical management per your discretion -- we will sign off. Please contact Dr. Velásquez with any further needs. GROVER HALE MD STAFF TELEMETRY TECHNICIAN liam
--- NOTE | 2017-02-24 13:49 | Anesthesia Post-Op ---
Anesthesia Post OP - Post Ansesthetic Evaluation Patient seen in post op: Yes Resp: within normal limits CV: within normal limits Mental: within normal limits Temp: within normal limits [id number]: within normal limits Nausea and Vomiting: within normal limits Pain: within normal limits
[2017-02-24] MEDS: PANTOPRAZOLE 40 MG VIAL IV SCH ×2 (14:17→20:33)
[2017-02-24] MEDS: PIPERACILLIN/TAZOBACTAM 3,375 MG in SODIUM CHLORIDE 0.9% 100 ML IV SCH ×2 (14:18→20:33)
[2017-02-24] MEDS ORDERED: ALBUMIN 5% 25 GM in PREMIX 1 EACH IV ONE (17:08)
[2017-02-24] MEDS: LACTATED RINGERS 1,000 ML IV SCH (17:20)
[2017-02-24] MEDS: HYDROmorphone 2 MG/1 ML VIAL IV PRN (17:48)
--- NOTE | 2017-02-24 20:04 | General Surg History&Physical ---
Assessment and Plan (1) Pneumatosis intestinalis of small intestine Status: Acute Assessment and plan: This will be treated with antibiotics and bowel rest with NG tube. Dr. Hale is placed an NG tube endoscopically. We will continue to monitor patient and treat her with IV fluids and antibiotics for now. Current Visit: Yes History of Present Illness Chief complaint: Abdominal pain History of present illness: Ms. Witt is a 81 year old female who is recovering from a duodenal ulcer perforation followed by fascial dehiscence requiring repeat operation and developed pneumatosis of her small bowel and abdominal wall erythema. She was treated with NG tube and antibiotics but she has a large hiatal hernia and NG tube was unable to be placed she was transferred back to [facility] for management of this. Home Medications Medication Instructions Recorded Confirmed Type dilTIAZem HCl [Cartia XT] 1 tablet PO DAILY 01/26/17 02/15/17 History Albuterol/Ipratropium Neb [Duoneb] 3 ml RESP TX RT Q6H 02/06/17 02/15/17 Rx fentaNYL 25 MCG/HR PATCH 1 patch TRANSDERM Q3DAY patch 02/06/17 02/15/17 Rx [Duragesic 25 Patch] Clarithromycin 500 mg PO BID 02/15/17 02/15/17 History HYDROmorphone INJ [Dilaudid Inj] 1 mg IV Q2H 02/15/17 02/15/17 History Spironolactone [Aldactone] 25 mg PO BID 02/15/17 02/15/17 History Albumin 25% 25 gm IV Q8H vial 02/18/17 Rx Amoxicillin Cap/Tab 1,000 mg PO Q12HR capsule 02/18/17 Rx Furosemide Inj [Lasix Inj] 20 mg IV Q8H vial 02/18/17 Rx HYDROcodone/ACETAMIN 7.5-325 1 tablet PO Q4H PRN tablet 02/18/17 Rx [[place] 7.5-325] Levothyroxine Inj [Synthroid Inj] 100 mcg IV DAILY@0700 vial 02/18/17 Rx Pantoprazole Tab [Protonix Tab] 40 mg PO BID tablet 02/18/17 Rx Promethazine Inj [Phenergan Inj] 25 mg IM Q4H PRN vial 02/18/17 Rx Skin Healing Oint (Aquaphor) 1 applic TOP PRN PRN applic 02/18/17 Rx [Aquaphor] Allergies Allergy/AdvReac Type Severity Reaction Status Date / Time No Known Allergies Allergy Verified 10/01/16 07:19 Medical,Surgical,& Family Hx - Medical History Cardio: History of: Cardiac Dysrhythmia, CHF, Hypertension, Cardiovascular Problems (enlarged heart; cardiomyopathy) Psychological: History of: Depression Neurology: No history of: Seizures Endocrine: History of: Thyroid Disorder Rheumatology: History of;: Rheumatoid Arthritis Respiratory: History of: Bronchitis, COPD, Pneumonia Gastrointestinal: History of: Bowel Obstruction, Gastrointestinal Bleed, GI Problems (ULCER PERFORATED, LAPAROTOMY DONE, THEN WOUND DEHISCENE 02/15/17) Other: History of: Cancer (SQUAMOUS CELL LUNG CA), MRSA, Skin Problems (history of skin abscess left upper leg; Dr. González Jr.) No history of: HIV - Surgical History Cardiac Surgeries: Patient Denies: Femoral-Popliteal Bypass Graft, Cardiac Catheterization, Cardiac Surgery, Carotid Endarterectomy, Internal Defibrillator, Vascular Access Devices HEENT Surgeries: Patient denies: Carotid Endarterectomy - Family History Family History: Reports;: Family Hypertension (uncertain) - Social History Smoking Status: Heavy tobacco smoker Exam - Constitutional Vitals: Period Temp Pulse Resp BP Sys/Wilcox Pulse Ox Last 24 Hr 98.1 F-98.4 F 89-112 12-21 78-123/49-77 93-99 General appearance: normal weight, no acute distress - Head Head exam: Present: normal inspection, normocephalic - Eye Eye exam: Present: EOMI Pupils: Present: MILDRED - ENT ENT exam: Present: normal exam Mouth exam: Present: normal external inspection - Neck Neck exam: Present: normal inspection, trachea midline - Respiratory Respiratory exam: Present: clear to auscultation bilaterally. Absent: accessory muscle use, chest wall tenderness - Cardiovascular Cardiovascular exam: Present: irregular rhythm, tachycardia. Absent: systolic murmur - GI/Abdominal GI/Abdominal exam: Present: tenderness, soft, other (There is abdominal erythema but it is improved from yesterday.). Absent: rebound - Extremities Exam Extremities exam: Present: normal inspection, normal capillary refill - Back Exam Back exam: Present: normal inspection - Neurological Exam Neurological exam: Present: alert, oriented X3 Speech: Present: normal - Skin Skin exam: Present: normal color, warm - Constitutional Constitutional: Present: as per HPI - EENT Nose, mouth and throat: Present: as per HPI - Cardiovascular Cardiovascular: Present: as per HPI - Respiratory Respiratory: Present: as per HPI - Gastrointestinal Gastrointestinal: Present: as per HPI - Genitourinary Genitourinary: Present: as per HPI - Musculoskeletal Musculoskeletal: Present: as per HPI - Neurological Neurological: Present: as per HPI - Endocrine Endocrine: Present: as per HPI Hematologic/Lymphatic: Present: as per HPI
[2017-02-24] MEDS: ACETAMINOPHEN 325 MG TABLET PO PRN (20:51)
[2017-02-25] MEDS: ALBUTEROL/IPRATROPIUM 3 ML NEB RESP TX SCH ×4 (01:12→19:34)
[2017-02-25] MEDS: LACTATED RINGERS 1,000 ML IV SCH ×3 (01:30→22:00)
[2017-02-25] MEDS: HYDROmorphone 2 MG/1 ML VIAL IV PRN ×6 (03:30→18:40)
[2017-02-25 05:18] LABS: Basophils % 0.3 % (0.0-0.8); Eosinophils # 0.1 10*3/uL (0.0-0.87); Eosinophils % 0.8 % (0.00-10.9); Hematocrit 29.2 VOL% (35.7-47.0); Hemoglobin 9.5 GM/DL (12.0-16.0); Immature Granulocytes % 0.8 %; Immature Granulocytes Absolute 0.05 #; Lymphocytes # 0.2 10*3/uL (1.4-4.0); Lymphocytes % 3.6 % (21.3-54.2); Mean Corpuscular HGB Conc 32.5 GM/DL (32-36); Mean Corpuscular Hemoglobin 31 PG (27-34); Mean Corpuscular Volume 94.8 FL (87-102); Mean Platelet Volume 9.5 FL (9.6-12.0); Monocytes # 0.6 10*3/uL (0.11-0.8); Neutrophils % 84.5 % (38.7-73.9); Platelet Count 278 T/CUMM (130-400); Red Blood Count 3.08 MC/CUMM (3.8-5.5); Red Cell Distribution Width 18.6 % (9.3-17.3); White Blood Count 5.9 T/CUMM (4-12)
[2017-02-25 05:51] LABS: Calcium 8.7 MG/DL (8.5-10.1); Osmolality,Calculated 278.8 MOS/KG (273-304); Potassium 3.6 MMOL/L (3.5-5.1)
[2017-02-25] MEDS: PIPERACILLIN/TAZOBACTAM 3,375 MG in SODIUM CHLORIDE 0.9% 100 ML IV SCH ×3 (06:13→22:57)
[2017-02-25 06:15] LABS: Band Neutrophils 13 % (0-10); Eosinophils 1 % (0-10); Lymphocytes 3 % (20-55); Segmented Neutrophils 75 % (50-85); Total Cells Counted 100
[2017-02-25 06:16] LABS: Hypochromasia 1+; Ovalocytes Slight
[2017-02-25 06:17] LABS: Microcytosis 1+
[2017-02-25] MEDS: LEVOTHYROXINE 100 MCG VIAL IV SCH (06:32)
--- NOTE | 2017-02-25 06:57 | Pulmonology Consult Note ---
Assessment and Plan (1) Pneumatosis intestinalis of small intestine Status: Acute Assessment and plan: Defer to surgery on further management. Presently has NG tube in place. May need TPN. Current Visit: Yes (2) COPD (chronic obstructive pulmonary disease) Status: Chronic Assessment and plan: Empiric bronchodilators. Not actively wheezing Current Visit: No (3) Paroxysmal atrial fibrillation Status: Chronic Assessment and plan: Has atrial fibrillation. Rate is around 105-110. 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 Current Visit: No (5) Perforated duodenal ulcer Status: Resolved Assessment and plan: Status post Malik closure. Reoperated for wound dehiscence. Current Visit: No History of Present Illness Chief complaint: Abdominal distention History of present illness: Ms. Witt is a 81 year old female with a history of lung cancer felt to be in remission. She had a right lower lobe pneumonia and MRSA sepsis that was treated. She developed a perforated duodenal ulcer and had surgery for that. He had a wound dehiscence and had repair. She was transferred back to [facility] yesterday because of questionable pneumatosis over the intestines. She is on NG suction and getting IV fluids. Probably needs to start on TPN but will defer to surgery. She also has COPD but is not wheezing at present. Her right lower lobe pneumonia has not cleared radiographically yet but is clinically improved. Home Medications Medication Instructions Recorded Confirmed Type dilTIAZem HCl [Cartia XT] 1 tablet PO DAILY 01/26/17 02/15/17 History Albuterol/Ipratropium Neb [Duoneb] 3 ml RESP TX RT Q6H 02/06/17 02/15/17 Rx fentaNYL 25 MCG/HR PATCH 1 patch TRANSDERM Q3DAY patch 02/06/17 02/15/17 Rx [Duragesic 25 Patch] Clarithromycin 500 mg PO BID 02/15/17 02/15/17 History HYDROmorphone INJ [Dilaudid Inj] 1 mg IV Q2H 02/15/17 02/15/17 History Spironolactone [Aldactone] 25 mg PO BID 02/15/17 02/15/17 History Albumin 25% 25 gm IV Q8H vial 02/18/17 Rx Amoxicillin Cap/Tab 1,000 mg PO Q12HR capsule 02/18/17 Rx Furosemide Inj [Lasix Inj] 20 mg IV Q8H vial 02/18/17 Rx HYDROcodone/ACETAMIN 7.5-325 1 tablet PO Q4H PRN tablet 02/18/17 Rx [[place] 7.5-325] Levothyroxine Inj [Synthroid Inj] 100 mcg IV DAILY@0700 vial 02/18/17 Rx Pantoprazole Tab [Protonix Tab] 40 mg PO BID tablet 02/18/17 Rx Promethazine Inj [Phenergan Inj] 25 mg IM Q4H PRN vial 02/18/17 Rx Skin Healing Oint (Aquaphor) 1 applic TOP PRN PRN applic 02/18/17 Rx [Aquaphor] Allergies Allergy/AdvReac Type Severity Reaction Status Date / Time No Known Allergies Allergy Verified 10/01/16 07:19 - Constitutional Constitutional: Present: fever(s), weakness - Cardiovascular Cardiovascular: Present: dyspnea, dyspnea on exertion - Respiratory Respiratory: Present: cough, dyspnea, dyspnea on exertion, wheezing - Gastrointestinal Gastrointestinal: Present: abdominal pain, nausea Exam (Pulmonay) H&P - Constitutional Vitals: Period Temp Pulse Resp BP Sys/Wilcox Pulse Ox Last 24 Hr 97.6 F-98.6 F 82-118 11-22 78-123/45-77 93-99 Exam: Patient alert and oriented. Systolic blood pressure around 100. Oxygen saturation in mid 90s on nasal oxygen. Pupils react to light. Throat is clear. Neck supple no bruits. Chest shows some rhonchi at the right base. Otherwise clear. Heart rate around 110 and irregular. Abdomen soft mild tenderness. Decreased bowel sounds. Extremities no clubbing cyanosis or edema. Calves nontender. Medical,Surgical,& Family Hx - Medical History Cardio: History of: Cardiac Dysrhythmia, CHF, Hypertension, Cardiovascular Problems (enlarged heart; cardiomyopathy) Psychological: History of: Depression Neurology: No history of: Seizures Endocrine: History of: Thyroid Disorder Rheumatology: History of;: Rheumatoid Arthritis Respiratory: History of: Bronchitis, COPD, Pneumonia Gastrointestinal: History of: Bowel Obstruction, Gastrointestinal Bleed, GI Problems (ULCER PERFORATED, LAPAROTOMY DONE, THEN WOUND DEHISCENE 02/15/17) Other: History of: Cancer (SQUAMOUS CELL LUNG CA), MRSA, Skin Problems (history of skin abscess left upper leg; Dr. González, Jr.) No history of: HIV - Surgical History Cardiac Surgeries: Patient Denies: Femoral-Popliteal Bypass Graft, Cardiac Catheterization, Cardiac Surgery, Carotid Endarterectomy, Internal Defibrillator, Vascular Access Devices HEENT Surgeries: Patient denies: Carotid Endarterectomy - Family History Family History: Reports;: Family Hypertension (uncertain) - Social History Smoking Status: Heavy tobacco smoker Results - Labs CBC & BMP: 02/25/17 04:45 02/25/17 04:15 Lab Results: I have reviewed the past 24 hour labs
--- NOTE | 2017-02-25 07:29 | XRay Report ---
Exam: XR chest 1V portable Indication: Postop laparoscopy Comparison study: 02/24/2017 Findings: Right-sided central line is in similar position with the tip terminating near the central right atrium. The esophagogastric tube is also in similar position. Cardiac silhouette is enlarged. There are bilateral perihilar interstitial opacities with chronic appearing interstitial scarring changes again noted. There is no pneumothorax. Right basilar opacities appear similar to slightly increased from prior likely representing atelectasis and/or pleural effusion. Osseous structures appear stable from prior. Impression: Similar cardiomegaly and basilar opacities with minimal right basilar atelectasis although underlying infiltrates are not excluded. Stable position of support tubes and lines. PROCEDURE INTERPRETED AT [facility] DEPARTMENT OF RADIOLOGY Final Report Signed by: Rony Valladares
[2017-02-25] MEDS: PANTOPRAZOLE 40 MG VIAL IV SCH ×2 (08:02→21:03)
[2017-02-25] MEDS: ENOXAPARIN 30 MG/0.3 ML SYRINGE SUBCUT SCH (08:02)
[2017-02-25] MEDS: LINEZOLID INJ 600 MG in PREMIX 1 EACH IV SCH ×2 (08:50→21:03)
[2017-02-25] MEDS: DILTIAZEM INJ 100 MG in SODIUM CHLORIDE 0.9% 100 ML IV SCH (10:13)
[2017-02-25] MEDS ORDERED: DILTIAZEM INJ 100 MG in SODIUM CHLORIDE 0.9% 100 ML IV SCH (10:30)
[2017-02-25] MEDS ORDERED: GLUCAGON 1 MG VIAL IM PRN (11:27)
[2017-02-25] MEDS: CHLORHEXIDINE 4% SOLN 118 ML BOTTLE TOP SCH (11:27)
[2017-02-25] MEDS ORDERED: DEXTROSE 50% 25 GM/50 ML VIAL IV PRN (11:27)
[2017-02-25] MEDS ORDERED: PHENYLEPHRINE 1 MG/10 ML SYRINGE IV ONE (13:00)
[2017-02-25] MEDS ORDERED: PROPOFOL 200 MG/20 ML VIAL IV ONE (13:00)
[2017-02-25] MEDS ORDERED: ONDANSETRON 4 MG/2 ML VIAL ONE (13:00)
[2017-02-25] MEDS ORDERED: ETOMIDATE 20 MG/10 ML VIAL IV ONE (13:00)
[2017-02-25] MEDS ORDERED: LIDOCAINE 1% 5 ML VIAL ONE (13:00)
[2017-02-25] MEDS: INSULIN REGULAR 100 UNIT/ML SUBCUT SCH ×2 (13:10→18:40)
[2017-02-25] MEDS: FAT EMULSION 20% 250 ML IV SCH (14:17)
[2017-02-25] MEDS: DESITIN 4OZ/NYSTATIN 15 GRAM MIXTURE PASTE TOP SCH (14:17)
[2017-02-25] MEDS ORDERED: DEXTROSE 10% 1,000 ML IV PRN (17:00)
[2017-02-25] MEDS ORDERED: TRACE ELEMENTS (5) 1 ML, MULTIVITAMIN INJ 10 ML in AMINO ACIDS/DEXT/LYTES 5-15% 2,000 ML IV SCH (17:00)
[2017-02-25] MEDS: ONDANSETRON 4 MG/2 ML VIAL IV PRN (19:31)
[2017-02-25] MEDS: HYDROmorphone 2 MG/1 ML VIAL IV SCH ×2 (20:06→22:56)
--- NOTE | 2017-02-25 21:00 | Event Note ---
General Surgery Progress Note Chief complaint This patient is a 81-year-old woman readmitted to [place] ICU with pneumatosis of the small bowel following repair of perforated duodenal ulcer and subsequent repair of fascial dehiscence about 2 weeks ago. Interval history The patient had an NG tube placed endoscopically yesterday and is doing much better today. Her labs are improving. She appears stable. We will start TPN today. NG tube has bilious output. The ulcer on endoscopy yesterday appeared to be healing well. Physical exam Afebrile, tachycardia but no hypotension, A. fib controlled on diltiazem drip Abdominal exam is improved from yesterday. Is decreased. No drainage. Chest clear Heart irregular Extremities with 1+ edema bilaterally Labs Reviewed, improving Imaging None new Assessment and plan Start TPN Continue NG tube and antibiotics for pneumatosis. No surgery is planned Continue ICU care until tomorrow Continue to monitor wound and continue DVT chemoprophylaxis and Protonix twice daily. The patient has completed H. pylori treatment and her ulcer is healing well
[2017-02-26] MEDS: HYDROmorphone 2 MG/1 ML VIAL IV SCH ×13 (00:45→23:56)
[2017-02-26] MEDS: DESITIN 4OZ/NYSTATIN 15 GRAM MIXTURE PASTE TOP SCH ×3 (01:13→22:22)
[2017-02-26] MEDS: ALBUTEROL/IPRATROPIUM 3 ML NEB RESP TX SCH ×4 (02:00→19:28)
[2017-02-26] MEDS: LACTATED RINGERS 1,000 ML IV SCH ×2 (02:09→20:03)
[2017-02-26] MEDS: INSULIN REGULAR 100 UNIT/ML SUBCUT SCH ×4 (02:31→17:02)
[2017-02-26] MEDS: DILTIAZEM INJ 100 MG in SODIUM CHLORIDE 0.9% 100 ML IV SCH ×2 (05:31→17:03)
[2017-02-26 05:39] LABS: Basophils % 0.3 % (0.0-0.8); Eosinophils # 0.1 10*3/uL (0.0-0.87); Eosinophils % 1.1 % (0.00-10.9); Hematocrit 28.2 VOL% (35.7-47.0); Hemoglobin 9.1 GM/DL (12.0-16.0); Immature Granulocytes % 1.8 %; Immature Granulocytes Absolute 0.11 #; Lymphocytes # 0.4 10*3/uL (1.4-4.0); Lymphocytes % 5.7 % (21.3-54.2); Mean Corpuscular HGB Conc 32.3 GM/DL (32-36); Mean Corpuscular Hemoglobin 30 PG (27-34); Mean Corpuscular Volume 94.3 FL (87-102); Mean Platelet Volume 9.7 FL (9.6-12.0); Monocytes # 0.5 10*3/uL (0.11-0.8); Monocytes % 7.5 % (1.7-12.7); Neutrophils # 5.2 10*3/uL (1.4-7.4); Neutrophils % 83.6 % (38.7-73.9); Platelet Count 309 T/CUMM (130-400); Red Blood Count 2.99 MC/CUMM (3.8-5.5); Red Cell Distribution Width 18.3 % (9.3-17.3); White Blood Count 6.3 T/CUMM (4-12)
[2017-02-26 06:18] LABS: Band Neutrophils 21 % (0-10); Eosinophils 1 % (0-10); Hypochromasia Slight; Lymphocytes 2 % (20-55); Microcytosis 1+; Platelet Estimate Adequate; Polychromasia Slight; Segmented Neutrophils 68 % (50-85); Total Cells Counted 100
[2017-02-26] MEDS: PIPERACILLIN/TAZOBACTAM 3,375 MG in SODIUM CHLORIDE 0.9% 100 ML IV SCH ×3 (06:19→22:21)
[2017-02-26 06:42] LABS: Phosphorous 2.5 MG/DL (2.5-4.9); Prealbumin 9.3 MG/DL (20-40)
[2017-02-26 06:44] LABS: Calcium 8.7 MG/DL (8.5-10.1); Osmolality,Calculated 278.7 MOS/KG (273-304); Potassium 3.8 MMOL/L (3.5-5.1)
[2017-02-26] MEDS: LEVOTHYROXINE 100 MCG VIAL IV SCH (06:56)
--- NOTE | 2017-02-26 08:26 | Pulmonology Progress Note ---
Pulmonary - PN: Subj Interval history: This 81-year-old white female has a history of lung cancer. She had bronchopneumonia which is markedly improved. She developed a perforated duodenal ulcer. She has had surgery and then dehiscence. She is not able to tolerate feedings at present. Appears to have an ileus. Getting TPN. Has some abdominal pain. No other new complaints. Exam (Progress Note) - Constitutional Vitals: Period Temp Pulse Resp BP Sys/Wilcox Pulse Ox Last 24 Hr 97.0 F-98.8 F 77-122 12-27 93-126/60-81 85-99 Exam: Patient's alert and oriented. Vital signs normal. Pupils react to light. Throat is clear. Neck supple no bruits. Chest reveals decreased breath sounds at the right base. Long expiratory phase. No wheezing. Heart normal rate rhythm no murmurs. Abdomen is soft. I do not hear bowel sounds. Mild direct tenderness on the right side. Extremities no clubbing cyanosis edema. Calves nontender. Results - Labs CBC & BMP: 02/26/17 04:45 02/26/17 04:45 Lab Results: I have reviewed the past 24 hour labs Assessment and Plan (1) Pneumatosis intestinalis of small intestine Status: Acute Assessment and plan: Defer to surgery on further management. Presently has NG tube in place. May need TPN. 02/26/2017 patient on TPN. Current Visit: Yes (2) COPD (chronic obstructive pulmonary disease) Status: Chronic Assessment and plan: Empiric bronchodilators. Not actively wheezing 02/26/2017 continuing bronchodilators. No active bronchospasm. Current Visit: No (3) Paroxysmal atrial fibrillation Status: Chronic Assessment and plan: Has atrial fibrillation. Rate is around 105-110. 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 02/26/2017 this is probably in remission. Had class III cytology from brushings right lower lobe a few weeks ago. Current Visit: No (5) Perforated duodenal ulcer Status: Resolved Assessment and plan: Status post Malik closure. Reoperated for wound dehiscence. 02/26/2017 status post Malik repair with complications of wound dehiscence and intestinal pneumatosis. Presently has ileus. Current Visit: No
[2017-02-26] MEDS: PANTOPRAZOLE 40 MG VIAL IV SCH ×2 (08:35→22:19)
[2017-02-26] MEDS: ENOXAPARIN 30 MG/0.3 ML SYRINGE SUBCUT SCH (08:38)
[2017-02-26] MEDS: LINEZOLID INJ 600 MG in PREMIX 1 EACH IV SCH ×2 (10:37→20:22)
[2017-02-26] MEDS: CHLORHEXIDINE 4% SOLN 118 ML BOTTLE TOP SCH (16:35)
[2017-02-26] MEDS: FAT EMULSION 20% 250 ML IV SCH (18:30)
--- NOTE | 2017-02-26 19:38 | Event Note ---
General Surgery Progress Note Chief complaint This patient is a 81-year-old woman readmitted to [place] ICU with pneumatosis of the small bowel following repair of perforated duodenal ulcer and subsequent repair of fascial dehiscence about 2 weeks ago. Interval history No events overnight. NG tube continues to have bilious output. Labs continue to improve. Urine output is adequate. Patient feels better with less distention of less abdominal pain. Physical exam Afebrile, tachycardia but no hypotension, A. fib controlled on diltiazem drip Abdominal exam is improved from yesterday. Distention and erythema are decreased. No drainage. JAVIER drain is serous I am Chest clear Heart irregular Extremities with 1+ edema bilaterally Labs Reviewed, improving Imaging None new Assessment and plan Continue current management Move NG tube tomorrow if output is low
[2017-02-26] MEDS: TRACE ELEMENTS (5) 1 ML, MULTIVITAMIN INJ 10 ML in AMINO ACIDS/DEXT/LYTES 5-15% 2,000 ML IV SCH (22:49)
[2017-02-27] MEDS: INSULIN REGULAR 100 UNIT/ML SUBCUT SCH ×4 (00:02→18:50)
[2017-02-27] MEDS: HYDROmorphone 2 MG/1 ML VIAL IV SCH ×11 (01:55→22:07)
[2017-02-27] MEDS: ALBUTEROL/IPRATROPIUM 3 ML NEB RESP TX SCH ×4 (02:00→18:57)
[2017-02-27] MEDS: LACTATED RINGERS 1,000 ML IV SCH (04:09)
[2017-02-27 04:44] LABS: Basophils % 0.6 % (0.0-0.8); Eosinophils % 0.6 % (0.00-10.9); Hematocrit 32.2 VOL% (35.7-47.0); Hemoglobin 10.5 GM/DL (12.0-16.0); Immature Granulocytes % 4.6 %; Immature Granulocytes Absolute 0.33 #; Lymphocytes # 0.4 10*3/uL (1.4-4.0); Mean Corpuscular HGB Conc 32.6 GM/DL (32-36); Mean Corpuscular Hemoglobin 31 PG (27-34); Mean Corpuscular Volume 94.7 FL (87-102); Mean Platelet Volume 9.7 FL (9.6-12.0); Monocytes # 0.6 10*3/uL (0.11-0.8); Monocytes % 8.1 % (1.7-12.7); Neutrophils # 5.8 10*3/uL (1.4-7.4); Neutrophils % 80.1 % (38.7-73.9); Platelet Count 341 T/CUMM (130-400); Red Cell Distribution Width 18.2 % (9.3-17.3); White Blood Count 7.2 T/CUMM (4-12)
[2017-02-27 05:18] LABS: Calcium 9.2 MG/DL (8.5-10.1); Magnesium 1.9 MG/DL (1.8-2.4); Osmolality,Calculated 277.7 MOS/KG (273-304); Potassium 3.7 MMOL/L (3.5-5.1)
[2017-02-27 05:38] LABS: Anisocytosis 1+; Ovalocytes Few; Platelet Estimate Normal
[2017-02-27] MEDS: PIPERACILLIN/TAZOBACTAM 3,375 MG in SODIUM CHLORIDE 0.9% 100 ML IV SCH ×3 (05:41→22:07)
[2017-02-27] MEDS: LEVOTHYROXINE 100 MCG VIAL IV SCH (06:09)
[2017-02-27] MEDS: DILTIAZEM INJ 100 MG in SODIUM CHLORIDE 0.9% 100 ML IV SCH ×2 (06:51→15:00)
--- NOTE | 2017-02-27 07:38 | Event Note ---
General Surgery Progress Note Chief complaint This patient is a 81-year-old woman readmitted to [place] ICU with pneumatosis of the small bowel following repair of perforated duodenal ulcer and subsequent repair of fascial dehiscence about 2 weeks ago. Interval history No events overnight. Patient has a lot of complaints today including abdominal pain and wanting to eat. She pulled out her NG tube last night. Her heart rate was up to 153 at one point but for some reason her diltiazem drip was not restarted. This is in the process of being restarted when I see her. Physical exam Afebrile, tachycardia but no hypotension, A. fib is uncontrolled and diltiazem drip is off Abdominal exam is improved from yesterday. Distention has resolved and erythema are stable. No drainage. JAVIER drains are serous Chest clear Heart irregular Extremities with 1+ edema bilaterally Labs Reviewed Imaging None new Assessment and plan Mechanical soft diet Continue antibiotics Increase activity and DC [place] Restart physical therapy
[2017-02-27] MEDS ORDERED: DEXT 5% NACL 0.45% KCL 40 MEQ 40 MEQ/1,000 ML BAG IV SCH (08:00)
--- NOTE | 2017-02-27 08:28 | Pulmonology Progress Note ---
Pulmonary - PN: Subj Interval history: This 81-year-old white female has a history of lung cancer. She had bronchopneumonia which is markedly improved. She developed a perforated duodenal ulcer. She has had surgery and then dehiscence. She is not able to tolerate feedings at present. Appears to have an ileus. Getting TPN. Has some abdominal pain. No other new complaints. 02/27/2017 patient feeling better and is hungry. She removed her own NG last night. She continues to get TPN but will be started on some oral feedings. Has a small residual right pleural effusion. Really not short of breath at this time. She does get a bit confused. Exam (Progress Note) - Constitutional Vitals: Period Temp Pulse Resp BP Sys/Wilcox Pulse Ox Last 24 Hr 96.5 F-100.3 F 75-153 16-20 104-158/56-94 90-99 Exam: Patient's alert and oriented. Vital signs normal. Pupils react to light. Throat is clear. Neck supple no bruits. Chest reveals decreased breath sounds at the right base. Long expiratory phase. No wheezing. Heart normal rate rhythm no murmurs. Abdomen is soft. I do hear bowel sounds. Mild direct tenderness on the right side. Extremities no clubbing cyanosis edema. Calves nontender. Results - Labs CBC & BMP: 02/27/17 03:54 02/27/17 03:54 Lab Results: I have reviewed the past 24 hour labs Assessment and Plan (1) Pneumatosis intestinalis of small intestine Status: Acute Assessment and plan: Defer to surgery on further management. Presently has NG tube in place. May need TPN. 02/26/2017 patient on TPN. 02/27/2017 status post reoperation. Continuing the TPN. Try oral feedings. Current Visit: Yes (2) COPD (chronic obstructive pulmonary disease) Status: Chronic Assessment and plan: Empiric bronchodilators. Not actively wheezing 02/26/2017 continuing bronchodilators. No active bronchospasm. 02/27/2017 continuing with bronchodilators no active bronchospasm. Current Visit: No (3) Paroxysmal atrial fibrillation Status: Chronic Assessment and plan: Has atrial fibrillation. Rate is around 105-110. 02/27/2017 rate got up to 150 earlier this morning is back close to normal now. 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 02/26/2017 this is probably in remission. Had class III cytology from brushings right lower lobe a few weeks ago. Current Visit: No (5) Perforated duodenal ulcer Status: Resolved Assessment and plan: Status post Malik closure. Reoperated for wound dehiscence. 02/26/2017 status post Malik repair with complications of wound dehiscence and intestinal pneumatosis. Presently has ileus. 02/27/2017 status post repair. Ileus resolving Current Visit: No
[2017-02-27] MEDS: PANTOPRAZOLE 40 MG VIAL IV SCH ×2 (09:25→20:26)
[2017-02-27] MEDS: fentaNYL 25 MCG/HR PATCH TRANSDERM SCH (09:28)
[2017-02-27] MEDS: ENOXAPARIN 40 MG/0.4 ML SYRINGE SUBCUT SCH (09:28)
[2017-02-27] MEDS: LINEZOLID INJ 600 MG in PREMIX 1 EACH IV SCH ×2 (10:33→20:27)
[2017-02-27] MEDS: DESITIN 4OZ/NYSTATIN 15 GRAM MIXTURE PASTE TOP SCH ×2 (11:52→20:27)
[2017-02-27] MEDS: CHLORHEXIDINE 4% SOLN 118 ML BOTTLE TOP SCH (16:12)
[2017-02-27] MEDS: TRACE ELEMENTS (5) 1 ML, MULTIVITAMIN INJ 10 ML in AMINO ACIDS/DEXT/LYTES 5-15% 2,000 ML IV SCH (17:21)
[2017-02-27] MEDS: FAT EMULSION 20% 250 ML IV SCH (17:21)
[2017-02-27] MEDS: ACETAMINOPHEN 325 MG TABLET PO PRN (17:22)
[2017-02-28] MEDS: INSULIN REGULAR 100 UNIT/ML SUBCUT SCH ×4 (00:01→18:37)
[2017-02-28] MEDS: DILTIAZEM INJ 100 MG in SODIUM CHLORIDE 0.9% 100 ML IV SCH ×3 (00:02→17:32)
[2017-02-28] MEDS: HYDROmorphone 2 MG/1 ML VIAL IV SCH ×12 (00:03→23:56)
[2017-02-28] MEDS: PROMETHAZINE 25 MG/1 ML VIAL IM PRN ×2 (00:03→17:33)
[2017-02-28] MEDS: ALBUTEROL/IPRATROPIUM 3 ML NEB RESP TX SCH ×4 (00:32→20:20)
[2017-02-28] MEDS: PIPERACILLIN/TAZOBACTAM 3,375 MG in SODIUM CHLORIDE 0.9% 100 ML IV SCH ×3 (06:31→21:44)
[2017-02-28] MEDS: LEVOTHYROXINE 100 MCG VIAL IV SCH (06:36)
--- NOTE | 2017-02-28 07:42 | Pulmonology Progress Note ---
Pulmonary - PN: Subj Interval history: This 81-year-old white female has a history of lung cancer. She had bronchopneumonia which is markedly improved. She developed a perforated duodenal ulcer. She has had surgery and then dehiscence. She is not able to tolerate feedings at present. Appears to have an ileus. Getting TPN. Has some abdominal pain. No other new complaints. 02/27/2017 patient feeling better and is hungry. She removed her own NG last night. She continues to get TPN but will be started on some oral feedings. Has a small residual right pleural effusion. Really not short of breath at this time. She does get a bit confused. 02/28/2017 patient is starting to eat a little bit better. Says she feels better. No new complaints. Exam (Progress Note) - Constitutional Vitals: Period Temp Pulse Resp BP Sys/Wilcox Pulse Ox Last 24 Hr 98.4 F-100.3 F 79-110 16-20 108-137/58-80 90-99 Exam: Patient's alert and oriented. Vital signs normal. Pupils react to light. Throat is clear. Neck supple no bruits. Chest reveals decreased breath sounds at the right base. Long expiratory phase. No wheezing. Heart normal rate rhythm no murmurs. Abdomen is soft. I do hear bowel sounds. Mild direct tenderness on the right side. Extremities no clubbing cyanosis edema. Calves nontender. Little change from yesterday. Results - Labs CBC & BMP: 02/27/17 03:54 02/27/17 03:54 Lab Results: I have reviewed the past 24 hour labs Assessment and Plan (1) Pneumatosis intestinalis of small intestine Status: Acute Assessment and plan: Defer to surgery on further management. Presently has NG tube in place. May need TPN. 02/26/2017 patient on TPN. 02/27/2017 status post reoperation. Continuing the TPN. Try oral feedings. 02/28/2017 taking a little more by mouth. He should continue TPN for now. Current Visit: Yes (2) COPD (chronic obstructive pulmonary disease) Status: Chronic Assessment and plan: Empiric bronchodilators. Not actively wheezing 02/26/2017 continuing bronchodilators. No active bronchospasm. 02/27/2017 continuing with bronchodilators no active bronchospasm. 02/28/2017 no bronchospasm Current Visit: No (3) Paroxysmal atrial fibrillation Status: Chronic Assessment and plan: Has atrial fibrillation. Rate is around 105-110. 02/27/2017 rate got up to 150 earlier this morning is back close to normal now. 02/28/2017 heart rate in normal range. 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 02/26/2017 this is probably in remission. Had class III cytology from brushings right lower lobe a few weeks ago. Current Visit: No (5) Perforated duodenal ulcer Status: Resolved Assessment and plan: Status post Malik closure. Reoperated for wound dehiscence. 02/26/2017 status post Malik repair with complications of wound dehiscence and intestinal pneumatosis. Presently has ileus. 02/27/2017 status post repair. Ileus resolving 02/28/17 post repair. Current Visit: No
--- NOTE | 2017-02-28 08:19 | Oncology Progress Note ---
Oncology Subjective PN Interval history: I visited Ms. Witt socially today. Her NG tube is out. She looks reasonably good. She has an unreasonable expectation of being able to go home however. Exam - Constitutional Vitals: Period Temp Pulse Resp BP Sys/Wilcox Pulse Ox Last 24 Hr 99 F-100.3 F 79-110 16-20 108-137/58-79 90-99 Results - Labs CBC & BMP: 02/27/17 03:54 02/27/17 03:54
[2017-02-28] MEDS: DESITIN 4OZ/NYSTATIN 15 GRAM MIXTURE PASTE TOP SCH ×2 (10:20→20:29)
[2017-02-28] MEDS: LINEZOLID INJ 600 MG in PREMIX 1 EACH IV SCH ×2 (10:44→20:28)
[2017-02-28] MEDS: PANTOPRAZOLE 40 MG VIAL IV SCH ×2 (10:46→20:28)
[2017-02-28] MEDS: DILTIAZEM CD 180 MG CAPSULE PO SCH (10:46)
--- NOTE | 2017-02-28 10:48 | Discharge Summary ---
Hospital Course - Hospital Course Hospital Course: Ms. Witt is an 81-year-old white female who was at [facility] recovering from a duodenal ulcer perforation followed by fascial dehiscence requiring repeat operation when she developed pneumatosis of the small bowel and abdominal wall erythema. She was treated with NG tube and antibiotics and had a large hiatal hernia and NG tube was unable to be placed. She was transferred back to [facility] on 02/24/2017 for management of this. Dr. Hale from GI was able to place NG tube endoscopically. She is now tolerating a mechanical soft diet with no nausea or vomiting. She is working with physical therapy. Her wound looks good and her retention sutures are intact. She still has 2 JAVIER drains with moderate drainage. She will be transferred back to [facility] for IV antibiotics, rehab, and TPN for continued recovery. Dr. Hoffman from oncology and Dr. Lawson from pulmonary both followed her during this hospital stay. Care coordination, chart review, and completed discharge paperwork took approximately 42 minutes. - Time spent with patient Time with patient DS: Greater than 30 minutes Diagnosis - Discharge Diagnosis (1) Perforated duodenal ulcer Status: Resolved (2) Dehiscence of fascia Status: Resolved (3) Pneumatosis intestinalis of small intestine Status: Resolved Discharge Plan - Discharge Data Disposition: Disch/Xfer to [facility] Condition at Discharge: Stable Discharge Diet: other (Mechanical soft diet) Activity: as per physical therapy Hygiene: may shower Contact your physician if you experience:: fever over 101, Redness or swelling, Nausea/Vomiting Wound / Dressing Care Instructions: Shower or clean daily with mild soap and water and rinse thoroughly. Cover with ABD pad and tape was stressing - Discharge Medications New Diltiazem Cd Cap [Cardizem CD] 180 mg PO DAILY capsule Enoxaparin [Lovenox] 40 mg SUBCUT Q24H syringe HYDROcodone/ACETAMIN 7.5-325 [Newell 7.5-325] 1 tablet PO Q4H PRN tablet PRN Reason: Pain Moderate (4-7) HYDROmorphone INJ [Dilaudid Inj] 2 mg IV Q2H vial Multivitamin Inj 10 ml IV .Q24H vial Ondansetron Inj [Zofran Inj] 4 mg IV Q6H PRN vial PRN Reason: Nausea/Vomiting Pantoprazole Inj [Protonix Inj] 40 mg IV BID vial Promethazine Inj [Phenergan Inj] 25 mg IM Q4H PRN vial PRN Reason: Nausea/Vomiting Acetaminophen Tab [Tylenol Tab] 650 mg PO Q6H PRN tablet PRN Reason: Pain Mild (1-3) And/Or Fever Chlorhexidine 4% Soln [Hibiclens] 1 applic TOP DAILY applic Linezolid Inj [Zyvox Inj] 600 mg IV Q12H Piperacillin/Tazobactam [Zosyn] 3,375 mg IV Q8H vial Continue fentaNYL 25 MCG/HR PATCH [Duragesic 25 Patch] 1 patch TRANSDERM Q3DAY patch Levothyroxine Inj [Synthroid Inj] 100 mcg IV DAILY@0700 vial Albuterol/Ipratropium Neb [Duoneb] 3 ml RESP TX RT Q6H Discontinued dilTIAZem HCl [Cartia XT] 1 tablet PO DAILY HYDROmorphone INJ [Dilaudid Inj] 1 mg IV Q2H Spironolactone [Aldactone] 25 mg PO BID Clarithromycin 500 mg PO BID Amoxicillin Cap/Tab 1,000 mg PO Q12HR capsule HYDROcodone/ACETAMIN 7.5-325 [Newell 7.5-325] 1 tablet PO Q4H PRN tablet PRN Reason: Pain Moderate (4-7) Pantoprazole Tab [Protonix Tab] 40 mg PO BID tablet Skin Healing Oint (Aquaphor) [Aquaphor] 1 applic TOP PRN PRN applic PRN Reason: Dry Skin Albumin 25% 25 gm IV Q8H vial Furosemide Inj [Lasix Inj] 20 mg IV Q8H vial Promethazine Inj [Phenergan Inj] 25 mg IM Q4H PRN vial PRN Reason: Nausea/Vomiting - Follow Up or Referral Follow Up: Jordan Dawn MD [Physician] - (notify md of room number) Erasto Hoffman MD [Physician] - (notify of room number) Bipin Lawson MD [Physician] - (notify of room number) - Forms/Instructions Exam - Constitutional Vitals: Period Temp Pulse Resp BP Sys/Wilcox Pulse Ox Last 24 Hr 97.8 F-100.3 F 79-113 16-20 108-145/58-88 90-99 Exam: 81-year-old white female, no acute distress, alert and oriented Chest clear with no wheezing CV regular rate and rhythm Abdomen soft, appropriately tender, good bowel sounds, retention sutures intact , erythema improved Extremities no edema Discharge Results Labs on day of discharge: Labs from last 24 hours 02/28/17 02/28/17 02/27/17 06:22 00:02 18:42 POC Glucose 146 H 135 H 191 H DS: Provider Date of admission: 02/24/17 10:48 Primary care physician: Teddy Carbone MD Attending physician on admission: Jordan Dawn MD Consults: 02/24/17 11:55 Consult to Physician [CONS] Routine Comment: NG tube placement Consulting Provider: Grover Hale V 02/24/17 11:59 Consult to Anesthesiology [CONS] Routine Consulting Provider: Carlos Evans Reason for Anesthesiology: Pre-op Clearance 02/25/17 09:07 Consult to Dietitian [CONS] Routine Reason for Dietitian: TPN/PPN-Initiate/Manage 02/25/17 18:31 Consult to Physical Therapy [CONS] Routine Reason for Physical Therapy: Evaluate and Treat Start Therapy: Today Consult Comment: wants her up on side of bed tomorrow Discharging clinician: RADHA Yañez Expected date of discharge: 02/28/17
[2017-02-28] MEDS: CHLORHEXIDINE 4% SOLN 118 ML BOTTLE TOP SCH (12:31)
[2017-02-28] MEDS: ENOXAPARIN 40 MG/0.4 ML SYRINGE SUBCUT SCH (12:31)
[2017-02-28] MEDS: FAT EMULSION 20% 250 ML IV SCH (14:50)
[2017-02-28] MEDS: ONDANSETRON 4 MG/2 ML VIAL IV PRN (16:05)
[2017-02-28] MEDS: ACETAMINOPHEN 650 MG SUPP RECTAL PRN (16:05)
[2017-02-28] MEDS: TRACE ELEMENTS (5) 1 ML, MULTIVITAMIN INJ 10 ML in AMINO ACIDS/DEXT/LYTES 5-15% 2,000 ML IV SCH (17:13)
[2017-03-01] MEDS: INSULIN REGULAR 100 UNIT/ML SUBCUT SCH ×4 (00:44→18:35)
[2017-03-01] MEDS: DILTIAZEM INJ 100 MG in SODIUM CHLORIDE 0.9% 100 ML IV SCH ×3 (01:21→17:24)
[2017-03-01] MEDS: HYDROmorphone 2 MG/1 ML VIAL IV SCH ×6 (02:00→13:11)
[2017-03-01] MEDS: ALBUTEROL/IPRATROPIUM 3 ML NEB RESP TX SCH ×4 (02:11→19:00)
[2017-03-01] MEDS: LEVOTHYROXINE 100 MCG VIAL IV SCH (06:06)
[2017-03-01] MEDS: PIPERACILLIN/TAZOBACTAM 3,375 MG in SODIUM CHLORIDE 0.9% 100 ML IV SCH ×3 (06:06→22:45)
[2017-03-01] MEDS: ONDANSETRON 4 MG/2 ML VIAL IV PRN (06:12)
[2017-03-01 07:25] LABS: Basophils % 0.4 % (0.0-0.8); Hematocrit 30.7 VOL% (35.7-47.0); Immature Granulocytes % 10.3 %; Immature Granulocytes Absolute 0.79 #; Lymphocytes # 0.3 10*3/uL (1.4-4.0); Lymphocytes % 3.7 % (21.3-54.2); Mean Corpuscular HGB Conc 32.6 GM/DL (32-36); Mean Corpuscular Hemoglobin 31 PG (27-34); Mean Corpuscular Volume 94.5 FL (87-102); Mean Platelet Volume 9.5 FL (9.6-12.0); Monocytes # 0.4 10*3/uL (0.11-0.8); Monocytes % 5.1 % (1.7-12.7); NRBC # 0.02 10*3/uL; Neutrophils # 6.2 10*3/uL (1.4-7.4); Neutrophils % 80.5 % (38.7-73.9); Platelet Count 248 T/CUMM (130-400); Red Blood Count 3.25 MC/CUMM (3.8-5.5); Red Cell Distribution Width 18.6 % (9.3-17.3); White Blood Count 7.7 T/CUMM (4-12)
[2017-03-01 07:48] LABS: Magnesium 1.9 MG/DL (1.8-2.4); Osmolality,Calculated 274.1 MOS/KG (273-304); Potassium 4.2 MMOL/L (3.5-5.1)
[2017-03-01 07:53] LABS: Band Neutrophils 13 % (0-10); Hypochromasia 1+; Lymphocytes 5 % (20-55); Metamyelocytes 2 %; Microcytosis 1+; Promyelocytes 1 %; Segmented Neutrophils 77 % (50-85); Total Cells Counted 100
--- NOTE | 2017-03-01 07:53 | Pulmonology Progress Note ---
Pulmonary - PN: Subj Interval history: This 81-year-old white female has a history of lung cancer. She had bronchopneumonia which is markedly improved. She developed a perforated duodenal ulcer. She has had surgery and then dehiscence. She is not able to tolerate feedings at present. Appears to have an ileus. Getting TPN. Has some abdominal pain. No other new complaints. 02/27/2017 patient feeling better and is hungry. She removed her own NG last night. She continues to get TPN but will be started on some oral feedings. Has a small residual right pleural effusion. Really not short of breath at this time. She does get a bit confused. 02/28/2017 patient is starting to eat a little bit better. Says she feels better. No new complaints. 03/01/2017 patient was going to return to [facility] however she has been having nausea and vomiting. She needs her NG tube replaced. It was very difficult getting it placed before and she will have it done in the GI scope lab. For now holding off on transfer to [facility]. Patient is alert. She denies dyspnea. She is having persistent vomiting. Exam (Progress Note) - Constitutional Vitals: Period Temp Pulse Resp BP Sys/Wilcox Pulse Ox Last 24 Hr 97.8 F-100.7 F 52-119 16-22 108-145/51-88 90-99 Exam: Patient's alert and oriented. Vital signs normal. Pupils react to light. Throat is clear. Neck supple no bruits. Chest reveals decreased breath sounds at the right base. Long expiratory phase. No wheezing. Heart normal rate rhythm no murmurs. Abdomen is soft. Slightly distended. I do not hear bowel sounds. Mild direct tenderness on the right side. Extremities no clubbing cyanosis edema. Calves nontender. Results - Labs CBC & BMP: 03/01/17 06:56 03/01/17 06:56 Lab Results: I have reviewed the past 24 hour labs Assessment and Plan (1) Pneumatosis intestinalis of small intestine Status: Resolved Assessment and plan: Defer to surgery on further management. Presently has NG tube in place. May need TPN. 02/26/2017 patient on TPN. 02/27/2017 status post reoperation. Continuing the TPN. Try oral feedings. 02/28/2017 taking a little more by mouth. He should continue TPN for now. Current Visit: Yes (2) COPD (chronic obstructive pulmonary disease) Status: Chronic Assessment and plan: Empiric bronchodilators. Not actively wheezing 02/26/2017 continuing bronchodilators. No active bronchospasm. 02/27/2017 continuing with bronchodilators no active bronchospasm. 02/28/2017 no bronchospasm 03/01/2017 continuing bronchodilators. No active bronchospasm. Current Visit: No (3) Paroxysmal atrial fibrillation Status: Chronic Assessment and plan: Has atrial fibrillation. Rate is around 105-110. 02/27/2017 rate got up to 150 earlier this morning is back close to normal now. 02/28/2017 heart rate in normal range. 03/01/2017 rate is controlled, about 100. Current Visit: No (4) Squamous cell carcinoma of right lung Status: Chronic Assessment and plan: [place] to be in remission. 02/26/2017 this is probably in remission. Had class III cytology from brushings right lower lobe a few weeks ago. Current Visit: No (5) Perforated duodenal ulcer Status: Resolved Assessment and plan: Status post Malik closure. Reoperated for wound dehiscence. 02/26/2017 status post Malik repair with complications of wound dehiscence and intestinal pneumatosis. Presently has ileus. 02/27/2017 status post repair. Ileus resolving 02/28/17 post repair. 03/01/2017 status post repair with postop dehiscence and re-closure. Now with nausea vomiting and probable ileus. Defer to surgery and GI. Current Visit: No Specialty Discharge - Follow Up or Referrals Follow up with: Bipin Lwason MD [Physician] - (notify md of room number) Jordan Dawn MD [Physician] - (notify of room number) Erasto Hoffman MD [Physician] - (notify of room number)
[2017-03-01 07:54] LABS: Platelet Estimate Normal
[2017-03-01] MEDS: DILTIAZEM CD 180 MG CAPSULE PO SCH (08:18)
[2017-03-01] MEDS: LINEZOLID INJ 600 MG in PREMIX 1 EACH IV SCH ×2 (08:19→21:40)
--- NOTE | 2017-03-01 08:55 | Event Note ---
General Surgery Progress Note Chief complaint This patient is a 81-year-old woman readmitted to [facility] with pneumatosis of the small bowel following repair of perforated duodenal ulcer and subsequent repair of fascial dehiscence about 2 weeks ago. Interval history The patient started vomiting yesterday evening after being made n.p.o. continued to have vomiting. I discussed her situation with her legal next of kin which is her son and he does not want to pursue any invasive procedures or aggressive treatment right now. I talked to him about placing an NG tube but it would have to be done endoscopically and he does not want this done. At least he does not want endoscopic NG tube placed. Physical exam Afebrile, tachycardia but no hypotension, A. fib is uncontrolled and diltiazem drip is back on Abdominal exam is stable from yesterday. Distention has resolved and erythema is improved as well. No drainage. JAVIER drains are serous Chest clear Heart irregular Extremities with 1+ edema bilaterally Labs Reviewed Imaging None new Assessment and plan The patient is now n.p.o. We can place an NG tube at the bedside and see if that at least prevents aspiration but it might not go into her stomach. This might make her comfortable more than vomiting so we will go ahead and give this a try. The son does not want to consent for endoscopy so we will just have to do the best we can and he is considering comfort measures but for now we will continue her other medical treatment. He does not want any more procedures done.
[2017-03-01] MEDS: DESITIN 4OZ/NYSTATIN 15 GRAM MIXTURE PASTE TOP SCH ×2 (09:00→22:45)
[2017-03-01] MEDS: CHLORHEXIDINE 4% SOLN 118 ML BOTTLE TOP SCH (09:00)
[2017-03-01] MEDS: ENOXAPARIN 40 MG/0.4 ML SYRINGE SUBCUT SCH (11:09)
[2017-03-01] MEDS: PANTOPRAZOLE 40 MG VIAL IV SCH ×2 (11:13→22:42)
--- NOTE | 2017-03-01 13:51 | CT Report ---
CT abdomen pelvis w con Indication: Vomiting. CT ABDOMEN AND PELVIS WITH CONTRAST DLP: 579 mGy*cm. One or more of the following dose reduction techniques was used: Automated exposure control, adjustment of the mA and/or kV according the patient size, or use of iterative reconstruction techniques. Comparison: 02/23/2017 Technique: Axial CT images of the abdomen and pelvis were obtained with IV contrast; Omnipaque 350, 100 cc. Oral contrast was not administered. Abdomen: Bibasilar atelectasis and infiltrate involving the right lower lobe have progressed from the previous exam. Very small bilateral pleural effusions are now present. Cardiomegaly, tortuous thoracic aorta, calcified atheromatous disease appear stable. Liver, spleen, pancreas and adrenal glands are unremarkable. Cysts in both kidneys are stable. Stomach is distended with gas and fluid. Small bowel dilatation is present, maximum diameter 45 mm. It appears to involve the entire small bowel, except for a very small area of nondistended small bowel in the right lower quadrant. This could represent a transition point although no discrete caliber change is identified. Overall severity of dilatation is similar to the previous examination throughout. Stool and gas is present in the colon which is not dilated. Multiple Raymond-Randall drains are present within the abdomen. No free air demonstrated. No pneumatosis seen. No significant free fluid. Pelvis: Urinary bladder and uterus are within normal limits for patient age. Osteopenia, severe rotational degenerative changes of the lumbar spine and old left pubic bone fracture are stable. Impression: 1. When compared to 02/23/2017, little significant change in severe small bowel dilatation throughout the abdomen and pelvis. JAVIER drains again noted. Possible transition point right lower quadrant is present, consisting only of decompressed small bowel. No discrete transition is identified however. The colon is of normal caliber with some stool and gas present. Suspect this simply severe ileus as opposed to a high-grade SBO. 2. Worsening right lower lobe pneumonia with continued bibasilar atelectasis. Small bilateral pleural effusions now present. 3. Cardiomegaly, tortuous thoracic aorta, calcified atheromatous disease and renal cysts are stable. PROCEDURE INTERPRETED AT [facility] [place] DEPARTMENT OF RADIOLOGY Final Report Signed by: Erasto Stearns M.D.
[2017-03-01] MEDS: FAT EMULSION 20% 250 ML IV SCH (14:56)
[2017-03-01] MEDS: TRACE ELEMENTS (5) 1 ML, MULTIVITAMIN INJ 10 ML in AMINO ACIDS/DEXT/LYTES 5-15% 2,000 ML IV SCH (17:23)
[2017-03-01] MEDS: PROMETHAZINE 25 MG/1 ML VIAL IM PRN (23:17)
[2017-03-01] MEDS: HYDROmorphone 2 MG/1 ML VIAL IV PRN (23:29)
[2017-03-02] MEDS: ALBUTEROL/IPRATROPIUM 3 ML NEB RESP TX SCH ×4 (00:18→19:06)
[2017-03-02] MEDS: INSULIN REGULAR 100 UNIT/ML SUBCUT SCH ×4 (01:45→17:27)
[2017-03-02] MEDS: PROMETHAZINE 25 MG/1 ML VIAL IM PRN ×2 (04:06→23:50)
[2017-03-02] MEDS: HYDROmorphone 2 MG/1 ML VIAL IV PRN ×5 (04:06→23:50)
[2017-03-02 05:44] LABS: Basophils % 0.5 % (0.0-0.8); Eosinophils % 0.5 % (0.00-10.9); Hematocrit 28.9 VOL% (35.7-47.0); Hemoglobin 9.5 GM/DL (12.0-16.0); Immature Granulocytes % 7.4 %; Immature Granulocytes Absolute 0.47 #; Lymphocytes # 0.4 10*3/uL (1.4-4.0); Lymphocytes % 6.3 % (21.3-54.2); Mean Corpuscular HGB Conc 32.9 GM/DL (32-36); Mean Corpuscular Hemoglobin 31 PG (27-34); Mean Corpuscular Volume 94.1 FL (87-102); Mean Platelet Volume 9.3 FL (9.6-12.0); Monocytes # 0.5 10*3/uL (0.11-0.8); Monocytes % 8.2 % (1.7-12.7); Neutrophils # 4.9 10*3/uL (1.4-7.4); Neutrophils % 77.1 % (38.7-73.9); Platelet Count 188 T/CUMM (130-400); Red Blood Count 3.07 MC/CUMM (3.8-5.5); Red Cell Distribution Width 18.8 % (9.3-17.3); White Blood Count 6.4 T/CUMM (4-12)
[2017-03-02 06:28] LABS: Albumin 2.3 G/DL (3.4-5.0); Bilirubin,Total 0.7 MG/DL (0.2-1.0); Calcium 8.7 MG/DL (8.5-10.1); Total Protein 5.2 G/DL (6.4-8.3)
[2017-03-02 06:37] LABS: Band Neutrophils 6 % (0-10); Hypochromasia 1+; Lymphocytes 10 % (20-55); Metamyelocytes 4 %; Microcytosis 1+; Segmented Neutrophils 73 % (50-85); Total Cells Counted 100
[2017-03-02] MEDS: PIPERACILLIN/TAZOBACTAM 3,375 MG in SODIUM CHLORIDE 0.9% 100 ML IV SCH ×3 (06:40→21:51)
--- NOTE | 2017-03-02 07:01 | Pulmonology Progress Note ---
Pulmonary - PN: Subj Interval history: This 81-year-old white female has a history of lung cancer. She had bronchopneumonia which is markedly improved. She developed a perforated duodenal ulcer. She has had surgery and then dehiscence. She is not able to tolerate feedings at present. Appears to have an ileus. Getting TPN. Has some abdominal pain. No other new complaints. 02/27/2017 patient feeling better and is hungry. She removed her own NG last night. She continues to get TPN but will be started on some oral feedings. Has a small residual right pleural effusion. Really not short of breath at this time. She does get a bit confused. 02/28/2017 patient is starting to eat a little bit better. Says she feels better. No new complaints. 03/01/2017 patient was going to return to [facility] however she has been having nausea and vomiting. She needs her NG tube replaced. It was very difficult getting it placed before and she will have it done in the GI scope lab. For now holding off on transfer to [facility]. Patient is alert. She denies dyspnea. She is having persistent vomiting. 03/02/2017 patient continues to have abdominal pain and nausea. Her son is her power of civil attorney. He does not want any further procedures done. Plan is for comfort measures. Exam (Progress Note) - Constitutional Vitals: Period Temp Pulse Resp BP Sys/Wilcox Pulse Ox Last 24 Hr 97.4 F-100.9 F 95-112 16-22 110-129/50-86 90-99 Exam: Patient's alert and oriented. Vital signs normal. Pupils react to light. Throat is clear. Neck supple no bruits. Chest reveals decreased breath sounds at the right base. Long expiratory phase. No wheezing. Heart normal rate rhythm no murmurs. Abdomen is soft. Slightly distended. I do not hear bowel sounds. Mild direct tenderness on the right side. Extremities no clubbing cyanosis edema. Calves nontender. Results - Labs CBC & BMP: 03/02/17 05:28 03/02/17 05:27 Lab Results: I have reviewed the past 24 hour labs Assessment and Plan (1) Pneumatosis intestinalis of small intestine Status: Resolved Assessment and plan: Defer to surgery on further management. Presently has NG tube in place. May need TPN. 02/26/2017 patient on TPN. 02/27/2017 status post reoperation. Continuing the TPN. Try oral feedings. 02/28/2017 taking a little more by mouth. He should continue TPN for now. 03/02/2017 continued episodes of vomiting. Being managed with antinausea medication. Son declined plan for nasogastric tube per EGD. Current Visit: Yes (2) COPD (chronic obstructive pulmonary disease) Status: Chronic Assessment and plan: Empiric bronchodilators. Not actively wheezing 02/26/2017 continuing bronchodilators. No active bronchospasm. 02/27/2017 continuing with bronchodilators no active bronchospasm. 02/28/2017 no bronchospasm 03/01/2017 continuing bronchodilators. No active bronchospasm. 03/02/2017 O2 sats acceptable. Current Visit: No (3) Paroxysmal atrial fibrillation Status: Chronic Assessment and plan: Has atrial fibrillation. Rate is around 105-110. 02/27/2017 rate got up to 150 earlier this morning is back close to normal now. 02/28/2017 heart rate in normal range. 03/01/2017 rate is controlled, about 100. 03/02/2017 right a little fast. Current Visit: No (4) Squamous cell carcinoma of right lung Status: Chronic Assessment and plan: [place] to be in remission. 02/26/2017 this is probably in remission. Had class III cytology from brushings right lower lobe a few weeks ago. Current Visit: No (5) Perforated duodenal ulcer Status: Resolved Assessment and plan: Status post Malik closure. Reoperated for wound dehiscence. 02/26/2017 status post Malik repair with complications of wound dehiscence and intestinal pneumatosis. Presently has ileus. 02/27/2017 status post repair. Ileus resolving 02/28/17 post repair. 03/01/2017 status post repair with postop dehiscence and re-closure. Now with nausea vomiting and probable ileus. Defer to surgery and GI. Current Visit: No Specialty Discharge - Follow Up or Referrals Follow up with: Bipin Lawson MD [Physician] - (notify of room number) Jordan Dawn MD [Physician] - (notify of room number) Erasto Hoffman MD [Physician] - (notify of room number)
--- NOTE | 2017-03-02 08:10 | Event Note ---
T-max 100.6 vital signs stable There were unable to place NG tube successfully yesterday with 3 attempts. Patient refusing NG tube. She had a small amount of green emesis this morning. She says her belly feels fine. Her abdomen is soft moderately distended with no significant tenderness appreciated. Incision looks good. JAVIER with minimal output serous. Patient refusing endoscopic NG tube placement. Continue supportive care.
[2017-03-02] MEDS: LEVOTHYROXINE 100 MCG VIAL IV SCH (08:12)
[2017-03-02] MEDS: DILTIAZEM CD 180 MG CAPSULE PO SCH (08:12)
[2017-03-02] MEDS: PANTOPRAZOLE 40 MG VIAL IV SCH ×2 (10:21→21:51)
[2017-03-02] MEDS: LINEZOLID INJ 600 MG in PREMIX 1 EACH IV SCH ×2 (10:25→21:51)
[2017-03-02] MEDS: fentaNYL 25 MCG/HR PATCH TRANSDERM SCH (10:47)
[2017-03-02] MEDS: ENOXAPARIN 40 MG/0.4 ML SYRINGE SUBCUT SCH (11:01)
[2017-03-02] MEDS: FAT EMULSION 20% 250 ML IV SCH (14:52)
[2017-03-02] MEDS: DILTIAZEM INJ 100 MG in SODIUM CHLORIDE 0.9% 100 ML IV SCH ×3 (14:53→23:51)
[2017-03-02] MEDS: CHLORHEXIDINE 4% SOLN 118 ML BOTTLE TOP SCH (16:19)
[2017-03-02] MEDS: DESITIN 4OZ/NYSTATIN 15 GRAM MIXTURE PASTE TOP SCH ×2 (16:19→21:52)
[2017-03-02] MEDS: ACETAMINOPHEN 650 MG SUPP RECTAL PRN (17:15)
[2017-03-02] MEDS: TRACE ELEMENTS (5) 1 ML, MULTIVITAMIN INJ 10 ML in AMINO ACIDS/DEXT/LYTES 5-15% 2,000 ML IV SCH (17:59)
[2017-03-03] MEDS: INSULIN REGULAR 100 UNIT/ML SUBCUT SCH ×4 (01:20→18:29)
[2017-03-03] MEDS: ALBUTEROL/IPRATROPIUM 3 ML NEB RESP TX SCH ×4 (01:29→19:30)
[2017-03-03] MEDS: PIPERACILLIN/TAZOBACTAM 3,375 MG in SODIUM CHLORIDE 0.9% 100 ML IV SCH ×3 (06:17→22:39)
[2017-03-03] MEDS: DILTIAZEM INJ 100 MG in SODIUM CHLORIDE 0.9% 100 ML IV SCH ×3 (06:24→23:24)
--- NOTE | 2017-03-03 08:25 | Pulmonology Progress Note ---
Pulmonary - PN: Subj Interval history: This 81-year-old white female has a history of lung cancer. She had bronchopneumonia which is markedly improved. She developed a perforated duodenal ulcer. She has had surgery and then dehiscence. She is not able to tolerate feedings at present. Appears to have an ileus. Getting TPN. Has some abdominal pain. No other new complaints. 02/27/2017 patient feeling better and is hungry. She removed her own NG last night. She continues to get TPN but will be started on some oral feedings. Has a small residual right pleural effusion. Really not short of breath at this time. She does get a bit confused. 02/28/2017 patient is starting to eat a little bit better. Says she feels better. No new complaints. 03/01/2017 patient was going to return to [facility] however she has been having nausea and vomiting. She needs her NG tube replaced. It was very difficult getting it placed before and she will have it done in the GI scope lab. For now holding off on transfer to [facility]. Patient is alert. She denies dyspnea. She is having persistent vomiting. 03/02/2017 patient continues to have abdominal pain and nausea. Her son is her power of pick up driver. He does not want any further procedures done. Plan is for comfort measures. 03/03/2017 patient not having as much abdominal pain. She is having some gagging but no actual vomiting. Primarily comfort measures now Exam (Progress Note) - Constitutional Vitals: Period Temp Pulse Resp BP Sys/Wilcox Pulse Ox Last 24 Hr 97.5 F-102.8 F 101-140 12-18 126-165/47-114 92-99 Exam: Patient's alert and oriented. Vital signs normal. Pupils react to light. Throat is clear. Neck supple no bruits. Chest reveals decreased breath sounds at the right base. Long expiratory phase. No wheezing. Heart normal rate rhythm no murmurs. Abdomen is soft. Slightly distended. I do not hear bowel sounds. Mild direct tenderness on the right side. Extremities no clubbing cyanosis edema. Calves nontender. Little change from yesterday. Results - Labs CBC & BMP: 03/02/17 05:28 03/02/17 05:27 Lab Results: I have reviewed the past 24 hour labs Assessment and Plan (1) Pneumatosis intestinalis of small intestine Status: Resolved Assessment and plan: Defer to surgery on further management. Presently has NG tube in place. May need TPN. 02/26/2017 patient on TPN. 02/27/2017 status post reoperation. Continuing the TPN. Try oral feedings. 02/28/2017 taking a little more by mouth. He should continue TPN for now. 03/02/2017 continued episodes of vomiting. Being managed with antinausea medication. Son declined plan for nasogastric tube per EGD. 03/03/2017 less nausea today Current Visit: Yes (2) COPD (chronic obstructive pulmonary disease) Status: Chronic Assessment and plan: Empiric bronchodilators. Not actively wheezing 02/26/2017 continuing bronchodilators. No active bronchospasm. 02/27/2017 continuing with bronchodilators no active bronchospasm. 02/28/2017 no bronchospasm 03/01/2017 continuing bronchodilators. No active bronchospasm. 03/02/2017 O2 sats acceptable. 03/03/2017 oxygen saturations acceptable. Continuing respiratory therapy as needed. Current Visit: No (3) Paroxysmal atrial fibrillation Status: Chronic Assessment and plan: Has atrial fibrillation. Rate is around 105-110. 02/27/2017 rate got up to 150 earlier this morning is back close to normal now. 02/28/2017 heart rate in normal range. 03/01/2017 rate is controlled, about 100. 03/02/2017 rate a little fast. 03/03/2017 heart rate around 120. 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 02/26/2017 this is probably in remission. Had class III cytology from brushings right lower lobe a few weeks ago. Current Visit: No (5) Perforated duodenal ulcer Status: Resolved Assessment and plan: Status post Malik closure. Reoperated for wound dehiscence. 02/26/2017 status post Malik repair with complications of wound dehiscence and intestinal pneumatosis. Presently has ileus. 02/27/2017 status post repair. Ileus resolving 02/28/17 post repair. 03/01/2017 status post repair with postop dehiscence and re-closure. Now with nausea vomiting and probable ileus. Defer to surgery and GI. 03/03/2017 status post repair. Current Visit: No Specialty Discharge - Follow Up or Referrals Follow up with: Bipin Lawson MD [Physician] - (notify md of room number) Jordan Dawn MD [Physician] - (notify md of room number) Erasto Hoffman MD [Physician] - (notify md of room number)
[2017-03-03] MEDS: LEVOTHYROXINE 100 MCG VIAL IV SCH (09:36)
[2017-03-03] MEDS: DILTIAZEM CD 180 MG CAPSULE PO SCH (09:36)
[2017-03-03] MEDS: HYDROmorphone 2 MG/1 ML VIAL IV PRN ×2 (09:37→22:40)
[2017-03-03] MEDS: PANTOPRAZOLE 40 MG VIAL IV SCH ×2 (10:39→23:24)
[2017-03-03] MEDS: LINEZOLID INJ 600 MG in PREMIX 1 EACH IV SCH ×2 (10:39→22:40)
[2017-03-03] MEDS: DESITIN 4OZ/NYSTATIN 15 GRAM MIXTURE PASTE TOP SCH ×2 (10:40→22:40)
--- NOTE | 2017-03-03 12:48 | Event Note ---
Febrile this morning 202.4 with some tachycardia. She remains normotensive. Her vomiting has subsided. She denies abdominal pain. She had a dark bowel movement. Also reports some of it being watery. On exam her abdomen is soft and mildly distended and nontender. Plan: Continue n.p.o. and supportive care. She appears comfortable.
[2017-03-03] MEDS: CHLORHEXIDINE 4% SOLN 118 ML BOTTLE TOP SCH (13:05)
[2017-03-03] MEDS: ENOXAPARIN 40 MG/0.4 ML SYRINGE SUBCUT SCH (13:05)
[2017-03-03] MEDS: ACETAMINOPHEN 650 MG SUPP RECTAL PRN (16:15)
[2017-03-03] MEDS: FAT EMULSION 20% 250 ML IV SCH (17:58)
[2017-03-03] MEDS: TRACE ELEMENTS (5) 1 ML, MULTIVITAMIN INJ 10 ML in AMINO ACIDS/DEXT/LYTES 5-15% 2,000 ML IV SCH (17:59)
[2017-03-03] MEDS: PROMETHAZINE 25 MG/1 ML VIAL IM PRN (22:40)
[2017-03-04] MEDS: INSULIN REGULAR 100 UNIT/ML SUBCUT SCH ×4 (00:41→17:32)
[2017-03-04] MEDS: ALBUTEROL/IPRATROPIUM 3 ML NEB RESP TX SCH ×4 (01:32→19:39)
[2017-03-04] MEDS: PIPERACILLIN/TAZOBACTAM 3,375 MG in SODIUM CHLORIDE 0.9% 100 ML IV SCH ×3 (05:58→20:49)
[2017-03-04] MEDS: LEVOTHYROXINE 100 MCG VIAL IV SCH (06:33)
--- NOTE | 2017-03-04 07:43 | Pulmonology Progress Note ---
Pulmonary - PN: Subj Interval history: This 81-year-old white female has a history of lung cancer. She had bronchopneumonia which is markedly improved. She developed a perforated duodenal ulcer. She has had surgery and then dehiscence. She is not able to tolerate feedings at present. Appears to have an ileus. Getting TPN. Has some abdominal pain. No other new complaints. 02/27/2017 patient feeling better and is hungry. She removed her own NG last night. She continues to get TPN but will be started on some oral feedings. Has a small residual right pleural effusion. Really not short of breath at this time. She does get a bit confused. 02/28/2017 patient is starting to eat a little bit better. Says she feels better. No new complaints. 03/01/2017 patient was going to return to [facility] however she has been having nausea and vomiting. She needs her NG tube replaced. It was very difficult getting it placed before and she will have it done in the GI scope lab. For now holding off on transfer to [facility]. Patient is alert. She denies dyspnea. She is having persistent vomiting. 03/02/2017 patient continues to have abdominal pain and nausea. Her son is her power of compliance attorney. He does not want any further procedures done. Plan is for comfort measures. 03/03/2017 patient not having as much abdominal pain. She is having some gagging but no actual vomiting. Primarily comfort measures now 03/04/2017 patient is having trouble coughing up phlegm. She denies nausea. Still having some abdominal pain. Trying her on some clear liquids by mouth. Again primarily comfort measures. Exam (Progress Note) - Constitutional Vitals: Period Temp Pulse Resp BP Sys/Wilcox Pulse Ox Last 24 Hr 96.6 F-102.4 F 76-126 16-30 112-144/63-85 90-98 Exam: Patient's alert and oriented. Vital signs normal. Pupils react to light. Throat is clear. Neck supple no bruits. Chest reveals decreased breath sounds at the right base. Long expiratory phase. No wheezing. Heart normal rate rhythm no murmurs. Abdomen is soft. Slightly distended. I do not hear bowel sounds. Mild direct tenderness on the right side. Extremities no clubbing cyanosis edema. Calves nontender. Results - Labs CBC & BMP: 03/02/17 05:28 03/02/17 05:27 Lab Results: I have reviewed the past 24 hour labs Assessment and Plan (1) Pneumatosis intestinalis of small intestine Status: Resolved Assessment and plan: Defer to surgery on further management. Presently has NG tube in place. May need TPN. 02/26/2017 patient on TPN. 02/27/2017 status post reoperation. Continuing the TPN. Try oral feedings. 02/28/2017 taking a little more by mouth. He should continue TPN for now. 03/02/2017 continued episodes of vomiting. Being managed with antinausea medication. Son declined plan for nasogastric tube per EGD. 03/03/2017 less nausea today 03/04/2017 again a little less nausea. Still having abdominal pain. Current Visit: Yes (2) COPD (chronic obstructive pulmonary disease) Status: Chronic Assessment and plan: Empiric bronchodilators. Not actively wheezing 02/26/2017 continuing bronchodilators. No active bronchospasm. 02/27/2017 continuing with bronchodilators no active bronchospasm. 02/28/2017 no bronchospasm 03/01/2017 continuing bronchodilators. No active bronchospasm. 03/02/2017 O2 sats acceptable. 03/03/2017 oxygen saturations acceptable. Continuing respiratory therapy as needed. 03/04/2017 complains of thick phlegm. Will add Pulmozyme. Current Visit: No (3) Paroxysmal atrial fibrillation Status: Chronic Assessment and plan: Has atrial fibrillation. Rate is around 105-110. 02/27/2017 rate got up to 150 earlier this morning is back close to normal now. 02/28/2017 heart rate in normal range. 03/01/2017 rate is controlled, about 100. 03/02/2017 rate a little fast. 03/03/2017 heart rate around 120. 03/04/2017 heart rate continues around 120. Current Visit: No (4) Squamous cell carcinoma of right lung Status: Chronic Assessment and plan: [place] to be in remission. 02/26/2017 this is probably in remission. Had class III cytology from brushings right lower lobe a few weeks ago. Current Visit: No (5) Perforated duodenal ulcer Status: Resolved Assessment and plan: Status post Malik closure. Reoperated for wound dehiscence. 02/26/2017 status post Malik repair with complications of wound dehiscence and intestinal pneumatosis. Presently has ileus. 02/27/2017 status post repair. Ileus resolving 02/28/17 post repair. 03/01/2017 status post repair with postop dehiscence and re-closure. Now with nausea vomiting and probable ileus. Defer to surgery and GI. 03/03/2017 status post repair. Current Visit: No Specialty Discharge - Follow Up or Referrals Follow up with: Bipin Lawson MD [Physician] - (notify md of room number) Jordan Dawn MD [Physician] - (notify of room number) Erasto Hoffman MD [Physician] - (notify md of room number)
[2017-03-04] MEDS: HYDROmorphone 2 MG/1 ML VIAL IV PRN ×3 (08:05→22:57)
--- NOTE | 2017-03-04 08:34 | Event Note ---
General Surgery Progress Note Chief complaint This patient is a 81-year-old woman readmitted to [place] [facility] with pneumatosis of the small bowel following repair of perforated duodenal ulcer and subsequent repair of fascial dehiscence on 02/15/2017 Interval history The patient threw up a little bit on Saturday but none yesterday or overnight. She has refused NG tube herself over the weekend as well and has pulled out her NG tube on prior occasion. I placed an addendum on her note that I wrote Saturday after talking with her son who feels that no further interventions would be the best plan at this time. She is on TPN and she did have some bowel movements over the weekend that are loose. No labs were done this morning. Patient is complaining of pain. Physical exam Afebrile, tachycardia but no hypotension, A. fib is controlled and diltiazem drip is back on Abdominal exam is stable from yesterday. The abdomen is slightly distended and erythema has resolved. No drainage. JAVIER drains are serous Chest clear Heart irregular Extremities with no edema Labs None new Imaging None new Assessment and plan Continue n.p.o. but we will allow her to have some sips of water today Retention sutures will be removed today. Repeat labs tomorrow Continue TPN We will begin looking at placement.
[2017-03-04] MEDS: LINEZOLID INJ 600 MG in PREMIX 1 EACH IV SCH ×2 (10:08→20:48)
[2017-03-04] MEDS: DILTIAZEM INJ 100 MG in SODIUM CHLORIDE 0.9% 100 ML IV SCH ×2 (10:10→17:32)
[2017-03-04] MEDS: ENOXAPARIN 40 MG/0.4 ML SYRINGE SUBCUT SCH (10:11)
[2017-03-04] MEDS: DILTIAZEM CD 180 MG CAPSULE PO SCH (10:11)
[2017-03-04] MEDS: DESITIN 4OZ/NYSTATIN 15 GRAM MIXTURE PASTE TOP SCH ×2 (10:11→20:49)
[2017-03-04] MEDS: CHLORHEXIDINE 4% SOLN 118 ML BOTTLE TOP SCH (10:11)
[2017-03-04] MEDS: PANTOPRAZOLE 40 MG VIAL IV SCH ×2 (10:11→20:49)
[2017-03-04] MEDS: FAT EMULSION 20% 250 ML IV SCH (17:20)
[2017-03-04] MEDS: TRACE ELEMENTS (5) 1 ML, MULTIVITAMIN INJ 10 ML in AMINO ACIDS/DEXT/LYTES 5-15% 2,000 ML IV SCH (17:20)
[2017-03-04] MEDS: ACETAMINOPHEN 650 MG SUPP RECTAL PRN (17:45)
[2017-03-04] MEDS: DORNASE ALFA 2.5 MG/2.5 ML VIAL RESP TX SCH (19:40)
[2017-03-05] MEDS: ALBUTEROL/IPRATROPIUM 3 ML NEB RESP TX SCH ×3 (00:43→12:06)
[2017-03-05] MEDS: INSULIN REGULAR 100 UNIT/ML SUBCUT SCH ×4 (01:12→21:20)
[2017-03-05] MEDS: HYDROmorphone 2 MG/1 ML VIAL IV PRN (02:33)
[2017-03-05 05:53] LABS: Albumin 2.1 G/DL (3.4-5.0); Bilirubin,Total 0.6 MG/DL (0.2-1.0); Calcium 7.5 MG/DL (8.5-10.1); Osmolality,Calculated 282.8 MOS/KG (273-304); Potassium 3.5 MMOL/L (3.5-5.1); Total Protein 5.1 G/DL (6.4-8.3)
[2017-03-05] MEDS: PIPERACILLIN/TAZOBACTAM 3,375 MG in SODIUM CHLORIDE 0.9% 100 ML IV SCH (06:02)
[2017-03-05 06:39] LABS: Basophils % 0.2 % (0.0-0.8); Hematocrit 27.7 VOL% (35.7-47.0); Hemoglobin 9.1 GM/DL (12.0-16.0); Immature Granulocytes % 1.9 %; Immature Granulocytes Absolute 0.36 #; Lymphocytes # 0.3 10*3/uL (1.4-4.0); Lymphocytes % 1.4 % (21.3-54.2); Mean Corpuscular HGB Conc 32.9 GM/DL (32-36); Mean Corpuscular Hemoglobin 30 PG (27-34); Mean Corpuscular Volume 92.3 FL (87-102); Monocytes # 0.5 10*3/uL (0.11-0.8); Monocytes % 2.6 % (1.7-12.7); Neutrophils # 17.4 10*3/uL (1.4-7.4); Neutrophils % 93.9 % (38.7-73.9); White Blood Count 18.5 T/CUMM (4-12)
[2017-03-05 06:50] LABS: Platelet Count 85 T/CUMM (130-400)
[2017-03-05 07:05] LABS: Band Neutrophils 18 % (0-10); Lymphocytes 2 % (20-55); Segmented Neutrophils 78 % (50-85); Total Cells Counted 100
[2017-03-05 07:06] LABS: Burr Cells 1+; Platelet Estimate Decreased; Polychromasia Slight; Target Cells Slight
[2017-03-05] MEDS: DORNASE ALFA 2.5 MG/2.5 ML VIAL RESP TX SCH (07:15)
--- NOTE | 2017-03-05 07:34 | Event Note ---
General Surgery Progress Note Chief complaint This patient is a 81-year-old woman readmitted to [facility] with pneumatosis of the small bowel following repair of perforated duodenal ulcer and subsequent repair of fascial dehiscence on 02/15/2017 Interval history The patient has developed a new leukocytosis. She complains of abdominal pain and is asking for water and something to eat. She appears very confused but does answer questions and is oriented to person but not place or time. I had a long discussion with her legal next of kin which is her son yesterday and he has expressed his desire to keep her comfortable and stop any treatments that are prolonging her current condition which appears to result in significant pain and suffering. Retention sutures were removed yesterday. Physical exam Low-grade fever, tachycardia but no hypotension, A. fib is controlled and diltiazem drip is back on Abdominal exam is stable from yesterday. The abdomen is slightly distended and erythema has resolved. No drainage. JAVIER drains are serous. The retention sutures are removed and there is no dehiscence Chest clear Heart irregular Extremities with no edema Labs None new Imaging None new Assessment and plan Patient can have sips of water for comfort I have discussed this case with legal transcriber at the hospital to obtain their opinion and make sure that we are in line with current standard of care. I am very concerned that the patient does not have the inside her capacity to make informed decisions. Her son is her legal next of kin who is in the state of [place] would be her decision-maker but some concerns have been expressed by other physicians that are known the patient in the past that she would not want him making her decisions. We will see what the results of the legal transcriber shows and also our alignment of the physician to evaluate the patient independently to confirm that he does not think that she has capacity to make decisions prior to going with her son's wishes. I did try to discuss her goals of care with her today and she just keeps saying to "just keep me going" but does not seem to have insight to understand that there is a chance that she will not return to her previous state of health and on another occasion says that she would not want to go on like she currently is. Again I am not confident that she has an site or capacity to make these tough decisions and when I describe what will happen if we stop or continue current treatments she is unable to express understanding of these treatment plans and their results. For now we will continue her current care until Dr. Lawson has weighed in on her decision-making capacity and the legal transcriber has returned.
--- NOTE | 2017-03-05 09:09 | Pulmonology Progress Note ---
Pulmonary - PN: Subj Interval history: This 81-year-old white female has a history of lung cancer. She had bronchopneumonia which is markedly improved. She developed a perforated duodenal ulcer. She has had surgery and then dehiscence. She is not able to tolerate feedings at present. Appears to have an ileus. Getting TPN. Has some abdominal pain. No other new complaints. 02/27/2017 patient feeling better and is hungry. She removed her own NG last night. She continues to get TPN but will be started on some oral feedings. Has a small residual right pleural effusion. Really not short of breath at this time. She does get a bit confused. 02/28/2017 patient is starting to eat a little bit better. Says she feels better. No new complaints. 03/01/2017 patient was going to return to [facility] however she has been having nausea and vomiting. She needs her NG tube replaced. It was very difficult getting it placed before and she will have it done in the GI scope lab. For now holding off on transfer to [facility]. Patient is alert. She denies dyspnea. She is having persistent vomiting. 03/02/2017 patient continues to have abdominal pain and nausea. Her son is her power of employee benefits attorney. He does not want any further procedures done. Plan is for comfort measures. 03/03/2017 patient not having as much abdominal pain. She is having some gagging but no actual vomiting. Primarily comfort measures now 03/04/2017 patient is having trouble coughing up phlegm. She denies nausea. Still having some abdominal pain. Trying her on some clear liquids by mouth. Again primarily comfort measures. 03/05/2017 patient says that she is not nauseated or having abdominal pain. Asking for more liquids to drink. I discussed the situation with her and I do not think she understands at all. I do not think she has the mental capacity at present to make medical decisions regarding her care. I agree with Dr. Dawn that it would be best made by her power of employee benefits attorney. I think comfort measures would be appropriate for her. Exam (Progress Note) - Constitutional Vitals: Period Temp Pulse Resp BP Sys/Wilcox Pulse Ox Last 24 Hr 99.0 F-101.3 F 80-120 16-26 95-137/50-71 82-98 Exam: Patient's alert, but somewhat confused. Vital signs normal. Pupils react to light. Throat is clear. Neck supple no bruits. Chest reveals decreased breath sounds at the right base. Long expiratory phase. No wheezing. Heart normal rate rhythm no murmurs. Abdomen is soft. Slightly distended. I do hear a few bowel sounds. Mild direct tenderness on the right side. Extremities no clubbing cyanosis edema. Calves nontender. Results - Labs CBC & BMP: 03/05/17 06:22 03/05/17 05:06 Lab Results: I have reviewed the past 24 hour labs Assessment and Plan (1) Pneumatosis intestinalis of small intestine Status: Resolved Assessment and plan: Defer to surgery on further management. Presently has NG tube in place. May need TPN. 02/26/2017 patient on TPN. 02/27/2017 status post reoperation. Continuing the TPN. Try oral feedings. 02/28/2017 taking a little more by mouth. He should continue TPN for now. 03/02/2017 continued episodes of vomiting. Being managed with antinausea medication. Son declined plan for nasogastric tube per EGD. 03/03/2017 less nausea today 03/04/2017 again a little less nausea. Still having abdominal pain. Current Visit: Yes (2) COPD (chronic obstructive pulmonary disease) Status: Chronic Assessment and plan: Empiric bronchodilators. Not actively wheezing 02/26/2017 continuing bronchodilators. No active bronchospasm. 02/27/2017 continuing with bronchodilators no active bronchospasm. 02/28/2017 no bronchospasm 03/01/2017 continuing bronchodilators. No active bronchospasm. 03/02/2017 O2 sats acceptable. 03/03/2017 oxygen saturations acceptable. Continuing respiratory therapy as needed. 03/04/2017 complains of thick phlegm. Will add Pulmozyme. 03/05/2017 no active bronchospasm. Seems comfortable. Current Visit: No (3) Paroxysmal atrial fibrillation Status: Chronic Assessment and plan: Has atrial fibrillation. Rate is around 105-110. 02/27/2017 rate got up to 150 earlier this morning is back close to normal now. 02/28/2017 heart rate in normal range. 03/01/2017 rate is controlled, about 100. 03/02/2017 rate a little fast. 03/03/2017 heart rate around 120. 03/04/2017 heart rate continues around 120. Current Visit: No (4) Squamous cell carcinoma of right lung Status: Chronic Assessment and plan: [place] to be in remission. 02/26/2017 this is probably in remission. Had class III cytology from brushings right lower lobe a few weeks ago. 03/05/2017 this is felt to be in remission but cannot be certain. Current Visit: No (5) Perforated duodenal ulcer Status: Resolved Assessment and plan: Status post Malik closure. Reoperated for wound dehiscence. 02/26/2017 status post Malik repair with complications of wound dehiscence and intestinal pneumatosis. Presently has ileus. 02/27/2017 status post repair. Ileus resolving 02/28/17 post repair. 03/01/2017 status post repair with postop dehiscence and re-closure. Now with nausea vomiting and probable ileus. Defer to surgery and GI. 03/03/2017 status post repair. 03/05/2017 status post repair of duodenal ulcer. She has had some ileus which seems to be a little better. At the present time her son who has power of employee benefits attorney has asked that we change to just comfort measures and stop antibiotics and TPN. The patient is not able to make this decision for herself. Based on her prolonged hospital course and underlying severe problems, I think comfort measures are reasonable. Current Visit: No Specialty Discharge - Follow Up or Referrals Follow up with: Bipin Lawson MD [Physician] - (notify of room number) Jordan Dawn MD [Physician] - (notify of room number) Erasto Hoffman MD [Physician] - (notify of room number)
--- NOTE | 2017-03-05 09:40 | Oncology Progress Note ---
Oncology Subjective PN Interval history: I have been visiting Ms. Witt socially because I am not actively treating her lung cancer. It appears to have responded to treatment. I have known her for years and we have been friends. I am missing her today because of acute problems with other patients. If I need to see her, please contact me. I will return tomorrow to see her. Exam - Constitutional Vitals: Period Temp Pulse Resp BP Sys/Wilcox Pulse Ox Last 24 Hr 99.0 F-101.3 F 80-120 16-26 95-137/50-71 82-98 Results - Labs CBC & BMP: 03/05/17 06:22 03/05/17 05:06 Specialty Discharge - Follow Up or Referrals Follow up with: Bipin Lawson MD [Physician] - (notify of room number) Jordan Dawn MD [Physician] - (notify of room number) Erasto Hoffman MD [Physician] - (notify md of room number)
[2017-03-05] MEDS: LEVOTHYROXINE 100 MCG VIAL IV SCH (09:41)
[2017-03-05] MEDS: DILTIAZEM CD 180 MG CAPSULE PO SCH (09:42)
[2017-03-05] MEDS: fentaNYL 25 MCG/HR PATCH TRANSDERM SCH (09:42)
[2017-03-05] MEDS: ENOXAPARIN 40 MG/0.4 ML SYRINGE SUBCUT SCH (09:43)
[2017-03-05] MEDS: PANTOPRAZOLE 40 MG VIAL IV SCH (09:43)
[2017-03-05] MEDS: DESITIN 4OZ/NYSTATIN 15 GRAM MIXTURE PASTE TOP SCH (13:00)
[2017-03-05] MEDS: CHLORHEXIDINE 4% SOLN 118 ML BOTTLE TOP SCH (13:00)
[2017-03-05] MEDS: MORPHINE 2 MG/1 ML SYRINGE IV PRN ×3 (15:08→23:59)
[2017-03-05] MEDS: LINEZOLID INJ 600 MG in PREMIX 1 EACH IV SCH (15:45)
--- NOTE | 2017-03-05 15:57 | Event Note ---
I have discussed this patient's care extensively with the medical team the insurance defense paralegal, the nursing, and the family members were all involved in her care. All family members agree that she should be made comfort care and myself and another physician both agree that she does not have capacity to make medical decisions. She will be treated for comfort measures with pain medication only. TPN, IV fluids, antibiotics, and all other medications will be stopped pain medication and we will stop checking labs and doing imaging tests. She will be transferred to for use for comfort measures only.
[2017-03-05] MEDS ORDERED: ONDANSETRON 4 MG/2 ML VIAL IV PRN (15:58)
[2017-03-06] MEDS: MORPHINE 2 MG/1 ML SYRINGE IV PRN ×6 (05:22→23:00)
--- NOTE | 2017-03-06 07:59 | Pulmonology Progress Note ---
Pulmonary - PN: Subj Interval history: Patient is a 81-year-old that has a history of lung cancer and pneumonia. She has had a perforated duodenal ulcer and had surgery. She has been getting TPN but the decision now is for comfort care only. Patient is extremely confused and does not know where she is. She says is not hurting at the present time. Exam (Progress Note) - Constitutional Vitals: Period Temp Pulse Resp BP Sys/Wilcox Pulse Ox Last 24 Hr 97.7 F-99.8 F 80-135 20-22 119-136/70-103 84-100 General appearance: mild distress (Patient is quite confused.) - Head Head exam: Present: normal inspection - Eye Eye exam: Present: EOMI. Absent: scleral icterus Pupils: Present: MILDRED - ENT ENT exam: Present: normal exam - Neck Neck exam: Absent: lymphadenopathy, thyromegaly - Respiratory Respiratory exam: Present: decreased breath sounds (She has decreased breath sounds on the right.), prolonged expiratory phase, rhonchi - Cardiovascular Cardiovascular exam: Present: regular rate and rhythm. Absent: gallop, systolic murmur - GI/Abdominal GI/Abdominal exam: Present: distended, hypoactive bowel sounds, tenderness, soft , other (Her abdomen is bandaged.) - Extremities Exam Extremities exam: Absent: calf tenderness, edema - Neurological Exam Neurological exam: Present: altered (Patient is very confused at the present time.) - Psychiatric Psychiatric exam: Present: anxious - Skin Skin exam: Present: warm, dry Results - Labs CBC & BMP: 03/05/17 06:22 03/05/17 05:06 Assessment and Plan (1) COPD (chronic obstructive pulmonary disease) Status: Chronic Assessment and plan: The patient has significant COPD but is comfortable with her breathing at present. She will continue with respiratory therapy. 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 Current Visit: No (3) Pneumonia Status: Acute Assessment and plan: The patient has been getting treatment for pneumonia. Her respiratory status is stable. Current Visit: No (4) Altered mental status Status: Acute Assessment and plan: Patient has considerable confusion. Current Visit: No (5) Perforated duodenal ulcer Status: Resolved Assessment and plan: Patient is fairly stable postop. She has had an ileus however and has continued to require TPN. Current Visit: No (6) Dehiscence of fascia Status: Resolved Assessment and plan: Patient has been followed by surgery Current Visit: No (7) Debility Status: Acute Assessment and plan: Patient has severe debility and has been extremely ill. The family is to the point where they want to keep her comfortable. This certainly appears to be reasonable. Current Visit: Yes Specialty Discharge - Follow Up or Referrals Follow up with: Bipin Lawson MD [Physician] - (notify md of room number) Jordan Dawn MD [Physician] - (notify of room number) Erasto Hoffman MD [Physician] - (notify of room number)
--- NOTE | 2017-03-06 08:04 | Event Note ---
This patient was seen and examined today. She is on comfort measures only. We will stop checking vital signs and any unnecessary treatment other than IV pain medication. She is confused but looks comfortable today. There is plan to send her to [facility] to assist with comfort measures and hospice care.
[2017-03-06 08:05] VITALS: BP 125/79
--- NOTE | 2017-03-06 09:25 | Oncology Progress Note ---
Oncology Subjective PN Interval history: I am continuing to follow Ms. Witt, more from a social standpoint than medically. She had a squamous cell lung cancer that has demonstrated no signs of recurrence so far. However she is medically severely debilitated by failure to heal of a perforated duodenal ulcer and by severe COPD. She is not fully oriented. She is mumbling incoherently. I agree with transferring her to [facility] for comfort measures. It is very unlikely that she will survive another 6 months because of generalized debilitation. Exam - Constitutional Vitals: Period Temp Pulse Resp BP Sys/Wilcox Pulse Ox Last 24 Hr 97.7 F-99.8 F 80-139 20-22 125-136/72-103 84-100 Results - Labs CBC & BMP: 03/05/17 06:22 03/05/17 05:06 Specialty Discharge - Follow Up or Referrals Follow up with: Bpiin Lawson MD [Physician] - (notify md of room number) Jordan Dawn MD [Physician] - (notify of room number) Erasto Hoffman MD [Physician] - (notify of room number)
[2017-03-06] MEDS: PROMETHAZINE 25 MG/1 ML VIAL IM PRN (20:23)
[2017-03-06] MEDS ORDERED: TEMAZEPAM 7.5 MG CAPSULE PO PRN (22:51)
[2017-03-06] MEDS ORDERED: ONDANSETRON 4 MG/2 ML VIAL IV PRN (22:51)
[2017-03-06] MEDS ORDERED: LOPERAMIDE 2 MG CAPSULE PO PRN ×2 (22:51)
[2017-03-06] MEDS ORDERED: LACTULOSE 20 GM/30 ML UDCUP PO PRN (22:51)
[2017-03-06] MEDS ORDERED: traMADol 50 MG TABLET PO PRN (22:51)
[2017-03-06] MEDS ORDERED: ACETAMINOPHEN 325 MG TABLET PO PRN (22:51)
[2017-03-06] MEDS ORDERED: BENZTROPINE 2 MG/2 ML AMP IV PRN (22:51)
[2017-03-06] MEDS ORDERED: guaiFENesin 200 MG/10 ML UDCUP PO PRN (22:51)
[2017-03-06] MEDS ORDERED: chlorproMAZINE 25 MG TABLET PO PRN (22:51)
[2017-03-06] MEDS ORDERED: ALPRAZolam 0.25 MG TABLET PO PRN (22:51)
[2017-03-06] MEDS ORDERED: ALUMINUM/MAGNES/SIMETH MAX STR 30 ML UDCUP PO PRN (22:51)
[2017-03-06] MEDS ORDERED: MYLANTA/LIDO VISC 2:1 300 ML BOTTLE SWISH/SPIT PRN (22:51)
[2017-03-06] MEDS ORDERED: chlorproMAZINE INJ 50 MG in SODIUM CHLORIDE 0.9% 100 ML IV PRN (22:51)
[2017-03-06] MEDS ORDERED: MAGNESIUM HYDROXIDE SUSP 30 ML UDCUP PO PRN (22:51)
[2017-03-06] MEDS ORDERED: chlorproMAZINE INJ 25 MG in SODIUM CHLORIDE 0.9% 100 ML IV PRN (22:51)
[2017-03-06] MEDS ORDERED: MYLANTA/LIDO VISC 2:1 300 ML BOTTLE SWISH/SWAL PRN (22:51)
[2017-03-06] MEDS ORDERED: diphenhydrAMINE CAP 25 MG CAPSULE PO PRN (22:51)
[2017-03-06] MEDS ORDERED: PROMETHAZINE INJ 25 MG in SODIUM CHLORIDE 0.9% 50 ML IV PRN (22:51)
[2017-03-07] MEDS: MORPHINE 2 MG/1 ML SYRINGE IV PRN ×2 (00:06→07:41)
[2017-03-07] MEDS: PROMETHAZINE 25 MG/1 ML VIAL IM PRN (00:11)
[2017-03-07] MEDS ORDERED: LORazepam 2 MG/1 ML VIAL ONE (08:12)
[2017-03-07] MEDS: LORazepam 2 MG/1 ML VIAL IV PRN ×2 (08:15→15:23)
[2017-03-07] MEDS ORDERED: LORazepam 2 MG/1 ML VIAL IV PRN (08:19)
--- NOTE | 2017-03-07 09:28 | Oncology Progress Note ---
Oncology Subjective PN Interval history: Ms. Witt is an extremely ill, very durable 81-year-old lady who I have treated for squamous cell carcinoma of the lung. She has had no chemotherapy recently because her lung cancer, which was treated a few months ago with chemotherapy and radiation, has achieved an apparent remission. She has class III cytologies on her most recent bronchoscopy. She has horrible COPD and she has a history of a perforated duodenal ulcer. She also has malnutrition and emaciation and cachexia. She is becoming progressively more confused. At this point she is receiving comfort measures only and I am visiting her and adding some psychological support, I hope. I have known her for years. I will continue to check in on her and contributed in otherwise if they are indicated. Exam - Constitutional Vitals: Period Temp Pulse Resp BP Sys/Wilcox Pulse Ox Last 24 Hr 86 16-24 90-94 Results - Labs CBC & BMP: 03/05/17 06:22 03/05/17 05:06 Specialty Discharge - Follow Up or Referrals Follow up with: Bipin Lawson MD [Physician] - (notify of room number) Jordan Dawn MD [Physician] - (notify of room number) Erasto Hoffman MD [Physician] - (notify of room number)
[2017-03-07] MEDS: MORPHINE PCA 30 MG/30 ML SYRINGE IV SCH (10:14)
--- NOTE | 2017-03-07 12:25 | Pulmonology Progress Note ---
Pulmonary - PN: Subj Interval history: Patient is a 81-year-old that has a history of lung cancer and pneumonia. She has had a perforated duodenal ulcer and had surgery. She has had a prolonged hospitalization with difficult problems she has not been able to eat or do anything worthwhile. She has become very confused. The family just wants to keep her comfortable. This morning she is resting and seems to be sleeping comfortably. She is not having a lot of respiratory difficulty at present. She is getting some morphine as needed. Exam (Progress Note) - Constitutional Vitals: Period Temp Pulse Resp BP Sys/Wilcox Pulse Ox Last 24 Hr 86-105 16-24 90-95 Exam: General appearance: mild distress (Patient is resting comfortably at present and seems to be sleeping okay.) - Head Head exam: Present: normal inspection - Eye Eye exam: Present: EOMI. Absent: scleral icterus Pupils: Present: MILDRED - ENT ENT exam: Present: normal exam - Neck Neck exam: Absent: lymphadenopathy, thyromegaly - Respiratory Respiratory exam: Present: She has decreased breath sounds on the right compared to the left with some rhonchi bilaterally. - Cardiovascular Cardiovascular exam: Present: regular rate and rhythm. Absent: gallop, systolic murmur - GI/Abdominal GI/Abdominal exam: Present: distended, hypoactive bowel sounds, tenderness, soft , other (Her abdomen is bandaged.) - Extremities Exam Extremities exam: Absent: calf tenderness, edema - Neurological Exam Neurological exam: Present: altered (Patient is sleeping comfortably at present. ) - Psychiatric Psychiatric exam: Present: anxious - Skin Skin exam: Present: warm, dry Results - Labs CBC & BMP: 03/05/17 06:22 03/05/17 05:06 Assessment and Plan (1) COPD (chronic obstructive pulmonary disease) Status: Chronic Assessment and plan: The patient has significant COPD but is comfortable with her breathing at present. She is getting morphine for distress and her family wants to keep her comfortable. 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 Current Visit: No (3) Pneumonia Status: Acute Assessment and plan: The patient has been getting treatment for pneumonia. Her respiratory status is stable. Current Visit: No (4) Altered mental status Status: Acute Assessment and plan: Patient has considerable confusion. Current Visit: No (5) Debility Status: Acute Assessment and plan: Patient has severe debility and has been extremely ill. The family is to the point where they want to keep her comfortable. She is getting some morphine as needed. She seems to be resting comfortably now. At this point I will sign off and please call if needed. Current Visit: Yes Specialty Discharge - Follow Up or Referrals Follow up with: Bipin Lawson MD [Physician] - (notify md of room number) Jordan Dawn MD [Physician] - (notify of room number) Erasto Hoffman MD [Physician] - (notify md of room number)
--- NOTE | 2017-03-07 13:33 | Event Note ---
Patient is on comfort measures. She was little uncomfortable this morning so we have adjusted her pain medication and Ativan as needed. Care was discussed with the family.
[2017-03-08] MEDS: MORPHINE PCA 30 MG/30 ML SYRINGE IV SCH ×3 (01:50→17:34)
[2017-03-08] MEDS: fentaNYL 25 MCG/HR PATCH TRANSDERM SCH (08:58)
--- NOTE | 2017-03-08 11:51 | Event Note ---
I have seen the patient today and discussed her care with the family. They are satisfied with her current care we will continue comfort care measures.
--- NOTE | 2017-03-11 10:18 | Discharge Summary ---
Hospital Course - Hospital Course Hospital Course: This patient was kept at [facility] for pneumatosis of the small bowel that was treated medically but the patient removed her NG tube and was initially doing well. [facility] and it was apparent to both myself and the treating physicians that the patient does not have capacity to make medical decisions. We initially discussed replacing the NG tube and the patient did not want to do this. I discussed this further with her family members and all family members eventually agreed that it would not be beneficial to treat the patient with aggressive measures. They actually decided to make the patient comfort care and she had already expressed an interest in being a DO NOT RESUSCITATE on her CODE STATUS. The patient was transitioned to comfort care measures with agreement of all family members involved and she was moved to the oncology floor where she was treated with pain medication and comfort measures. She eventually and seemed peaceful throughout her hospital stay. Diagnosis - Discharge Diagnosis (1) Pneumatosis intestinalis of small intestine Status: Resolved Specialty Discharge - Follow Up or Referrals Follow up with: Bipin Lawson MD [Physician] - (notify md of room number) Jordan Dawn MD [Physician] - (notify md of room number) Erasto Hoffman MD [Physician] - (notify md of room number) Discharge Plan - Discharge Data Disposition: - Discharge Medications New Diltiazem Cd Cap [Cardizem CD] 180 mg PO DAILY capsule Enoxaparin [Lovenox] 40 mg SUBCUT Q24H syringe HYDROcodone/ACETAMIN 7.5-325 [[place] 7.5-325] 1 tablet PO Q4H PRN tablet PRN Reason: Pain Moderate (4-7) HYDROmorphone INJ [Dilaudid Inj] 2 mg IV Q2H vial Multivitamin Inj 10 ml IV .Q24H vial Ondansetron Inj [Zofran Inj] 4 mg IV Q6H PRN vial PRN Reason: Nausea/Vomiting Pantoprazole Inj [Protonix Inj] 40 mg IV BID vial Promethazine Inj [Phenergan Inj] 25 mg IM Q4H PRN vial PRN Reason: Nausea/Vomiting Acetaminophen Tab [Tylenol Tab] 650 mg PO Q6H PRN tablet PRN Reason: Pain Mild (1-3) And/Or Fever Chlorhexidine 4% Soln [Hibiclens] 1 applic TOP DAILY applic Linezolid Inj [Zyvox Inj] 600 mg IV Q12H Piperacillin/Tazobactam [Zosyn] 3,375 mg IV Q8H vial Continue fentaNYL 25 MCG/HR PATCH [Duragesic 25 Patch] 1 patch TRANSDERM Q3DAY patch Levothyroxine Inj [Synthroid Inj] 100 mcg IV DAILY@0700 vial Albuterol/Ipratropium Neb [Duoneb] 3 ml RESP TX RT Q6H Discontinued dilTIAZem HCl [Cartia XT] 1 tablet PO DAILY HYDROmorphone INJ [Dilaudid Inj] 1 mg IV Q2H Spironolactone [Aldactone] 25 mg PO BID Clarithromycin 500 mg PO BID Amoxicillin Cap/Tab 1,000 mg PO Q12HR capsule HYDROcodone/ACETAMIN 7.5-325 [[place] 7.5-325] 1 tablet PO Q4H PRN tablet PRN Reason: Pain Moderate (4-7) Pantoprazole Tab [Protonix Tab] 40 mg PO BID tablet Skin Healing Oint (Aquaphor) [Aquaphor] 1 applic TOP PRN PRN applic PRN Reason: Dry Skin Albumin 25% 25 gm IV Q8H vial Furosemide Inj [Lasix Inj] 20 mg IV Q8H vial Promethazine Inj [Phenergan Inj] 25 mg IM Q4H PRN vial PRN Reason: Nausea/Vomiting - Follow Up or Referral Follow Up: Bipin Lawson MD [Physician] - (notify md of room number) Jordan Dawn MD [Physician] - (notify md of room number) Erasto Hoffman MD [Physician] - (notify md of room number) - Forms/Instructions DS: Provider Date of admission: 02/24/17 10:48 Primary care physician: Teddy Carbone MD Attending physician on admission: Jordan Dawn MD Consults: 02/24/17 11:55 Consult to Physician [CONS] Routine Comment: NG tube placement Consulting Provider: Grover Hale V 02/24/17 11:59 Consult to Anesthesiology [CONS] Routine Consulting Provider: Carlos Evans Reason for Anesthesiology: Pre-op Clearance 02/25/17 09:07 Consult to Dietitian [CONS] Routine Reason for Dietitian: TPN/PPN-Initiate/Manage Discharging clinician: Jordan Dawn MD Expected date of discharge: 03/09/17
--- NOTE | 2017-03-21 15:16 | Physician Query Form ---
CLICK EDIT DOCUMENT TO SELECT QUERY ANSWER --> OK --> SIGN Renae Hammer RN, CCDS Certified Clinical General Manager [employer] W) [phone] (f) [phone] [email or web address] PROVIDERS: Make your selection(s) from the choices in EACH section by typing an "x" and enter comments in the comment section. Please use your independent medical judgment in providing your response. This request does not imply that any particular answer is desired or expected. CLINICAL INDICATORS: (Providers should not edit this section) Based on documentation of confusion, "She appears very confused but does answer questions and is oriented to person but not place or time." "unable to make her own decisions with the appropriate insight and judgment", patient on comfort measures ACUITY: ( ) Acute (x ) Acute on Chronic ( ) Chronic ( ) Clinically unable to determine NATURE: (x ) Delirium due to general medical condition (x ) Dementia ( ) Encephalopathy ( ) Unconscious ( ) Transient level of awareness ( ) Comatose ( ) Locked-in State ( ) Persistent Vegetative State ( ) Other, please specify: ( ) Clinically unable to determine Please indicate the underlying cause of the altered mental status (CHECK ALL THAT APPLY): (x ) Baseline dementia ( ) Alzheimer's disease ( ) Parkinson's disease ( ) Lewy body dementia ( ) Acute stroke ( ) Late effect of stroke ( ) Reactive (from emotional stress, psychological trauma) ( ) Due to narcotics/other drugs ( ) Post procedural delirium ( ) Transient ischemic attack ( ) Generalized cerebral edema ( ) Normal pressure hydrocephalus ( ) Psychiatric illness ( ) Other, please specify: ( ) Clinically unable to determine Please indicate if there is an infection, sepsis, dehydration or specific organ failure that is causing the dementia. Be specific with clarifying the relationship between that process and the mental status change. COMMENTS: PLEASE ALSO DOCUMENT RESPONSE IN PROGRESS NOTES AND/OR DISCHARGE SUMMARY Use of terms such as suspected, likely, or probable (associated with a specific diagnosis that is being evaluated, monitored, or treated as if it exists) are acceptable and can be restated in the discharge summary if not ruled out. MTDD
--- NOTE | 2017-03-21 15:23 | Physician Query Form ---
CLICK EDIT DOCUMENT TO SELECT QUERY ANSWER --> OK --> SIGN Renae Hammer RN, CCDS Certified Clinical Director Compensation W) [phone] (f) [phone] [email or web address] PROVIDERS: Make your selection(s) from the choices in EACH section by typing an "x" and enter comments in the comment section. Please use your independent medical judgment in providing your response. This request does not imply that any particular answer is desired or expected. CLINICAL INDICATORS: (Providers should not edit this section) Patient admitted with pneumatosis of the small bowel, dehydration and renal failure with Creatinine on admission was 1.5 with GFR of 29, with improvement to Creatinine of 1.0 with GFR of 48 within 48 hours, treated with IVF bolus followed by infusion at 125cc/hr Clarify which of the following most accurately represents the patient's renal status: (x) Acute kidney injury (non-traumatic) ( ) Acute renal failure ( ) Acute renal failure with underlying Chronic Kidney Disease (CKD) - please provide stage below ( ) CKD - please provide stage below ( ) Other, please specify: ( ) Clinically unable to determine Chronic Kidney Disease Stages Source: National Kid[employer] ( ) Stage I (eGFR > or = 90) ( ) Stage II (eGFR 60 - 89) ( ) Stage III (eGFR 30 - 59) ( ) Stage IV (eGFR 15 - 29) ( ) Stage V (eGFR < 15 or dialysis) COMMENTS: PLEASE ALSO DOCUMENT RESPONSE IN PROGRESS NOTES AND/OR DISCHARGE SUMMARY Use of terms such as suspected, likely, or probable (associated with a specific diagnosis that is being evaluated, monitored, or treated as if it exists) are acceptable and can be restated in the discharge summary if not ruled out. MTDD
== END 2017-03-09 06:01 | disposition expired | DRG 393 ==
LOC: N.ICU 10:48 → N.TELES 02-26 05:25 → UNDODISIN 03-05 13:20 → N.4E 03-06 17:22
PROVIDERS: ADMIT Surgery; ATTEND Surgery